=== PATIENT | male | born 1950 | race Caucasian/White ===

== ENCOUNTER 2024-04-01 15:24 | Observation (INO) ==
--- NOTE | 2024-04-01 16:03 | XRay Report ---
SINGLE VIEW CHEST CLINICAL HISTORY: Strokelike symptoms. FINDINGS: A PA chest radiograph is compared to study dated 04/03/2019 and correlated with chest CT karishma ed 07/23/2016. The patient is status post midline sternotomy. The cardiomediastinal silhouette is top normal for projection noting atherosclerotic calcification of the thoracic aorta. The lungs and pleu ral spaces are clear. No pneumothorax is seen. The skeletal structures are osteopenic. The bony thora x is grossly intact. IMPRESSION: No active disease in the chest. ACT 112: Negative or not required by law. Electronically signed by: Pavel Youngblood M.D. 04/01/2024 4:02 PM
--- NOTE | 2024-04-01 16:06 | Emergency Department Note ---
Impression & Plan Right sided weakness, Stroke-like symptoms, LEONARDO (acute kidney injury), Stenosis of right vertebral artery, Syncope and collapse ED Provider Note HISTORY OF PRESENT ILLNESS: Patient is a 73-year-old male presenting with right-sided weakness and bilateral upper extremity numbness. Patient reports that he initially started having numbness and tingling in his left arm starting 4 weeks ago. States that it progressed up his arm and is now the entirety of his left arm. He states he is now also having weakness and numbness and tingling in his right upper extremity. Reports that he is unable to lift his right upper extremity without assisting it with the left upper extremity. He has also progressed to having weakness in the right lower leg, and has ambulatory dysfunction and often will be dragging his right foot behind him. He is on Plavix and 162 mg of aspirin daily. He has a previous history of open heart surgery with a triple bypass. He also reportedly has been having recurrent episodes in which he passes out. Denies any chest pain or shortness of breath prior to the passing out. Reports he gets lightheaded and dizzy and then falls to the ground. He is concerned he might of had a stroke. His last known well was over 4 weeks ago. He states that his doctor thought it might be PMR, but his testing came back negative so his doctor started him on a steroid. He has been on steroid for the last 10 days, without any improvement in his symptoms. He was at the chiropractor today and given his symptoms, the chiropractor sent him here. Patient denies ever having his neck cracked by a chiropractor. Denies any chest pain or shortness of breath. Denies any back pain or abdominal pain. ROS: as above PHYSICAL EXAM: Constitutional: Patient appears in no acute distress. HENT: Head: Normocephalic and atraumatic. Eyes: EOMI, PERRL Mouth/Throat: Mucous membranes moist. Neck: Trachea midline. Neck supple. Cardiovascular: RRR, No murmurs, rubs or gallops. Intact distal pulses. Pulmonary/Chest: No respiratory distress. Breath sounds clear and equal bilaterally. No wheezes or rales. Abdominal: Abdomen soft, no tenderness, rebound or guarding. Musculoskeletal: No edema, tenderness or deformity noted. Skin: Warm and dry. No rash, erythema, pallor or cyanosis Psychiatric: Appropriate mood and affect for situation. Neurological: Alert and keenly responsive. Facies symmetric. Able to raise eyebrows, close eyes, smile, puff mouth, stick out tongue, move tongue left and right and raise palate symmetrically. Able to shrug shoulders. PERRLA. SILT to forehead below eye and at jawline. Can hear soft noise bilaterally. Patient is unable to perform [id number] with the right upper extremity. He is unable to lift his right arm up to touch his nose. Strength 4/5 in right upper extremity and right lower extremity. Right upper extremity with some notable drift. MDM: - Vitals signs stable. - History obtained via patient. History as above. - Chronic conditions affecting care: hypothyroidism; HLD; CAD (s/p CABG) - Differential diagnoses include, but are not limited to: CVA; intracranial hemorrhage; vertebral dissection; ACS; dysrhythmia - Order placed for continuous cardiac monitoring. At this time, monitor showed rate of 76 bpm with normal sinus rhythm, per my interpretation. - External medical records reviewed. Outside family practice note dated 04/03/2019 was reviewed. Patient followed in their clinic for an acute evaluation for fever and left shoulder pain. Patient had a documented last thoracic echocardiogram on 10/24/2018 which showed an EF of 55 to 59%. - EKG interpreted by myself showed normal sinus rhythm. Rate 70 bpm. QT 380. No acute ischemic changes. - Laboratory workup interpreted by myself showed leukocytosis (WBC 11.07); normal PT/INR; normal electrolytes; LEONARDO (Cr 1.45); normal troponin; normal lactate - CXR negative for pneumonia, per my interpretation - CT head wo contrast negative for acute pathology - CTA head/neck showed high-grade stenosis of the right vertebral and posterior cerebral arteries secondary to atherosclerosis. - Discussed results with the patient. Though he has no obvious stroke on his CT imaging, significant concern for stroke and recommended admission for further stroke workup including an MRI. He is already on aspirin and Plavix. He is agreeable to admission. - Patient given 1L NS in setting of LEONARDO and contrast dye load for his CT imaging. - Discussion was had with clinical case manager about patient's case and need for admission - Hospitalist, Dr. Holguin, consulted for admission - [facility] ASSESSMENT AND PLAN: Diagnosis: Right-sided weakness; strokelike symptoms; LEONARDO; stenosis of right vertebral artery; syncope and collapse Plan: admit Past Med/Surg History Problem List Syncope and collapse (Acute) Stenosis of right vertebral artery (Acute) LEONARDO (acute kidney injury) (Acute) Stroke-like symptoms (Acute) Right sided weakness (Acute) Unstable angina (03/05/14) Coronary artery disease (Chronic) Dyslipidemia (Chronic) Sleep apnea (Chronic) Hypothyroidism (Chronic) Status post coronary artery stent placement (Chronic) Status post appendectomy (Chronic) Status post tonsillectomy (Chronic) Status post rotator cuff repair (Chronic) Social History Smoking Status: Never smoker Feels Safe at Home: Yes Allergies Allergies Allergy/AdvReac Type Severity Reaction Status Date / Time Sulfa (Sulfonamide Allergy Unknown Blisters Verified 04/01/24 18:50 Antibiotics) atenolol AdvReac Unknown BRADYCARDIA Verified 04/01/24 18:50 ,DIZZINESS metoprolol AdvReac Unknown BRADYCARDIA Verified 04/01/24 18:50 ,DIZZINESS Home Meds Home Medications Medication Instructions Recorded Confirmed acetaminophen 500 mg tablet 500 mg PO DIRECTED PRN Pain 04/03/19 04/01/24 aspirin 81 mg chewable tablet 162 mg PO QAM 04/03/19 04/01/24 atorvastatin 40 mg tablet 40 mg PO HS 04/03/19 04/01/24 carvedilol 6.25 mg tablet 6.25 mg PO BID 04/03/19 04/01/24 levothyroxine 100 mcg tablet 100 mcg PO QAM 04/03/19 04/01/24 nitroglycerin 0.4 mg sublingual 0.4 mg sublingual DIRECTED PRN 04/03/19 04/01/24 tablet Chest Pain hydrochlorothiazide 25 mg tablet 25 mg PO QAM 04/01/24 04/01/24 losartan 100 mg tablet 100 mg PO QAM 04/01/24 04/01/24 Results & Data (ED) Vital Signs Vital Signs - 24 hr 04/01/24 15:26 04/01/24 16:21 04/01/24 17:06 Temperature 36.1 C L Temperature Source Temporal Artery Scan Pulse Rate 88 76 Pulse Rate [Apical] 71 Respiratory Rate 16 15 Respiratory Effort / Characteristics Non-Labored Spontaneous Respiratory Depth Normal Blood Pressure 140/93 Blood Pressure [Left Arm] 135/86 Blood Pressure Mean 108 Blood Pressure Mean [Left Arm] 102 Pulse Oximetry 100 98 Oxygen Delivery Method Room Air Room Air Sepsis Recent Fever Within 48 Hours No Sepsis New/Unexplained Change in Mental Status N/A Sepsis Action Taken by Nursing No Action Required 04/01/24 19:00 Temperature Temperature Source Pulse Rate Pulse Rate [Apical] 76 Respiratory Rate 18 Respiratory Effort / Characteristics Respiratory Depth Blood Pressure Blood Pressure [Left Arm] 166/91 H Blood Pressure Mean Blood Pressure Mean [Left Arm] 116 Pulse Oximetry 99 Oxygen Delivery Method Room Air Sepsis Recent Fever Within 48 Hours Sepsis New/Unexplained Change in Mental Status Sepsis Action Taken by Nursing Laboratory Data 04/01/24 16:25 04/01/24 16:25 Lab Results 04/01/24 04/01/24 Range/Units 16:20 16:25 WBC 11.07 H (4.8-10.8) K/ul RBC 4.67 L (4.70-6.10) M/uL Hgb 14.2 (14.0-18.0) g/dl Hct 42.5 (42.0-52.0) % MCV 91.0 (80.0-100.0) fL MCH 30.4 (25.0-34.0) pg MCHC 33.4 (32.0-36.0) g/dL RDW Std Deviation 45.3 (36.4-46.3) fL RDW Coeff of Jelly 13.5 (11.5-14.5) % Plt Count 212 (130-400) K/uL MPV 11.2 (9.4-12.4) fL PT 10.3 (9.0-12.0) Seconds INR 0.9 (0.9-1.1) APTT 28 (21-31) Seconds PTT Ratio 1.0 Sodium 136 (136-145) mmol/L Potassium 4.3 (3.5-5.1) mmol/L Chloride 103 (98-107) mmol/L Carbon Dioxide 27 (21-32) mmol/L Anion Gap 6 (3-11) BUN 25 H (6-23) mg/dl Creatinine 1.45 H (0.6-1.4) mg/dl Est Cr Clr Drug Dosing 47.3 ml/min Est GFR ( Amer) 55.8 ml/min Est GFR (Non-Af Amer) 48.1 ml/min BUN/Creatinine Ratio 17.2 (10-20) Glucose 97 (70-99(Fasting)) mg/dl Lactate 1.8 (0.4-2.0) mmol/L Calcium 9.6 (8.6-10.3) mg/dl Magnesium 1.9 (1.7-2.4) mg/dl Total Bilirubin 0.8 (0.2-1.0) mg/dl AST 15 (13-39) U/L ALT 16 (7-52) U/L Alkaline Phosphatase 63 (34-104) U/L Troponin I High Sens 3.9 (0-20) pg/ml Total Protein 7.3 (6.0-8.3) gm/dl Albumin 4.3 (3.4-5.0) gm/dl Globulin 3.0 (2.5-4.0) gm/dl Albumin/Globulin Ratio 1.4 (0.9-2) Administered Medications Discontinued Medications Sodium Chloride (Nss) 1,000 mls @ 999 mls/hr IV .Q1H1M ONE Stop: 04/01/24 18:01 Last Infusion: 04/01/24 18:12 Dose: Infused Documented By: Admin: 04/01/24 17:07 Dose: 999 mls/hr Documented By: YRN Ioversol (Optiray 320 125ml) 117 ml IV ONCE ONE Stop: 04/01/24 17:44 Last Admin: 04/01/24 17:43 Dose: 117 ml Documented By: JACINTA Imaging Data Radiologist's Impression: Chest X-Ray 04/01/24 15:29 SINGLE VIEW CHEST CLINICAL HISTORY: Strokelike symptoms. FINDINGS: A PA chest radiograph is compared to study dated 04/03/2019 and correlated with chest CT dated 07/23/2016. The patient is status post midline sternotomy. The cardiomediastinal silhouette is top normal for projection noting atherosclerotic calcification of the thoracic aorta. The lungs and pleural spaces are clear. No pneumothorax is seen. The skeletal structures are osteopenic. The bony thorax is grossly intact. IMPRESSION: No active disease in the chest. ACT 112: Negative or not required by law. Electronically signed by: Pavel Youngblood M.D. 04/01/2024 4:[address] 04/01/24 15:32 CT angio head w con, CT angio neck with con, CT head/brain wo con CLINICAL HISTORY: 73 years-old Male with arm numbness; neck pain s/p chiropractor apt. Acute stroke like symptoms COMPARISON STUDY: None TECHNIQUE: Unenhanced axial CT scan of the brain is performed. Subsequently, following the IV administration of 117 cc of Optiray, CT angiogram of the head and neck was performed from the aortic arch to the skull apex. Images are reviewed in the axial, sagittal, and coronal planes. 3-D MIPS images are created and assessed. IV contrast was administered without complication. All measurements were obtained according to NASCET criteria. A dose lowering technique was utilized adhering to the principles of ALARA. CT DOSE: 1243.82 mGy.cm FINDINGS: CT BRAIN: There is no acute intracranial hemorrhage, midline shift, hydrocephalus, intracranial mass, territorial ischemia or abnormal extra-axial collections. No abnormal intra-axial or extra-axial enhancement. Involutional changes with chronic microvascular ischemic disease. Mildly motion degraded exam. Mastoid air cells and middle ear cavities are clear. No calvarial fracture. Paranasal sinuses are clear. CT ANGIOGRAM OF THE HEAD AND NECK: Median sternotomy wires. Three-vessel morphology thoracic aortic arch. There is patency of the innominate and imaged subclavian arteries. The common carotid arteries are widely patent. There is moderate atherosclerotic plaque of the carotid bulbs without high-grade stenosis. The bilateral anterior and middle cerebral arteries are also patent. There is a mild multifocal middle cerebral arterial stenosis. Dominant left vertebral artery. High-grade stenosis at the origin of the right vertebral artery secondary to calcified plaque. Additional high-grade stenosis in the V4 segment right vertebral artery image 319. Patent basilar and left posterior cerebral artery. High-grade stenosis of the right P1 segment, image 115 series 5. No aneurysm, dissection or proximal branch occlusion identified. Lung apices are clear without pneumothorax. Unremarkable thyroid and soft tissues. Indeterminate posterior right cervical chain lymph node measures 8 mm on image 243 series 6. Degenerative changes of the cervical spine. IMPRESSION: 1. No acute intracranial abnormality. 2. High-grade stenoses of the right vertebral and posterior cerebral arteries secondary to atherosclerosis. 3. Moderate atherosclerosis of the carotid bulbs without high-grade stenosis. 4. No aneurysm, dissection or arterial occlusion identified. ACT 112: Negative or not required by law. The above report was generated using voice recognition software. It may contain grammatical, syntax or spelling errors. Electronically signed by: Daniel Castro M.D. 04/01/2024 6:16 PM Head CTA 04/01/24 15:32 CT angio head w con, CT angio neck with con, CT head/brain wo con CLINICAL HISTORY: 73 years-old Male with arm numbness; neck pain s/p chiropractor apt. Acute stroke like symptoms COMPARISON STUDY: None TECHNIQUE: Unenhanced axial CT scan of the brain is performed. Subsequently, following the IV administration of 117 cc of Optiray, CT angiogram of the head and neck was performed from the aortic arch to the skull apex. Images are reviewed in the axial, sagittal, and coronal planes. 3-D MIPS images are created and assessed. IV contrast was administered without complication. All measurements were obtained according to NASCET criteria. A dose lowering technique was utilized adhering to the principles of ALARA. CT DOSE: 1243.82 mGy.cm FINDINGS: CT BRAIN: There is no acute intracranial hemorrhage, midline shift, hydrocephalus, intracranial mass, territorial ischemia or abnormal extra-axial collections. No abnormal intra-axial or extra-axial enhancement. Involutional changes with chronic microvascular ischemic disease. Mildly motion degraded exam. Mastoid air cells and middle ear cavities are clear. No calvarial fracture. Paranasal sinuses are clear. CT ANGIOGRAM OF THE HEAD AND NECK: Median sternotomy wires. Three-vessel morphology thoracic aortic arch. There is patency of the innominate and imaged subclavian arteries. The common carotid arteries are widely patent. There is moderate atherosclerotic plaque of the carotid bulbs without high-grade stenosis. The bilateral anterior and middle cerebral arteries are also patent. There is a mild multifocal middle cerebral arterial stenosis. Dominant left vertebral artery. High-grade stenosis at the origin of the right vertebral artery secondary to calcified plaque. Additional high-grade stenosis in the V4 segment right vertebral artery image 319. Patent basilar and left posterior cerebral artery. High-grade stenosis of the right P1 segment, image 115 series 5. No aneurysm, dissection or proximal branch occlusion identified. Lung apices are clear without pneumothorax. Unremarkable thyroid and soft tissues. Indeterminate posterior right cervical chain lymph node measures 8 mm on image 243 series 6. Degenerative changes of the cervical spine. IMPRESSION: 1. No acute intracranial abnormality. 2. High-grade stenoses of the right vertebral and posterior cerebral arteries secondary to atherosclerosis. 3. Moderate atherosclerosis of the carotid bulbs without high-grade stenosis. 4. No aneurysm, dissection or arterial occlusion identified. ACT 112: Negative or not required by law. The above report was generated using voice recognition software. It may contain grammatical, syntax or spelling errors. Electronically signed by: Daniel Castro M.D. 04/01/2024 6:16 PM Neck CTA 04/01/24 15:32 CT angio head w con, CT angio neck with con, CT head/brain wo con CLINICAL HISTORY: 73 years-old Male with arm numbness; neck pain s/p chiropractor apt. Acute stroke like symptoms COMPARISON STUDY: None TECHNIQUE: Unenhanced axial CT scan of the brain is performed. Subsequently, following the IV administration of 117 cc of Optiray, CT angiogram of the head and neck was performed from the aortic arch to the skull apex. Images are reviewed in the axial, sagittal, and coronal planes. 3-D MIPS images are created and assessed. IV contrast was administered without complication. All measurements were obtained according to NASCET criteria. A dose lowering technique was utilized adhering to the principles of ALARA. CT DOSE: 1243.82 mGy.cm FINDINGS: CT BRAIN: There is no acute intracranial hemorrhage, midline shift, hydrocephalus, intracranial mass, territorial ischemia or abnormal extra-axial collections. No abnormal intra-axial or extra-axial enhancement. Involutional changes with chronic microvascular ischemic disease. Mildly motion degraded exam. Mastoid air cells and middle ear cavities are clear. No calvarial fracture. Paranasal sinuses are clear. CT ANGIOGRAM OF THE HEAD AND NECK: Median sternotomy wires. Three-vessel morphology thoracic aortic arch. There is patency of the innominate and imaged subclavian arteries. The common carotid arteries are widely patent. There is moderate atherosclerotic plaque of the carotid bulbs without high-grade stenosis. The bilateral anterior and middle cerebral arteries are also patent. There is a mild multifocal middle cerebral arterial stenosis. Dominant left vertebral artery. High-grade stenosis at the origin of the right vertebral artery secondary to calcified plaque. Additional high-grade stenosis in the V4 segment right vertebral artery image 319. Patent basilar and left posterior cerebral artery. High-grade stenosis of the right P1 segment, image 115 series 5. No aneurysm, dissection or proximal branch occlusion identified. Lung apices are clear without pneumothorax. Unremarkable thyroid and soft tissues. Indeterminate posterior right cervical chain lymph node measures 8 mm on image 243 series 6. Degenerative changes of the cervical spine. IMPRESSION: 1. No acute intracranial abnormality. 2. High-grade stenoses of the right vertebral and posterior cerebral arteries secondary to atherosclerosis. 3. Moderate atherosclerosis of the carotid bulbs without high-grade stenosis. 4. No aneurysm, dissection or arterial occlusion identified. ACT 112: Negative or not required by law. The above report was generated using voice recognition software. It may contain grammatical, syntax or spelling errors. Electronically signed by: Daniel Castro M.D. 04/01/2024 6:16 PM Discharge Plan Visit Data Chief Complaint: Referred by Doctor Stated Complaint: ARM NUMBNESS, NECK PAIN ED Provider: Brigette Constantino Discharge Problem: Right sided weakness, Stroke-like symptoms, LEONARDO (acute kidney injury), Stenosis of right vertebral artery, Syncope and collapse Forms Stand Alone Forms: My [facility] [employer] Prescriptions Prescriptions: No Action atorvastatin 40 mg tablet 40 mg PO HS carvedilol 6.25 mg tablet 6.25 mg PO BID levothyroxine 100 mcg tablet 100 mcg PO QAM Rx Instructions: TAKE THIS MEDICATION AT LEAST 30 MINUTES BEFORE BREAKFAST OR ANY OTHER MEDICATION aspirin 81 mg tablet,chewable 162 mg PO QAM nitroglycerin 0.4 mg Tablet, Sublingual 0.4 mg sublingual DIRECTED PRN (Reason: Chest Pain) Rx Instructions: PLACE ONE TABLET UNDER THE TONGUE EVERY 5 MINUTES FOR UP TO 3 DOSES OVER 15 MINUTES IF NEEDED FOR CHEST PAIN acetaminophen 500 mg Tablet 500 mg PO DIRECTED PRN (Reason: Pain) Rx Instructions: TAKE PER PACKAGE DIRECTIONS hydrochlorothiazide 25 mg tablet 25 mg PO QAM losartan 100 mg tablet 100 mg PO QAM Referrals Referrals: Ritesh Iniguez MD [Primary Care Provider] -
[2024-04-01 16:57] LABS: Albumin Globulin Ratio 1.4 (0.9-2); Albumin Level 4.3 gm/dl (3.4-5.0); BUN Creatinine Ratio 17.2 (10-20); Bilirubin,Total 0.8 mg/dl (0.2-1.0); Calcium 9.6 mg/dl (8.6-10.3); Creatinine Clr Calc Pharmacy 47.3 ml/min; Est GFR (African American) 55.8 ml/min; Est GFR (Non-African American) 48.1 ml/min; Magnesium 1.9 mg/dl (1.7-2.4); Potassium 4.3 mmol/L (3.5-5.1); Total Protein 7.3 gm/dl (6.0-8.3)
[2024-04-01 16:58] LABS: Hematocrit (blood only) 42.5 % (42.0-52.0); Hemoglobin 14.2 g/dl (14.0-18.0); Mean Corpuscular Hemoglobin 30.4 pg (25.0-34.0); Mean Corpuscular Hgb Conc 33.4 g/dL (32.0-36.0); Mean Platelet Volume 11.2 fL (9.4-12.4); Platelet Count 212 K/uL (130-400); RDW Coefficient of Variation 13.5 % (11.5-14.5); RDW Standard Deviation 45.3 fL (36.4-46.3); Red Blood Count 4.67 M/uL (4.70-6.10); White Blood Count 11.07 K/ul (4.8-10.8)
[2024-04-01 17:03] LABS: Troponin I High Sensitivity 3.9 pg/ml (0-20)
[2024-04-01 17:05] LABS: INR 0.9 (0.9-1.1); Partial Thromboplastin Time 28 Seconds (21-31); Prothrombin Time 10.3 Seconds (9.0-12.0)
[2024-04-01] MEDS: SODIUM CHLORIDE 0.9% 1,000 ML IV ONE ×2 (17:07→21:54)
[2024-04-01] MEDS: OPTIRAY 320 125ml IV ONE (17:43)
--- NOTE | 2024-04-01 18:19 | CT Scan Report ---
CT angio head w con, CT angio neck with con, CT head/brain wo con CLINICAL HISTORY: 73 years-old Male with arm numbness; neck pain s/p chiropractor apt. Acute strok e like symptoms COMPARISON STUDY: None TECHNIQUE: Unenhanced axial CT scan of the brain is performed. Subsequently, following the IV adminis tration of 117 cc of Optiray, CT angiogram of the head and neck was performed from the aortic arch to the skull apex. Images are reviewed in the axial, sagittal, and coronal planes. 3-D MIPS images are created and assessed. IV contrast was administered without complication. All measurements were obtain ed according to NASCET criteria. A dose lowering technique was utilized adhering to the principles of ALARA. CT DOSE: 1243.82 mGy.cm FINDINGS: CT BRAIN: There is no acute intracranial hemorrhage, midline shift, hydrocephalus, intracranial mass, territori al ischemia or abnormal extra-axial collections. No abnormal intra-axial or extra-axial enhancement. Involutional changes with chronic microvascular ischemic disease. Mildly motion degraded exam. Masto id air cells and middle ear cavities are clear. No calvarial fracture. Paranasal sinuses are clear. CT ANGIOGRAM OF THE HEAD AND NECK: Median sternotomy wires. Three-vessel morphology thoracic aortic arch. There is patency of the innomi brisa and imaged subclavian arteries. The common carotid arteries are widely patent. There is moderate atherosclerotic plaque of the carotid bulbs without high-grade stenosis. The bilateral anterior and middle cerebral arteries are also patent. There is a mild multifocal middle cerebral arterial stenosi s. Dominant left vertebral artery. High-grade stenosis at the origin of the right vertebral artery se condary to calcified plaque. Additional high-grade stenosis in the V4 segment right vertebral artery image 319. Patent basilar and left posterior cerebral artery. High-grade stenosis of the right P1 seg ment, image 115 series 5. No aneurysm, dissection or proximal branch occlusion identified. Lung apices are clear without pneumothorax. Unremarkable thyroid and soft tissues. Indeterminate post erior right cervical chain lymph node measures 8 mm on image 243 series 6. Degenerative changes of th e cervical spine. IMPRESSION: 1. No acute intracranial abnormality. 2. High-grade stenoses of the right vertebral and posterior cerebral arteries secondary to atheroscle rosis. 3. Moderate atherosclerosis of the carotid bulbs without high-grade stenosis. 4. No aneurysm, dissection or arterial occlusion identified. ACT 112: Negative or not required by law. The above report was generated using voice recognition software. It may contain grammatical, syntax o r spelling errors. Electronically signed by: Daniel Castro M.D. 04/01/2024 6:16 PM
--- NOTE | 2024-04-01 18:35 | Electrocardiogram Report ---
Test Reason : Blood Pressure : / mmHG Vent. Rate : 070 BPM Atrial Rate : 070 BPM P-R Int : 158 ms QRS Dur : 082 ms QT Int : 380 ms P-R-T Axes : 020 027 095 degrees QTc Int : 410 ms Normal sinus rhythm When compared with ECG of 03-APR-2019 15:30, Premature atrial complexes are no longer Present Confirmed by Krishna Romero ([id number]) on 04/01/2024 6:35:37 PM Referred By: REFERRED SELF Confirmed By:Villa Romero
[2024-04-01] MEDS: MAGNESIUM SULFATE / D5W 1 GM/100 ML BAG IV ONE (20:05)
--- NOTE | 2024-04-01 21:42 | History & Physical Report ---
Date of Service April 01, 2024 Assessment & Plan (1) Right sided weakness: Plan: Rule out CVA Rule out myelopathy given neck and low back pain complaints. CAD status post CABG PVD on imaging valvular heart disease (mild MR/TR) hypertension, slightly elevated hyperlipidemia, on statin Rx EULALIA on CPAP hypothyroidism, euthyroid as of recent outpatient TSH OBS Medical telemetry Neurochecks until CVA ruled out Aspirin for secondary stroke prevention Permissive hypertension until definitively stroke ruled out MRI brain MRI cervical spine and lumbar spine DVT prophylaxis. SCDs Re: Possible spinal pathology which may require intervention Full code Patient daughter requesting updates providers. Ms. Adina Rhodes, contact #[phone]. Text document was generated using Dada voice recognition software. It may contain grammatical or spelling errors. Kindly contact undersigned for clarification of any documentation item in question. History of Present Illness Chief Complaint: Worsening right arm weakness Primary Care Provider: Ritesh Iniguez MD History obtained from patient, family, and records. Medical history significant for CAD status post CABG, valvular heart disease (mild MR/TR), hypertension, hyperlipidemia, EULALIA on CPAP, GERD, hypothyroidism. Last confinement 2015 for unstable angina. 1 month history of bilateral upper extremity weakness, left later followed by the right with numbness of the hands. Associated neck pain and fatigue symptoms. No recollection of trauma. Patient seen at PCP's office. Steroid course prescribed for possible PMR. ESR within normal limits. No improvement in symptoms. Patient noted worsening right upper extremity weakness later followed by back pain with right leg weakness. No incontinence symptoms. No fever, no chills. Patient seen at chiropractor's office few days ago. Low back maneuver done which improved back pain. Persistent arm weakness and numbness symptoms. Patient directed to ER by family for further evaluation. Medical History as above Surgical History : CABG, knee surgery, appendectomy, tonsillectomy/adenectomy, shoulder surgery Family History : DM, heart disease, stroke Personal/Social history : Non-smoker, no EtOH intake, retired [employer] employee Allergies Allergy/AdvReac Type Severity Reaction Status Date / Time Sulfa (Sulfonamide Allergy Unknown Blisters Verified 04/01/24 18:50 Antibiotics) atenolol AdvReac Unknown BRADYCARDIA Verified 04/01/24 18:50 ,DIZZINESS metoprolol AdvReac Unknown BRADYCARDIA Verified 04/01/24 18:50 ,DIZZINESS Home Medications Medication Instructions Recorded Confirmed Type acetaminophen 500 mg tablet 500 mg PO DIRECTED PRN Pain 04/03/19 04/01/24 History aspirin 81 mg chewable tablet 162 mg PO QAM 04/03/19 04/01/24 History atorvastatin 40 mg tablet 40 mg PO HS 04/03/19 04/01/24 History carvedilol 6.25 mg tablet 6.25 mg PO BID 04/03/19 04/01/24 History levothyroxine 100 mcg tablet 100 mcg PO QAM 04/03/19 04/01/24 History nitroglycerin 0.4 mg sublingual 0.4 mg sublingual DIRECTED PRN 04/03/19 04/01/24 History tablet Chest Pain hydrochlorothiazide 25 mg tablet 25 mg PO QAM 04/01/24 04/01/24 History losartan 100 mg tablet 100 mg PO QAM 04/01/24 04/01/24 History Past Med/Surg History Problem List Syncope and collapse (Acute) Stenosis of right vertebral artery (Acute) LEONARDO (acute kidney injury) (Acute) Stroke-like symptoms (Acute) Right sided weakness (Acute) Unstable angina (03/05/14) Coronary artery disease (Chronic) Dyslipidemia (Chronic) Sleep apnea (Chronic) Hypothyroidism (Chronic) Status post coronary artery stent placement (Chronic) Status post appendectomy (Chronic) Status post tonsillectomy (Chronic) Status post rotator cuff repair (Chronic) Social History Smoking Status: Never smoker Hx Alcohol Use: No Hx Substance Use: No Preferred Language: Mongolian Communication Ability: Effective Collision Center Manager Required: No Beliefs That Will Affect Care: None Current Living Situation: Spouse Other Information That Helps Us Care for You: No Feels Safe at Home: Yes Safety Concerns: Feels Safe At This Time Assistive Devices: Glasses Review of Systems Review of Systems: As per HPI, all other systems reviewed and negative Physical Exam Physical Exam: GENERAL: Slightly uncomfortable, pleasant, no respiratory distress SKIN: Normal color, warm HEENT: Alopecia, pink palpebral conjunctivae, no ptosis, dry buccal mucosa NECK : Supple, right cervical tenderness CHEST : CTA, no tenderness HEART : RRR, no obvious murmurs ABDOMEN: Some distention, nontender EXTREMITIES : No LE swelling/tenderness, no other conspicuous deformities noted NEUROLOGIC : Coherent, no facial asymmetry, MMTS BUE/BLE 3/5, gait and stance not assessed Results & Data Results & Data Vital Signs (Past 12 Hours) Vital Signs Temp Pulse Pulse Resp BP BP Pulse Ox 04/01/24 21:00 80 19 142/81 H 95 04/01/24 20:42 85 04/01/24 19:00 76 18 166/91 H 99 04/01/24 17:06 71 15 135/86 98 04/01/24 16:21 76 04/01/24 15:26 36.1 C L 88 16 140/93 100 O2 Del Method 04/01/24 21:00 Room Air 04/01/24 20:42 04/01/24 19:00 Room Air 04/01/24 17:06 Room Air 04/01/24 16:21 04/01/24 15:26 Room Air Laboratory Results Laboratory Results WBC 11.07 K/ul (4.8-10.8) H 04/01/24 16:25 RBC 4.67 M/uL (4.70-6.10) L 04/01/24 16:25 Hgb 14.2 g/dl (14.0-18.0) 04/01/24 16:25 Hct 42.5 % (42.0-52.0) 04/01/24 16: MCV 91.0 fL (80.0-100.0) 04/01/24 16:25 MCH 30.4 pg (25.0-34.0) 04/01/24 16: MCHC 33.4 g/dL (32.0-36.0) 04/01/24 16:25 RDW Std Deviation 45.3 fL (36.4-46.3) 04/01/24 16: RDW Coeff of Jelly 13.5 % (11.5-14.5) 04/01/24 16:25 Plt Count 212 K/uL (130-400) 04/01/24 16:25 MPV 11.2 fL (9.4-12.4) 04/01/24 16:25 PT 10.3 Seconds (9.0-12.0) 04/01/24 16:25 INR 0.9 (0.9-1.1) 04/01/24 16:25 APTT 28 Seconds (21-31) 04/01/24 16:25 PTT Ratio 1.0 04/01/24 16:25 Sodium 136 mmol/L (136-145) 04/01/24 16:25 Potassium 4.3 mmol/L (3.5-5.1) 04/01/24 16:25 Chloride 103 mmol/L (98-107) 04/01/24 16:25 Carbon Dioxide 27 mmol/L (21-32) 04/01/24 16:25 Anion Gap 6 (3-11) 04/01/24 16:25 BUN 25 mg/dl (6-23) H 04/01/24 16:25 Creatinine 1.45 mg/dl (0.6-1.4) H 04/01/24 16:25 Est Cr Clr Drug Dosing 47.3 ml/min 04/01/24 16:25 Est GFR ( Amer) 55.8 ml/min 04/01/24 16:25 Est GFR (Non-Af Amer) 48.1 ml/min 04/01/24 16:25 BUN/Creatinine Ratio 17.2 (10-20) 04/01/24 16:25 Glucose 97 mg/dl (70-99(Fasting)) 04/01/24 16:25 Lactate 1.8 mmol/L (0.4-2.0) 04/01/24 16:20 Calcium 9.6 mg/dl (8.6-10.3) 04/01/24 16:25 Magnesium 1.9 mg/dl (1.7-2.4) 04/01/24 16:25 Total Bilirubin 0.8 mg/dl (0.2-1.0) 04/01/24 16:25 AST 15 U/L (13-39) 04/01/24 16:25 ALT 16 U/L (7-52) 04/01/24 16:25 Alkaline Phosphatase 63 U/L (34-104) 04/01/24 16:25 Troponin I High Sens 3.9 pg/ml (0-20) 04/01/24 16:25 Total Protein 7.3 gm/dl (6.0-8.3) 04/01/24 16:25 Albumin 4.3 gm/dl (3.4-5.0) 04/01/24 16:25 Globulin 3.0 gm/dl (2.5-4.0) 04/01/24 16:25 Albumin/Globulin Ratio 1.4 (0.9-2) 04/01/24 16:25 Impressions Chest X-Ray 04/01/24 15:29 SINGLE VIEW CHEST CLINICAL HISTORY: Strokelike symptoms. FINDINGS: A PA chest radiograph is compared to study dated 04/03/2019 and correlated with chest CT dated 07/23/2016. The patient is status post midline sternotomy. The cardiomediastinal silhouette is top normal for projection noting atherosclerotic calcification of the thoracic aorta. The lungs and pleural spaces are clear. No pneumothorax is seen. The skeletal structures are osteope ellyn. The bony thorax is grossly intact. IMPRESSION: No active disease in the chest. ACT 112: Negative or not required by law. Electronically signed by: Pavel Youngblood M.D. 04/01/2024 4:[address] 04/01/24 15:32 CT angio head w con, CT angio neck with con, CT head/brain wo con CLINICAL HISTORY: 73 years-old Male with arm numbness; neck pain s/p chiro practor apt. Acute stroke like symptoms COMPARISON STUDY: None TECHNIQUE: Unenhanced axial CT scan of the brain is performed. Subsequently, following the IV administration of 117 cc of Optiray, CT angiogram of the head and neck was performed from the aortic arch to the skull apex. Images are reviewed in the axial, sagittal, and coronal planes. 3-D MIPS images are created and assessed. IV contrast was administered without complication. All measurements were obtained according to NASCET criteria. A dose lowering technique was utilized adhering to the principles of ALARA. CT DOSE: 1243.82 mGy.cm FINDINGS: CT BRAIN: There is no acute intracranial hemorrhage, midline shift, hydrocephalus, intracranial mass, territorial ischemia or abnormal extra-axial collections. No abnormal intra-axial or extra-axial enhancement. Involutional changes with chronic microvascular ischemic disease. Mildly motion degraded exam. Mastoid air cells and middle ear cavities are clear. No calvarial fracture. Paranasal sinuses are clear. CT ANGIOGRAM OF THE HEAD AND NECK: Median sternotomy wires. Three-vessel morphology thoracic aortic arch. There is patency of the innominate and imaged subclavian arteries. The common carotid arteries are widely patent. There is moderate atherosclerotic plaque of the carotid bulbs without high-grade stenosis. The bilateral anterior and middle cerebral arteries are also patent. There is a mild multifocal middle cerebral arterial stenosis. Dominant left vertebral artery. High-grade stenosis at the origin of the right vertebral artery secondary to calcified plaque. Additional high-grade stenosis in the V4 segment right vertebral artery image 319. Patent basilar and left posterior cerebral artery. High-grade stenosis of the right P1 segment, image 115 series 5. No aneurysm, dissection or proximal branch occlusion identified. Lung apices are clear without pneumothorax. Unremarkable thyroid and soft tissues. Indeterminate posterior right cervical chain lymph node measures 8 mm on image 243 series 6. Degenerative changes of the cervical spine. IMPRESSION: 1. No acute intracranial abnormality. 2. High-grade stenoses of the right vertebral and posterior cerebral arteries secondary to atherosclerosis. 3. Moderate atherosclerosis of the carotid bulbs without high-grade stenosis. 4. No aneurysm, dissection or arterial occlusion identified. ACT 112: Negative or not required by law. The above report was generated using voice recognition software. It may contain grammatical, syntax or spelling errors. Electronically signed by: Daniel Castro M.D. 04/01/2024 6:16 PM Head CTA 04/01/24 15:32 CT angio head w con, CT angio neck with con, CT head/brain wo con CLINICAL HISTORY: 73 years-old Male with arm numbness; neck pain s/p chiropractor apt. Acute stroke like symptoms COMPARISON STUDY: None TECHNIQUE: Unenhanced axial CT scan of the brain is performed. Subsequently, following the IV administration of 117 cc of Optiray, CT angiogram of the head and neck was performed from the aortic arch to the skull apex. Images are reviewed in the axial, sagittal, and coronal planes. 3-D MIPS images are created and assessed. IV contrast was administered without complication. All measurements were obtained according to NASCET criteria. A dose lowering technique was utilized adhering to the principles of ALARA. CT DOSE: 1243.82 mGy.cm FINDINGS: CT BRAIN: There is no acute intracranial hemorrhage, midline shift, hydrocephalus, intracranial mass, territorial ischemia or abnormal extra-axial collections. No abnormal intra-axial or extra-axial enhancement. Involutional changes with chronic microvascular ischemic disease. Mildly motion degraded exam. Mastoid air cells and middle ear cavities are clear. No calvarial fracture. Paranasal sinuses are clear. CT ANGIOGRAM OF THE HEAD AND NECK: Median sternotomy wires. Three-vessel morphology thoracic aortic arch. There is patency of the innominate and imaged subclavian arteries. The common carotid arteries are widely patent. There is moderate atherosclerotic plaque of the carotid bulbs without high-grade stenosis. The bilateral anterior and middle cerebral arteries are also patent. There is a mild multifocal middle cerebral arterial stenosis. Dominant left vertebral artery. High-grade stenosis at the origin of the right vertebral artery secondary to calcified plaque. Additional high-grade stenosis in the V4 segment right vertebral artery image 319. Patent basilar and left posterior cerebral artery. High-grade stenosis of the right P1 segment, image 115 series 5. No aneurysm, dissection or proximal branch occlusion identified. Lung apices are clear without pneumothorax. Unremarkable thyroid and soft tissue s. Indeterminate posterior right cervical chain lymph node measures 8 mm on image 243 series 6. Degenerative changes of the cervical spine. IMPRESSION: 1. No acute intracranial abnormality. 2. High-grade stenoses of the right vertebral and posterior cerebral arteries secondary to atherosclerosis. 3. Moderate atherosclerosis of the carotid bulbs without high-grade stenosis. 4. No aneurysm, dissection or arterial occlusion identified. ACT 112: Negative or not required by law. The above report was generated using voice recognition software. It may contain grammatical, syntax or spelling errors. Electronically signed by: Daniel Castro M.D. 04/01/2024 6:16 PM Neck CTA 04/01/24 15:32 CT angio head w con, CT angio neck with con, CT head/brain wo con CLINICAL HISTORY: 73 years-old Male with arm numbness; neck pain s/p chiropractor apt. Acute stroke like symptoms COMPARISON STUDY: None TECHNIQUE: Unenhanced axial CT scan of the brain is performed. Subsequently, following the IV administration of 117 cc of Optiray, CT angiogram of the head and neck was performed from the aortic arch to the skull apex. Images are reviewed in the axial, sagittal, and coronal planes. 3-D MIPS images are created and assessed. IV contrast was administered without complication. All measurements were obtained according to NASCET criteria. A dose lowering technique was utilized adhering to the principles of ALARA. CT DOSE: 1243.82 mGy.cm FINDINGS: CT BRAIN: There is no acute intracranial hemorrhage, midline shift, hydrocephalus, intracranial mass, territorial ischemia or abnormal extra-axial collections. No abnormal intra-axial or extra-axial enhancement. Involutional changes with chronic microvascular ischemic disease. Mildly motion degraded exam. Mastoid air cells and middle ear cavities are clear. No calvarial fracture. Paranasal sinuses are clear. CT ANGIOGRAM OF THE HEAD AND NECK: Median sternotomy wires. Three-vessel morphology thoracic aortic arch. There is patency of the innominate and imaged subclavian arteries. The common carotid arteries are widely patent. There is moderate atherosclerotic plaque of the carotid bulbs without high-grade stenosis. The bilateral anterior and middle cerebral arteries are also patent. There is a mild multifocal middle cerebral arterial stenosis. Dominant left vertebral artery. High-grade stenosis at the origin of the right vertebral artery secondary to calcified plaque. Additional high-grade stenosis in the V4 segment right vertebral artery image 319. Patent basilar and left posterior cerebral artery. High-grade stenosis of the right P1 segment, image 115 series 5. No aneurysm, dissection or proximal branch occlusion identified. Lung apices are clear without pneumothorax. Unremarkable thyroid and soft tissues. Indeterminate posterior right cervical chain lymph node measures 8 mm on image 243 series 6. Degenerative changes of the cervical spine. IMPRESSION: 1. No acute intracranial abnormality. 2. High-grade stenoses of the right vertebral and posterior cerebral arteries secondary to atherosclerosis. 3. Moderate atherosclerosis of the carotid bulbs without high-grade stenosis. 4. No aneurysm, dissection or arterial occlusion identified. ACT 112: Negative or not required by law. The above report was generated using voice recognition software. It may contain grammatical, syntax or spelling errors. Electronically signed by: Daniel Castro M.D. 04/01/2024 6:16 PM Diagnostic Findings EKG as per my interpretation : Rate 70, NSR, normal axis, septal infarct, T wave abnormalities septal leads
[2024-04-01] MEDS ORDERED: HYDROmorphone INJ 0.5 MG/0.5 ML SYR IV PRN (21:43)
[2024-04-01] MEDS ORDERED: PROMETHAZINE HCL 6.25 MG in SODIUM CHLORIDE 0.9% 50 ML IV PRN (21:43)
[2024-04-01] MEDS ORDERED: ACETAMINOPHEN 325 MG TAB PO PRN (21:43)
[2024-04-01] MEDS ORDERED: PHARMACIST DISCHARGE MED REC CONSULT PRN (21:43)
[2024-04-01] MEDS ORDERED: oxyCODONE HCL IR 5 MG TAB (IMMEDIATE RELEASE) PO PRN (21:43)
[2024-04-02] MEDS ORDERED: ATORVASTATIN 40 MG TAB PO SCH ×2 (00:45→21:00)
--- NOTE | 2024-04-02 01:47 | Magnetic Resonance Report ---
Exam(s): MRI HEAD Without Contrast EXAM: MR Head Without Intravenous Contrast CLINICAL HISTORY: Reason for exam: R weakness. TECHNIQUE: Magnetic resonance images of the head/brain without intravenous contrast in multiple planes. COMPARISON: Comparison made to prior head CT from April 01, 2024. FINDINGS: Brain: Mild nonspecific white matter changes. The flow voids at the base of the brain are intact. No mass. No hemorrhage. No acute infarct. Ventricles: Unremarkable. No ventriculomegaly. Bones/joints: Unremarkable. No acute fracture. Sinuses: Chronic ethmoid sinusitis. No acute sinusitis. Mastoid air cells: Unremarkable as visualized. No mastoid effusion. Orbits: Unremarkable as visualized. IMPRESSION: No evidence of acute intracranial pathology. Electronically signed by: Kelsea Portillo MD 04/02/24 01:47 AM
--- NOTE | 2024-04-02 02:05 | Magnetic Resonance Report ---
Exam(s): MRI C SPINE EXAM: MR Cervical Spine Without Intravenous Contrast CLINICAL HISTORY: Reason for exam: pain. TECHNIQUE: Magnetic resonance images of the cervical spine without intravenous contrast in multiple planes. COMPARISON: Comparison made to prior CT angiogram of the neck from April 01, 2024. FINDINGS: Vertebrae: There are 7 cervical type vertebral bodies with a modular screw to the right and normal cervical lordosis. There is normal vertebral body height and alignment. The bone marrow signal is heterogeneous with reactive endplate changes. No acute fracture. Congenitally narrow spinal canal. Spinal cord: There is flattening the ventral cord at C3-4, C4-5 and C6- 7 with increased cord signal at C3-4 and C4-5 concerning for cord edema. The craniocervical junction is normal without evidence of Chiari malformation. Soft tissues: The cervical flow voids are intact. DISCS/SPINAL CANAL/NEURAL FORAMINA: C2-C3: The intervertebral disc is normal. There is mild right facet arthropathy with mild synovitis. The left facet joint is ankylosed. C3-C4: Moderate disc degeneration with annular disc bulge and superimposed central disc extrusion measuring 14.2 mm (CC) by 2.5 mm (AP) impinging the cord with cord edema and causing a critical spinal canal stenosis with AP diameter measuring 4.7 mm. There is moderate right and mild left facet joint arthropathy with advanced right and moderate left synovitis with bone marrow edema and inflammation of the surrounding soft tissues. C4-C5: Moderate disc degeneration with annular disc bulge flattening the ventral cord with subtle increased cord signal concern for cord edema and causing a critical spinal canal stenosis with AP diameter measuring 6. 3 mm. There is moderate facet joint arthropathy with mild synovitis. C5-C6: There is mild disc degeneration with annular disc bulge flattening the ventral thecal sac. There is mild to moderate facet arthropathy with mild synovitis. C6-C7: Moderate disc degeneration with annular disc bulge flattening the ventral cord without evidence for abnormal cord signal and causing a severe spinal canal stenosis with AP diameter measuring 7 mm. There is mild facet arthropathy with mild synovitis. C7-T1: The intervertebral disc is normal. There is mild facet arthropathy with mild synovitis. IMPRESSION: 1. Moderate disc degeneration at C3-4, C4-5 and C6-7 with mild disc degeneration at C5-6 with annular disc bulging or disc extrusion flattening of the ventral thecal sac and flattening the ventral cord at C3-4 and C4-5 with increased cord signal concern for cord edema. Recommend neurosurgical consult for decompression. 2. There is a critical spinal canal stenosis at C3-4 and C4-5 with a severe stenosis at C6-7. 3. There is mild to moderate facet arthropathy with mild to advanced synovitis, most significant at the C3-4 facet joints. 4. No evidence of fracture, infection, or tumor. Electronically signed by: Kelsea Portillo MD 04/02/24 02:05 AM
--- NOTE | 2024-04-02 02:33 | Magnetic Resonance Report ---
Exam(s): MRI L SPINE Without Contrast EXAM: MR Lumbar Spine Without Intravenous Contrast CLINICAL HISTORY: Reason for exam: pain. TECHNIQUE: Magnetic resonance images of the lumbar spine without intravenous contrast in multiple planes. COMPARISON: No relevant prior studies available. FINDINGS: Vertebrae: There are 5 lumbar vertebral bodies with a mild generalized curve to the left and normal lumbar lordosis. There is no vertebral body alignment. The bone marrow signal is heterogeneous with areas of focal fat or venous malformations. Congenitally narrow spinal canal. Mild to moderate bilateral sacroiliac joint arthropathy. No acute fracture. Moderate bilateral sacral electron arthropathy. Spinal cord: The conus is normal size, shape and signal characteristics, terminating at L1-L2. Soft tissues: Moderate atrophy of the ileus psoas, paraspinous intraspinous musculature. The aorta and IVC flow voids are intact. The visualized kidneys are unremarkable. Distended urinary bladder. DISCS/SPINAL CANAL/NEURAL FORAMINA: L1-L2: The intervertebral disc is normal. There is minimal to mild facet arthropathy with mild synovitis. L2-L3: There is mild disc degeneration with annular disc bulge causing mild subarticular recess stenosis with superimposed congenital short pedicles causing mild spinal canal stenosis with thecal sac area measuring 0.90 cm. There is mild facet arthropathy with mild cellulitis. L3-L4: Moderate disc degeneration with annular disc bulge causing a severe subarticular recess stenosis with impingement of the transiting L4 nerve roots with superimposed congenitally short pedicles causing a severe spinal canal stenosis with thecal sac area measuring 0.40 cm. There is disc and osteophyte extend to the neural foramina causing mild bilateral stenosis without evidence of neural impingement. There is mild facet arthropathy of mild synovitis. L4-L5: Moderate disc degeneration with annular disc bulge causing a mild subarticular recess stenosis, with superimposed congenitally short pedicles causing a severe spinal canal stenosis with thecal sac area measuring 0.40 cm. There is disc and osteophyte extend to the neural foramina causing mild bilateral stenosis without evidence of neural impingement. There is mild facet arthropathy with mild synovitis. L5-S1: Moderate disc degeneration with annular disc bulge causing a mild right subarticular recess stenosis with disc and osteophyte extend to the neural foramina causing mild right and moderately severe left stenosis with impingement of the left L5 nerve root ganglion. There is mild facet arthropathy with mild synovitis. IMPRESSION: 1. Moderate disc degeneration at L3-4, L4-5 and L5-S1 with mild disc degeneration at L2-3 with annular disc bulging causing a mild subarticular recess stenosis and a severe subarticular recess stenosis at L3-4 with impingement of the transiting L4 nerve roots. 2. There is a severe spinal canal stenosis L3-4 and L4-5 with a mild spinal canal stenosis at L2-3 with a congenitally narrow spinal canal. 3. There is mild bilateral L3-4, mild bilateral L4-5 and mild right and moderate to severe left L5-S1 neuroforaminal stenosis with impingement of the left L5 nerve root ganglion. 4. There is minimal to mild facet arthropathy with mild synovitis. 5. Moderate bilateral sacroiliac joint arthropathy. 6. No evidence of fracture, infection, tumor or arachnoiditis. Electronically signed by: Kelsea Portillo MD 04/02/24 02:32 AM
--- NOTE | 2024-04-02 05:20 | Communication Note ---
Date of Service: April 02, 2024 Made aware of MRI results Brain MRI: No evidence of acute intracranial pathology. Cervical MRI: . Moderate disc degeneration at C3-4, C4-5 and C6-7 with mild disc degeneration at C5-6 with annular disc bulging or disc extrusion flattening of the ventral thecal sac and flattening the ventral cord at C3-4 and C4-5 with increased cord signal concern for cord edema. Recommend neurosurgical consult for decompression. 2. There is a critical spinal canal stenosis at C3-4 and C4-5 with a severe stenosis at C6-7. 3. There is mild to moderate facet arthropathy with mild to advanced synovitis, most significant at the C3-4 facet joints. 4. No evidence of fracture, infection, or tumor. Lumbar spine MRI: 1. Moderate disc degeneration at L3-4, L4-5 and L5-S1 with mild disc degeneration at L2-3 with annular disc bulging causing a mild subarticular recess stenosis and a severe subarticular recess stenosis at L3-4 with impingement of the transiting L4 nerve roots. 2. There is a severe spinal canal stenosis L3-4 and L4-5 with a mild spinal canal stenosis at L2-3 with a congenitally narrow spinal canal. 3. There is mild bilateral L3-4, mild bilateral L4-5 and mild right and moderate to severe left L5-S1 neuroforaminal stenosis with impingement of the left L5 nerve root ganglion. 4. There is minimal to mild facet arthropathy with mild synovitis. 5. Moderate bilateral sacroiliac joint arthropathy. 6. No evidence of fracture, infection, tumor or arachnoiditis. AP Cervical myelopathy Orthopedic spine consult N.p.o. for now Hold home aspirin until patient seen by Spine surgery. [place] [facility] [place] family request. No orthopedic spine coverage at [facility] today. Case discussed with Dr. Rubio of Neurosurgery. Specialist okay with transfer and admission under hospitalist service (Dr. Caballero).
[2024-04-02] MEDS: LEVOTHYROXINE SODIUM 100 MCG TABLET PO SCH (05:55)
--- NOTE | 2024-04-02 06:36 | Discharge Summary ---
Date of Service April 02, 2024 Admission HPI Per Admitting Provider History obtained from patient, family, and records. Medical history significant for CAD status post CABG, valvular heart disease (mild MR/TR), hypertension, hyperlipidemia, EULALIA on CPAP, GERD, hypothyroidism. Last confinement 2015 for unstable angina. 1 month history of bilateral upper extremity weakness, left later followed by the right with numbness of the hands. Associated neck pain and fatigue symptoms. No recollection of trauma. Patient seen at PCP's office. Steroid course prescribed for possible PMR. ESR within normal limits. No improvement in symptoms. Patient noted worsening right upper extremity weakness later followed by back pain with right leg weakness. No incontinence symptoms. No fever, no chills. Patient seen at chiropractor's office few days ago. Low back maneuver done which improved back pain. Persistent arm weakness and numbness symptoms. Patient directed to ER by family for further evaluation. Medical History as above Surgical History : CABG, knee surgery, appendectomy, tonsillectomy/adenectomy, shoulder surgery Family History : DM, heart disease, stroke Personal/Social history : Non-smoker, no EtOH intake, retired [employer] employee Discharge Data Consultations 04/01/24 19:14 ED Decision to Admit Stat 04/02/24 05:30 Burn CD for patient Stat Hospital Course (1) Right sided weakness: Rule out CVA Rule out myelopathy given neck and low back pain complaints. CAD status post CABG PVD on imaging valvular heart disease (mild MR/TR) hypertension, slightly elevated hyperlipidemia, on statin Rx EULALIA on CPAP hypothyroidism, euthyroid as of recent outpatient TSH OBS Medical telemetry Neurochecks until CVA ruled out Aspirin for secondary stroke prevention Permissive hypertension until definitively stroke ruled out MRI brain MRI cervical spine and lumbar spine DVT prophylaxis. SCDs Re: Possible spinal pathology which may require intervention Full code Patient daughter requesting updates providers. Ms. Adina Rhodes, contact #[phone]. (Preceding documentation as per admitting provider.) 04/02, 5AM Made aware of MRI results Brain MRI: No evidence of acute intracranial pathology. Cervical MRI: . Moderate disc degeneration at C3-4, C4-5 and C6-7 with mild disc degeneration at C5-6 with annular disc bulging or disc extrusion flattening of the ventral thecal sac and flattening the ventral cord at C3-4 and C4-5 with increased cord signal concern for cord edema. Recommend neurosurgical consult for decompression. 2. There is a critical spinal canal stenosis at C3-4 and C4-5 with a severe stenosis at C6-7. 3. There is mild to moderate facet arthropathy with mild to advanced synovitis, most significant at the C3-4 facet joints. 4. No evidence of fracture, infection, or tumor. Lumbar spine MRI: 1. Moderate disc degeneration at L3-4, L4-5 and L5-S1 with mild disc degeneration at L2-3 with annular disc bulging causing a mild subarticular recess stenosis and a severe subarticular recess stenosis at L3-4 with impingement of the transiting L4 nerve roots. 2. There is a severe spinal canal stenosis L3-4 and L4-5 with a mild spinal canal stenosis at L2-3 with a congenitally narrow spinal canal. 3. There is mild bilateral L3-4, mild bilateral L4-5 and mild right and moderate to severe left L5-S1 neuroforaminal stenosis with impingement of the left L5 nerve root ganglion. 4. There is minimal to mild facet arthropathy with mild synovitis. 5. Moderate bilateral sacroiliac joint arthropathy. 6. No evidence of fracture, infection, tumor or arachnoiditis. AP Cervical myelopathy Orthopedic spine consult N.p.o. for now Hold home aspirin until patient seen by Spine surgery. No Orthopedics Spine coverage at [facility] today. [place] [facility] [place] family [place]. Case discussed with Dr. Rubio of Neurosurgery. Specialist okay with transfer and admission under hospitalist service (Dr. Caballero). Total time to prepare this discharge summary was less than 10 minutes. Text document was generated using [employer] voice recognition software. It may contain grammatical or spelling errors. Kindly contact undersigned for clarification of any documentation item in ques tion.
[2024-04-02 07:22] LABS: Basophils # (auto) 0.03 K/uL (0.00-0.20); Basophils % (auto) 0.3 %; Eosinophils # (auto) 0.12 K/uL (0.00-0.50); Eosinophils % (auto) 1.3 %; Hematocrit (blood only) 41.4 % (42.0-52.0); Immature Granulocytes # (auto) 0.05 K/uL (0.01-0.20); Immature Granulocytes % (auto) 0.6 %; Lymphocytes # (auto) 1.87 K/uL (1.20-3.40); Lymphocytes % (auto) 20.8 %; Mean Corpuscular Hemoglobin 30.7 pg (25.0-34.0); Mean Corpuscular Hgb Conc 33.8 g/dL (32.0-36.0); Mean Corpuscular Volume 90.8 fL (80.0-100.0); Monocytes # (auto) 0.91 K/uL (0.11-0.59); Monocytes % (auto) 10.1 %; Neutrophils # (auto) 5.99 K/uL (1.40-6.50); Neutrophils % (auto) 66.9 %; Platelet Count 184 K/uL (130-400); RDW Coefficient of Variation 13.3 % (11.5-14.5); RDW Standard Deviation 43.9 fL (36.4-46.3); Red Blood Count 4.56 M/uL (4.70-6.10); White Blood Count 8.97 K/ul (4.8-10.8)
[2024-04-02 07:44] LABS: BUN Creatinine Ratio 14.8 (10-20); Calcium 8.6 mg/dl (8.6-10.3); Creatinine Clr Calc Pharmacy 53.6 ml/min; Est GFR (African American) 64.8 ml/min; Est GFR (Non-African American) 55.9 ml/min; Potassium 4.2 mmol/L (3.5-5.1)
[2024-04-02 08:11] LABS: Estimated Average Glucose 117 mg/dl; Hemoglobin A1C 5.7 % (4.5-5.6)
[2024-04-02] MEDS ORDERED: ASPIRIN 81 MG CHEW PO SCH (09:00)
[2024-04-02] MEDS ORDERED: LOSARTAN POTASSIUM 50 MG TAB PO SCH (09:00)
[2024-04-02] MEDS ORDERED: carvediloL 6.25 MG TAB PO SCH (09:00)
--- OUTSIDE RECORDS SUMMARY | 2024-04-02 15:19 | External Medical Summary | Summary of Care ---
Author Name Unknown Organization [facility] Address [address] [place] [address] Phone [phone] Care Team Providers Care Financial Services Consultant Name Role Phone Angel Iniguez MD Primary Care Provider Reason for Referral * Precert (Within 10 days (routine)) - Pending Review Specialty Diagnoses / Procedures Referred By Contac t Referred To Contact Radiology Diagnoses Acute right flank pain Procedures CT ABD/PELVIS WO IV/ORAL CONTRAST Angel Iniguez MD [address] [place] [address] Referral ID Status Reason Start Date Expiration Date V isits Requested Visits Authorized [id number] Pending Review 03/19/2024 999 999 Reason for Visit * Reason Onset Date Comments Test Results 03/12/2024 Encounter Details Date Type Department Care Team (Late st Contact Info) Description 03/12/2024 Telephone [facility] [address] [place] [address] Angel Iniguez MD [address] [place] [address] Test Results Allergies Active Allergy Reactions Criticality Noted Date Comments Atenolol Hypotension 05/13/2009 As with Metoprolol. See above. Lisinopril Cough 04/07/2010 Metoprolol Succinate Hypotension 05/13/2009 Experience an episode of hypotension in past. Is tolerating low dose now. Will keep warning, however will also continue therapy. Sulfa Antibiotics 05/07/2000 blisters Rofecoxib High 08/04/2018 MADE PATIENT MEAN documented as of this encounter (statuses as of 04/01/2024) Medications Medication Sig Dispensed Refills Start Date End Date Status NITROSTAT 0.4 MG SL SUBLIndications:ASCV D (arteriosclerotic cardiovascular disease),Stable angina (HCC) PLACE 1 TABLET UNDER TONGUE IF NEEDED FOR CHEST PAIN. MAY REPEAT 3 TIMES. IF PAIN CONTINUES CALL 911 25 Tab 1 10/28/2014 Active aspirin 81 MG chewable tablet Take 2 Tabs by mouth daily. 60 Tab 3 12/30/2018 Active sildenafil (REVATIO) 20 MG TabletIndications:Er ectile dysfunction, unspecified erectile dysfunction type One tablet by mouth 30 minutes prior to intercourse 10 Tab 3 03/25/2019 Active Diclofenac Sodium (VOLTAREN) 1 % gel Place 4 g topically on the skin 4 times a day. Apply to affected area 1 g 3 03/31/2020 Active Sildenafil Citrate 100 MG Oral TabletIndications:Ot her male erectile dysfunction Take 1 Tab by mouth daily as needed for Erectile Dysfunction. 10 Tab 5 11/23/2020 Active Losartan Potassium 100 MG Oral Tablet (Cozaar)Indications: Hypertensive kidney disease with stage 2 chronic kidney disease Take 1 Tablet by mouth in the morning. 90 Tablet 3 08/23/2023 Active Atorvastatin Calcium 40 MG Oral Tablet (Lipitor)Indications :ASCVD (arteriosclerotic cardiovascular disease),Dyslipidemi a, goal LDL below 70 TAKE 1 TABLET BY MOUTH EVERYDAY AT BEDTIME 90 Tablet 3 11/19/2023 Active hydroCHLOROthiazide 25 MG Oral Tablet (Hydrodiuril)Indicat ions:HTN, goal below 150/90 TAKE 1 TABLET BY MOUTH EVERY DAY IN THE MORNING 90 Tablet 1 12/16/2023 Active Carvedilol 6.25 MG Oral Tablet (Coreg)Indications:S table angina (HCC),HTN, goal below 150/90 TAKE 1 TABLET BY MOUTH TWICE A DAY 180 Tablet 3 12/19/2023 Active Levothyroxine Sodium 100 MCG Oral Tablet (Levoxyl)Indications :Hypothyroidism, unspecified type TAKE 1 TABLET BY MOUTH IN THE MORNING AT LEAST 30 MIN PRIOR TO BREALFAST OR OTHER MEDS 90 Tablet 02/09/2024 Active predniSONE 10 MG Oral Tablet (Deltasone)Indicatio ns:Arthralgia, unspecified joint Take 5 tabs for 2 days, 4 tabs for 2 days, 3 tabs for 2 days, 2 tabs for 2 days 1 tab for 2 days 30 Tablet 03/18/2024 Active documented as of this encounter (statuses as of 04/01/2024) Active Problems Problem Noted Date Diagnosed Date Chronic kidney disease, stage 3a 11/05/2022 Overview: Per CKD protocol Atherosclerosis of [place] co ronary artery of [place] heart with stable angina pectoris 10/12/2022 Coronary artery disease invo lving [place] coronary artery of [place] heart without angina pectoris 11/06/2019 Gastroesophageal reflux disease without esophagi tis 11/06/2019 [place] (myocardial infarction) 11/06/2019 Primary osteoarthritis of both knees 03/25/2019 Hx of CABG 09/05/2018 Postoperative anemia due to acute blood loss Hypothyroidism 08/01/2016 HTN, goal below 150/90 12/09/2014 Patellofemoral pain syndrome 11/20/2012 Erectile dysfunction 05/13/2012 ASCVD (arteriosclerotic cardiovascular disease) 02/12/2012 Beta-conner intolerance 01/14/2012 DRAKE inhibitor intolerance 04/07/2010 HTN, goal below 140/90 05/13/2009 Dyslipidemia, goal LDL below 70 EULALIA (obstructive sleep apnea) documented as of this encounter (statuses as of 04/01/2024) Resolved Problems Problem Noted Date Diagnosed Date Resolved Date Hypertensive kidney disease with stage 2 chronic kidney disease 11/28/2021 10/12/2022 Tick bite of abdomen 08/01/2017 018 Obesity, Class I, BMI 30.0-3 4.9 (see actual BMI) 01/29/2017 08/01/2017 Overview: bmi= 31.46 01/29/17 Dyspepsia 01/29/2017 08/01/2017 Thoracic back pain 08/01/2016 05/09/201 7 Incidental pulmonary nodule, > 3mm and < 8mm 6 02/03/2018 Obesity, Class I, BMI 30.0-3 4.9 (see actual BMI) 01/03/2016 01/29/2017 Overview: bmi= 32.44 01/03/16 Routine medical exam 01/03/2016 016 Kidney disease, chronic, sta ge III (GFR 30-59 ml/min) 12/06/2014 01/13/2016 Overview: Per CKD protocol #1 Obesity, Class I, BMI 30.0-3 4.9 (see actual BMI) 10/28/2014 01/29/2017 Overview: bmi= 32.60 10/28/14 Mild sleep apnea 05/25/2014 08/01/2016 Overview: 04/22/14 PSG -- RDI 14.9 (many centrals) [facility] Sleep disturbance 03/29/2014 01/03/2016 Obesity, Class I, BMI 30.0-3 4.9 (see actual BMI) 03/02/2014 01/29/2017 Overview: BMI= 31.64 03/02/14 Chest pain 03/02/2014 01/03/2016 Hyperkalemia 10/29/2013 03/16/2014 Overweight (BMI 25.0-29.9) 07/13/2013 0 01/29/2017 Overview: bmi= 29.29 07/13/13 Acute URI 07/13/2013 10/28/2014 Backache 07/13/2013 01/03/2016 Abnormal EKG 11/24/2012 01/03/2016 Right knee pain 11/20/2012 01/03/2016 Special screening for malign ant neoplasm of prostate 11/20/2012 01/03/2016 Obesity, Class I, BMI 30.0-3 4.9 (see actual BMI) 08/12/2012 01/29/2017 Overview: bmi= 31.23 08/12/12 Screen for colon cancer 08/12/2012 02/0 01/2015 Encounter for examination fo r normal comparison and control in clinical research program 06/17/2012 07/10/2012 Overview: Diagnosis changed due to Research Module. Go to Snapshot for study details. Hypothyroidism 02/16/2012 08/01/2016 Hypothyroidism 02/16/2012 02/16/2012 Erectile dysfunction 02/12/2012 017 Screening for colon cancer 02/12/2012 0 01/03/2016 Obesity, BMI 31.39 08/14/11 08/14/2011 01/29/2017 VERDICT Clinical Trial [id number] 1 09/30/2013 Overview: Renamed per the Centers for Medicare and Medicaid billing requirements to include Clinical Trial.gov number. VERDICT Clinical Trial [id number] 1 09/01/2014 Overview: Renamed per the Centers for Medicare and Medicaid billing requirements to include Clinical Trial.gov number. Stable angina 08/02/2011 09/29/2018 OBESITY, BMI= 31.05 01/23/11 01/23/2011 0 01/29/2017 Heartburn 01/23/2011 01/03/2016 OBESITY, BMI= 31.38 04/25/10 04/25/2010 0 01/29/2017 Screening for prostate cancer 04/25/2010 01/03/2016 Subjective tinnitus 04/25/2010 10/28/19 15 OBESITY, BMI 30-34 (SEE ACTUAL BMI) 12/15/2009 04/25/2010 Overview: Per Obesity Taxonomy CORON ATHEROSCL [place]CH CORON VESSEL 11/01/2009 04/25/2010 Migraine 11/01/2009 10/28/2014 Overweight (BMI 25.0-29.9) 08/15/2009 0 12/15/2009 Overview: Per Obesity Taxonomy Angina pectoris 07/01/2009 04/25/2010 Need for pneumococcal vaccination 07/01/2009 10/28/2014 Need for diphtheria-tetanus- pertussis (Tdap) vaccine 07/01/2009 10/28/2014 EXAMINATION OF PARTICIPANT I N CLINICAL TRIAL-Genomics 06/24/2009 01/06/2010 Overview: Renamed Per Clinical Trials Billing Project. Study Titile: Genomic Markers for Patients with Cardiovascular Disease Project #[id number] PI: Asia Hebert MD Please call [phone] with study related questions Unstable angina 06/24/2009 08/02/2011 Dyslipidemia, goal to be determined 06/24/2009 08/17/2009 Overview: Per Lipid Taxonomy HTN, goal to be determined 06/24/2009 1 09/28/2008 Overview: Per HTN Taxonomy GENOMICS CARDIO RESEARCH OTHER*[id number] 06/24/2009 10/30/2016 Overview: Renamed Per Clinical Trials Billing Project. Study Titile: Genomic Markers for Patients with Cardiovascular Disease Project #[id number] PI: Asia Hebert MD Please call [phone] with study related questions Screening for prostate cancer 01/24/2009 02/03/2009 Overview: Resolved per Screening Diagnosis Protocol #6 Elevated blood pressure, situational 01/24/2009 05/13/2009 Routine medical exam 01/24/2009 015 CHR ISCHEMIC HRT DIS NOS 11/07/2005 PURE HYPERCHOLESTEROLEM 05/07/200210/25 ASCVD (arteriosclerotic card iovascular disease) 02/12/2012 HTN, goal below 130/80 03/16 Cardiac disease 10/28/2014 HTN, goal below 140/80 12/09 documented as of this encounter (statuses as of 04/01/2024) Immunizations Name Administration Dates Next Due COVID-19 mRNA, LNP-s, No Pre serve, 2-Dose Series (Pfizer) 11/30/2020,11/09/2020 PPD 05/13/2000 Pneumococcal Conjugate Vacc, 13 Valent (Prevnar) 08/01/2017 Pneumococcal Polysaccharide PPV23 (Pneumovax) 08/10/2019,07/01/2009,02/24/2009(Defer red: Patient Refused - ins does not cover) Seasonal Influenza, PF, 6 M & above, IM , (FluLaval or Fluzone) 05/26/2020,06/19/2019,06/23/2018,06/19 Seasonal Influenza, Quadriva lent Hd (Fluzone Hd) 07/09/2023,07/23/2022,06/24/2021 Seasonal Influenza, Split, I IV3, With Preserve, Inj 07/23/2016,06/13/2015,05/28/2014,07/24,06/23/2012,07/03/2011,06/25/2009 TDAP (age 10 and older)(Boostrix) 11/06/2019 TDAP, Age 7 and older, IM (Adacel) 07/01,02/24/2009(Deferred: Patient Refused - states was given about 6 yrs ago by [employer], get date) documented as of this encounter Social History Tobacco Use Types Packs/Day Years Used Date Smoking Tobacco: Never Passive Smoke Exposure: Past Smokeless Tobacco: Former Chew Quit: 2012 Comments:chewed in past Alcohol Use Standard Drinks/Week Comments No 0 (1 standard drink = 0.6 oz pur e alcohol) none PHQ-2 Answer Date Recorded PHQ Adult Total Score 0 04/12/2023 Hunger Vital Sign Answer Date Recorded Within the past 12 months, y ou worried that your food would run out before you got the money to buy more. Never true 04/12/20 23 Within the past 12 months, t he food you bought just didn't last and you didn't have money to get more. Never true 04/12/2023 Sex and Gender Information Value Date Recorded Sex Assigned at Male 02/06/2019 1:18 PM EDT Gender Identity Male 02/06/2019 1:18 PM EDT Sexual Orientation Straight 02/06/2019 1: 18 PM EDT Job Start Date Occupation Industry Not on file Not on file Not on file documented as of this encounter Functional Status Functional Status Response Date of Assess ment Are you deaf or do you have serious difficulty h earing? No 08/19/2018 Are you blind or do you have serious difficulty seeing, even when wearing glasses? No 08/19/2018 Do you have serious difficul ty walking or climbing stairs? (5 years old or older) No 08/19/2018 Do you have difficulty dress ing or bathing? (5 years old or older) No 08/19/2018 Because of a physical, menta l, or emotional condition, do you have difficulty doing errands alone such as visiting a doctor s office or shopping? (15 years old or older) No 08/19/20 18 Cognitive Status Response Date of Assessm ent Because of a physical, menta l, or emotional condition, do you have serious difficulty concentrating, remembering, or making decisions? (5 years old or older) No 08/19/2018 documented as of this encounter Miscellaneous Notes * Telephone Encounter - Asuncion Mills LPN - 04/01/2024 8:26 AM EDT Pt has appt on 04/14 - okay to wait til then for recheck? * Telephone Encounter - Angel Iniguez MD - 03/31/2024 6:35 PM EDT Notify: The CT scan of abd/ pelvis was unremarkable. I suggest he be scheduled in office again to review as at this point I do not know what is underlying etiology * Telephone Encounter - aMrcelina Causey CPhT - 03/31/2024 1:46 PM EDT Patient calling to let provider know he finished the prednisone course and it did not help patient did also have CT scan completed please advise Thank you, Marcelina Causey Director Packaging II [facility] ([facility]) (formerly Telepharmacy) 03/31/2024 1:46 PM * Telephone Encounter - Leslie Torres OSA - 03/19/2024 11:37 AM EDT Done. 03/19/2024 * Telephone Encounter - Chelo Wang LPN - 03/19/2024 11:26 AM EDT Called and spoke with patient and he is aware of information from Dr. Iniguez. Please assist in scheduling CT scan! * Addendum Note - Angel Iniguez MD - 03/18/2024 7:58 PM EDTAddended by: ANGEL INIGUEZ on: 03/18/2024 07:58 PM Modules accepted: Orders * Telephone Encounter - Angel Iniguez MD - 03/18/2024 7:53 PM EDT Notify Pt: I would recommend a short course of prednisone. 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 Also get Ct scan * Telephone Encounter - Torie Jordan LPN - 03/18/2024 10:26 AM EDT Contacted the patient, he is agreeable to have a CT done. He is still having the numbness in his arms and shoulders and would like to have a steroid if you think that would benefit him. Pharmacy is selected if you do send in a steroid. * Telephone Encounter - nAgel Iniguez MD - 03/17/2024 5:39 PM EDT Letter written. Just sent today reviewing labs which were all normal. If he is still having right side flank pain, we should get CT scan. If feeling some better, I would wait. * Telephone Encounter - Jennifer Glynn LPN - 03/17/2024 4:35 PM EDT Pt is calling to check on the status of previous message. Please advise. * Telephone Encounter - Nevaeh Li LPN - 03/16/2024 1:49 PM EDT Patient is aware and verbalizes understanding. Patient stated that the symptoms have no become any better, he stated that PCP said that he could start a steroid but PCP wanted to wait until the lab results are back. Please advise if a medication can be given for the symptoms; fatigue, achiness in shoulders, numbness in hands, flank pain. Please advise Pharmacy selected. * Telephone Encounter - Asuncion Mills LPN - 03/13/2024 3:07 PM EDT Left message for pt to call back. * Telephone Encounter - Zeina Castanon OSA - 03/13/2024 3:01 PM EDT Reason for patient's call: Test Results Please call Pt at [phone] * Telephone Encounter - Krissy [facility] LPN - 03/13/2024 7:58 AM EDT Tried to call pt. Couldn't leave a message due to the pt's answering machine was full. Will try again later * Telephone Encounter - Angel Iniguez MD - 03/13/2024 7:38 AM EDT Notify Pt: the sed rate was normal at 10. This rules out polymyalgia rheumatica. All other labs look OK. Kidney function is slightly decreased but similar to prior readings. Most likely he has had some non specific viral infection and now suffering with generalized achiness as a consequence. The only thing that will help is time. * Telephone Encounter - Alma Gibbons [facility] - 03/12/2024 4:06 PM EDT Pt calling in to discuss lab results of ESR and Lyme. Per 03/10/24 OV: Two week history of overwhelming fatigue and achiness and significant right flank pain. Exact etiology is unclear. Consider PMR. Check sed rate as well as Lyme test and CBC and thyroid test. Unlikelyto be related to thyroid disease as he had normal thyroid study done just a couple months ago. If sed rate is elevated, would initiate prednisone 20 mg a day. Consider then having him see Rheumatology. If sed rate is normal and right flank pain persists, consider getting CT scan of abdomen/pelvis. Wanted to have me "remind" doc to go over labs and address them. Let them know I would pass this on. I did let the patient know plan that since labs were normal a CT of the abdomen/pelvis would be the next step per PCP's note. Forwarding to PCP for review. Thank you, Alma Gibbons PharmD Clinical Pharmacist [facility] ([facility]) 03/12/24 4:12 PM [phone] * Telephone Encounter - Verna Lawson PHARM Tech - 03/12/2024 3:59 PM EDT Pt calling for lab results. Transferred to [facility] [place]. Thank you, Verna Lawson, Console Attendant [facility] ([facility]) 03/12/2024,4:01 PM documented in this encounter Plan of Treatment Upcoming Encounters Date Type Department Care Team (Late st Contact Info) Description 04/14/2024 8:20 AM EDT Office Visit [facility] [address] [place] [place] [address] Angel Iniguez MD [address] [facility] [place] [id number] Scheduled Procedures Name Priority Associated Diagnoses Date/Ti me COLONOSCOPY FLEXIBLE PROXIMAL DIAGNOSTIC Recall History of colon polyps Health Maintenance Due Date Last Done Comments Cologuard 1997 Fecal Occult Blood Test 1997 Sigmoidoscopy 1997 Zoster Vaccines (1 of 2) 2002 COVID-19 Vaccine ( season) 2023 11/30/2020, 11/09/2020 Depression Screening 04/12/2024 04/12/2023, 02/03/2018, 01/29/2017, Additional history exists Influenza Vaccine (FLU shot) (#1) 2024 07/09/2023, 07/23/2022, 06/24/2021, Additional history exists GFR 09/09/2024 03/10/2024, /0 04/2024, 01/10/2023, Additional history exists Albumin/Creatinine Ratio 12/29/2024 04 024, 05/23/2022, 10/13/2021, Additional history exists CKD PHOS USE SMARTSET 21209 12/29/2024 04/0 04/2024, 01/10/2023, 01/05/2016 CKD HGB USE SMARTSET 31581 03/10/202503/10, 03/10/2024, 12/30/2023, Additional history exists TSH 03/10/2025 03/10/2024, 04/0 04/2024, 01/10/2023, Additional history exists Colonoscopy 05/30/2025 05/30/2022, 090 03/2022, 02/10/2018, Additional history exists Colorectal Cancer Screening 05/30/2025 DTaP,Tdap,and Td Vaccines (3 - Td or Tdap) 11/06/2029 11/06/2019, 07/01/2009 Pneumococcal Vaccine: 65+ Years Completed 08/10/2019, 08/01/2017, 07/01/2009 HPV (Gardasil) Vaccine Aged Out No lo nger eligible based on patient's age to complete this topic Hepatitis B Vaccine Aged Out No longe r eligible based on patient's age to complete this topic MENINGOCOCCAL (MENACTRA/MENVEO) Aged Out No longer eligible based on patient's age to complete this topic documented as of this encounter Medical Devices Implanted Type Area Laborer Beam House Device Identifier Shelf Expiration Date Model / Serial / Lot Suture Steel 6 B&S19 [id number] - [id number] Implanted:Qty: 4 on 08/19/2018 by rBenna Perez MD at [place] [facility] [place]/A: Sternum JNJ : [employer] 04/22/2023 [id number] / / [id number] Clip Occl Atri Flex V 45mm - [id number] - [id number] Implanted:Qty: 1 on 08/19/2018 by Brenna Perez MD at [place] [facility] [place] ATRICURE 03/23/2021 [id number] / [id number] / Duraclip 16mm Xlg Repostn - [id number] Implanted:Qty: 1 on 05/30/2022 by Juventino Degroot DO at [facility]COPY [facility] [employer] 11/08/2023 [id number] / / documented as of this encounter Results * CT ABD/PELVIS WO IV/ORAL CONTRAST (03/27/2024 9:51 AM EDT) Anatomical Region Laterality Modality Body, Abdomen, Pelvis Computed T omography 03/27/2024 9:39 AM EDT Impressions 03/30/2024 12:47 PM EDT IMPRESSION: 1. No urinary tract calculus or acute obstructive uropathy identified. 2. Moderate amount of retained stool. 3. Diverticulosis without secondary evidence of acute diverticulitis. 4. Nonvisualization of the appendix, if present but no pericecal fluid or inflammatory changes are noted. 5. Prostate enlargement. 6. Left renal low densities consistent with cysts suggested 01/04/2023. 7. Coronary atherosclerosis. COMMENTS: 1. Please note that lack of IV contrast limits both the sensitivity, and the specificity, of the examination, particularly as regards focal lesions in the solid organs. 2. Consistent with the [employer]'s Incidental Findings Committee white paper (J Am Sweta Radiol 2018): Any incidental renal lesion less than 1 cm or classified as too small to characterize, or any incidental cystic renal lesion characterized as simple-appearing, is likely benign. No follow-up imaging is recommended for these lesions per consensus recommendations based on imaging criteria. THIS DOCUMENT HAS BEEN ELECTRONICALLY SIGNED BY PETRONA METZGER MD Narrative 03/30/2024 12:47 PM EDT PROCEDURE INFORMATION: Exam: CT Abdomen And Pelvis Without Contrast Exam date and time: 03/27/2024 9:39 AM Age: 73 years old Clinical indication: Unspecified abdominal pain; Additional info: Right flank pain TECHNIQUE: Imaging protocol: Computed tomography of the abdomen and pelvis without contrast. Radiation optimization: All CT scans at this facility use at least one of these dose optimization techniques: automated exposure control; mA and/or kV adjustment per patient size (includes targeted exams where dose is matched to clinical indication); or iterative reconstruction. COMPARISON: MRI KIDNEY W WO CONTRAST 01/04/2023 11:08 AM FINDINGS: Lungs: Lungs:?Imaged portions of the lung bases demonstrate minimal scarring and/or atelectasis. Coronary arteries: Coronary artery atherosclerosis. Liver: Unremarkable. Gallbladder and biliary ducts: Gallbladder is unremarkable. No extrahepatic biliary ductal dilatation for age. Pancreas: Unremarkable. Spleen: Findings consistent with stable accessory splenule. Adrenal glands: Not enlarged. Kidneys and ureters: Small low densities are present in the mid and upper pole of the left kidney, not fully characterize but statistically most likely small cysts. There is no hydronephrosis. No calculus identified within the kidneys or ureters. Stomach and bowel: Moderate amount of retained stool noted within the right and transverse colon. Diverticulosis is present without secondary evidence of acute diverticulitis. Appendix: The appendix is not definitely identified, but there are no pericecal inflammatory changes identified to specifically suggest acute appendicitis.. Intraperitoneal space: No significant volume of free fluid identified. Vasculature: Atherosclerosis present major vasculature without abdominal aortic aneurysm. Lymph nodes: No adenopathy noted. Urinary bladder: Urinary bladder is unremarkable as visualized. Reproductive: The prostate is moderately enlarged. Bones/joints: Skeletal windows demonstrate age consistent degenerative changes. Small sclerotic foci in both hips consistent with small bone islands. Soft tissues: No acute subcutaneous abnormality identified. Procedure Note Melchor III, Petrona Padgett MD - 03/30/2024 PROCEDURE INFORMATION: Exam: CT Abdomen And Pelvis Without Contrast Exam date and time: 03/27/2024 9:39 AM Age: 73 years old Clinical indication: Unspecified abdominal pain; Additional info: Rightflank pain TECHNIQUE: Imaging protocol: Computed tomography of the abdomen and pelvis without contrast. Radiation optimization: All CT scans at this facility use at least one ofthese dose optimization techniques: automated exposure control; mA and/or kV adjustment per patient size (includes targeted exams where dose is matchedto clinical indication); or iterative reconstruction. COMPARISON: MRI KIDNEY W WO CONTRAST 01/04/2023 11:08 AM FINDINGS: Lungs: Lungs:?Imaged portions of the lung bases demonstrate minimalscarring and/or atelectasis. Coronary arteries: Coronary artery atherosclerosis. Liver: Unremarkable. Gallbladder and biliary ducts: Gallbladder is unremarkable. Noextrahepatic biliary ductal dilatation for age. Pancreas: Unremarkable. Spleen: Findings consistent with stable accessory splenule. Adrenal glands: Not enlarged. Kidneys and ureters: Small low densities are present in the mid and upperpole of the left kidney, not fully characterize but statistically most likelysmall cysts. There is no hydronephrosis. No calculus identified within thekidneys or ureters. Stomach and bowel: Moderate amount of retained stool noted within theright and transverse colon. Diverticulosis is present without secondary evidence ofacute diverticulitis. Appendix: The appendix is not definitely identified, but there are nopericecal inflammatory changes identified to specifically suggest acuteappendicitis.. Intraperitoneal space: No significant volume of free fluid identified. Vasculature: Atherosclerosis present major vasculature without abdominalaortic aneurysm. Lymph nodes: No adenopathy noted. Urinary bladder: Urinary bladder is unremarkable as visualized. Reproductive: The prostate is moderately enlarged. Bones/joints: Skeletal windows demonstrate age consistent degenerativechanges. Small sclerotic foci in both hips consistent with small bone islands. Soft tissues: No acute subcutaneous abnormality identified. IMPRESSION IMPRESSION: 1. No urinary tract calculus or acute obstructive uropathy identified. 2. Moderate amount of retained stool. 3. Diverticulosis without secondary evidence of acute diverticulitis. 4. Nonvisualization of the appendix, if present but no pericecal fluidor inflammatory changes are noted. 5. Prostate enlargement. 6. Left renal low densities consistent with cysts suggested 01/04/2023. 7. Coronary atherosclerosis. COMMENTS: 1. Please note that lack of IV contrast limits both the sensitivity, andthe specificity, of the examination, particularly as regards focal lesions inthe solid organs. 2. Consistent with the [employer]'s IncidentalFindings Committee white paper (J Am Sweta Radiol 2018): Any incidental renal lesionless than 1 cm or classified as too small to characterize, or any incidentalcystic renal lesion characterized as simple-appearing, is likely benign. Nofollow-up imaging is recommended for these lesions per consensus recommendationsbased on imaging criteria. THIS DOCUMENT HAS BEEN ELECTRONICALLY SIGNED BY PETRONA METZGER MD Angel Iniguez MD RAD CT documented in this encounter Visit Diagnoses Diagnosis Arthralgia, unspecified joint- Primary Acute right flank pain Abdominal pain, unspecified site Acute right flank pain Abdominal pain, unspecified site documented in this encounter Advance Directives * Full Code (Latest Code Status on File) Date Activated Date Inactivated Comments 11/30/2019 10:59 AM 11/30/2019 4:31 PM This order re flects the patients wishes and were consensually agreed upon. * Full Code Date Activated Date Inactivated Comments 08/20/2018 11:49 PM 08/23/2018 5:39 PM This order reflects the patients wishes and were consensually agreed upon. * Full Code Date Activated Date Inactivated Comments 03/07/2014 2:57 PM 03/08/2014 7:06 PM This order r eflects the patients wishes and were consensually agreed upon. Question Answer Comments Discussion of Advance Directives occurred with: Patient Does the patient have a Living Will? No Does the patient have Health Care Power of Attor haven? No * No Code Date Activated Date Inactivated Comments 08/09/2011 2:32 PM 08/09/2011 8:07 PM This order reflects the patients wishes and were consensually agreed upon. Question Answer Comments Discussion of Advance Directives occurred with: Not Discussed Does the patient have a Living Will? No Does the patient have Health Care Power of Attor haven? No * Full Code Date Activated Date Inactivated Comments 06/24/2009 2:52 PM 06/25/2009 9:02 PM This order r eflects the patients wishes and were consensually agreed upon. Question Answer Comments Discussion of Advance Directives occurred with: Patient/Family Does the patient have a Living Will? No Does the patient have Health Care Power of Attor haven? No Care Teams Financial Services Consultant Relationship Specialty Start Date End Date Angel Iniguez MD [address] [address] PCP - General Family Medicine 03/27/18 documented as of this encounter
--- OUTSIDE RECORDS SUMMARY | 2024-04-02 15:19 | External Medical Summary | Summary of Care ---
Author Name Unknown Organization [facility] Address [address] [place] [address] Phone [phone] Care Team Providers Care Box Lining Machine Feeder Name Role Phone Angel Iniguez MD Primary Care Provider [phone] Reason for Referral * Precert (Within 10 days (routine)) - Pending Review Specialty Diagnoses / Procedures Referred By Contac t Referred To Contact Radiology Diagnoses Acute right flank pain Procedures CT ABD/PELVIS WO IV/ORAL CONTRAST Angel Iniguez MD [address] [place] [address] Referral ID Status Reason Start Date Expiration Date V isits Requested Visits Authorized [id number] Pending Review 03/19/2024 999 999 Reason for Visit * Reason Onset Date Comments Test Results 03/12/2024 Encounter Details Date Type Department Care Team (Late st Contact Info) Description 03/12/2024 Telephone [facility] [address] [place] [address] Angel Iniguez MD [address] [place] [address] Test Results Allergies Active Allergy [...] as of this encounter (statuses as of 03/31/2024) Medications Medication Sig Dispensed Refills Start Date [...] as of this encounter (statuses as of 03/31/2024) Active Problems Problem Noted Date Diagnosed Date Chronic kidney disease, stage 3a 11/05/2022 Overview: Per CKD protocol 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 VERDICT Clinical Trial [id number] 1 09/01/2014 Overview: Renamed per the Centers [...] 04/25/2010 Overview: Per Obesity Taxonomy CORON ATHEROSCL [place] CORON VESSEL 11/01/2009 04/25/2010 Migraine 11/01/2009 10/28/2014 Overweight (BMI 25.0-29.9) 08/15/2009 0 12/15/2009 Overview: Per Obesity Taxonomy Angina pectoris 07/01/2009 04/25/2010 Need for pneumococcal vaccination 07/01/2009 10/28/2014 Need for diphtheria-tetanus- pertussis (Tdap) vaccine 07/01/2009 10/28/2014 EXAMINATION OF PARTICIPANT I N CLINICAL TRIAL-Genomics 06/24/2009 01/06/2010 Overview: Renamed Per Clinical Trials Billing Project. Study Titile: Genomic Markers for Patients with Cardiovascular Disease Project #[id number] PI: Asia Hebert MD Please call [phone] with study related questions Unstable angina 06/24/2009 08/02/2011 Dyslipidemia, goal to be determined 06/24/2009 08/17/2009 Overview: Per Lipid Taxonomy HTN, goal to be determined 06/24/2009 1 09/28/2008 Overview: Per HTN Taxonomy GENOMICS CARDIO RESEARCH OTHER*[id number] 06/24/2009 10/30/2016 Overview: Renamed Per Clinical Trials Billing Project. Study Titile: Genomic Markers for Patients with Cardiovascular Disease Project #[id number] PI: Asia Hebert MD Please call [phone] with study related questions Screening for prostate [...] as of this encounter (statuses as of 03/31/2024) Immunizations Name Administration Dates Next Due COVID-19 [...] was given about 6 yrs ago by [employer], get date) documented as of this encounter [...] encounter Miscellaneous Notes * Telephone Encounter - Angel Iniguez MD - 03/31/2024 6:35 PM EDT Notify: The CT scan of abd/ pelvis was unremarkable. I suggest he be scheduled in office again to review as at this point I do not know what is underlying etiology * Telephone Encounter - Marcelina Causey CPhT - 03/31/2024 1:46 PM EDT Patient calling to let provider know he finished the prednisone course and it did not help patient did also have CT scan completed please advise Thank you, Marcelina Causey Cut Out Worker II [facility] ([facility]) (formerly [...] polymyalgia rheumatica and thus no need for long-term steroid. Also get Ct scan * Telephone [...] in a steroid. * Telephone Encounter - Angel Iniguez MD - 03/17/2024 5:39 PM EDT [...] call: Test Results Please call Pt at [phone] * Telephone Encounter - Krissy Monroe LPN [...] Clinical Pharmacy Services ([facility]) 03/12/24 4:12 PM [phone] * Telephone Encounter - Verna Lawson PHARM Tech - 03/12/2024 3:59 PM EDT Pt calling for lab results. Transferred to [facility]. Thank you, Verna Lawson Contact Lens Lathe Operator [facility] ([facility]) 03/12/2024,4:01 PM documented in this encounter Plan of Treatment Upcoming Encounters Date Type Department Care Team (Late st Contact Info) Description 04/14/2024 8:20 AM EDT Office Visit [facility] [address] [facility] [place] [address] Angel Iniguez MD [address] [place] [address] Scheduled Procedures Name Priority Associated Diagnoses Date/Ti me COLONOSCOPY FLEXIBLE PROXIMAL DIAGNOSTIC Recall History of colon polyps Health Maintenance Due Date Last Done Comments Cologuard 1997 Fecal Occult Blood Test 1997 Sigmoidoscopy 1997 Zoster Vaccines (1 of 2) 2002 COVID-19 Vaccine (3 season) 2023 11/30/2020, 11/09/2020 Depression Screening 04/12/2024 04/12/2023, 02/03/2018, 01/29/2017, Additional history exists Influenza Vaccine (FLU shot) (#1) 2024 07/09/2023, 07/23/2022, 06/24/2021, Additional history exists GFR 09/09/2024 03/10/2024, 040 04/2024, 01/10/2023, Additional history exists Albumin/Creatinine Ratio 12/29/2024 024, 05/23/2022, 10/13/2021, Additional history exists CKD PHOS USE SMARTSET 52069 12/29/2024 040 04/2024, 01/10/2023, 01/05/2016 CKD HGB USE SMARTSET 04426 03/10/202503/10, 03/10/2024, 12/30/2023, Additional history exists TSH [...] this encounter Medical Devices Implanted Type Area Ophthalmologist Retina Specialist Device Identifier Shelf Expiration Date Model / Serial / Lot Suture Steel 6 B&S19 M654g - [id number] Implanted:Qty: 4 on 08/19/2018 by Brenna Perez MD at OR [facility] [place] N/A: Sternum JNJ : [employer] 04/22/2023 M654G / / M654 Clip Occl Atri Flex V 45mm - [id number] - [id number] Implanted:Qty: 1 on 08/19/2018 by Brenna Perez MD at OR [facility] [place] ATRICURE 03/23/2021 [id number] / [id number] / Duraclip 16mm Xlg Repostn - [id number] Implanted:Qty: 1 on 05/30/2022 by Juventino Degroot DO at ENDOSCOPY [facility] [employer] 11/08/2023 [id number] / / documented as of this encounter [...] the solid organs. 2. Consistent with the [place] [employer]'s Incidental Findings Committee white [...] inthe solid organs. 2. Consistent with the [place]'s IncidentalFindings Committee white paper [...] Power of Attor haven? No Care Teams Box Lining Machine Feeder Relationship Specialty Start Date End Date Angel Iniguez MD [address] [place] [address] PCP - General Family Medicine 03/27/18 documented as of this encounter
--- OUTSIDE RECORDS SUMMARY | 2024-04-02 15:19 | External Medical Summary | Summary of Care ---
Author Name Unknown Organization [facility] Address [address] [place] [address] Phone [phone] Care Team Providers Care Freight Broker Name Role Phone Angel Iniguez MD Primary Care Provider [phone] Reason for Referral * Precert (Within 10 days (routine)) - Pending Review Specialty Diagnoses / Procedures Referred By Contac t Referred To Contact Radiology Diagnoses Acute right flank pain Procedures CT ABD/PELVIS WO IV/ORAL CONTRAST Angel Iniguez MD [address] [place] [address] Referral ID Status Reason Start Date Expiration Date V isits Requested Visits Authorized [id number] Pending Review 03/19/2024 999 999 Reason for Visit * Reason Onset Date Comments Test Results 03/12/2024 Encounter Details Date Type Department Care Team (Late st Contact Info) Description 03/12/2024 Telephone [facility] [address] [place] [address] Angel Iniguez MD [address] [place] [address] Test Results Allergies Active Allergy [...] 11/05/2022 Overview: Per CKD protocol Atherosclerosis of [place] co ronary artery of [place] heart with stable angina pectoris 10/12/2022 Coronary artery disease invo lving [place] coronary artery of [place] heart without angina pectoris 11/06/2019 Gastroesophageal reflux disease without esophagi tis 11/06/2019 Old [place] (myocardial infarction) 11/06/2019 Primary osteoarthritis of both [...] 31.39 08/14/11 08/14/2011 01/29/2017 VERDICT Clinical Trial [id number] 1 09/30/2013 Overview: Renamed per the Centers for Medicare and Medicaid billing requirements to include Clinical Trial.gov number. VERDICT Clinical Trial [id number] 1 09/01/2014 Overview: Renamed per the Centers [...] 04/25/2010 Overview: Per Obesity Taxonomy CORON ATHEROSCL [place] CORON VESSEL 11/01/2009 04/25/2010 Migraine 11/01/2009 10/28/2014 Overweight (BMI 25.0-29.9) 08/15/2009 0 12/15/2009 Overview: Per Obesity Taxonomy Angina pectoris 07/01/2009 04/25/2010 Need for pneumococcal vaccination 07/01/2009 10/28/2014 Need for diphtheria-tetanus- pertussis (Tdap) vaccine 07/01/2009 10/28/2014 EXAMINATION OF PARTICIPANT I N CLINICAL TRIAL-Genomics 06/24/2009 01/06/2010 Overview: Renamed Per Clinical Trials Billing Project. Study Titile: Genomic Markers for Patients with Cardiovascular Disease Project #[id number] PI: Asia Hebert MD Please call [phone] with study related questions Unstable angina 06/24/2009 08/02/2011 Dyslipidemia, goal to be determined 06/24/2009 08/17/2009 Overview: Per Lipid Taxonomy HTN, goal to be determined 06/24/2009 1 09/28/2008 Overview: Per HTN Taxonomy GENOMICS CARDIO RESEARCH OTHER*[id number] 06/24/2009 10/30/2016 Overview: Renamed Per Clinical Trials Billing Project. Study Titile: Genomic Markers for Patients with Cardiovascular Disease Project #[id number] PI: Asia Hebert MD Please call [phone] with study related questions Screening for prostate [...] was given about 6 yrs ago by [employer], get date) documented as of this encounter [...] encounter Miscellaneous Notes * Telephone Encounter - Marcelina Causey CPhT - 03/31/2024 1:46 PM EDT Patient calling to let provider know he finished the prednisone course and it did not help patient did also have CT scan completed please advise Thank you, Marcelina Causey Orthopedics Nurse II [facility] ([facility]) (formerly [...] polymyalgia rheumatica and thus no need for senior care steroid. Also get Ct scan * Telephone [...] call: Test Results Please call Pt at [phone] * Telephone Encounter - Krissy Monroe LPN [...] time. * Telephone Encounter - [place] - 03/12/2024 4:06 PM EDT Pt [...] Clinical Pharmacy Services ([facility]) 03/12/24 4:12 PM [phone] * Telephone Encounter - Verna Lawson PHARM Tech - 03/12/2024 3:59 PM EDT Pt calling for lab results. Transferred to [facility]. Thank you, Verna Lawson, Smoke Inspector [facility] ([facility]) 03/12/2024,4:01 PM documented in this encounter Plan of Treatment Upcoming Encounters Date Type Department Care Team (Late st Contact Info) Description 04/14/2024 8:20 AM EDT Office Visit [facility] [address] [place] [address] Angel Iniguez MD [address], [place] [id number] Scheduled Procedures Name Priority Associated Diagnoses Date/Ti me COLONOSCOPY FLEXIBLE PROXIMAL DIAGNOSTIC Recall History of colon polyps Health Maintenance Due Date Last Done Comments Cologuard 1997 Fecal Occult Blood Test 1997 Sigmoidoscopy 1997 Zoster Vaccines (1 of 2) 2002 COVID-19 Vaccine (3 - 2023-24 season) 2023 11/30/2020, 11/09/2020 Depression Screening 04/12/2024 04/12/2023, 02/03/2018, 01/29/2017, Additional history exists Influenza Vaccine (FLU shot) (#1) 2024 07/09/2023, 07/23/2022, 06/24/2021, Additional history exists GFR 09/09/2024 03/10/2024, 04/0 04/2024, 01/10/2023, Additional history exists Albumin/Creatinine Ratio 12/29/2024 024, 05/23/2022, 10/13/2021, Additional history exists CKD PHOS USE SMARTSET 90698 12/29/2024 04/0 04/2024, 01/10/2023, 01/05/2016 CKD HGB USE SMARTSET 07902 03/10/202503/10, 03/10/2024, 12/30/2023, Additional history exists TSH 03/10/2025 03/10/2024, 04/0 04/2024, 01/10/2023, Additional history exists Colonoscopy 05/30/2025 05/30/2022, 09/0 03/2022, 02/10/2018, Additional history exists Colorectal Cancer [...] this encounter Medical Devices Implanted Type Area Podiatry Assistant Device Identifier Shelf Expiration Date Model / Serial / Lot Suture Steel 6 B&S19 M654g - [id number] Implanted:Qty: 4 on 08/19/2018 by Brenna Perez MD at OR [facility] [place] N/A: Sternum TRACY : [employer] 04/22/2023 M654G / / M654 Clip Occl Atri Flex V 45mm - [id number] - [id number] Implanted:Qty: 1 on 08/19/2018 by Brenna Perez MD at OR [facility] [place] ATRICURE 03/23/2021 [id number] / [id number] / Duraclip 16mm Xlg Repostn - [id number] Implanted:Qty: 1 on 05/30/2022 by Juventino Degroot DO at ENDOSCOPY [facility] [employer] 11/08/2023 [id number] / / documented as of this encounter [...] the solid organs. 2. Consistent with the [place] [employer]'s Incidental Findings Committee white [...] No acute subcutaneous abnormality identified. Procedure Note Bone III, Petrona Padgett MD - 03/30/2024 PROCEDURE [...] inthe solid organs. 2. Consistent with the [place] [employer]'s IncidentalFindings Committee white paper [...] Power of Attor haven? No Care Teams Freight Broker Relationship Specialty Start Date End Date Angel Iniguez MD [address] [place] [facility] [place] [address] PCP - General Family Medicine 03/27/18 documented as of this encounter
--- OUTSIDE RECORDS SUMMARY | 2024-04-02 15:20 | External Medical Summary | Summary of Care ---
Author Name Unknown Organization [facility] Address [address] [place] [address] Phone [phone] Care Team Providers Care Solids Control Technician Name Role Phone Angel Iniguez MD Primary Care Provider Reason for Referral * Precert (Within 10 days (routine)) - Pending Review Specialty Diagnoses / Procedures Referred By Contac t Referred To Contact Radiology Diagnoses Acute right flank pain Procedures CT ABD/PELVIS WO IV/ORAL CONTRAST Angel Iniguez MD [address] [place] [address] Referral ID Status Reason Start Date Expiration Date V isits Requested Visits Authorized [id number] Pending Review 03/19/2024 999 999 Reason for Visit * Reason Onset Date Comments Test Results 03/12/2024 Encounter Details Date Type Department Care Team (Late st Contact Info) Description 03/12/2024 Telephone [facility] [address] [place] [address] Angel Iniguez MD [address] [place] [address] Test Results Allergies Active Allergy [...] as of this encounter (statuses as of 03/19/2024) Medications Medication Sig Dispensed Refills Start Date [...] as of this encounter (statuses as of 03/19/2024) Active Problems Problem Noted Date Diagnosed Date Chronic kidney disease, stage 3a 11/05/2022 Overview: Per CKD protocol Atherosclerosis of [place] co ronary artery of [place] heart with stable angina pectoris 10/12/2022 Coronary artery disease invo lving [place] coronary artery of [place] heart without angina pectoris 11/06/2019 Gastroesophageal reflux disease without esophagi tis 11/06/2019 Old [place] (myocardial infarction) 11/06/2019 Primary osteoarthritis of both [...] as of this encounter (statuses as of 03/19/2024) Resolved Problems Problem Noted Date Diagnosed Date [...] 31.39 08/14/11 08/14/2011 01/29/2017 VERDICT Clinical Trial [id number] 1 09/30/2013 Overview: Renamed per the Centers for Medicare and Medicaid billing requirements to include Clinical Trial.gov number. VERDICT Clinical Trial [id number] 1 09/01/2014 Overview: Renamed per the Centers [...] 04/25/2010 Overview: Per Obesity Taxonomy CORON ATHEROSCL [place] CORON VESSEL 11/01/2009 04/25/2010 Migraine 11/01/2009 10/28/2014 Overweight (BMI 25.0-29.9) 08/15/2009 0 12/15/2009 Overview: Per Obesity Taxonomy Angina pectoris 07/01/2009 04/25/2010 Need for pneumococcal vaccination 07/01/2009 10/28/2014 Need for diphtheria-tetanus- pertussis (Tdap) vaccine 07/01/2009 10/28/2014 EXAMINATION OF PARTICIPANT I N CLINICAL TRIAL-Genomics 06/24/2009 01/06/2010 Overview: Renamed Per Clinical Trials Billing Project. Study Titile: Genomic Markers for Patients with Cardiovascular Disease Project #[id number] PI: Asia Hebert MD Please call [phone] with study related questions Unstable angina 06/24/2009 08/02/2011 Dyslipidemia, goal to be determined 06/24/2009 08/17/2009 Overview: Per Lipid Taxonomy HTN, goal to be determined 06/24/2009 1 09/28/2008 Overview: Per HTN Taxonomy GENOMICS CARDIO RESEARCH OTHER*[id number] 06/24/2009 10/30/2016 Overview: Renamed Per Clinical Trials Billing Project. 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 Also get Ct scan * Telephone [...] call: Test Results Please call Pt at [phone] * Telephone Encounter - Krissy Monroe LPN [...] time. * Telephone Encounter - Alma Gibbons RPh - 03/12/2024 4:06 PM EDT Pt calling [...] to PCP for review. Thank you, Alma Gibbons, PharmD Clinical Pharmacist [facility] ([facility]) 03/12/24 4:12 PM [phone] * Telephone Encounter - Verna Lawson PHARM Tech - 03/12/2024 3:59 PM EDT Pt calling for lab results. Transferred to [facility]. Thank you, Verna Lawson, Router Tender [facility] ([facility]) 03/12/2024,4:01 PM documented in this encounter Plan of Treatment Upcoming Encounters Date Type Department Care Team (Late st Contact Info) Description 04/14/2024 8:20 AM EDT Office Visit [facility] [address] [place] [address] Angel Iniguez MD [address] [place] [address] Scheduled Orders Name Type Priority Associated Diagnoses Orde r Schedule CT ABD/PELVIS WO IV/ORAL CONTRAST Medical Imaging Routine Acute right flank pain Expected: 03/19/2024, Expires: 05/18/2024 Scheduled Procedures Name Priority Associated Diagnoses Date/Ti me COLONOSCOPY FLEXIBLE PROXIMAL DIAGNOSTIC Recall History of colon polyps Health Maintenance Due Date Last Done Comments Cologuard 1997 Fecal Occult Blood Test 1997 Sigmoidoscopy 1997 Zoster Vaccines (1 of 2) 2002 COVID-19 Vaccine ( season) 2023 11/30/2020, 11/09/2020 Depression Screening 04/12/2024 04/12/2023, 02/03/2018, 01/29/2017, Additional history exists GFR 09/09/2024 03/10/2024, 04/0 04/2024, 01/10/2023, Additional history exists Albumin/Creatinine Ratio 12/29/2024 04082 024, 05/23/2022, 10/13/2021, Additional history exists CKD PHOS USE SMARTSET 14491 12/29/2024 04/0 04/2024, 01/10/2023, 01/05/2016 CKD HGB USE SMARTSET 73956 03/10/202503/10, 03/10/2024, 12/30/2023, Additional history exists TSH 03/10/2025 03/10/2024, 04/2024, 01/10/2023, Additional history exists Colonoscopy 05/30/2025 05/30/2022, 03/2022, 02/10/2018, Additional history exists Colorectal Cancer Screening 05/30/2025 DTaP,Tdap,and Td Vaccines (3 - Td or Tdap) 11/06/2029 11/06/2019, 07/01/2009 Pneumococcal Vaccine: 65+ Years Completed 08/10/2019, 08/01/2017, 07/01/2009 Influenza Vaccine (FLU shot) Completed , 07/23/2022, 06/24/2021, Additional history exists GARDASIL-HPV IMMUNIZATION SERIES Aged Out No longer eligible based on patient's age to complete this topic Hepatitis B Aged Out No longer eligi ble based on patient's age to complete this topic MENINGOCOCCAL (MENACTRA/MENVEO) Aged Out No longer eligible based on patient's age to complete this topic documented as of this encounter Medical Devices Implanted Type Area Fire Prevention Inspector Device Identifier Shelf Expiration Date Model / Serial / Lot Suture Steel 6 B&S19 M654g - [id number] Implanted:Qty: 4 on 08/19/2018 by Brenna Perez [place] [facility] [place] Sternum JNJ : [employer] 04/22/2023 M654G / / [id number] Clip Occl Atri Flex V 45mm - [id number] - [id number] Implanted:Qty: 1 on 08/19/2018 by Brenna Perez MD [place] [facility] [place]TRICURE 03/23/2021 [id number] / [id number] / Duraclip 16mm Xlg Repostn - [id number] Implanted:Qty: 1 on 05/30/2022 by Juventino Degroot DO at ENDOSCOPY [facility] [employer] 11/08/2023 [id number] / / documented as of this encounter Visit Diagnoses Diagnosis Arthralgia, unspecified [...] Power of Attor haven? No Care Teams Solids Control Technician Relationship Specialty Start Date End Date Angel Iniguez MD [address] [place] [address] PCP - General Family Medicine 03/27/18 documented as of this encounter
--- OUTSIDE RECORDS SUMMARY | 2024-04-02 15:20 | External Medical Summary | Summary of Care ---
Author Name Unknown Organization [facility] Address [address] [place] [address] Phone [phone] Care Team Providers Care Director Security Risk Management Name Role Phone Angel Iniguez MD Primary Care Provider Reason for Referral * Precert (Within 10 days (routine)) - Pending Review Specialty Diagnoses / Procedures Referred By Contac t Referred To Contact Radiology Diagnoses Acute right flank pain Procedures CT ABD/PELVIS WO IV/ORAL CONTRAST Angel Iniguez MD [address] [place] [address] Referral ID Status Reason Start Date Expiration Date V isits Requested Visits Authorized [id number] Pending Review 03/19/2024 999 999 Reason for Visit * Reason Onset Date Comments Test Results 03/12/2024 Encounter Details Date Type Department Care Team (Late st Contact Info) Description 03/12/2024 Telephone [facility] [address] [place] [address] Angel Iniguez MD [address] [place] [address] Test Results Allergies Active Allergy [...] 11/05/2022 Overview: Per CKD protocol Atherosclerosis of [place] co ronary artery of [place] heart with stable angina pectoris 10/12/2022 Coronary artery disease invo lving [place] coronary artery of [place] heart without angina pectoris 11/06/2019 Gastroesophageal reflux [...] 31.39 08/14/11 08/14/2011 01/29/2017 VERDICT Clinical Trial [id number] 1 09/30/2013 Overview: Renamed per the Centers for Medicare and Medicaid billing requirements to include Clinical Trial.gov number. VERDICT Clinical Trial [id number] 1 09/01/2014 Overview: Renamed per the Centers [...] 04/25/2010 Overview: Per Obesity Taxonomy CORON ATHEROSCL [place] CORON VESSEL 11/01/2009 04/25/2010 Migraine 11/01/2009 10/28/2014 Overweight (BMI 25.0-29.9) 08/15/2009 0 12/15/2009 Overview: Per Obesity Taxonomy Angina pectoris 07/01/2009 04/25/2010 Need for pneumococcal vaccination 07/01/2009 10/28/2014 Need for diphtheria-tetanus- pertussis (Tdap) vaccine 07/01/2009 10/28/2014 EXAMINATION OF PARTICIPANT I N CLINICAL TRIAL-Genomics 06/24/2009 01/06/2010 Overview: Renamed Per Clinical Trials Billing Project. Study Titile: Genomic Markers for Patients with Cardiovascular Disease Project #[id number] PI: Asia Hebert MD Please call [phone] with study related questions Unstable angina 06/24/2009 08/02/2011 Dyslipidemia, goal to be determined 06/24/2009 08/17/2009 Overview: Per Lipid Taxonomy HTN, goal to be determined 06/24/2009 1 09/28/2008 Overview: Per HTN Taxonomy GENOMICS CARDIO RESEARCH OTHER*[id number] 06/24/2009 10/30/2016 Overview: Renamed Per Clinical Trials Billing Project. Study Titile: Genomic Markers for Patients with Cardiovascular Disease Project #[id number] PI: Asia Hebert MD Please call [phone] with study related questions Screening for prostate [...] was given about 6 yrs ago by [employer], get date) documented as of this encounter [...] encounter Miscellaneous Notes * Telephone Encounter - Leslie Torres OSA [...] polymyalgia rheumatica and thus no need for director of accounts payable steroid. Also get Ct scan * Telephone [...] call: Test Results Please call Pt at [phone] * Telephone Encounter - Krissy Monroe LPN [...] time. * Telephone Encounter - Alma Gibbons [facility] - 03/12/2024 4:06 PM EDT Pt calling [...] PCP for review. Thank you, Alma Gibbons, [place] Clinical Pharmacist [facility] ([facility]) 03/12/24 4:12 PM [phone] * Telephone Encounter - Verna Lawson PHARM Tech - 03/12/2024 3:59 PM EDT Pt calling for lab results. Transferred to [facility] [place]. Thank you, Verna Lawson, It Security Consultant [facility] ([facility]) 03/12/2024,4:01 PM documented in this encounter Plan of Treatment Upcoming Encounters Date Type Department Care Team (Late st Contact Info) Description 03/27/2024 9:45 AM EDT Imaging Radiology [address] [place] [address] 04/14/2024 8:20 AM EDT Office Visit [facility] [address] [place] [phone] Angel Iniguez MD [address] [place] [address] Scheduled Orders Name Type Priority Associated Diagnoses [...] 01/29/2017, Additional history exists GFR 09/09/2024 03/10/2024, 040 04/2024, 01/10/2023, Additional history exists Albumin/Creatinine Ratio 12/29/2024 024, 05/23/2022, 10/13/2021, Additional history exists CKD PHOS USE SMARTSET 17365 12/29/2024 04/0 04/2024, 01/10/2023, 01/05/2016 CKD HGB USE SMARTSET 09583 03/10/202503/10, 03/10/2024, 12/30/2023, Additional history exists TSH 03/10/2025 03/10/2024, 0 04/2024, 01/10/2023, Additional history exists Colonoscopy 05/30/2025 [...] this encounter Medical Devices Implanted Type Area Fitter And Turner Device Identifier Shelf Expiration Date Model / Serial / Lot Suture Steel 6 B&S19 M654g - [id number] Implanted:Qty: 4 on 08/19/2018 by Brenna Perez MD [place] [facility] [place] Sternum JNJ : [employer] 04/22/2023 M654G / / M654 Clip Occl Atri Flex V 45mm - [id number] - [id number] Implanted:Qty: 1 on 08/19/2018 by Brenna Perez MD at [place] [facility]TRICURE 03/23/2021 [id number] / [id number] / Duraclip 16mm Xlg Repostn - [id number] Implanted:Qty: 1 on 05/30/2022 by Juventino Degroot DO at ENDOSCOPY [facility] [employer] 11/08/2023 [id number] / / documented as of this encounter [...] Power of Attor haven? No Care Teams Director Security Risk Management Relationship Specialty Start Date End Date Angel Iniguez MD [address] [place] [address] PCP - General Family Medicine 03/27/18 documented as of this encounter
--- OUTSIDE RECORDS SUMMARY | 2024-04-02 15:20 | External Medical Summary | Summary of Care ---
Author Name Unknown Organization [facility] Address [address] [place] [address] Phone [phone] Care Team Providers Care Application Packager Name Role Phone Angel Iniguez MD Primary Care Provider Reason for Referral * Precert (Within 10 days (routine)) - Pending Review Specialty Diagnoses / Procedures Referred By Contac t Referred To Contact Radiology Diagnoses Acute right flank pain Procedures CT ABD/PELVIS WO IV/ORAL CONTRAST Angel Iniguez MD [address] [place] [address] Referral ID Status Reason Start Date Expiration Date V isits Requested Visits Authorized [id number] Pending Review 03/19/2024 999 999 Reason for Visit * Reason Onset Date Comments Test Results 03/12/2024 Encounter Details Date Type Department Care Team (Late st Contact Info) Description 03/12/2024 Telephone [facility] [address] [place] [address] Angel Iniguez MD [address] [place] [address] Test Results Allergies Active Allergy [...] as of this encounter (statuses as of 03/18/2024) Medications Medication Sig Dispensed Refills Start Date [...] as of this encounter (statuses as of 03/18/2024) Active Problems Problem Noted Date Diagnosed Date Chronic kidney disease, stage 3a 11/05/2022 Overview: Per CKD protocol Atherosclerosis of [place] co ronary artery of [place] heart with stable angina pectoris 10/12/2022 Coronary artery disease invo lving [place] coronary artery of [place] heart without angina pectoris 11/06/2019 Gastroesophageal reflux disease without esophagi tis 11/06/2019 Old [place] (myocardial infarction) 11/06/2019 Primary osteoarthritis of both [...] as of this encounter (statuses as of 03/18/2024) Resolved Problems Problem Noted Date Diagnosed Date [...] 31.39 08/14/11 08/14/2011 01/29/2017 VERDICT Clinical Trial [id number] 09/30/2013 Overview: Renamed per the Centers for Medicare and Medicaid billing requirements to include Clinical Trial.gov number. VERDICT Clinical Trial [id number] 1 09/01/2014 Overview: Renamed per the Centers [...] 04/25/2010 Overview: Per Obesity Taxonomy CORON ATHEROSCL [place] CORON VESSEL 11/01/2009 04/25/2010 Migraine 11/01/2009 10/28/2014 Overweight (BMI 25.0-29.9) 08/15/2009 0 12/15/2009 Overview: Per Obesity Taxonomy Angina pectoris 07/01/2009 04/25/2010 Need for pneumococcal vaccination 07/01/2009 10/28/2014 Need for diphtheria-tetanus- pertussis (Tdap) vaccine 07/01/2009 10/28/2014 EXAMINATION OF PARTICIPANT I N CLINICAL TRIAL-Genomics 06/24/2009 01/06/2010 Overview: Renamed Per Clinical Trials Billing Project. Study Titile: Genomic Markers for Patients with Cardiovascular Disease Project #[id number] PI: Asia Hebert MD Please call [phone] with study related questions Unstable angina 06/24/2009 08/02/2011 Dyslipidemia, goal to be determined 06/24/2009 08/17/2009 Overview: Per Lipid Taxonomy HTN, goal to be determined 06/24/2009 1 09/28/2008 Overview: Per HTN Taxonomy GENOMICS CARDIO RESEARCH OTHER*[id number] 06/24/2009 10/30/2016 Overview: Renamed Per Clinical Trials Billing Project. Study Titile: Genomic Markers for Patients with Cardiovascular Disease Project #[id number] PI: Asia Hebert MD Please call [phone] with study related questions Screening for prostate [...] as of this encounter (statuses as of 03/18/2024) Immunizations Name Administration Dates Next Due COVID-19 [...] was given about 6 yrs ago by [employer], get date) documented as of this encounter [...] as of this encounter Miscellaneous Notes * Addendum Note - Angel Iniguez MD - 03/18/2024 7:58 PM EDTAddended by: ANGEL INIGUEZ on: 03/18/2024 07:58 PM Modules accepted: Orders * Telephone Encounter - Angel Iniguez MD - 03/18/2024 7:53 PM EDT Notify Pt: I would recommend a short course of prednisone. 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 Also get Ct scan * [...] call: Test Results Please call Pt at [phone] * Telephone Encounter - Krissy Monroe LPN [...] time. * Telephone Encounter - Alma Gibbons [facility] - 03/12/2024 4:06 PM EDT Pt calling [...] Clinical Pharmacy Services ([facility]) 03/12/24 4:12 PM [phone] * Telephone Encounter - Verna Lawson PHARM Tech - 03/12/2024 3:59 PM EDT Pt calling for lab results. Transferred to [facility] [place]. Thank you, Verna Lawson, Ferry Terminal Supervisor [facility]ized [facility] ([facility]) 03/12/2024,4:01 PM documented in this encounter Plan of Treatment Upcoming Encounters Date Type Department Care Team (Late st Contact Info) Description 04/14/2024 8:20 AM EDT Office Visit [facility] [address] [place] [facility] [place] [phone] Angel Iniguez MD [address] [place] [address] Scheduled Orders Name Type Priority [...] 04/2024, 01/10/2023, Additional history exists Albumin/Creatinine Ratio 12/29/20242 024, 05/23/2022, 10/13/2021, Additional history exists CKD PHOS USE SMARTSET 62247 12/29/2024 04/0 04/2024, 01/10/2023, 01/05/2016 CKD HGB USE SMARTSET 96330 03/10/202503/10, 03/10/2024, 12/30/2023, Additional history exists TSH [...] this encounter Medical Devices Implanted Type Area Car Dropper Device Identifier Shelf Expiration Date Model / Serial / Lot Suture Steel 6 B&S19 M654g - [id number] Implanted:Qty: 4 on 08/19/2018 by Brenna Perez MD at [place] [facility] [place] N/A: Sternum [employer]NJ : [employer] 04/22/2023 M654G / / M654 Clip Occl Atri Flex V 45mm - [id number] - [id number] Implanted:Qty: 1 on 08/19/2018 by Brenna Perez MD at [facility] ATRICURE 03/23/2021 [id number] / [id number] / Duraclip 16mm Xlg Repostn - [id number] Implanted:Qty: 1 on 05/30/2022 by Juventino Degroot DO at ENDOSCOPY [facility] [employer] 11/08/2023 [id number] / / documented as of this encounter [...] Power of Attor haven? No Care Teams Application Packager Relationship Specialty Start Date End Date Angel Iniguez MD [address] [place] [address] PCP - General Family Medicine 03/27/18 documented as of this encounter
--- OUTSIDE RECORDS SUMMARY | 2024-04-02 15:20 | External Medical Summary | Summary of Care ---
Author Name Unknown Organization [facility] Address [address] [facility] [address] Phone [phone] Care Team Providers Care Back End Engineer Name Role Phone Ritesh Iniguez MD Primary Care Provider Reason for Visit * Reason Onset Date Comments Test Results 03/12/2024 Encounter Details Date Type Department Care Team (Late st Contact Info) Description 03/12/2024 Telephone [facility] [address] [place] [address] Ritesh Iniguez MD [address] [place] [address] Test Results Allergies Active Allergy [...] OR OTHER MEDS 90 Tablet 02/09/2024 Active documented as of this encounter (statuses as of 03/18/2024) Active Problems Problem Noted Date Diagnosed Date Chronic kidney disease, stage 3a 11/05/2022 Overview: Per CKD protocol Atherosclerosis of [place] co ronary artery of [place] heart with stable angina pectoris 10/12/2022 Coronary artery disease invo lving [place] coronary artery of [place] heart without angina pectoris 11/06/2019 Gastroesophageal reflux [...] Dyspepsia 01/29/2017 08/01/2017 Thoracic back pain 08/01/2016 7 Incidental pulmonary nodule, > 3mm and [...] bmi= 31.23 08/12/12 Screen for colon cancer 08/12/201201/2015 Encounter for examination fo r normal comparison and control in clinical research program 06/17/2012 07/10/2012 Overview: Diagnosis changed due to Research Module. Go to Snapshot for study details. Hypothyroidism 02/16/2012 08/01/2016 Hypothyroidism 02/16/2012 02/16/2012 Erectile dysfunction 02/12/2012 017 Screening for colon cancer 02/12/2012 0 01/03/2016 Obesity, BMI 31.39 08/14/11 08/14/2011 01/29/2017 VERDICT Clinical Trial [id number] 1 09/30/2013 Overview: Renamed per the Centers for Medicare and Medicaid billing requirements to include Clinical Trial.gov number. VERDICT Clinical Trial [id number] 1 09/01/2014 Overview: Renamed per the Centers [...] 04/25/2010 Overview: Per Obesity Taxonomy CORON ATHEROSCL [place] CORON VESSEL 11/01/2009 04/25/2010 Migraine 11/01/2009 10/28/2014 Overweight (BMI 25.0-29.9) 08/15/2009 0 12/15/2009 Overview: Per Obesity Taxonomy Angina pectoris 07/01/2009 04/25/2010 Need for pneumococcal vaccination 07/01/2009 10/28/2014 Need for diphtheria-tetanus- pertussis (Tdap) vaccine 07/01/2009 10/28/2014 EXAMINATION OF PARTICIPANT I N CLINICAL TRIAL-Genomics 06/24/2009 01/06/2010 Overview: Renamed Per Clinical Trials Billing Project. Study Titile: Genomic Markers for Patients with Cardiovascular Disease Project #[id number] PI: Asia Hebert MD Please call [phone] with study related questions Unstable angina 06/24/2009 08/02/2011 Dyslipidemia, goal to be determined 06/24/2009 08/17/2009 Overview: Per Lipid Taxonomy HTN, goal to be determined 06/24/2009 1 09/28/2008 Overview: Per HTN Taxonomy GENOMICS CARDIO RESEARCH OTHER*[id number] 06/24/2009 10/30/2016 Overview: Renamed Per Clinical Trials Billing Project. Study Titile: Genomic Markers for Patients with Cardiovascular Disease Project #[id number] PI: Asia Hebert MD Please call [phone] with study related questions Screening for prostate [...] was given about 6 yrs ago by [employer], get date) documented as of this encounter [...] encounter Miscellaneous Notes * Telephone Encounter - Torie Jordan LPN - 03/18/2024 10:26 AM EDT Contacted the patient, he is agreeable to have a CT done. He is still having the numbness in his arms and shoulders and would like to have a steroid if you think that would benefit him. Pharmacy is selected if you do send in a steroid. * Telephone Encounter - Ritesh Iniguez MD - 03/17/2024 5:39 PM EDT [...] call: Test Results Please call Pt at [phone] * Telephone Encounter - Krissy Monroe LPN - 03/13/2024 7:58 AM EDT Tried to call pt. Couldn't leave a message due to the pt's answering machine was full. Will try again later * Telephone Encounter - Ritesh Iniguez MD - 03/13/2024 7:38 AM EDT [...] * Telephone Encounter - [place] Gibbons [facility] - 03/12/2024 4:06 PM EDT Pt [...] Clinical Pharmacy Services ([facility]) 03/12/24 4:12 PM [phone] * Telephone Encounter - Verna Lawson PHARM Tech - 03/12/2024 3:59 PM EDT Pt calling for lab results. Transferred to [facility] [place]. Thank you, Verna Lawson, Training Consultant Centralized Clinical Pharmacy Services ([facility]) 03/12/2024,4:01 PM documented in this encounter Plan of Treatment Upcoming Encounters Date Type Department Care Team (Late st Contact Info) Description 04/14/2024 8:20 AM EDT Office Visit [facility] [address] [place] [address] Ritesh Iniguez MD [address] [place] [address] Scheduled Procedures Name Priority Associated Diagnoses Date/Ti [...] Additional history exists CKD PHOS USE SMARTSET 66506 12/29/2024 04/0 04/2024, 01/10/2023, 01/05/2016 CKD HGB USE SMARTSET 28169 03/10/202503/10, 03/10/2024, 12/30/2023, Additional history exists TSH [...] this encounter Medical Devices Implanted Type Area Gold Letterer Device Identifier Shelf Expiration Date Model / Serial / Lot Suture Steel 6 B&S19 M654g - [id number] Implanted:Qty: 4 on 08/19/2018 by Brenna Perez MD at OR [facility] [place] N/A: Sternum JNJ : [employer] 04/22/2023 M654G / / [id number] Clip Occl Atri Flex V 45mm - [id number] - [id number] Implanted:Qty: 1 on 08/19/2018 by Brenna Perez MD at OR [facility] [place] ATRICURE 03/23/2021 [id number] / [id number] / Duraclip 16mm Xlg Repostn - [id number] Implanted:Qty: 1 on 05/30/2022 by Juventino Degroot DO at [facility] [employer] 11/08/2023 [id number] / / documented as of this encounter Advance Directives * Full Code [...] Power of Attor haven? No Care Teams Back End Engineer Relationship Specialty Start Date End Date Ritesh Iniguez MD [address] [place] [address] PCP - General Family Medicine 03/27/18 documented as of this encounter
--- OUTSIDE RECORDS SUMMARY | 2024-04-02 15:20 | External Medical Summary | Summary of Care ---
Author Name Unknown Organization [facility] Address [address] [place] [address] Phone [phone] Care Team Providers Care Baggagemaster Name Role Phone Angel Iniguez MD Primary Care Provider Reason for Referral * Precert (Within 10 days (routine)) - Pending Review Specialty Diagnoses / Procedures Referred By Contac t Referred To Contact Radiology Diagnoses Acute right flank pain Procedures CT ABD/PELVIS WO IV/ORAL CONTRAST Angel Iniguez MD [address] [place] [address] Referral ID Status Reason Start Date Expiration Date V isits Requested Visits Authorized [id number] Pending Review 03/19/2024 999 999 Reason for Visit * Reason Onset Date Comments Test Results 03/12/2024 Encounter Details Date Type Department Care Team (Late st Contact Info) Description 03/12/2024 Telephone [facility] [address] [place] [address] Angel Iniguez MD [address] [place] [address] Test Results Allergies Active Allergy [...] 11/05/2022 Overview: Per CKD protocol Atherosclerosis 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 VERDICT Clinical Trial [id number] 1 09/01/2014 Overview: Renamed per the Centers [...] 04/25/2010 Overview: Per Obesity Taxonomy CORON ATHEROSCL [place] CORON VESSEL 11/01/2009 04/25/2010 Migraine 11/01/2009 10/28/2014 Overweight (BMI 25.0-29.9) 08/15/2009 0 12/15/2009 Overview: Per Obesity Taxonomy Angina pectoris 07/01/2009 04/25/2010 Need for pneumococcal vaccination 07/01/2009 10/28/2014 Need for diphtheria-tetanus- pertussis (Tdap) vaccine 07/01/2009 10/28/2014 EXAMINATION OF PARTICIPANT I N CLINICAL TRIAL-Genomics 06/24/2009 01/06/2010 Overview: Renamed Per Clinical Trials Billing Project. Study Titile: Genomic Markers for Patients with Cardiovascular Disease Project #[id number] PI: Asia Hebert MD Please call [phone] with study related questions Unstable angina 06/24/2009 08/02/2011 Dyslipidemia, goal to be determined 06/24/2009 08/17/2009 Overview: Per Lipid Taxonomy HTN, goal to be determined 06/24/2009 1 09/28/2008 Overview: Per HTN Taxonomy GENOMICS CARDIO RESEARCH OTHER*[id number] 06/24/2009 10/30/2016 Overview: Renamed Per Clinical Trials Billing Project. Study Titile: Genomic Markers for Patients with Cardiovascular Disease Project #[id number] PI: Asia Hebert MD Please call [phone] with study related questions Screening for prostate [...] was given about 6 yrs ago by [employer], get date) documented as of this encounter [...] completed please advise Thank you, Marcelina Causey Piston Maker II Centralized Clinical Pharmacy Services ([facility]) (formerly [...] polymyalgia rheumatica and thus no need for fpc steroid. Also get Ct scan * Telephone [...] call: Test Results Please call Pt at [phone] * Telephone Encounter - Krissy Monroe LPN [...] Clinical Pharmacy Services ([facility]) 03/12/24 4:12 PM [phone] * Telephone Encounter - Verna Lawson PHARM Tech - 03/12/2024 3:59 PM EDT Pt calling for lab results. Transferred to [facility] [place]. Thank you, Verna Lawson, Cardio Tech Centralized Clinical Pharmacy Services ([facility]) 03/12/2024,4:01 PM documented in this encounter Plan of Treatment Upcoming Encounters Date Type Department Care Team (Late st Contact Info) Description 04/14/2024 8:20 AM EDT Office Visit [facility] [address] [place] [address] Angel Iniguez MD [address], [place] [id number] Scheduled Procedures Name Priority Associated Diagnoses Date/Ti [...] Additional history exists CKD PHOS USE SMARTSET 71640 12/29/2024 04/0 04/2024, 01/10/2023, 01/05/2016 CKD HGB USE SMARTSET 38169 03/10/202503/10, 03/10/2024, 12/30/2023, Additional history exists TSH [...] this encounter Medical Devices Implanted Type Area Dolly Driver Device Identifier Shelf Expiration Date Model / Serial / Lot Suture Steel 6 B&S19 M654g - [id number] Implanted:Qty: 4 on 08/19/2018 by Brenna Perez MD at OR [facility] [place] N/A: Sternum TRACY : [employer] 04/22/2023 M654G / / M654 Clip Occl Atri Flex V 45mm - [id number] - [id number] Implanted:Qty: 1 on 08/19/2018 by Brenna Perez MD at OR [facility] [place] ATRICURE 03/23/2021 [id number] / [id number] / Duraclip 16mm Xlg Repostn - [id number] Implanted:Qty: 1 on 05/30/2022 by Juventino Degroot DO at END[facility]COPY [facility] [employer] 11/08/2023 [id number] / / documented as of this encounter [...] the solid organs. 2. Consistent with the [place] [employer]'s Incidental Findings Committee white [...] inthe solid organs. 2. Consistent with the [place] [employer]'s IncidentalFindings Committee white paper [...] Power of Attor haven? No Care Teams Baggagemaster Relationship Specialty Start Date End Date Angel Iniguez MD [address] [facility] [place] [address] PCP - General Family Medicine 03/27/18 documented as of this encounter
--- OUTSIDE RECORDS SUMMARY | 2024-04-02 15:20 | External Medical Summary | Summary of Care ---
Author Name Unknown Organization [facility] Address [address] [facility] [address] Phone [phone] Care Team Providers Care Rn Radiology Name Role Phone Ritesh Inigeuz MD Primary Care Provider [phone] Reason for Visit * Reason Onset Date Comments Test Results 03/12/2024 Encounter Details Date Type Department Care Team (Late st Contact Info) Description 03/12/2024 Telephone [facility] [address] [place] [address] Ritesh Iniguez MD [address] [place] [address] Test Results Allergies Active Allergy [...] as of this encounter (statuses as of 03/17/2024) Medications Medication Sig Dispensed Refills Start Date [...] as of this encounter (statuses as of 03/17/2024) Active Problems Problem Noted Date Diagnosed Date Chronic kidney disease, stage 3a 11/05/2022 Overview: Per CKD protocol Atherosclerosis of [place] co ronary artery of [place] heart with stable angina pectoris 10/12/2022 Coronary artery disease invo lving [place] coronary artery of [place] heart without angina pectoris 11/06/2019 Gastroesophageal reflux disease without esophagi tis 11/06/2019 Old [place] (myocardial infarction) 11/06/2019 Primary osteoarthritis of both [...] as of this encounter (statuses as of 03/17/2024) Resolved Problems Problem Noted Date Diagnosed Date [...] 31.39 08/14/11 08/14/2011 01/29/2017 VERDICT Clinical Trial [id number] 09/30/2013 Overview: Renamed per the Centers for Medicare and Medicaid billing requirements to include Clinical Trial.gov number. VERDICT Clinical Trial [id number] 1 09/01/2014 Overview: Renamed per the Centers [...] 04/25/2010 Overview: Per Obesity Taxonomy CORON ATHEROSCL [place] CORON VESSEL 11/01/2009 04/25/2010 Migraine 11/01/2009 10/28/2014 Overweight (BMI 25.0-29.9) 08/15/2009 0 12/15/2009 Overview: Per Obesity Taxonomy Angina pectoris 07/01/2009 04/25/2010 Need for pneumococcal vaccination 07/01/2009 10/28/2014 Need for diphtheria-tetanus- pertussis (Tdap) vaccine 07/01/2009 10/28/2014 EXAMINATION OF PARTICIPANT I N CLINICAL TRIAL-Genomics 06/24/2009 01/06/2010 Overview: Renamed Per Clinical Trials Billing Project. Study Titile: Genomic Markers for Patients with Cardiovascular Disease Project #[id number] PI: Asia Hebert MD Please call [phone] with study related questions Unstable angina 06/24/2009 08/02/2011 Dyslipidemia, goal to be determined 06/24/2009 08/17/2009 Overview: Per Lipid Taxonomy HTN, goal to be determined 06/24/2009 1 09/28/2008 Overview: Per HTN Taxonomy GENOMICS CARDIO RESEARCH OTHER*[id number] 06/24/2009 10/30/2016 Overview: Renamed Per Clinical Trials Billing Project. Study Titile: Genomic Markers for Patients with Cardiovascular Disease Project #[id number] PI: Asia Hebert MD Please call [phone] with study related questions Screening for prostate [...] as of this encounter (statuses as of 03/17/2024) Immunizations Name Administration Dates Next Due COVID-19 [...] was given about 6 yrs ago by [employer], get date) documented as of this encounter [...] encounter Miscellaneous Notes * Telephone Encounter - Ritesh Iniguez MD [...] call: Test Results Please call Pt at [phone] * Telephone Encounter - Krissy Monroe LPN [...] time. * Telephone Encounter - [place] Gibbons [facility] - 03/12/2024 4:06 PM EDT Pt calling [...] Clinical Pharmacy Services ([facility]) 03/12/24 4:12 PM [phone] * Telephone Encounter - Verna Lawson PHARM Tech - 03/12/2024 3:59 PM EDT Pt calling for lab results. Transferred to [facility] [place]. Thank you, Verna Lawson, Development Technologist Centralized Clinical Pharmacy Services ([facility]) 03/12/2024,4:01 PM documented in this encounter Plan of Treatment Upcoming Encounters Date Type Department Care Team (Late st Contact Info) Description 04/14/2024 8:20 AM EDT Office Visit [facility] [address] [place] [facility] [place] [address] Ritehs Iniguez MD [address] [place] [address] Scheduled Procedures Name Priority Associated Diagnoses Date/Ti me COLONOSCOPY FLEXIBLE PROXIMAL DIAGNOSTIC Recall History of colon polyps Health Maintenance Due Date Last Done Comments Cologuard 1997 Fecal Occult Blood Test 1997 Sigmoidoscopy 1997 Zoster Vaccines (1 of 2) 2002 COVID-19 Vaccine ( season) 2023 11/30/2020, 11/09/2020 Depression Screening 04/12/2024 04/12/2023, 02/03/2018, 01/29/2017, Additional history exists GFR 09/09/2024 03/10/2024, 0 04/2024, 01/10/2023, Additional history exists Albumin/Creatinine Ratio 12/29/2024 042 024, 05/23/2022, 10/13/2021, Additional history exists CKD PHOS USE SMARTSET 58536 12/29/2024/0 04/2024, 01/10/2023, 01/05/2016 CKD HGB USE SMARTSET 70322 03/10/202503/10, 03/10/2024, 12/30/2023, Additional history exists TSH 03/10/2025 03/10/2024, 0 04/2024, 01/10/2023, Additional history exists Colonoscopy 05/30/2025 05/30/2022, 0 03/2022, 02/10/2018, Additional history exists Colorectal Cancer [...] this encounter Medical Devices Implanted Type Area Zigzag Appliquer Device Identifier Shelf Expiration Date Model / Serial / Lot Suture Steel 6 B&S19 M654g - [id number] Implanted:Qty: 4 on 08/19/2018 by Brenna Perez [place] [facility] [place] Sternum JNJ : [employer] 04/22/2023 M654G / / M654 Clip Occl Atri Flex V 45mm - [id number] - [id number] Implanted:Qty: 1 on 08/19/2018 by Brenna Perez MD [place] [facility] [place] ATRICURE 03/23/2021 [id number] / [id number] / Duraclip 16mm Xlg Repostn - [id number] Implanted:Qty: 1 on 05/30/2022 by Juventino Degroot DO at [facility] [employer] 11/08/2023 [id number] / / documented as of this encounter [...] Power of Attor haven? No Care Teams Rn Radiology Relationship Specialty Start Date End Date Ritesh Iniguez MD [address] [place] [address] PCP - General Family Medicine 03/27/18 documented as of this encounter
--- OUTSIDE RECORDS SUMMARY | 2024-04-02 15:21 | External Medical Summary | Summary of Care ---
Author Name Unknown Organization [facility] Address [address] [facility] [address] Phone [phone] Care Team Providers Care Operation Research Analyst Name Role Phone Ritesh Iniguez MD Primary Care Provider [phone] Reason for Visit * Reason Onset Date Comments Test Results 03/12/2024 Encounter Details Date Type Department Care Team (Late st Contact Info) Description 03/12/2024 Telephone [facility] [address] [place] [address] Ritesh Iniguez MD [address] [place] [address] Test Results Allergies Active Allergy [...] as of this encounter (statuses as of 03/12/2024) Medications Medication Sig Dispensed Refills Start Date [...] as of this encounter (statuses as of 03/12/2024) Active Problems Problem Noted Date Diagnosed Date Chronic kidney disease, stage 3a 11/05/2022 Overview: Per CKD protocol Atherosclerosis of [place] co ronary artery of [place] heart with stable angina pectoris 10/12/2022 Coronary artery disease invo lving [place] coronary artery of [place] heart without angina pectoris 11/06/2019 Gastroesophageal reflux disease without esophagi tis 11/06/2019 Old [place] (myocardial infarction) 11/06/2019 Primary osteoarthritis of both [...] as of this encounter (statuses as of 03/12/2024) Resolved Problems Problem Noted Date Diagnosed Date [...] 31.39 08/14/11 08/14/2011 01/29/2017 VERDICT Clinical Trial [id number] 09/30/2013 Overview: Renamed per the Centers for Medicare and Medicaid billing requirements to include Clinical Trial.gov number. VERDICT Clinical Trial [id number] 1 09/01/2014 Overview: Renamed per the Centers [...] 04/25/2010 Overview: Per Obesity Taxonomy CORON ATHEROSCL [place] CORON VESSEL 11/01/2009 04/25/2010 Migraine 11/01/2009 10/28/2014 Overweight (BMI 25.0-29.9) 08/15/2009 0 12/15/2009 Overview: Per Obesity Taxonomy Angina pectoris 07/01/2009 04/25/2010 Need for pneumococcal vaccination 07/01/2009 10/28/2014 Need for diphtheria-tetanus- pertussis (Tdap) vaccine 07/01/2009 10/28/2014 EXAMINATION OF PARTICIPANT I N CLINICAL TRIAL-Genomics 06/24/2009 01/06/2010 Overview: Renamed Per Clinical Trials Billing Project. Study Titile: Genomic Markers for Patients with Cardiovascular Disease Project #[id number] PI: Asia Hebert MD Please call [phone] with study related questions Unstable angina 06/24/2009 08/02/2011 Dyslipidemia, goal to be determined 06/24/2009 08/17/2009 Overview: Per Lipid Taxonomy HTN, goal to be determined 06/24/2009 1 09/28/2008 Overview: Per HTN Taxonomy GENOMICS CARDIO RESEARCH OTHER*[id number] 06/24/2009 10/30/2016 Overview: Renamed Per Clinical Trials Billing Project. Study Titile: Genomic Markers for Patients with Cardiovascular Disease Project #[id number] PI: Asia Hebert MD Please call [phone] with study related questions Screening for prostate [...] as of this encounter (statuses as of 03/12/2024) Immunizations Name Administration Dates Next Due COVID-19 [...] was given about 6 yrs ago by [email or web address], get date) documented as of this encounter [...] encounter Miscellaneous Notes * Telephone Encounter - [place] Gibbons, [facility] - 03/12/2024 4:06 PM EDT [...] Clinical Pharmacy Services ([facility]) 03/12/24 4:12 PM [phone] * Telephone Encounter - Verna Lawson PHARM Tech - 03/12/2024 3:59 PM EDT Pt calling for lab results. Transferred to [facility] [place]. Thank you, Verna Lawson, Public Health Microbiologist Centralized Clinical Pharmacy Services ([facility]) 03/12/2024,4:01 PM documented in this encounter Plan of Treatment Upcoming Encounters Date Type Department Care Team (Late st Contact Info) Description 04/14/2024 8:20 AM EDT Office Visit [facility] [address] [place] [address] Ritesh Iniguez MD [address] [place] [address] Scheduled Procedures Name Priority Associated Diagnoses Date/Ti me COLONOSCOPY FLEXIBLE PROXIMAL DIAGNOSTIC Recall History of colon polyps Health Maintenance Due Date Last Done Comments Cologuard 1997 Fecal Occult Blood Test 1997 Sigmoidoscopy 1997 Zoster Vaccines (1 of 2) 2002 COVID-19 Vaccine (3 - 24 season) 2023 11/30/2020, 11/09/2020 Depression Screening 04/12/2024 04/12/2023, 02/03/2018, 01/29/2017, Additional history exists GFR 09/09/2024 03/10/2024, 04/0 04/2024, 01/10/2023, Additional history exists Albumin/Creatinine Ratio 12/29/2024 024, 05/23/2022, 10/13/2021, Additional history exists CKD PHOS USE SMARTSET 45443 12/29/2024 040 04/2024, 01/10/2023, 01/05/2016 CKD HGB USE SMARTSET 58203 03/10/202503/10, 03/10/2024, 12/30/2023, Additional history exists TSH [...] this encounter Medical Devices Implanted Type Area Roller Hand Device Identifier Shelf Expiration Date Model / Serial / Lot Suture Steel 6 B&S19 M654g - [id number] Implanted:Qty: 4 on 08/19/2018 by Brenna Perez MD at OR [facility] [place] N/A: Sternum TRACY : [employer] 04/22/2023 M654G / / [id number] Clip Occl Atri Flex V 45mm - [id number] - [id number] Implanted:Qty: 1 on 08/19/2018 by Brenna Perez MD at OR [facility] [place] [employer]TR[employer] 03/23/2021 ACHV45 / [id number] / Duraclip 16mm Xlg Repostn - [id number] Implanted:Qty: 1 on 05/30/2022 by Juventino Degroot DO at [facility] [employer] 11/08/2023 [id number] / / documented as of this encounter [...] Power of Attor haven? No Care Teams Operation Research Analyst Relationship Specialty Start Date End Date Ritesh Iniguez MD [address] [place] [address] PCP - General Family Medicine 03/27/18 documented as of this encounter
--- OUTSIDE RECORDS SUMMARY | 2024-04-02 15:21 | External Medical Summary | Summary of Care ---
Author Name Unknown Organization [facility] Address [address] [facility] [address] Phone [phone] Care Team Providers Care Riveter Helper Name Role Phone Ritesh Iniguez MD Primary Care Provider [phone] Reason for Visit * Reason Onset Date Comments Test Results 03/12/2024 Encounter Details Date Type Department Care Team (Late st Contact Info) Description 03/12/2024 Telephone [facility] [address] [place] [address] Ritesh Iniguez MD [address] [place] [address] Test Results Allergies Active Allergy [...] as of this encounter (statuses as of 03/13/2024) Medications Medication Sig Dispensed Refills Start Date [...] as of this encounter (statuses as of 03/13/2024) Active Problems Problem Noted Date Diagnosed Date Chronic kidney disease, stage 3a 11/05/2022 Overview: Per CKD protocol Atherosclerosis of [place] co ronary artery of [place] heart with stable angina pectoris 10/12/2022 Coronary artery disease invo lving [place] coronary artery of [place] heart without angina pectoris 11/06/2019 Gastroesophageal reflux disease without esophagi tis 11/06/2019 Old [place] (myocardial infarction) 11/06/2019 Primary osteoarthritis of both [...] as of this encounter (statuses as of 03/13/2024) Resolved Problems Problem Noted Date Diagnosed Date [...] 31.39 08/14/11 08/14/2011 01/29/2017 VERDICT Clinical Trial [id number] 1 09/30/2013 Overview: Renamed per the Centers for Medicare and Medicaid billing requirements to include Clinical Trial.gov number. VERDICT Clinical Trial [id number] 1 09/01/2014 Overview: Renamed per the Centers [...] 04/25/2010 Overview: Per Obesity Taxonomy CORON ATHEROSCL [place] CORON VESSEL 11/01/2009 04/25/2010 Migraine 11/01/2009 10/28/2014 Overweight (BMI 25.0-29.9) 08/15/2009 0 12/15/2009 Overview: Per Obesity Taxonomy Angina pectoris 07/01/2009 04/25/2010 Need for pneumococcal vaccination 07/01/2009 10/28/2014 Need for diphtheria-tetanus- pertussis (Tdap) vaccine 07/01/2009 10/28/2014 EXAMINATION OF PARTICIPANT I N CLINICAL TRIAL-Genomics 06/24/2009 01/06/2010 Overview: Renamed Per Clinical Trials Billing Project. Study Titile: Genomic Markers for Patients with Cardiovascular Disease Project #[id number] PI: Asia Hebert MD Please call [phone] with study related questions Unstable angina 06/24/2009 08/02/2011 Dyslipidemia, goal to be determined 06/24/2009 08/17/2009 Overview: Per Lipid Taxonomy HTN, goal to be determined 06/24/2009 1 09/28/2008 Overview: Per HTN Taxonomy GENOMICS CARDIO RESEARCH OTHER*[id number] 06/24/2009 10/30/2016 Overview: Renamed Per Clinical Trials Billing Project. Study Titile: Genomic Markers for Patients with Cardiovascular Disease Project #[id number] PI: Asia Hebert MD Please call [phone] with study related questions Screening for prostate [...] as of this encounter (statuses as of 03/13/2024) Immunizations Name Administration Dates Next Due COVID-19 [...] was given about 6 yrs ago by [employer] get date) documented as of this encounter [...] encounter Miscellaneous Notes * Telephone Encounter - Krissy Monroe LPN [...] * Telephone Encounter - [place] Gibbons [facility] - 03/12/2024 4:06 PM EDT Pt calling [...] Clinical Pharmacy Services ([facility]) 03/12/24 4:12 PM [phone] * Telephone Encounter - Verna Lawson PHARM Tech - 03/12/2024 3:59 PM EDT Pt calling for lab results. Transferred to [facility] [place]. Thank you, Verna Lawson, [employer] [facility] ([facility]) 03/12/2024,4:01 PM documented in this encounter Plan of Treatment Upcoming Encounters Date Type Department Care Team (Late st Contact Info) Description 04/14/2024 8:20 AM EDT Office Visit [facility] [address] [place] [address] Ritesh Iniguez MD [address] [place] [address] Scheduled Procedures Name Priority Associated [...] 01/10/2023, Additional history exists Albumin/Creatinine Ratio 12/29/2024 04/ 024, 05/23/2022, 10/13/2021, Additional history exists CKD PHOS USE SMARTSET 39355 12/29/2024 04/0 04/2024, 01/10/2023, 01/05/2016 CKD HGB USE SMARTSET 49103 03/10/202503/10, 03/10/2024, 12/30/2023, Additional history exists TSH [...] this encounter Medical Devices Implanted Type Area Yard Worker Device Identifier Shelf Expiration Date Model / Serial / Lot Suture Steel 6 B&S19 M654g - [id number] Implanted:Qty: 4 on 08/19/2018 by Brenna Perez MD at [place] [facility] [place]A: Sternum JNJ : [employer] 04/22/2023 M654G / / M654 Clip Occl Atri Flex V 45mm - [id number] - [id number] Implanted:Qty: 1 on 08/19/2018 by Brenna Perez MD [place] [facility] [place] [employer]URE 03/23/2021 [id number] / [id number] / Duraclip 16mm Xlg Repostn - [id number] Implanted:Qty: 1 on 05/30/2022 by Juventino Degroot DO at [facility] [employer] SYLVIE 11/08/2023 [id number] / / documented as of this encounter [...] Power of Attor haven? No Care Teams Riveter Helper Relationship Specialty Start Date End Date Ritesh Iniguez MD [address] [place] [address] PCP - General Family Medicine 03/27/18 documented as of this encounter
--- OUTSIDE RECORDS SUMMARY | 2024-04-02 15:21 | External Medical Summary | Summary of Care ---
Author Name Unknown Organization [facility] Address [address] [facility] [address] Phone [phone] Care Team Providers Care Contact Officer Name Role Phone Ritesh Iniguez MD Primary Care Provider Reason for Visit * Reason Onset Date Comments Test Results 03/12/2024 Encounter Details Date Type Department Care Team (Late st Contact Info) Description 03/12/2024 Telephone [facility] [address] [place] [address] Ritesh Iniguez MD [address] [place] [address] Test Results Allergies Active Allergy [...] 11/05/2022 Overview: Per CKD protocol Atherosclerosis of [place] co ronary artery of [place] heart with stable angina pectoris 10/12/2022 Coronary artery disease invo lving [place] coronary artery of [place] heart without angina pectoris 11/06/2019 Gastroesophageal reflux disease without esophagi tis 11/06/2019 Old [place] (myocardial infarction) 11/06/2019 Primary osteoarthritis of both [...] 31.39 08/14/11 08/14/2011 01/29/2017 VERDICT Clinical Trial [id number] 1 09/30/2013 Overview: Renamed per the Centers for Medicare and Medicaid billing requirements to include Clinical Trial.gov number. VERDICT Clinical Trial [id number] 1 09/01/2014 Overview: Renamed per the Centers [...] 04/25/2010 Overview: Per Obesity Taxonomy CORON ATHEROSCL [place] CORON VESSEL 11/01/2009 04/25/2010 Migraine 11/01/2009 10/28/2014 Overweight (BMI 25.0-29.9) 08/15/2009 0 12/15/2009 Overview: Per Obesity Taxonomy Angina pectoris 07/01/2009 04/25/2010 Need for pneumococcal vaccination 07/01/2009 10/28/2014 Need for diphtheria-tetanus- pertussis (Tdap) vaccine 07/01/2009 10/28/2014 EXAMINATION OF PARTICIPANT I N CLINICAL TRIAL-Genomics 06/24/2009 01/06/2010 Overview: Renamed Per Clinical Trials Billing Project. Study Titile: Genomic Markers for Patients with Cardiovascular Disease Project #[id number] PI: Asia Hebert MD Please call [phone] with study related questions Unstable angina 06/24/2009 08/02/2011 Dyslipidemia, goal to be determined 06/24/2009 08/17/2009 Overview: Per Lipid Taxonomy HTN, goal to be determined 06/24/2009 1 09/28/2008 Overview: Per HTN Taxonomy GENOMICS CARDIO RESEARCH OTHER*[id number] 06/24/2009 10/30/2016 Overview: Renamed Per Clinical Trials Billing Project. Study Titile: Genomic Markers for Patients with Cardiovascular Disease Project #[id number] PI: Asia Hebert MD Please call [phone] with study related questions Screening for prostate [...] was given about 6 yrs ago by [employer] Experience, get date) documented as of this encounter [...] encounter Miscellaneous Notes * Telephone Encounter - Jennifer Glynn LPN [...] call: Test Results Please call Pt at [phone] * Telephone Encounter - Krissy Monroe LPN [...] time. * Telephone Encounter - [place] Gibbons [facility] - 03/12/2024 4:06 PM EDT Pt [...] Clinical Pharmacy Services ([facility]) 03/12/24 4:12 PM [phone] * Telephone Encounter - Verna Lawson PHARM Tech - 03/12/2024 3:59 PM EDT Pt calling for lab results. Transferred to [facility] [place]. Thank you, Verna Lawson, [employer] Operator Centralized [facility] ([facility]) 03/12/2024,4:01 PM documented in this encounter Plan of Treatment Upcoming Encounters Date Type Department Care Team (Late st Contact Info) Description 04/14/2024 8:20 AM EDT Office Visit [facility] [address] [place] [place] [address] Ritesh Iniguez MD [address] [place] [address] Scheduled Procedures Name Priority Associated Diagnoses Date/Ti me COLONOSCOPY FLEXIBLE PROXIMAL DIAGNOSTIC Recall History of colon polyps Health Maintenance Due Date Last Done Comments Cologuard 1997 Fecal Occult Blood Test 1997 Sigmoidoscopy 1997 Zoster Vaccines (1 of 2) 2002 COVID-19 Vaccine (3 - season) 2023 11/30/2020, 11/09/2020 Depression Screening 04/12/2024 04/12/2023, 02/03/2018, 01/29/2017, Additional history exists GFR 09/09/2024 03/10/2024, /0 04/2024, 01/10/2023, Additional history exists Albumin/Creatinine Ratio 12/29/2024 024, 05/23/2022, 10/13/2021, Additional history exists CKD PHOS USE SMARTSET 01104 12/29/2024 04/0 04/2024, 01/10/2023, 01/05/2016 CKD HGB USE SMARTSET 83313 03/10/202503/10, 03/10/2024, 12/30/2023, Additional history exists TSH [...] this encounter Medical Devices Implanted Type Area Vamp Wetter Device Identifier Shelf Expiration Date Model / Serial / Lot Suture Steel 6 B&S19 M654g - [id number] Implanted:Qty: 4 on 08/19/2018 by Brenna Perez MD [place] [facility] [place]/A: Sternum JNJ : [employer] 04/22/2023 M654G / / [id number] Clip Occl Atri Flex V 45mm - [id number] - [id number] Implanted:Qty: 1 on 08/19/2018 by Brenna Perez MD [place] [facility] [place] [employer]TR[employer]URE 03/23/2021 [id number] / [id number] / Duraclip 16mm Xlg Repostn - [id number] Implanted:Qty: 1 on 05/30/2022 by Juventino Degroot DO at [facility] [employer] SYLVIE 11/08/2023 [id number] / / documented as of this encounter [...] Power of Attor haven? No Care Teams Contact Officer Relationship Specialty Start Date End Date Ritesh Iniguez MD [address] [place] [address] PCP - General Family Medicine 03/27/18 documented as of this encounter
--- OUTSIDE RECORDS SUMMARY | 2024-04-02 15:21 | External Medical Summary | Summary of Care ---
Author Name Unknown Organization [facility] Address [address] [facility] [place] [address] Phone [phone] Care Team Providers Care Balance Screwhead Polisher Name Role Phone Ritesh Iniguez MD Primary Care Provider [phone] Reason for Visit * Reason Comments Acute Pt here today due to having extreme fatigue Pt states he has numbness in arms/hands (all the time for a couple of weeks) and had in room dining server on right lower backPt states no chain pain, but has chest tightness all the time Encounter Details Date Type Department Care Team (Late st Contact Info) Description 03/10/2024 11:00 AM EDT Office Visit [facility] [address] [place] [address] Ritesh Iniguez MD [address] [place] [address] Stage 3 chronic kidney disease, unspecified whether stage 3a or 3b CKD (HCC)*; Lyme disease Allergies Active Allergy Reactions Criticality Noted Date Comments Atenolol Hypotension 05/13/2009 As with Metoprolol. See above. Lisinopril Cough 04/07/2010 Metoprolol Succinate Hypotension 05/13/2009 Experience an episode of hypotension in past. Is tolerating low dose now. Will keep warning, however will also continue therapy. Sulfa Antibiotics 05/07/2000 blisters Rofecoxib High 08/04/2018 MADE PATIENT MEAN documented as of this encounter (statuses as of 03/10/2024) Medications Medication Sig Dispensed Refills Start Date [...] as of this encounter (statuses as of 03/10/2024) Active Problems Problem Noted Date Diagnosed Date Chronic kidney disease, stage 3a 11/05/2022 Overview: Per CKD protocol Atherosclerosis of [place] indians[place] division co ronary artery of [place] indians[place] heart with stable angina pectoris 10/12/2022 Coronary artery disease invo lving [place] indians[place] coronary artery of [place] indians[place] heart without angina pectoris 11/06/2019 Gastroesophageal reflux [...] as of this encounter (statuses as of 03/10/2024) Resolved Problems Problem Noted Date Diagnosed Date [...] 31.39 08/14/11 08/14/2011 01/29/2017 VERDICT Clinical Trial [id number] 1 09/30/2013 Overview: Renamed per the [facility] for Medicare and Medicaid billing requirements to include Clinical Trial.gov number. VERDICT Clinical Trial [id number] 1 09/01/2014 Overview: Renamed per the [facility] for Medicare and Medicaid billing requirements to include Clinical Trial.gov number. Stable angina 08/02/2011 09/29/2018 OBESITY, BMI= 31.05 01/23/11 01/23/2011 0 01/29/2017 Heartburn 01/23/2011 01/03/2016 OBESITY, BMI= 31.38 04/25/10 04/25/2010 0 01/29/2017 Screening for prostate cancer 04/25/2010 01/03/2016 Subjective tinnitus 04/25/2010 10/28/19 15 OBESITY, BMI 30-34 (SEE ACTUAL BMI) 12/15/2009 04/25/2010 Overview: Per Obesity Taxonomy CORON ATHEROSCL [place] CORON VESSEL 11/01/2009 04/25/2010 Migraine 11/01/2009 10/28/2014 Overweight (BMI 25.0-29.9) 08/15/2009 0 12/15/2009 Overview: Per Obesity Taxonomy Angina pectoris 07/01/2009 04/25/2010 Need for pneumococcal vaccination 07/01/2009 10/28/2014 Need for diphtheria-tetanus- pertussis (Tdap) vaccine 07/01/2009 10/28/2014 EXAMINATION OF PARTICIPANT I N CLINICAL TRIAL-Genomics 06/24/2009 01/06/2010 Overview: Renamed Per Clinical Trials Billing Project. Study Titile: Genomic Markers for Patients with Cardiovascular Disease Project #[id number] PI: Asia Hebert MD Please call [phone] with study related questions Unstable angina 06/24/2009 08/02/2011 Dyslipidemia, goal to be determined 06/24/2009 08/17/2009 Overview: Per Lipid Taxonomy HTN, goal to be determined 06/24/2009 1 09/28/2008 Overview: Per HTN Taxonomy GENOMICS CARDIO RESEARCH OTHER*[id number] 06/24/2009 10/30/2016 Overview: Renamed Per Clinical Trials Billing Project. Study Titile: Genomic Markers for Patients with Cardiovascular Disease Project #[id number] PI: Asia Hebert MD Please call [phone] with study related questions Screening for prostate [...] as of this encounter (statuses as of 03/10/2024) Immunizations Name Administration Dates Next Due COVID-19 mRNA, LNP-s, No Pre serve, 2-Dose Series ([employer]) 11/30/2020,11/09/2020 Pneumococcal Conjugate Vacc, 13 Valent (Prevnar) 08/01/2017 [...] was given about 6 yrs ago by [email or web address], get date) documented as of this encounter Social History Tobacco Use Types Packs/Day Years Used Date Smoking Tobacco: Never Passive Smoke Exposure: Past Smokeless Tobacco: Former Chew Quit: 2012 Tobacco Cessation:Counseling Given: Not Answered Comments:chewed in past Alcohol Use Standard Drinks/Week [...] on file documented as of this encounter Last Filed Vital Signs Vital Sign Reading Time Taken Comments Blood Pressure 102/64 03/10/2024 11:00 AM EDT Pulse 79 03/10/2024 11:00 AM EDT Temperature 36.1 C (96.9 F) 03/10/2024 11:00 AM E DT Respiratory Rate 18 03/10/2024 11:00 AM EDT Oxygen Saturation 98% 03/10/2024 11:00 AM EDT Inhaled Oxygen Concentration - - Weight 81.9 kg (180 lb 9.6 oz) 03/10/2024 11:00 AM EDT Height - - Body Mass Index 30.05 05/15/2023 9:13 AM EDT documented in this encounter Functional Status Functional Status Response [...] No 08/19/2018 documented as of this encounter Progress Notes * Ritesh Iniguez MD - 03/10/2024 11:46 AM EDT Subjective: Yovany Bliss is a 73 year old male. Chief Complaint Patient presents with Acute Pt here today due to having extreme fatigue Pt states he has numbness in arms/hands (all the time for a couple of weeks) and had in room dining server on right lower back Pt states no chain pain, but has chest tightness all the time HPI: 73-year-old who has a known history of ischemic heart disease hypertension dyslipidemia and some diffuse osteoarthritis has not felt well in 2 weeks. As matter of fact really has felt miserable in that time span. He has overwhelming fatigue but without shortness of breath. He has not aware of fever. He has achiness in his shoulders and numbness in his hands. He has significant right flank discomfort. He does not have any radiation of pain down the right leg. He has noted no blood in the urine nor change in urinary habits. He has not had any rash. Of note is that he had an MRI of kidneys little over year ago because of findings of cyst. By an MRI imaging they appeared to be benign cyst.No tumor was noted in either kidney. 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) Erectile dysfunction Patellofemoral pain syndrome EULALIA (obstructive sleep apnea) HTN, goal below 150/90 Hypothyroidism Postoperative anemia due to acute blood loss Hx of CABG Primary osteoarthritis of both knees Coronary artery disease involving chick[place]om[place] indians[place]eastern division coronary artery of [place] indians[place]eastern division heart without angina pectoris Gastroesophageal reflux disease without esophagitis Old HI (myocardial infarction) Atherosclerosis of [place] indians[place] division coronary artery of [place]ians[place] heart with stable angina pectoris (HCC) Chronic kidney disease, stage 3a (HCC) Current Outpatient Medications Medication Sig Dispense Refill NITROSTAT 0.[address] 1 TABLET UNDER TONGUE IF NEEDED FOR CHEST PAIN. MAY REPEAT 3 TIMES. IF PAIN CONTINUES CALL [phone] Tab 1 aspirin 81 MG chewable tablet Take 2 Tabs by mouth daily. 60 Tab 3 Diclofenac Sodium (VOLTAREN) 1 % gel Place 4 g topically on the skin 4 times a day. Apply to affected area 1 g 3 Sildenafil Citrate 100 MG Oral Tablet Take 1 Tab by mouth daily as needed for Erectile Dysfunction.10 Tab 5 Losartan Potassium 100 MG Oral Tablet (Cozaar) Take 1 Tablet by mouth in the morning. 90 Tablet 3 Atorvastatin Calcium 40 MG Oral Tablet (Lipitor) TAKE 1 TABLET BY MOUTH EVERYDAY AT BEDTIME 90 Tablet 3 hydroCHLOROthiazide 25 MG Oral Tablet (Hydrodiuril) TAKE 1 TABLET BY MOUTH EVERY DAY IN THE [id number] Tablet 1 Carvedilol 6.25 MG Oral Tablet (Coreg) TAKE 1 TABLET BY MOUTH TWICE A DAY 180 Tablet 3 Levothyroxine Sodium 100 MCG Oral Tablet (Levoxyl) TAKE 1 TABLET BY MOUTH IN THE MORNING AT LEAST 30 MIN PRIOR TO BREALFAST OR OTHER MEDS 90 Tablet 0 sildenafil (REVATIO) 20 MG Tablet One tablet by mouth 30 minutes prior to intercourse 10 Tab 3 No current facility-administered medications for this visit. Review of patient's allergies indicates: Allergen Reactions Vioxx [Rofecoxib] MADE PATIENT MEAN Atenolol Hypotension As with Metoprolol. See above. Lisinopril Cough Metoprolol Succinate Hypotension Experience an episode of hypotension in past. Is tolerating low dose now. Will keep warning, however will also continue therapy. Sulfa Antibiotics blisters Objective: BP 102/64 | Pulse 79 | Temp 36.1 C (96.9 F) (Infrared ) | Resp 18 | Wt 81.9 kg (180 lb 9.6 oz) | SpO2 98% | BMI 30.05 kg/m | BSA 1.94 m Physical Exam: CONST: alert, pleasant, generally looks very uncomfortable. s HEAD: normocephalic, atraumatic NECK: supple, soft, no adenopathy EARS: canals normal, TMs normal NARES: clear Eyes - PERRLA, EOM'I OROPHARYNX: clear, no swelling or erythema, moist CV: regular rate and rhythm, no murmur CHEST: clear to auscultation bilaterally, no rales or wheezing ABD: soft, non tender, non distended, no masses or hepatosplenomegaly. He does not have any significant flank tenderness to palpation and no CVA tenderness. He does not have a right flank rash. EXT: no edema, no joint swelling or deformities, . NEURO: AAOx3, no gross focal deficits, cerebellar signs normal, affect appropriate MENTAL STATUS: no evidence of thought disorder, no delusional thought, no evidence of paranoia, thought is non-tangential. SKIN: no rash or significant lesions ASSESSMENT/PLAN: Two week history of overwhelming fatigue and [...] persists, consider getting CT scan of abdomen/pelvis. For now, I suggested he use Tylenol 500 mg, 2 tablets 3 times a day. Ritesh Iniguez MD documented in this encounter Nursing Notes * Krissy Monroe LPN - 03/10/2024 10:55 AM EDT Chief Complaint Patient presents with Acute Pt here today due to having extreme fatigue documented in this encounter Plan of Treatment Upcoming Encounters Date Type Department Care Team (Late st Contact Info) Description 04/14/2024 8:20 AM EDT Office Visit [facility] [address] [place] [address] Ritesh Iniguez MD [address], [place] [id number] Pending Results Name Type Priority Associated Diagnoses Date /Time LYME DISEASE ANTIBODY SCREEN WITH REFLEX TO CONFIRMATION Lab Routine Lyme disease 03/10/2024 1:53 PM EDT ERYTHROCYTE SEDIMENTATION RATE (ESR) Lab Routine Stage 3 chronic kidney disease, unspecified whether stage 3a or 3b CKD (HCC) 03/10/2024 1:53 PM EDT BASIC METABOLIC PANEL Lab Routine Stage 3 chronic kidney disease, unspecified whether stage 3a or 3b CKD (HCC) 03/10/2024 1:53 PM EDT TSH WITH FREE T4 IF INDICATED Lab Routine Stage 3 chronic kidney disease, unspecified whether stage 3a or 3b CKD (HCC) 03/10/2024 1:53 PM EDT CBC WITH WBC DIFFERENTIAL Lab Routine Stage 3 chronic kidney disease, unspecified whether stage 3a or 3b CKD (HCC) 03/10/2024 1:53 PM EDT Scheduled Orders Name Type Priority Associated Diagnoses Orde r Schedule LYME DISEASE ANTIBODY SCREEN WITH REFLEX TO CONFIRMATION Lab Routine Lyme disease Expected: 03/10/2024 (Approximate), Expires: 03/10/2025 ERYTHROCYTE SEDIMENTATION RATE (ESR) Lab Routine Stage 3 chronic kidney disease, unspecified whether stage 3a or 3b CKD (HCC) Expected: 03/10/2024 (Approximate), Expires: 03/10/2025 BASIC METABOLIC PANEL Lab Routine Stage 3 chronic kidney disease, unspecified whether stage 3a or 3b CKD (HCC) Expected: 03/10/2024 (Approximate), Expires: 03/10/2025 TSH WITH FREE T4 IF INDICATED Lab Routine Stage 3 chronic kidney disease, unspecified whether stage 3a or 3b CKD (HCC) Expected: 03/10/2024 (Approximate), Expires: 03/10/2025 CBC WITH WBC DIFFERENTIAL Lab Routine Stage 3 chronic kidney disease, unspecified whether stage 3a or 3b CKD (HCC) Expected: 03/10/2024 (Approximate), Expires: 03/10/2025 Scheduled Procedures Name Priority Associated Diagnoses Date/Ti me COLONOSCOPY FLEXIBLE PROXIMAL DIAGNOSTIC Recall History of colon polyps Health Maintenance Due Date Last Done Comments Cologuard 1997 Fecal Occult Blood Test 1997 Sigmoidoscopy 1997 Zoster Vaccines (1 of 2) 2002 COVID-19 Vaccine ( season) 2023 11/30/2020, 11/09/2020 Depression Screening 04/12/2024 04/12/2023, 02/03/2018, 01/29/2017, Additional history exists GFR 06/30/2024 12/30/2023, 2 , 10/08/2022, Additional history exists Albumin/Creatinine Ratio 12/29/2024 024, 05/23/2022, 10/13/2021, Additional history exists CKD HGB USE SMARTSET 24700 12/29/202412/29, 01/10/2023, 11/19/2019, Additional history exists CKD PHOS USE SMARTSET 20834 12/29/2024 04/0 04/2024, 01/10/2023, 01/05/2016 TSH 12/29/2024 12/30/2023, 12/23, 05/22/2022, Additional history exists Colonoscopy 05/30/2025 05/30/2022, 09/0 [...] this encounter Medical Devices Implanted Type Area Ship Unloader Device Identifier Shelf Expiration Date Model / Serial / Lot Suture Steel 6 B&S19 M654g - [id number] Implanted:Qty: 4 on 08/19/2018 by Brenna Perez MD at [place] [facility] [place] N/A: Sternum JNJ : [employer] 04/22/2023 M654G / / M654 Clip Occl Atri Flex V 45mm - [id number] - [id number] Implanted:Qty: 1 on 08/19/2018 by Brenna Perez MD at OR [facility] [place] [employer] 03/23/2021 [id number] / [id number] / Duraclip 16mm Xlg Repostn - [id number] Implanted:Qty: 1 on 05/30/2022 by Juventino Degroot DO at [facility] [employer] [place] 11/08/2023 [id number] / / documented as of this encounter Visit Diagnoses Diagnosis Stage 3 chronic kidney disease, unspecified whether stage 3a or 3b CKD (HCC)- Primary Lyme disease documented in this encounter Advance Directives * [...] Power of Attor haven? No Care Teams Balance Screwhead Polisher Relationship Specialty Start Date End Date Ritesh Iniguez MD [address] [place] [address] PCP - General Family Medicine 03/27/18 documented as of this encounter"
--- OUTSIDE RECORDS SUMMARY | 2024-04-02 15:21 | External Medical Summary | Summary of Care ---
Author Name Unknown Organization [facility] Address [address] [facility] [place] [address] Phone [phone] Care Team Providers Care Pharmacy District Manager Name Role Phone Ritesh Iniguez MD Primary Care Provider Reason for Visit * Reason Onset Date Comments Test Results 03/12/2024 Encounter Details Date Type Department Care Team (Late st Contact Info) Description 03/12/2024 Telephone [facility] [address] [place] [address] Ritesh Iniguez MD [address] [place] [address] Test Results Allergies Active Allergy [...] 11/05/2022 Overview: Per CKD protocol Atherosclerosis of [place] co ronary artery of [place] heart with stable angina pectoris 10/12/2022 Coronary artery disease invo lving [place] coronary artery of [place] heart without angina pectoris 11/06/2019 Gastroesophageal reflux [...] 31.39 08/14/11 08/14/2011 01/29/2017 VERDICT Clinical Trial [id number] 1 09/30/2013 Overview: Renamed per the Centers for Medicare and Medicaid billing requirements to include Clinical Trial.gov number. VERDICT Clinical Trial [id number] 1 09/01/2014 Overview: Renamed per the Centers [...] 04/25/2010 Overview: Per Obesity Taxonomy CORON ATHEROSCL [place] CORON VESSEL 11/01/2009 04/25/2010 Migraine 11/01/2009 10/28/2014 Overweight (BMI 25.0-29.9) 08/15/2009 0 12/15/2009 Overview: Per Obesity Taxonomy Angina pectoris 07/01/2009 04/25/2010 Need for pneumococcal vaccination 07/01/2009 10/28/2014 Need for diphtheria-tetanus- pertussis (Tdap) vaccine 07/01/2009 10/28/2014 EXAMINATION OF PARTICIPANT I N CLINICAL TRIAL-Genomics 06/24/2009 01/06/2010 Overview: Renamed Per Clinical Trials Billing Project. Study Titile: Genomic Markers for Patients with Cardiovascular Disease Project #[id number] PI: Asia Hebert MD Please call [phone] with study related questions Unstable angina 06/24/2009 08/02/2011 Dyslipidemia, goal to be determined 06/24/2009 08/17/2009 Overview: Per Lipid Taxonomy HTN, goal to be determined 06/24/2009 1 09/28/2008 Overview: Per HTN Taxonomy GENOMICS CARDIO RESEARCH OTHER*[id number] 06/24/2009 10/30/2016 Overview: Renamed Per Clinical Trials Billing Project. Study Titile: Genomic Markers for Patients with Cardiovascular Disease Project #[id number] PI: Asia Hebert MD Please call [phone] with study related questions Screening for prostate [...] was given about 6 yrs ago by [employer], get date) documented as of this encounter [...] time. * Telephone Encounter - Alma Gibbons Celeste, [facility] - 03/12/2024 4:06 PM EDT Pt calling [...] Clinical Pharmacy Services ([facility]) 03/12/24 4:12 PM [phone] * Telephone Encounter - Verna Lawson PHARM Tech - 03/12/2024 3:59 PM EDT Pt calling for lab results. Transferred to [facility] [place]. Thank you, Verna Lawson, Subscription Agent Centralized Clinical Pharmacy Services ([facility]) 03/12/2024,4:01 PM documented in this encounter Plan of Treatment Upcoming Encounters Date Type Department Care Team (Late st Contact Info) Description 04/14/2024 8:20 AM EDT Office Visit [place] [facility] [address] [place] [phone] Ritesh Iniguez MD [address], [place] [id number] Scheduled Procedures Name Priority Associated Diagnoses Date/Ti [...] Additional history exists CKD PHOS USE SMARTSET 23393 12/29/2024 04/0 04/2024, 01/10/2023, 01/05/2016 CKD HGB USE SMARTSET 44467 03/10/202503/10, 03/10/2024, 12/30/2023, Additional history exists TSH [...] this encounter Medical Devices Implanted Type Area Endoscopic Technician Device Identifier Shelf Expiration Date Model / Serial / Lot Suture Steel 6 B&S19 M654g - [id number] Implanted:Qty: 4 on 08/19/2018 by Brenna Perez MD at OR [facility] [place] N/A: Sternum JNJ : [employer] 04/22/2023 M654G / / M654 Clip Occl Atri Flex V 45mm - [id number] - [id number] Implanted:Qty: 1 on 08/19/2018 by Brenna Perez MD at OR [facility] [place] ATRICURE 03/23/2021 [id number] / [id number] / Duraclip 16mm Xlg Repostn - [id number] Implanted:Qty: 1 on 05/30/2022 by Juventino Degroot DO at [facility] 11/08/2023 [id number] / / documented as of this encounter [...] Power of Attor haven? No Care Teams Pharmacy District Manager Relationship Specialty Start Date End Date Ritesh Iniguez MD [address] [place] [address] PCP - General Family Medicine 03/27/18 documented as of this encounter
--- OUTSIDE RECORDS SUMMARY | 2024-04-02 15:21 | External Medical Summary | Summary of Care ---
Author Name Unknown Organization [facility] Address [address] [address] Phone [phone] Care Team Providers Care Automation And Controls Supervisor Name Role Phone Ritesh Iniguez MD Primary Care Provider Reason for Visit * Reason Onset Date Comments Test Results 03/12/2024 Encounter Details Date Type Department Care Team (Late st Contact Info) Description 03/12/2024 Telephone [facility] [address] [place] [address] Ritesh Iniguez MD [address] [place] [address] Test Results Allergies Active Allergy [...] as of this encounter (statuses as of 03/16/2024) Medications Medication Sig Dispensed Refills Start Date [...] as of this encounter (statuses as of 03/16/2024) Active Problems Problem Noted Date Diagnosed Date Chronic kidney disease, stage 3a 11/05/2022 Overview: Per CKD protocol Atherosclerosis of [place] co ronary artery of [place] heart with stable angina pectoris 10/12/2022 Coronary artery disease invo lving [place] coronary artery of [place] heart without angina pectoris 11/06/2019 Gastroesophageal reflux disease without esophagi tis 11/06/2019 Old CA (myocardial infarction) 11/06/2019 Primary osteoarthritis of both [...] as of this encounter (statuses as of 03/16/2024) Resolved Problems Problem Noted Date Diagnosed Date [...] 31.39 08/14/11 08/14/2011 01/29/2017 VERDICT Clinical Trial [id number] 1 09/30/2013 Overview: Renamed per the Centers for Medicare and Medicaid billing requirements to include Clinical Trial.gov number. VERDICT Clinical Trial [id number] 1 09/01/2014 Overview: Renamed per the Centers [...] 04/25/2010 Overview: Per Obesity Taxonomy CORON ATHEROSCL [place] CORON VESSEL 11/01/2009 04/25/2010 Migraine 11/01/2009 10/28/2014 Overweight (BMI 25.0-29.9) 08/15/2009 0 12/15/2009 Overview: Per Obesity Taxonomy Angina pectoris 07/01/2009 04/25/2010 Need for pneumococcal vaccination 07/01/2009 10/28/2014 Need for diphtheria-tetanus- pertussis (Tdap) vaccine 07/01/2009 10/28/2014 EXAMINATION OF PARTICIPANT I N CLINICAL TRIAL-Genomics 06/24/2009 01/06/2010 Overview: Renamed Per Clinical Trials Billing Project. Study Titile: Genomic Markers for Patients with Cardiovascular Disease Project #[id number] PI: Asia Hebert MD Please call [phone] with study related questions Unstable angina 06/24/2009 08/02/2011 Dyslipidemia, goal to be determined 06/24/2009 08/17/2009 Overview: Per Lipid Taxonomy HTN, goal to be determined 06/24/2009 1 09/28/2008 Overview: Per HTN Taxonomy GENOMICS CARDIO RESEARCH OTHER*[id number] 06/24/2009 10/30/2016 Overview: Renamed Per Clinical Trials Billing Project. Study Titile: Genomic Markers for Patients with Cardiovascular Disease Project #[id number] PI: Asia Hebert MD Please call [phone] with study related questions Screening for prostate [...] as of this encounter (statuses as of 03/16/2024) Immunizations Name Administration Dates Next Due COVID-19 [...] was given about 6 yrs ago by [email or web address], get date) documented as of this encounter [...] encounter Miscellaneous Notes * Telephone Encounter - Nevaeh Li LPN [...] call: Test Results Please call Pt at [phone] * Telephone Encounter - Krissy Monroe LPN [...] * Telephone Encounter - [facility] Gibbons [facility] - 03/12/2024 4:06 PM EDT [...] Clinical Pharmacy Services ([facility]) 03/12/24 4:12 PM [phone] * Telephone Encounter - Verna Lawson PHARM Tech - 03/12/2024 3:59 PM EDT Pt calling for lab results. Transferred to [facility] [place]. Thank you, Verna Lawson, Orchestra Director Centralized Clinical Pharmacy Services ([facility]) 03/12/2024,4:01 PM documented in this encounter Plan of Treatment Upcoming Encounters Date Type Department Care Team (Late st Contact Info) Description 04/14/2024 8:20 AM EDT Office Visit [facility] [address] [place] [address] Ritesh Iniguez MD [address] [place] [address] Scheduled Procedures Name Priority Associated [...] Additional history exists CKD PHOS USE SMARTSET 17302 12/29/2024 04/0 04/2024, 01/10/2023, 01/05/2016 CKD HGB USE SMARTSET 33147 03/10/202503/10, 03/10/2024, 12/30/2023, Additional history exists TSH [...] this encounter Medical Devices Implanted Type Area Certified Addiction Counselor Device Identifier Shelf Expiration Date Model / Serial / Lot Suture Steel 6 B&S19 M654g - [id number] Implanted:Qty: 4 on 08/19/2018 by Brenna Perez MD at OR [facility] [place] N/A: Sternum JNJ : [employer] 04/22/2023 M654G / / M654 Clip Occl Atri Flex V 45mm - [id number] - [id number] Implanted:Qty: 1 on 08/19/2018 by Brenna Perez MD at OR [facility] [place] ATRICURE 03/23/2021 [id number] / [id number] / Duraclip 16mm Xlg Repostn - [id number] Implanted:Qty: 1 on 05/30/2022 by Juventino Degroot DO at [facility] [employer] 11/08/2023 [id number] / / documented as of this encounter [...] Power of Attor haven? No Care Teams Automation And Controls Supervisor Relationship Specialty Start Date End Date Ritesh Iniguez MD [address] [place] [address] PCP - General Family Medicine 03/27/18 documented as of this encounter
--- OUTSIDE RECORDS SUMMARY | 2024-04-02 15:21 | External Medical Summary | Summary of Care ---
Author Name Unknown Organization [facility] Address [address] [facility] [facility] [address] Phone [phone] Care Team Providers Care Automotive Service Management Teacher Name Role Phone Ritesh Iniguez MD Primary Care Provider [phone] Reason for Visit * Reason Onset Date Comments Test Results 03/12/2024 Encounter Details Date Type Department Care Team (Late st Contact Info) Description 03/12/2024 Telephone [facility] [address] [place] [address] Ritesh Iniguez MD [address] [place] [address] Test Results Allergies Active Allergy [...] 11/05/2022 Overview: Per CKD protocol Atherosclerosis of [place] co ronary artery of [place] heart with stable angina pectoris 10/12/2022 Coronary artery disease invo lving [place] coronary artery of [place] heart without angina pectoris 11/06/2019 Gastroesophageal reflux disease without esophagi tis 11/06/2019 Old [place] (myocardial infarction) 11/06/2019 Primary osteoarthritis of both [...] 31.39 08/14/11 08/14/2011 01/29/2017 VERDICT Clinical Trial [id number] 1 09/30/2013 Overview: Renamed per the Centers for Medicare and Medicaid billing requirements to include Clinical Trial.gov number. VERDICT Clinical Trial [id number] 1 09/01/2014 Overview: Renamed per the Centers [...] 04/25/2010 Overview: Per Obesity Taxonomy CORON ATHEROSCL [place] CORON VESSEL 11/01/2009 04/25/2010 Migraine 11/01/2009 10/28/2014 Overweight (BMI 25.0-29.9) 08/15/2009 0 12/15/2009 Overview: Per Obesity Taxonomy Angina pectoris 07/01/2009 04/25/2010 Need for pneumococcal vaccination 07/01/2009 10/28/2014 Need for diphtheria-tetanus- pertussis (Tdap) vaccine 07/01/2009 10/28/2014 EXAMINATION OF PARTICIPANT I N CLINICAL TRIAL-Genomics 06/24/2009 01/06/2010 Overview: Renamed Per Clinical Trials Billing Project. Study Titile: Genomic Markers for Patients with Cardiovascular Disease Project #[id number] PI: Asia Hebert MD Please call [phone] with study related questions Unstable angina 06/24/2009 08/02/2011 Dyslipidemia, goal to be determined 06/24/2009 08/17/2009 Overview: Per Lipid Taxonomy HTN, goal to be determined 06/24/2009 1 09/28/2008 Overview: Per HTN Taxonomy GENOMICS CARDIO RESEARCH OTHER*[id number] 06/24/2009 10/30/2016 Overview: Renamed Per Clinical Trials Billing Project. Study Titile: Genomic Markers for Patients with Cardiovascular Disease Project #[id number] PI: Asia Hebert MD Please call [phone] with study related questions Screening for prostate [...] was given about 6 yrs ago by [employer], get date) documented as of this [...] encounter Miscellaneous Notes * Telephone Encounter - Zeina Castanon OSA - 03/13/2024 3:01 PM EDT Reason for patient's call: Test Results Please call Pt at [phone] * Telephone Encounter - Krissy Monroe LPN [...] Clinical Pharmacy Services ([facility]PS) 03/12/24 4:12 PM [phone] * Telephone Encounter - Verna Lawson PHARM Tech - 03/12/2024 3:59 PM EDT Pt calling for lab results. Transferred to [facility]. Thank you, Verna Lawson, Fish Warden Centralized Clinical Pharmacy Services ([facility]) 03/12/2024,4:01 PM documented in this encounter Plan of Treatment Upcoming Encounters Date Type Department Care Team (Late st Contact Info) Description 04/14/2024 8:20 AM EDT Office Visit [facility] [address] [place] [address] Ritesh Iniguez MD [address] [place] [address] Scheduled Procedures Name Priority Associated [...] Additional history exists CKD PHOS USE SMARTSET 08675 12/29/2024 04/0 04/2024, 01/10/2023, 01/05/2016 CKD HGB USE SMARTSET 25339 03/10/202503/10, 03/10/2024, 12/30/2023, Additional history exists TSH [...] this encounter Medical Devices Implanted Type Area Food Tray Assembler Device Identifier Shelf Expiration Date Model / Serial / Lot Suture Steel 6 B&S19 M654g - [id number] Implanted:Qty: 4 on 08/19/2018 by Brenna Perez MD at OR [facility] N/A: Sternum JNJ : [employer] 04/22/2023 M654G / / M654 Clip Occl Atri Flex V 45mm - [id number] - [id number] Implanted:Qty: 1 on 08/19/2018 by Brenna Perez MD at [facility] ATRICURE 03/23/2021 [id number] / [id number] / Duraclip 16mm Xlg Repostn - [id number] Implanted:Qty: 1 on 05/30/2022 by Juventino Degroot DO at ENDOSCOPY [facility] [employer] SYLVIE 11/08/2023 [id number] / / documented as of this encounter [...] Power of Attor haven? No Care Teams Automotive Service Management Teacher Relationship Specialty Start Date End Date Ritesh Iniguez MD [address] [facility] [place] [address] PCP - General Family Medicine 03/27/18 documented as of this encounter
--- OUTSIDE RECORDS SUMMARY | 2024-04-02 15:21 | External Medical Summary | Summary of Care ---
Author Name Unknown Organization [facility] Address [address] [facility] [facility] [address] Phone [phone] Care Team Providers Care Rotary Drier Operator Name Role Phone Ritesh Iniguez MD Primary Care Provider Reason for Visit * Reason Onset Date Comments Test Results 03/12/2024 Encounter Details Date Type Department Care Team (Late st Contact Info) Description 03/12/2024 Telephone [facility] [address] [place] [address] Ritesh Iniguez MD [address] [place] [address] Test Results Allergies Active Allergy [...] 11/05/2022 Overview: Per CKD protocol Atherosclerosis of [place] co ronary artery of [place] heart with stable angina pectoris 10/12/2022 Coronary artery disease invo lving [place] coronary artery of [place] heart without angina pectoris 11/06/2019 Gastroesophageal reflux [...] 31.39 08/14/11 08/14/2011 01/29/2017 VERDICT Clinical Trial [id number] 1 09/30/2013 Overview: Renamed per the Centers for Medicare and Medicaid billing requirements to include Clinical Trial.gov number. VERDICT Clinical Trial [id number] 1 09/01/2014 Overview: Renamed per the Centers [...] 04/25/2010 Overview: Per Obesity Taxonomy CORON ATHEROSCL [place] CORON VESSEL 11/01/2009 04/25/2010 Migraine 11/01/2009 10/28/2014 Overweight (BMI 25.0-29.9) 08/15/2009 0 12/15/2009 Overview: Per Obesity Taxonomy Angina pectoris 07/01/2009 04/25/2010 Need for pneumococcal vaccination 07/01/2009 10/28/2014 Need for diphtheria-tetanus- pertussis (Tdap) vaccine 07/01/2009 10/28/2014 EXAMINATION OF PARTICIPANT I N CLINICAL TRIAL-Genomics 06/24/2009 01/06/2010 Overview: Renamed Per Clinical Trials Billing Project. Study Titile: Genomic Markers for Patients with Cardiovascular Disease Project #[id number] PI: Asia Hebert MD Please call [phone] with study related questions Unstable angina 06/24/2009 08/02/2011 Dyslipidemia, goal to be determined 06/24/2009 08/17/2009 Overview: Per Lipid Taxonomy HTN, goal to be determined 06/24/2009 1 09/28/2008 Overview: Per HTN Taxonomy GENOMICS CARDIO RESEARCH OTHER*[id number] 06/24/2009 10/30/2016 Overview: Renamed Per Clinical Trials Billing Project. Study Titile: Genomic Markers for Patients with Cardiovascular Disease Project #[id number] PI: Asia Hebert MD Please call [phone] with study related questions Screening for prostate [...] was given about 6 yrs ago by [employer], get date) documented as of this encounter [...] call: Test Results Please call Pt at [phone] * Telephone Encounter - Krissy Monroe LPN [...] time. * Telephone Encounter - [place] [facility] - 03/12/2024 4:06 PM EDT [...] Clinical Pharmacy Services ([facility]PS) 03/12/24 4:12 PM [phone] * Telephone Encounter - Verna Lawson PHARM Tech - 03/12/2024 3:59 PM EDT Pt calling for lab results. Transferred to [facility]. Thank you, Verna Lawson, Supervisor [employer] Centralized Clinical Pharmacy Services ([facility]) 03/12/2024,4:01 PM documented in this encounter Plan of Treatment Upcoming Encounters Date Type Department Care Team (Late st Contact Info) Description 04/14/2024 8:20 AM EDT Office Visit [facility] [address] [place] [address] Ritesh Iniguez MD [address] [place] [address] Scheduled Procedures Name Priority Associated [...] Additional history exists CKD PHOS USE SMARTSET 60227 12/29/2024 04/0 04/2024, 01/10/2023, 01/05/2016 CKD HGB USE SMARTSET 98024 03/10/202503/10, 03/10/2024, 12/30/2023, Additional history exists TSH [...] this encounter Medical Devices Implanted Type Area Mobile Ui Developer Device Identifier Shelf Expiration Date Model / Serial / Lot Suture Steel 6 B&S19 M654g - [id number] Implanted:Qty: 4 on 08/19/2018 by Brenna Perez MD at OR [facility] N/A: Sternum JNJ : [employer] 04/22/2023 M654G / / M654 Clip Occl Atri Flex V 45mm - [id number] - [id number] Implanted:Qty: 1 on 08/19/2018 by Brenna Perez MD at [facility] ATR[facility] 03/23/2021 [id number] / [id number] / Duraclip 16mm Xlg Repostn - [id number] Implanted:Qty: 1 on 05/30/2022 by Juventino Degroot DO at ENDOSCOPY [facility] [employer] [facility] 11/08/2023 [id number] / / documented as of this encounter [...] Power of Attor haven? No Care Teams Rotary Drier Operator Relationship Specialty Start Date End Date Ritesh Iniguez MD [address] [place] [address] PCP - General Family Medicine 03/27/18 documented as of this encounter
--- OUTSIDE RECORDS SUMMARY | 2024-04-02 15:21 | External Medical Summary | Summary of Care ---
Author Name Unknown Organization [facility] Address [address] [facility] [address] Phone [phone] Care Team Providers Care Motorboat Mechanic Helper Name Role Phone Ritesh Iniguez MD Primary Care Provider Reason for Visit * Reason Onset Date Comments Test Results 03/12/2024 Encounter Details Date Type Department Care Team (Late st Contact Info) Description 03/12/2024 Telephone [facility] [address] [place] [address] Ritesh Iniguez MD [address] [place] [address] Test Results Allergies Active Allergy [...] 11/05/2022 Overview: Per CKD protocol Atherosclerosis of [place] co ronary artery of [place] heart with stable angina pectoris 10/12/2022 Coronary artery disease invo lving [place] coronary artery of [place] heart without angina pectoris 11/06/2019 Gastroesophageal reflux disease without esophagi tis 11/06/2019 Old [place] (myocardial infarction) 11/06/2019 Primary osteoarthritis of both [...] 31.39 08/14/11 08/14/2011 01/29/2017 VERDICT Clinical Trial [id number] 1 09/30/2013 Overview: Renamed per the Centers for Medicare and Medicaid billing requirements to include Clinical Trial.gov number. VERDICT Clinical Trial [id number] 1 09/01/2014 Overview: Renamed per the Centers [...] 04/25/2010 Overview: Per Obesity Taxonomy CORON ATHEROSCL [place] CORON VESSEL 11/01/2009 04/25/2010 Migraine 11/01/2009 10/28/2014 Overweight (BMI 25.0-29.9) 08/15/2009 0 12/15/2009 Overview: Per Obesity Taxonomy Angina pectoris 07/01/2009 04/25/2010 Need for pneumococcal vaccination 07/01/2009 10/28/2014 Need for diphtheria-tetanus- pertussis (Tdap) vaccine 07/01/2009 10/28/2014 EXAMINATION OF PARTICIPANT I N CLINICAL TRIAL-Genomics 06/24/2009 01/06/2010 Overview: Renamed Per Clinical Trials Billing Project. Study Titile: Genomic Markers for Patients with Cardiovascular Disease Project #[id number] PI: Asia Hebert MD Please call [phone] with study related questions Unstable angina 06/24/2009 08/02/2011 Dyslipidemia, goal to be determined 06/24/2009 08/17/2009 Overview: Per Lipid Taxonomy HTN, goal to be determined 06/24/2009 1 09/28/2008 Overview: Per HTN Taxonomy GENOMICS CARDIO RESEARCH OTHER*[id number] 06/24/2009 10/30/2016 Overview: Renamed Per Clinical Trials Billing Project. Study Titile: Genomic Markers for Patients with Cardiovascular Disease Project #[id number] PI: Asia Hebert MD Please call [phone] with study related questions Screening for prostate [...] was given about 6 yrs ago by [employer], get date) documented as of this encounter [...] Notes * Telephone Encounter - [place] Gibbons, [facility] - 03/12/2024 4:06 PM EDT [...] Clinical Pharmacy Services ([facility]PS) 03/12/24 4:12 PM [phone] * Telephone Encounter - Verna Lawson PHARM Tech - 03/12/2024 3:59 PM EDT Pt calling for lab results. Transferred to [facility]. Thank you, Verna Lawson, Lang Interpreter Centralized Clinical Pharmacy Services ([facility]) 03/12/2024,4:01 PM documented in this encounter Plan of Treatment Upcoming Encounters Date Type Department Care Team (Late st Contact Info) Description 04/14/2024 8:20 AM EDT Office Visit [facility] [address] [place] [address] Ritesh Iniguez MD [address] [place] [address] Scheduled Procedures Name Priority Associated [...] Additional history exists CKD PHOS USE SMARTSET 26767 12/29/2024 040 04/2024, 01/10/2023, 01/05/2016 CKD HGB USE SMARTSET 63741 03/10/202503/10, 03/10/2024, 12/30/2023, Additional history exists TSH [...] this encounter Medical Devices Implanted Type Area Strip Cleaner Device Identifier Shelf Expiration Date Model / Serial / Lot Suture Steel 6 B&S19 M654g - [id number] Implanted:Qty: 4 on 08/19/2018 by Brenna Perez MD at OR [facility] N/A: Sternum TRACY : [employer] 04/22/2023 M654G / / M654 Clip Occl Atri Flex V 45mm - [id number] - [id number] Implanted:Qty: 1 on 08/19/2018 by Brenna Perez MD at OR [facility] ATRICURE 03/23/2021 [id number] / [id number] / Duraclip 16mm Xlg Repostn - [id number] Implanted:Qty: 1 on 05/30/2022 by Juventino Degroot DO at [facility] [employer] SYLVIE 11/08/2023 [id number] / / documented as of this encounter [...] Power of Attor haven? No Care Teams Motorboat Mechanic Helper Relationship Specialty Start Date End Date Ritesh Iniguez MD [address] [place] [address] PCP - General Family Medicine 03/27/18 documented as of this encounter
--- OUTSIDE RECORDS SUMMARY | 2024-04-02 15:22 | External Medical Summary | Summary of Care ---
Author Name Unknown Organization [facility] Address [address] [facility] [place] [address] Phone [phone] Care Team Providers Care Shank Turner Name Role Phone Ritesh Iniguez MD Primary Care Provider Reason for Visit * Reason Comments Outpatient Testing Encounter Details Date Type Department Care Team (Late st Contact Info) Description 12/30/2023 10:30 AM EDT Laboratory Laboratory, [address] [address] St, Specimen Drop Off [address] [address] Arrived Allergies Active Allergy Reactions Criticality Noted Date Comments Atenolol Hypotension 05/13/2009 As with Metoprolol. See above. Lisinopril Cough 04/07/2010 Metoprolol Succinate Hypotension 05/13/2009 Experience an episode of hypotension in past. Is tolerating low dose now. Will keep warning, however will also continue therapy. Sulfa Antibiotics 05/07/2000 blisters Rofecoxib High 08/04/2018 MADE PATIENT MEAN documented as of this encounter (statuses as of 12/30/2023) Medications Medication Sig Dispensed Refills Start Date [...] Erectile Dysfunction. 10 Tab 5 11/23/2020 Active Levothyroxine Sodium 100 MCG Oral Tablet (Levoxyl)Indications :Hypothyroidism, unspecified type TAKE 1 TABLET BY MOUTH ONCE DAILY 30 MINUTES BEFORE BREAKFAST OR OTHER MEDICATIONS 90 Tablet 1 08/20/2023 Active Losartan Potassium 100 MG Oral Tablet [...] A DAY 180 Tablet 3 12/19/2023 Active documented as of this encounter (statuses as of 12/30/2023) Active Problems Problem Noted Date Diagnosed Date Chronic kidney disease, stage 3a 11/05/2022 Overview: Per CKD protocol Atherosclerosis of [place] co ronary artery of [place] heart with stable angina pectoris 10/12/2022 Coronary artery disease invo lving [place] coronary artery of [place] heart without angina pectoris 11/06/2019 Gastroesophageal reflux disease without esophagi tis 11/06/2019 Old [place] (myocardial infarction) 11/06/2019 Primary osteoarthritis of both [...] as of this encounter (statuses as of 12/30/2023) Resolved Problems Problem Noted Date Diagnosed Date [...] 31.39 08/14/11 08/14/2011 01/29/2017 VERDICT Clinical Trial [id number] 1 09/30/2013 Overview: Renamed per the Centers for Medicare and Medicaid billing requirements to include Clinical Trial.gov number. VERDICT Clinical Trial [id number] 1 09/01/2014 Overview: Renamed per the Centers [...] 04/25/2010 Overview: Per Obesity Taxonomy CORON ATHEROSCL [place] CORON VESSEL 11/01/2009 04/25/2010 Migraine 11/01/2009 10/28/2014 Overweight (BMI 25.0-29.9) 08/15/2009 0 12/15/2009 Overview: Per Obesity Taxonomy Angina pectoris 07/01/2009 04/25/2010 Need for pneumococcal vaccination 07/01/2009 10/28/2014 Need for diphtheria-tetanus- pertussis (Tdap) vaccine 07/01/2009 10/28/2014 EXAMINATION OF PARTICIPANT I N CLINICAL TRIAL-Genomics 06/24/2009 01/06/2010 Overview: Renamed Per Clinical Trials Billing Project. Study Titile: Genomic Markers for Patients with Cardiovascular Disease Project #[id number] PI: Asia Hebert MD Please call [phone] with study related questions Unstable angina 06/24/2009 08/02/2011 Dyslipidemia, goal to be determined 06/24/2009 08/17/2009 Overview: Per Lipid Taxonomy HTN, goal to be determined 06/24/2009 1 09/28/2008 Overview: Per HTN Taxonomy GENOMICS CARDIO RESEARCH OTHER*[id number] 06/24/2009 10/30/2016 Overview: Renamed Per Clinical Trials Billing Project. Study Titile: Genomic Markers for Patients with Cardiovascular Disease Project #[id number] PI: Asia Hebert MD Please call [phone] with study related questions Screening for prostate [...] as of this encounter (statuses as of 12/30/2023) Immunizations Name Administration Dates Next Due COVID-19 mRNA, LNP-s, No Pre serve, 2-Dose Series (Pfizer) 11/30/2020,11/09/2020 Pneumococcal Conjugate Vacc, 13 Valent (Prevnar) 08/01/2017 Pneumococcal Polysaccharide PPV23 (Pneumovax) 08/10/2019,07/01/2009,02/24/2009(Defer red: Patient Refused - ins does not cover) Seasonal Influenza, PF, 6 M & above, IM , (FluLaval or Fluzone) 05/26/2020,06/19/2019,06/23/2018,06/19 Seasonal Influenza, Quadriva lent Hd (Fluzone Hd) 07/09/2023,07/23/2022,06/24/2021 Seasonal Influenza, Split, I IV3, With Preserve, Inj 07/23/2016,06/13/2015,05/28/2014,07/24,06/23/2012,07/03/2011,06/25/2009 TDAP (age 10 and older)(Boostrix) 11/06/2019 TDAP (age 11 and older)(Adacel) 07/01/20 09,02/24/2009(Deferred: Patient Refused - states was given about 6 yrs ago by [employer], get date) documented as of this encounter Social History Tobacco Use Types Packs/Day Years Used Date Smoking Tobacco: Never Smokeless Tobacco: Former Chew Quit: 2012 Comments:chewed [...] No 08/19/2018 documented as of this encounter Plan of Treatment Upcoming Encounters Date Type Department Care Team (Late st Contact Info) Description 04/14/2024 8:20 AM EDT Office Visit [facility] [address] [place] [facility] [place] [address] Ritesh Iniguez MD [address] [place] [address] Scheduled Procedures Name Priority Associated Diagnoses Date/Ti me COLONOSCOPY FLEXIBLE PROXIMAL DIAGNOSTIC Recall History of colon polyps Health Maintenance Due Date Last Done Comments Zoster Vaccines (1 of 2) 2002 Albumin/Creatinine Ratio 05/23/2023 022, 10/13/2021, 01/30/2017, Additional history exists COVID-19 Vaccine (3 - season) 2023 11/30/2020, 11/09/2020 GFR 07/12/2023 01/10/2023, 09/23, 05/22/2022, Additional history exists CKD HGB USE SMARTSET 56392 01/11/202401/10, 11/19/2019, 08/10/2019, Additional history exists CKD PHOS USE SMARTSET 55389 01/11/2024 01/10/2023, 0 01/05/2016 TSH 01/11/2024 01/10/2023, 04/25, 10/13/2021, Additional history exists Depression Screening 04/12/2024 04/12/2023, 02/03/2018, 01/29/2017, Additional history exists COLONOSCOPY-EVERY 3 YRS AGES 18-100 05/30/2025 05/30/2022, 05/30/2022, 02/10/2018, Additional history exists DTaP,Tdap,and Td Vaccines (3 - Td or [...] this encounter Medical Devices Implanted Type Area Wildlife Conservationist Device Identifier Shelf Expiration Date Model / Serial / Lot Suture Steel 6 B&S19 M654g - [id number] Implanted:Qty: 4 on 08/19/2018 by Brenna Perez MD at OR [facility] N/A: Sternum JNJ : [employer] 04/22/2023 M654G / / M654 Clip Occl Atri Flex V 45mm - [id number] - [id number] Implanted:Qty: 1 on 08/19/2018 by Brenna Perez MD at OR [facility] ATRICURE 03/23/2021 [id number] / [id number] / Duraclip 16mm Xlg Repostn - [id number] Implanted:Qty: 1 on 05/30/2022 by Juventino Degroot DO at [facility] [employer] SYLVIE 11/08/2023 [id number] / / documented as of this encounter Advance Directives Latest Code Status on File Code Status Date Activated Date Inactivated Comments Full Code 11/30/2019 10:59 AM 11/30/2019 4:31 PM This o rder reflects the patients wishes and were consensually agreed upon. Code Status History Code Status Date Activated Date Inactivated Comments Full Code 08/20/2018 11:49 PM 08/23/2018 5:39 PM Thi s order reflects the patients wishes and were consensually agreed upon. Full Code 03/07/2014 2:57 PM 03/08/2014 7:06 PM This order reflects the patients wishes and were consensually agreed upon. Question Answer Comments Discussion of Advance Directives occurred with: Patient Does the patient have a Living Will? No Does the patient have Health Care Power of Wellness Coordinator? No No Code 08/09/2011 2:32 PM 08/09/2011 8:07 PM Thi s order reflects the patients wishes and were consensually agreed upon. Question Answer Comments Discussion of Advance Directives occurred with: Not Discussed Does the patient have a Living Will? No Does the patient have Health Care Power of Wellness Coordinator? No Full Code 06/24/2009 2:52 PM 06/25/2009 9:02 PM This order reflects the patients wishes and were consensually agreed upon. Question Answer Comments Discussion of Advance Directives occurred with: Patient/Family Does the patient have a Living Will? No Does the patient have Health Care Power of Wellness Coordinator? No Care Teams Shank Turner Relationship Specialty Start Date End Date Ritesh Iniguez MD [address] [place] [address] PCP - General Family Medicine 03/27/18 documented as of this encounter
--- OUTSIDE RECORDS SUMMARY | 2024-04-02 15:22 | External Medical Summary ---
Author Name Unknown Address Unknown Organization K01:[facility] [place] [facility] [address] [place] [address] Laboratory Report Ordering Provider Test Date Status MYRA ORTIZ 12/30/2023 08:55:35 Final Observation Date Value Abnormality Reference (Units ) Status WBC, Total 12/30/2023 08:55:35 8.91 4.00-10.80 (K/uL) Final RBC 12/30/2023 08:55:35 4.57 4.50-5.25 (M/uL) Final Hemoglobin 12/30/2023 08:55:35 14.4 14.0-16.8 (g/dL) Final HCT 12/30/2023 08:55:35 42.0 40.0-48.4 (%) Final MCV 12/30/2023 08:55:35 91.9 82.0-99.5 (fL) Final MCH 12/30/2023 08:55:35 31.5 27.0-34.0 (pg) Final MCHC 12/30/2023 08:55:35 34.3 32.0-36.0 (g/dL) Final RDW 12/30/2023 08:55:35 13.2 11.5-15.5 (%) Final Platelets 12/30/2023 08:55:35 231 140-400 (K/uL) Final MPV 12/30/2023 08:55:35 12.0 6.6-11.1 (fL) Final Nucleated erythrocytes/100 leukocytes [Ratio] in Blood by Automated count 12/30/2023 08:55:35 0 <=0 (/100 WBCs) Final Performing Location [facility] [place] [address] [place] [address]
--- OUTSIDE RECORDS SUMMARY | 2024-04-02 15:22 | External Medical Summary | Summary of Care ---
Author Name Unknown Organization [facility] Address [address] [place] [address] Phone [phone] Care Team Providers Care Carpenter Form Name Role Phone Ritesh Iniguez MD Primary Care Provider [phone] Encounter Details Date Type Department Care Team (Late st Contact Info) Description 02/12/2024 Orders Only Outcomes Research Department [address] [place] [address] Asia Gil [facility] Other*[id number] Allergies Active Allergy Reactions Criticality Noted Date Comments Atenolol Hypotension 05/13/2009 As with Metoprolol. See above. Lisinopril Cough 04/07/2010 Metoprolol Succinate Hypotension 05/13/2009 Experience an episode of hypotension in past. Is tolerating low dose now. Will keep warning, however will also continue therapy. Sulfa Antibiotics 05/07/2000 blisters Rofecoxib High 08/04/2018 MADE PATIENT MEAN documented as of this encounter (statuses as of 02/12/2024) Medications Medication Sig Dispensed Refills Start Date [...] as of this encounter (statuses as of 02/12/2024) Active Problems Problem Noted Date Diagnosed Date Chronic kidney disease, stage 3a 11/05/2022 Overview: Per CKD protocol Atherosclerosis of [place] co ronary artery of [place] heart with stable angina pectoris 10/12/2022 Coronary artery disease invo lving [place] coronary artery of [place] heart without angina pectoris 11/06/2019 Gastroesophageal reflux disease without esophagi tis 11/06/2019 Old [place] (myocardial infarction) 11/06/2019 Primary osteoarthritis of both [...] as of this encounter (statuses as of 02/12/2024) Resolved Problems Problem Noted Date Diagnosed Date [...] bmi= 31.23 08/12/12 Screen for colon cancer 08/12/2012/01/2015 Encounter for examination fo r normal comparison and control in clinical research program 06/17/2012 07/10/2012 Overview: Diagnosis changed due to Research Module. Go to Snapshot for study details. Hypothyroidism 02/16/2012 08/01/2016 Hypothyroidism 02/16/2012 02/16/2012 Erectile dysfunction 02/12/2012 017 Screening for colon cancer 02/12/2012 0 01/03/2016 Obesity, BMI 31.39 08/14/11 08/14/2011 01/29/2017 VERDICT Clinical Trial [id number] 1 09/30/2013 Overview: Renamed per the Centers for Medicare and Medicaid billing requirements to include Clinical Trial.gov number. VERDICT Clinical Trial [id number] 1 09/01/2014 Overview: Renamed per the Centers [...] 04/25/2010 Overview: Per Obesity Taxonomy CORON ATHEROSCL [place] CORON VESSEL 11/01/2009 04/25/2010 Migraine 11/01/2009 10/28/2014 Overweight (BMI 25.0-29.9) 08/15/2009 0 12/15/2009 Overview: Per Obesity Taxonomy Angina pectoris 07/01/2009 04/25/2010 Need for pneumococcal vaccination 07/01/2009 10/28/2014 Need for diphtheria-tetanus- pertussis (Tdap) vaccine 07/01/2009 10/28/2014 EXAMINATION OF PARTICIPANT I N CLINICAL TRIAL-Genomics 06/24/2009 01/06/2010 Overview: Renamed Per Clinical Trials Billing Project. Study Titile: Genomic Markers for Patients with Cardiovascular Disease Project #[id number] PI: Asia Hebert MD Please call [phone] with study related questions Unstable angina 06/24/2009 08/02/2011 Dyslipidemia, goal to be determined 06/24/2009 08/17/2009 Overview: Per Lipid Taxonomy HTN, goal to be determined 06/24/2009 1 09/28/2008 Overview: Per HTN Taxonomy GENOMICS CARDIO RESEARCH OTHER*[id number] 06/24/2009 10/30/2016 Overview: Renamed Per Clinical Trials Billing Project. Study Titile: Genomic Markers for Patients with Cardiovascular Disease Project #[id number] PI: Asia Hebert MD Please call [phone] with study related questions Screening for prostate [...] as of this encounter (statuses as of 02/12/2024) Immunizations Name Administration Dates Next Due COVID-19 [...] older)(Boostrix) 11/06/2019 TDAP (age 11 and older)(Adacel) 07/01/20,02/24/2009(Deferred: Patient Refused - states was given about 6 yrs ago by [employer], get date) documented as of this encounter [...] Description 04/14/2024 8:20 AM EDT Office Visit [facility] [address] [place] [facility] [place] [address] Ritesh Iniguez MD [address] [facility] [place] [address] Scheduled Orders Name Type Priority Associated Diagnoses Orde r Schedule MYCODE SUBSEQUENT ADULT Lab Routine MyCode Research Other*[id number] Every 6 Months for 2 Occurrences starting 02/12/2024 until 03/03/2025 Scheduled Procedures Name Priority Associated Diagnoses Date/Ti [...] Additional history exists CKD HGB USE SMARTSET 36068 12/29/202412/29, 01/10/2023, 11/19/2019, Additional history exists CKD PHOS USE SMARTSET 37204 12/29/2024 04/0 04/2024, 01/10/2023, 01/05/2016 TSH 12/29/2024 12/30/2023, 2 , 05/22/2022, Additional history exists Colonoscopy 05/30/2025 05/30/2022, [...] this encounter Medical Devices Implanted Type Area Manufacturing Team Member Device Identifier Shelf Expiration Date Model / Serial / Lot Suture Steel 6 B&S19 M654g - [id number] Implanted:Qty: 4 on 08/19/2018 by Brenna Perez MD at [facility] N/A: Sternum JNJ : [employer] 04/22/2023 [id number] / / [id number] Clip Occl Atri Flex V 45mm - [id number] - [id number] Implanted:Qty: 1 on 08/19/2018 by Brenna Perez MD at [facility] [employer] 03/23/2021 [id number] / [id number] / Duraclip 16mm Xlg Repostn - [id number] Implanted:Qty: 1 on 05/30/2022 by Juventino Degroot DO at [facility] [employer] 11/08/2023 [id number] / / documented as of this encounter Visit Diagnoses Diagnosis MyCode Research Other*[id number] documented in this encounter Advance Directives * [...] Power of Attor haven? No Care Teams Carpenter Form Relationship Specialty Start Date End Date Ritesh Iniguez MD [address] [place] [address] PCP - General Family Medicine 03/27/18 documented as of this encounter
--- OUTSIDE RECORDS SUMMARY | 2024-04-02 15:22 | External Medical Summary ---
Author Name Unknown Address Unknown Organization K01:[place]ATORY [facility] [place] [facility] [address] [place] [address] Laboratory Report Ordering Provider Test Date Status MYRA ORTIZ 03/10/2024 13:53:57 Final Observation Date Value Abnormality Reference (Units ) Status SYNC LEUKOCYTES IN BLOOD BY AUTOMATED COUNT 03/10/2024 13:53:57 8.72 4.00-10.80 (K/uL) Final Segs 03/10/2024 13:53:57 63.7 40.0-75.0 (%) Final Lymphs % 03/10/2024 13:53:57 25.9 18.0-42.0 (%) Final Monos 03/10/2024 13:53:57 7.9 1.0-11.0 (%) Final Eosinophils 03/10/2024 13:53:57 1.7 0.0-6.0 (%) Final Basos 03/10/2024 13:53:57 0.6 0.0-2.0 (%) Final Immature Granulocyte, Percent 03/10/2024 13:53:57 0.2 0.0-2.0 (%) Final Absolute Segs 03/10/2024 13:53:57 5.55 1.80-7.70 (K/uL) Final Lymphs, absolute 03/10/2024 13:53:57 2.26 1.00-4.80 (K/ul) Final Monos, Abs 03/10/2024 13:53:57 0.69 0.00-1.10 (K/uL) Final Eos, Abs 03/10/2024 13:53:57 0.15 0.00-0.70 (K/uL) Final Basos, Abs 03/10/2024 13:53:57 0.05 0.00-0.20 (K/uL) Final Immature Granulocytes, Number 03/10/2024 13:53:57 0.02 0.00-0.20 (K/uL) Final Performing Location LAB[facility]ATORY [facility] - [address] [facility] [address]
--- OUTSIDE RECORDS SUMMARY | 2024-04-02 15:22 | External Medical Summary ---
Author Name Unknown Address Unknown Organization K01:LABORATORY [facility] [place] - [address] [place] [address] [place] [address] Laboratory Report Ordering Provider Test Date Status MYRA ORTIZ 03/10/2024 13:53:57 Final Observation Date Value Abnormality Reference (Units ) Status Borrelia burgdorferi IgG and IgM [Interpretation] in Serum by Immunoassay 03/10/2024 13:53:57 Negative Negative Final Performing Location LABORATORY [facility] - [address] [place] [address]
--- OUTSIDE RECORDS SUMMARY | 2024-04-02 15:22 | External Medical Summary ---
Author Name Unknown Address Unknown Organization K01:[place] [facility] [place] [address] [place] [address] Laboratory Report Ordering Provider Test Date Status MYRA ORTIZ 12/30/2023 08:55:35 Final Observation Date Value Abnormality Reference (Units ) Status BUN 12/30/2023 08:55:35 23 Above high normal 6-20 (mg/dL) Final Creatinine 12/30/2023 08:55:35 1.4 Above high normal 0.6-1.2 (mg/dL) Final Glomerular filtration rate/1.73 sq M.predicted [Volume Rate/Area] in Serum, Plasma or Blood by Creatinine-based formula (CKD-EPI) 12/30/2023 08:55:35 53 Below low normal >=60 (mL/min) Final eGFR is calculated based on the CKD-EPI 2020 equation Sodium 12/30/2023 08:55:35 139 135-146 (m mol/L) Final Potassium 12/30/2023 08:55:35 4.2 3.5-5.1 (m mol/L) Final Cl 12/30/2023 08:55:35 102 98-107 (mm ol/L) Final CO2 12/30/2023 08:55:35 27 22-32 (mmo l/L) Final Anion gap 12/30/2023 08:55:35 10 7-15 (mmol /L) Final Glucose 12/30/2023 08:55:35 98 70-120 (mg /dL) Final Albumin 12/30/2023 08:55:35 4.5 3.8-5.0 (g /dL) Final AST (Aspartate aminotransferase) 12/30/2023 08:55:35 19 10-50 (U/L) Final Alk Phos 12/30/2023 08:55:35 82 35-130 (U/ L) Final Bilirubin, Total 12/30/2023 08:55:35 0.4 <=1 .2 (mg/dL) Final Calcium 12/30/2023 08:55:35 9.4 8.4-10.2 ( mg/dL) Final Protein 12/30/2023 08:55:35 7.1 6.0-8.3 (g /dL) Final ALT (Alanine aminotransferase) 12/30/2023 08:55:35 28 10-50 (U/L) Final Performing Location [place] [facility] [place] [address] [facility] [address]
--- OUTSIDE RECORDS SUMMARY | 2024-04-02 15:22 | External Medical Summary ---
Author Name Unknown Address Unknown Organization K01:LABORATORY [facility] - [address] [place] [address] Laboratory Report Ordering Provider Test Date Status GIDEON ORTIZQUYEN 12/30/2023 08:55:35 Final Observation Date Value Abnormality Reference (Units ) Status Phosphate 12/30/2023 08:55:35 3.8 2.5-4.8 (m g/dL) Final Performing Location LABORATORY [facility] - [address] [place] [address]
--- OUTSIDE RECORDS SUMMARY | 2024-04-02 15:22 | External Medical Summary ---
Author Name Unknown Address Unknown Organization K01:LABORATORY [facility] [place] - [address] [place] [address] Laboratory Report Ordering Provider Test Date Status MYRA ORTIZ 12/30/2023 10:26:47 Final Normal: <30 mg/g creatinine< br/>High: 30-300 mg/g creatinine
Very High: >300 mg/g creatinine
Nephrotic: >2200 mg/g creatinine Observation Date Value Abnormality Reference (Units ) Status Albumin, Urine 12/30/2023 10:26:47 <1.20 (mg/dL) Final Creatinine, Urine 12/30/2023 10:26:47 111 (mg/dL) Final Albumin/Creatinine [Mass Ratio] in Urine 12/30/2023 10:26:47 <11 <30 (mg/g Creat) Final Performing Location LABORATORY [facility] [place] - [facility] [address] [place] [address]
--- OUTSIDE RECORDS SUMMARY | 2024-04-02 15:22 | External Medical Summary | Summary of Care ---
Author Name Unknown Organization [facility] Address [address] [place] [facility] [place] [address] Phone [phone] Care Team Providers Care Test Center Administrator Name Role Phone Ritesh Iniguez MD Primary Care Provider Reason for Visit * Reason Comments Outpatient Testing Encounter Details Date Type Department Care Team (Late st Contact Info) Description 03/10/2024 12:20 PM EDT Laboratory Laboratory, [place] [address] [place] [address] [place], [facility] [address] [place] [address] ASCVD (arteriosclerotic cardiovascular disease); Dyslipidemia, goal LDL below 70; Hx of CABG Allergies Active Allergy Reactions Criticality Noted Date [...] 11/05/2022 Overview: Per CKD protocol Atherosclerosis of [place] co ronary artery of [place] heart with stable angina pectoris 10/12/2022 Coronary artery disease invo lving [place] coronary artery of [place] heart without angina pectoris 11/06/2019 Gastroesophageal reflux [...] actual BMI) 10/28/2014 01/29/2017 Overview: bmi= 32.60 2/5/15 Mild sleep apnea 05/25/2014 08/01/2016 Overview: 04/22/14 [...] 31.39 08/14/11 08/14/2011 01/29/2017 VERDICT Clinical Trial [id number] 1 09/30/2013 Overview: Renamed per the Centers for Medicare and Medicaid billing requirements to include Clinical Trial.gov number. VERDICT Clinical Trial [id number] 1 09/01/2014 Overview: Renamed per the Centers [...] 04/25/2010 Overview: Per Obesity Taxonomy CORON ATHEROSCL [place] CORON VESSEL 11/01/2009 04/25/2010 Migraine 11/01/2009 10/28/2014 Overweight (BMI 25.0-29.9) 08/15/2009 0 12/15/2009 Overview: Per Obesity Taxonomy Angina pectoris 07/01/2009 04/25/2010 Need for pneumococcal vaccination 07/01/2009 10/28/2014 Need for diphtheria-tetanus- pertussis (Tdap) vaccine 07/01/2009 10/28/2014 EXAMINATION OF PARTICIPANT I N CLINICAL TRIAL-Genomics 06/24/2009 01/06/2010 Overview: Renamed Per Clinical Trials Billing Project. Study Titile: Genomic Markers for Patients with Cardiovascular Disease Project #[id number] PI: Asia Hebert MD Please call [phone] with study related questions Unstable angina 06/24/2009 08/02/2011 Dyslipidemia, goal to be determined 06/24/2009 08/17/2009 Overview: Per Lipid Taxonomy HTN, goal to be determined 06/24/2009 1 09/28/2008 Overview: Per HTN Taxonomy GENOMICS CARDIO RESEARCH OTHER*[id number] 06/24/2009 10/30/2016 Overview: Renamed Per Clinical Trials Billing Project. Study Titile: Genomic Markers for Patients with Cardiovascular Disease Project #[id number] PI: Asia Hebert MD Please call [phone] with study related questions Screening for prostate [...] was given about 6 yrs ago by [employer], get date) documented as of this encounter [...] Description 04/14/2024 8:20 AM EDT Office Visit [address] [address] Ritesh Iniguez MD [address] [place] [address] Scheduled Procedures Name Priority Associated Diagnoses Date/Ti me COLONOSCOPY FLEXIBLE PROXIMAL DIAGNOSTIC Recall History of colon polyps Health Maintenance Due Date Last Done Comments Cologuard 1997 Fecal Occult Blood Test 1997 Sigmoidoscopy 1997 Zoster Vaccines (1 of 2) 2002 COVID-19 Vaccine (3 - season) 2023 11/30/2020, 11/09/2020 Depression Screening 04/12/2024 04/12/2023, 02/03/2018, 01/29/2017, Additional history exists GFR 06/30/2024 12/30/2023, 12/23, 10/08/2022, Additional history exists Albumin/Creatinine Ratio 12/29/2024 024, 05/23/2022, 10/13/2021, Additional history exists CKD HGB USE SMARTSET 11470 12/29/202412/29, 01/10/2023, 11/19/2019, Additional history exists CKD PHOS USE SMARTSET 26848 12/29/2024 04/0 04/2024, 01/10/2023, 01/05/2016 TSH 12/29/2024 12/30/2023, 12/23, 05/22/2022, Additional history exists Colonoscopy 05/30/2025 05/30/2022, 0903/2022, 02/10/2018, Additional history exists Colorectal Cancer Screening [...] this encounter Medical Devices Implanted Type Area Sample Preparation Supervisor Device Identifier Shelf Expiration Date Model / Serial / Lot Suture Steel 6 B&S19 M654g - [id number] Implanted:Qty: 4 on 08/19/2018 by Brenna Perez MD at [facility] N/A: Sternum JNJ : [employer] 04/22/2023 M654G / / M654 Clip Occl Atri Flex V 45mm - [id number] - [id number] Implanted:Qty: 1 on 08/19/2018 by Brenna Perez MD at [facility] [employer] 03/23/2021 [id number] / [id number] / Duraclip 16mm Xlg Repostn - [id number] Implanted:Qty: 1 on 05/30/2022 by Juventino Degroot DO at [facility] [employer] SYLVIE 11/08/2023 [id number] / / documented as of this encounter Visit Diagnoses Diagnosis ASCVD (arteriosclerotic cardiovascular disease) Unspecified cardiovascular disease Dyslipidemia, goal LDL below 70 Other and unspecified hyperlipidemia Hx of CABG Postsurgical aortocoronary bypass status documented in this encounter Advance Directives * [...] Power of Attor haven? No Care Teams Test Center Administrator Relationship Specialty Start Date End Date Ritesh Iniguez MD [address] [facility] [place] [address] PCP - General Family Medicine 03/27/18 documented as of this encounter
--- OUTSIDE RECORDS SUMMARY | 2024-04-02 15:22 | External Medical Summary ---
Author Name Unknown Address Unknown Organization K01:LABORATORY [facility] [place] - [address] [place] [address] Laboratory Report Ordering Provider Test Date Status ANGELGIDEONQUYEN 03/10/2024 13:53:57 Final Observation Date Value Abnormality Reference (Units ) Status Erythrocyte sedimentation rate by Photometric method 03/10/2024 13:53:57 10 <20 (mm/hour) Final Performing Location LABORATORY [facility] [place] - [address] [place] [address]
--- OUTSIDE RECORDS SUMMARY | 2024-04-02 15:22 | External Medical Summary | Summary of Care ---
Author Name Unknown Organization [facility] Address [address] [place] [place] [facility] [place] [address] Phone [phone] Care Team Providers Care Food And Beverage Attendant Name Role Phone Ritesh Iniguez MD Primary Care Provider [phone] Reason for Visit * Reason Comments Outpatient Testing Encounter Details Date Type Department Care Team (Late st Contact Info) Description 03/10/2024 12:20 PM EDT Laboratory Laboratory, [place] [address] [place] [address] [facility] [address] [place] [address] ASCVD (arteriosclerotic cardiovascular disease); Dyslipidemia, goal LDL below 70; Hx of CABG; Lyme disease; Stage 3 chronic kidney disease, unspecified whether stage 3a or 3b CKD (HCC) Allergies Active Allergy Reactions Criticality Noted Date [...] 11/05/2022 Overview: Per CKD protocol Atherosclerosis of [place] ronary artery of [place] heart with stable angina pectoris 10/12/2022 Coronary artery disease invo lving [place] coronary artery of [place] heart without angina pectoris 11/06/2019 Gastroesophageal reflux disease without esophagi tis 11/06/2019 Old [place] (myocardial infarction) 11/06/2019 Primary osteoarthritis of both [...] 31.39 08/14/11 08/14/2011 01/29/2017 VERDICT Clinical Trial [id number] 1 09/30/2013 Overview: Renamed per the [facility] for Medicare and Medicaid billing requirements to include Clinical Trial.gov number. VERDICT Clinical Trial [id number] 1 09/01/2014 Overview: Renamed per the [facility] for Medicare and Medicaid billing requirements to include Clinical Trial.gov number. Stable angina 08/02/2011 09/29/2018 OBESITY, BMI= 31.05 01/23/11 01/23/2011 0 01/29/2017 Heartburn 01/23/2011 01/03/2016 OBESITY, BMI= 31.38 04/25/10 04/25/2010 0 01/29/2017 Screening for prostate cancer 04/25/2010 01/03/2016 Subjective tinnitus 04/25/2010 10/28/19 15 OBESITY, BMI 30-34 (SEE ACTUAL BMI) 12/15/2009 04/25/2010 Overview: Per Obesity Taxonomy CORON ATHEROSCL [place] CORON VESSEL 11/01/2009 04/25/2010 Migraine 11/01/2009 10/28/2014 Overweight (BMI 25.0-29.9) 08/15/2009 0 12/15/2009 Overview: Per Obesity Taxonomy Angina pectoris 07/01/2009 04/25/2010 Need for pneumococcal vaccination 07/01/2009 10/28/2014 Need for diphtheria-tetanus- pertussis (Tdap) vaccine 07/01/2009 10/28/2014 EXAMINATION OF PARTICIPANT I N CLINICAL TRIAL-Genomics 06/24/2009 01/06/2010 Overview: Renamed Per Clinical Trials Billing Project. Study Titile: Genomic Markers for Patients with Cardiovascular Disease Project #[id number] PI: Asia Hebert MD Please call [phone] with study related questions Unstable angina 06/24/2009 08/02/2011 Dyslipidemia, goal to be determined 06/24/2009 08/17/2009 Overview: Per Lipid Taxonomy HTN, goal to be determined 06/24/2009 1 09/28/2008 Overview: Per HTN Taxonomy GENOMICS CARDIO RESEARCH OTHER*[id number] 06/24/2009 10/30/2016 Overview: Renamed Per Clinical Trials Billing Project. Study Titile: Genomic Markers for Patients with Cardiovascular Disease Project #[id number] PI: Asia Hebert MD Please call [phone] with study related questions Screening for prostate [...] was given about 6 yrs ago by [employer], get date) documented as of this encounter [...] Description 04/14/2024 8:20 AM EDT [facility] [address] [place] [phone] Ritesh Iniguez MD [address], [place] [id number] Pending Results Name Type Priority Associated Diagnoses Date /Time LIPID PANEL WITH DIRECT LDL IF TG IS HIGH Lab Routine ASCVD (arteriosclerotic cardiovascular disease) Dyslipidemia, goal LDL below 70 Hx of CABG 03/10/2024 1:53 PM EDT LYME DISEASE ANTIBODY SCREEN WITH REFLEX TO [...] 3b CKD (HCC) 03/10/2024 1:53 PM EDT LYME DISEASE ANTIBODY SCREEN Lab Routine Lyme disease 03/10/2024 1:53 PM EDT CBC Lab Routine Stage 3 chronic kidney disease, unspecified whether stage 3a or 3b CKD (HCC) 03/10/2024 1:53 PM EDT DIFFERENTIAL, AUTOMATED Lab Routine Stage 3 chronic kidney disease, unspecified whether stage 3a or 3b CKD (HCC) 03/10/2024 1:53 PM EDT Scheduled Procedures Name Priority Associated Diagnoses Date/Ti [...] Additional history exists CKD HGB USE SMARTSET 10005 12/29/202412/29, 01/10/2023, 11/19/2019, Additional history exists CKD PHOS USE SMARTSET 65993 12/29/2024 04/0 04/2024, 01/10/2023, 01/05/2016 TSH 12/29/2024 12/30/2023, 12/23, 05/22/2022, Additional history exists Colonoscopy 05/30/2025 05/30/2022, 03/2022, [...] this encounter Medical Devices Implanted Type Area Medical Billing Coordinator Device Identifier Shelf Expiration Date Model / Serial / Lot Suture Steel 6 B&S19 M654g - [id number] Implanted:Qty: 4 on 08/19/2018 by Brenna Perez MD at [place] [facility] [place] N/A: Sternum JNJ : [employer] 04/22/2023 M654G / / [id number] Clip Occl Atri Flex V 45mm - [id number] - [id number] Implanted:Qty: 1 on 08/19/2018 by Brenna Perez MD at OR [facility] [place] [employer] 03/23/2021 ACHV45 / [id number] / Duraclip 16mm Xlg Repostn - [id number] Implanted:Qty: 1 on 05/30/2022 by Juventino Degroot DO at [facility] [employer] SYLVIE 11/08/2023 [id number] / / documented as of this encounter Visit Diagnoses Diagnosis ASCVD (arteriosclerotic cardiovascular disease) Unspecified cardiovascular disease Dyslipidemia, goal LDL below 70 Other and unspecified hyperlipidemia Hx of CABG Postsurgical aortocoronary bypass status Lyme disease Stage 3 chronic kidney disease, unspecified whether stage 3a or 3b CKD (HCC) documented in this encounter Advance Directives * [...] Power of Attor haven? No Care Teams Food And Beverage Attendant Relationship Specialty Start Date End Date Ritesh Iniguez MD [address] [place] [address] PCP - General Family Medicine 03/27/18 documented as of this encounter
--- OUTSIDE RECORDS SUMMARY | 2024-04-02 15:22 | External Medical Summary | Summary of Care ---
Author Name Unknown Organization [facility] Address [address] [place] [address] Phone [phone] Care Team Providers Care Coastal And Estuary Specialist Name Role Phone Ritesh Iniguez MD Primary Care Provider Reason for Visit * Reason Comments Outpatient Testing Encounter Details Date Type Department Care Team (Late st Contact Info) Description 12/30/2023 8:30 AM EDT Laboratory Laboratory, [place] [address] [place] [address] [facility] [address], [place] [id number] Chronic kidney disease, unspecified CKD stage; Screening for thyroid disorder Allergies Active Allergy Reactions Criticality Noted Date [...] 11/05/2022 Overview: Per CKD protocol 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 VERDICT Clinical Trial [id number] 1 09/01/2014 Overview: Renamed per the Centers [...] 04/25/2010 Overview: Per Obesity Taxonomy CORON ATHEROSCL MARY'S IGLOO CORON VESSEL 11/01/2009 04/25/2010 Migraine 11/01/2009 10/28/2014 Overweight (BMI 25.0-29.9) 08/15/2009 0 12/15/2009 Overview: Per Obesity Taxonomy Angina pectoris 07/01/2009 04/25/2010 Need for pneumococcal vaccination 07/01/2009 10/28/2014 Need for diphtheria-tetanus- pertussis (Tdap) vaccine 07/01/2009 10/28/2014 EXAMINATION OF PARTICIPANT I N CLINICAL TRIAL-Genomics 06/24/2009 01/06/2010 Overview: Renamed Per Clinical Trials Billing Project. Study Titile: Genomic Markers for Patients with Cardiovascular Disease Project #[id number] PI: Asia Hebert MD Please call [phone] with study related questions Unstable angina 06/24/2009 08/02/2011 Dyslipidemia, goal to be determined 06/24/2009 08/17/2009 Overview: Per Lipid Taxonomy HTN, goal to be determined 06/24/2009 1 09/28/2008 Overview: Per HTN Taxonomy GENOMICS CARDIO RESEARCH OTHER*[id number] 06/24/2009 10/30/2016 Overview: Renamed Per Clinical Trials Billing Project. Study Titile: Genomic Markers for Patients with Cardiovascular Disease Project #[id number] PI: Asia Hebert MD Please call [phone] with study related questions Screening for prostate [...] mRNA, LNP-s, No Pre serve, 2-Dose Series ([employer] 11/30/2020,11/09/2020 Pneumococcal Conjugate Vacc, 13 Valent (Prevnar) [...] was given about 6 yrs ago by [employer], get date) documented as of this encounter [...] Visit [facility] [address] [place] [address] Ritesh Iniguez MD [address] [place] [address] Pending Results Name Type Priority Associated Diagnoses Date /Time COMPREHENSIVE METABOLIC PANEL Lab Routine Chronic kidney disease, unspecified CKD stage 12/30/2023 8:55 AM EDT CBC Lab Routine Chronic kidney disease, unspecified CKD stage 12/30/2023 8:55 AM EDT PHOSPHORUS Lab Routine Chronic kidney disease, unspecified CKD stage 12/30/2023 8:55 AM EDT TSH WITH FREE T4 IF INDICATED Lab Routine Screening for thyroid disorder 12/30/2023 8:55 AM EDT Scheduled Procedures Name Priority Associated Diagnoses Date/Ti me COLONOSCOPY FLEXIBLE PROXIMAL DIAGNOSTIC Recall History of colon polyps Health Maintenance Due Date Last Done Comments Zoster Vaccines (1 of 2) 2002 Albumin/Creatinine Ratio 05/23/2023 022, 10/13/2021, 01/30/2017, Additional history exists COVID-19 Vaccine ( season) 2023 11/30/2020, 11/09/2020 GFR 07/12/2023 01/10/2023, 09/23, 05/22/2022, Additional history exists CKD HGB USE SMARTSET 48026 01/11/202401/10, 11/19/2019, 08/10/2019, Additional history exists CKD PHOS USE SMARTSET 68388 01/11/2024 01/10/2023, 0 01/05/2016 TSH 01/11/2024 01/10/2023, [...] this encounter Medical Devices Implanted Type Area Value Analysis Coordinator Device Identifier Shelf Expiration Date Model / Serial / Lot Suture Steel 6 B&S19 M654g - [id number] Implanted:Qty: 4 on 08/19/2018 by Brenna Perez MD at [facility] N/A: Sternum JNJ : [employer] 04/22/2023 [id number] / / M654 Clip Occl Atri Flex V 45mm - [id number] - [id number] Implanted:Qty: 1 on 08/19/2018 by Brenna Perez MD at [facility] [employer] 03/23/2021 [id number] / [id number] / Duraclip 16mm Xlg Repostn - [id number] Implanted:Qty: 1 on 05/30/2022 by Juventino Degroot DO at [facility] [employer] SYLVIE 11/08/2023 [id number] / / documented as of this encounter Visit Diagnoses Diagnosis Chronic kidney disease, unspecified CKD stage Screening for thyroid disorder documented in this encounter Advance Directives Latest Code Status [...] the patient have Health Care Power of Heavy Repairer? No No Code 08/09/2011 2:32 PM 08/09/2011 8:07 PM Thi s order reflects the patients wishes and were consensually agreed upon. Question Answer Comments Discussion of Advance Directives occurred with: Not Discussed Does the patient have a Living Will? No Does the patient have Health Care Power of Heavy Repairer? No Full Code 06/24/2009 2:52 PM 06/25/2009 9:02 PM This order reflects the patients wishes and were consensually agreed upon. Question Answer Comments Discussion of Advance Directives occurred with: Patient/Family Does the patient have a Living Will? No Does the patient have Health Care Power of Heavy Repairer? No Care Teams Coastal And Estuary Specialist Relationship Specialty Start Date End Date Ritesh Iniguez MD [address] [place] [address] PCP - General Family Medicine 03/27/18 documented as of this encounter
--- OUTSIDE RECORDS SUMMARY | 2024-04-02 15:22 | External Medical Summary ---
Author Name Unknown Address Unknown Organization [id number]:[facility] - [address] [place] [address] Laboratory Report Ordering Provider Test Date Status KEVIN WYATT 03/10/2024 13:53:57 Final Observation Date Value Abnormality Reference (Units ) Status Triglyceride 03/10/2024 13:53:57 243 Above high normal <=174 (mg/dL) Final Triglyceride Reference Range s (mg/dL):
<150 Acceptable
150-174 Borderline high
175-499 High
>=500 Very high Cholesterol 03/10/2024 13:53:57 153 <200 (mg /dL) Final Total Cholesterol Reference Ranges (mg/dL):
<200 Desirable
200-239 Borderline high
>=240 High HDL 03/10/2024 13:53:57 33 Below low normal >39 (mg/dL) Final HDL Cholesterol Reference Ra nges (mg/dL):
>=60 High (Desirable)
<50 Low (Undesirable) For Females
<40 Low (Undesirable) For Males NON-HDL CHOLESTEROL 03/10/2024 13:53:57 120 <=159 (mg/dL) Final Non-HDL Cholesterol Referenc e Range (mg/dL):
<100 Target level for high risk ASCVD patient
<130 Optimal for general population
130-159 Near optimal for general population
160-189 Borderline High
190-219 High
>=220 Very High Performing Location LAB[facility]ATORY [facility] - [address] [place] [address]
--- OUTSIDE RECORDS SUMMARY | 2024-04-02 15:22 | External Medical Summary | Summary of Care ---
Author Name Unknown Organization [facility] Address [address] [facility] [place] [address] Phone [phone] Care Team Providers Care Resident Care Assistant Name Role Phone Ritesh Iniguez MD Primary Care Provider [phone] Reason for Visit * Reason Comments eRx-Medication Refill Encounter Details Date Type Department Care Team (Late st Contact Info) Description 12/19/2023 Refill Cardiology, [facility] [address] [place] [address] Rajani Washington CRNP [address] [place] [address] Stable angina; HTN, goal below 150/90 Allergies Active Allergy Reactions Criticality Noted Date Comments Atenolol Hypotension 05/13/2009 As with Metoprolol. See above. Lisinopril Cough 04/07/2010 Metoprolol Succinate Hypotension 05/13/2009 Experience an episode of hypotension in past. Is tolerating low dose now. Will keep warning, however will also continue therapy. Sulfa Antibiotics 05/07/2000 blisters Rofecoxib High 08/04/2018 MADE PATIENT MEAN documented as of this encounter (statuses as of 12/19/2023) Medications Medication Sig Dispensed Refills Start Date End Date Status NITROSTAT 0.4 MG SL SUBLIndications:ASC VD (arteriosclerotic cardiovascular disease),Stable angina (HCC) PLACE 1 TABLET UNDER TONGUE IF NEEDED FOR CHEST PAIN. MAY REPEAT 3 TIMES. IF PAIN CONTINUES CALL 911 25 Tab 1 5 Active aspirin 81 MG chewable tablet Take 2 Tabs by mouth daily. 60 Tab 3 9 Active sildenafil (REVATIO) 20 MG TabletIndications:E rectile dysfunction, unspecified erectile dysfunction type One tablet by mouth 30 minutes prior to intercourse 10 Tab 3 9 Active Diclofenac Sodium (VOLTAREN) 1 % gel Place 4 g topically on the skin 4 times a day. Apply to affected area 1 g 3 0 Active Sildenafil Citrate 100 MG Oral TabletIndications:O ther male erectile dysfunction Take 1 Tab by mouth daily as needed for Erectile Dysfunction. 10 Tab 5 1 Active Levothyroxine Sodium 100 MCG Oral Tablet (Levoxyl)Indication s:Hypothyroidism, unspecified type TAKE 1 TABLET BY MOUTH ONCE DAILY 30 MINUTES BEFORE BREAKFAST OR OTHER MEDICATIONS 90 Tablet 1 3 Active Losartan Potassium 100 MG Oral Tablet (Cozaar)Indications :Hypertensive kidney disease with stage 2 chronic kidney disease Take 1 Tablet by mouth in the morning. 90 Tablet 3 3 Active Atorvastatin Calcium 40 MG Oral Tablet (Lipitor)Indication s:ASCVD (arteriosclerotic cardiovascular disease),Dyslipidem ia, goal LDL below 70 TAKE 1 TABLET BY MOUTH EVERYDAY AT BEDTIME 90 Tablet 3 4 Active hydroCHLOROthiazide 25 MG Oral Tablet (Hydrodiuril)Indica tions:HTN, goal below 150/90 TAKE 1 TABLET BY MOUTH EVERY DAY IN THE MORNING 90 Tablet 1 4 Active Carvedilol 6.25 MG Oral Tablet (Coreg)Indications: Stable angina (HCC),HTN, goal below 150/90 TAKE 1 TABLET BY MOUTH TWICE A DAY 180 Tablet 3 4 Active Carvedilol 6.25 MG Oral Tablet (Coreg)Indications: Stable angina (HCC),HTN, goal below 150/90 TAKE 1 TABLET BY MOUTH TWICE A DAY 180 Tablet 3 3 12/19/19 24 Discontinued documented as of this encounter (statuses as of 12/19/2023) Active Problems Problem Noted Date Diagnosed Date Chronic kidney disease, stage 3a 11/05/2022 Overview: Per CKD protocol Atherosclerosis of minto co ronary artery of minto heart with stable angina pectoris 10/12/2022 Coronary artery disease invo lving minto coronary artery of minto heart without angina pectoris 11/06/2019 Gastroesophageal reflux disease without esophagi tis 11/06/2019 Old [place] (myocardial infarction) 11/06/2019 Primary osteoarthritis of both [...] as of this encounter (statuses as of 12/19/2023) Resolved Problems Problem Noted Date Diagnosed Date [...] 31.39 08/14/11 08/14/2011 01/29/2017 VERDICT Clinical Trial [id number] 1 09/30/2013 Overview: Renamed per the [facility] for Medicare and Medicaid billing requirements to include Clinical Trial.gov number. VERDICT Clinical Trial [id number] 1 09/01/2014 Overview: Renamed per the Centers [...] 04/25/2010 Overview: Per Obesity Taxonomy CORON ATHEROSCL [place] CORON VESSEL 11/01/2009 04/25/2010 Migraine 11/01/2009 10/28/2014 Overweight (BMI 25.0-29.9) 08/15/2009 0 12/15/2009 Overview: Per Obesity Taxonomy Angina pectoris 07/01/2009 04/25/2010 Need for pneumococcal vaccination 07/01/2009 10/28/2014 Need for diphtheria-tetanus- pertussis (Tdap) vaccine 07/01/2009 10/28/2014 EXAMINATION OF PARTICIPANT I N CLINICAL TRIAL-Genomics 06/24/2009 01/06/2010 Overview: Renamed Per Clinical Trials Billing Project. Study Titile: Genomic Markers for Patients with Cardiovascular Disease Project #[id number] PI: Asia Hebert MD Please call [phone] with study related questions Unstable angina 06/24/2009 08/02/2011 Dyslipidemia, goal to be determined 06/24/2009 08/17/2009 Overview: Per Lipid Taxonomy HTN, goal to be determined 06/24/2009 1 09/28/2008 Overview: Per HTN Taxonomy GENOMICS CARDIO RESEARCH OTHER*[id number] 06/24/2009 10/30/2016 Overview: Renamed Per Clinical Trials Billing Project. Study Titile: Genomic Markers for Patients with Cardiovascular Disease Project #[id number] PI: Asia Hebert MD Please call [phone] with study related questions Screening for prostate [...] as of this encounter (statuses as of 12/19/2023) Immunizations Name Administration Dates Next Due COVID-19 mRNA, LNP-s, No Pre serve, 2-Dose Series ([employer]) 11/30/2020,11/09/2020 Pneumococcal Conjugate Vacc, 13 Valent (Prevnar) [...] was given about 6 yrs ago by [employer], get date) documented as of this encounter [...] encounter Miscellaneous Notes * Telephone Encounter - Cristina Brown CRNP - 12/19/2023 3:50 PM EDT Signed Prescriptions: Disp Refills Carvedilol 6.25 MG Oral Tablet (Coreg) 180 Ta*3 Sig: TAKE 1 TABLET BY MOUTH TWICE A DAY Authorizing Provider: CRISTINA BROWN * Telephone Encounter - Leidy Rod CMA - 12/19/2023 3:33 PM EDTPending Prescriptions: Disp Refills Carvedilol 6.25 MG Oral Tablet [Pharmacy M*180 Ta*3 Sig: TAKE 1 TABLET BY MOUTH TWICE A DAY * Telephone Encounter - Leidy Rod [facility] - 12/19/2023 3:33 PM EDT Did you pend patient's preferred pharmacy and medication before forwarding?yes Pharmacy: [id number] [address] [place] [address] Pending Prescriptions: Disp Refills Carvedilol 6.25 MG Oral Tablet (Coreg) [P*180 Ta*3 Sig: TAKE 1 TABLET BY MOUTH TWICE A DAY Last Visit: 08/12/2023 (in office), Visit date not found (telemedicine) Next Visit: Visit date not found If no future appointments scheduled, and last appointment is greater than a year ago, please schedule patient for a follow-up appointment Last date the medication was ordered: 01-09-2023 Is this request for a controlled substance?No Urine Drug Screen:No results found for this or any previous visit. Patient Phone Numbers [employer] [phone] [place] [phone] Labs: Lab Results Component Value Date/Time CREAT 1.3 (H) 01/10/2023 09:09 AM CREAT 1.3 (H) 09/02/2020 09:23 AM POTASSIUM 4.7 01/10/2023 09:09 AM POTASSIUM 4.3 09/02/2020 09:23 AM TSH 0.42 01/10/2023 09:09 AM TSH 3.51 09/02/2020 09:23 AM LDLCALC UNINTERPRETABLE RESULT 03/19/2019 10:26 AM LDLDIRECT 74 04/16/2023 07:46 AM LDLDIRECT 68 09/02/2020 09:23 AM LDLDIRECT 91 06/23/2012 03:26 PM ALT 21 04/16/2023 07:46 AM ALT 29 09/02/2020 09:23 AM HGBA1C 5.3 08/06/2018 08:29 AM documented in this encounter Plan of Treatment Upcoming Encounters Date Type Department Care Team (Late st Contact Info) Description 12/30/2023 8:30 AM EDT Laboratory Laboratory, [place] [address] [place] [facility] [place] [id number] Nidhi Mcdonald [address] [place] [address] 04/14/2024 8:20 AM EDT Office Visit [facility], [place] [address] [place] [facility] [place] [phone] Ritesh Iniguez MD [address] [place] [address] Scheduled Procedures Name Priority Associated Diagnoses Date/Ti me COLONOSCOPY FLEXIBLE PROXIMAL DIAGNOSTIC Recall History of colon polyps Health Maintenance Due Date Last Done Comments Zoster Vaccines (1 of 2) 2002 Albumin/Creatinine Ratio 05/23/2023 022, 10/13/2021, 01/30/2017, Additional history exists COVID-19 Vaccine (3 - 2023-24 season) 2023 11/30/2020, 11/09/2020 GFR 07/12/2023 01/10/2023, 09/23, 05/22/2022, Additional history exists CKD HGB USE SMARTSET 00792 01/11/202401/10, 11/19/2019, 08/10/2019, Additional history exists CKD PHOS USE SMARTSET 51456 01/11/2024 01/10/2023, 0 01/05/2016 TSH 01/11/2024 01/10/2023, [...] this encounter Medical Devices Implanted Type Area Interior Painter Device Identifier Shelf Expiration Date Model / Serial / Lot Suture Steel 6 B&S19 M654g - [id number] Implanted:Qty: 4 on 08/19/2018 by Brenna Perez MD at OR [facility] N/A: Sternum JNJ : [employer] 04/22/2023 [id number] / / [id number] Clip Occl Atri Flex V 45mm - [id number] - [id number] Implanted:Qty: 1 on 08/19/2018 by Brenna Perez MD at OR [facility] [employer] 03/23/2021 [id number] / [id number] / Duraclip 16mm Xlg [facility] - [id number] Implanted:Qty: 1 on 05/30/2022 by Juventino Degroot DO at [facility] [employer] SYLVIE 11/08/2023 [id number] / / documented as of this encounter Visit Diagnoses Diagnosis Stable angina (HCC) Other and unspecified angina pectoris HTN, goal below 150/90 documented in this encounter Advance Directives Latest [...] the patient have Health Care Power of Signal Tester? No No Code 08/09/2011 2:32 PM 08/09/2011 8:07 PM Thi s order reflects the patients wishes and were consensually agreed upon. Question Answer Comments Discussion of Advance Directives occurred with: Not Discussed Does the patient have a Living Will? No Does the patient have Health Care Power of Signal Tester? No Full Code 06/24/2009 2:52 PM 06/25/2009 9:02 PM This order reflects the patients wishes and were consensually agreed upon. Question Answer Comments Discussion of Advance Directives occurred with: Patient/Family Does the patient have a Living Will? No Does the patient have Health Care Power of Signal Tester? No Care Teams Resident Care Assistant Relationship Specialty Start Date End Date Ritesh Iniguez MD [address] [facility] [place] [address] PCP - General Family Medicine 03/27/18 documented as of this encounter
--- OUTSIDE RECORDS SUMMARY | 2024-04-02 15:22 | External Medical Summary ---
Author Name Unknown Address Unknown Organization K01:[facility]ATORY [facility] [place] [address] [place] [address] Laboratory Report Ordering Provider Test Date Status BONNIE ORTIZNIALL 03/10/2024 13:53:57 Final Observation Date Value Abnormality Reference (Units ) Status TSH 03/10/2024 13:53:57 0.89 0.27-4.20 (uIU/mL) Final Performing Location LABORATORY [facility] - [address] [place] [address]
--- OUTSIDE RECORDS SUMMARY | 2024-04-02 15:22 | External Medical Summary ---
Author Name Unknown Address Unknown Organization K01:LABORATORY [facility] - [address] [place] [address] Laboratory Report Ordering Provider Test Date Status KEVIN WYATT 03/10/2024 13:53:57 Final Observation Date Value Abnormality Reference (Units ) Status LDL, (direct) 03/10/2024 13:53:57 86 <=129 (mg/dL) Final LDL Cholesterol Reference Ra nges (mg/dL):
<70 Target level for high risk ASCVD patient
<100 Optimal for general population
100-129 Near optimal for general population
130-159 Borderline high
160-189 High
>=190 Very high Performing Location LAB[facility]ATORY [facility] - [address] [place] [address]
--- OUTSIDE RECORDS SUMMARY | 2024-04-02 15:22 | External Medical Summary ---
Author Name Unknown Address Unknown Organization K01:[facility] [place] [facility] [address] [place] [address] Laboratory Report Ordering Provider Test Date Status MYRA ORTIZ 03/10/2024 13:53:57 Final Observation Date Value Abnormality Reference (Units ) Status WBC, Total 03/10/2024 13:53:57 8.72 4.00-10.80 (K/uL) Final RBC 03/10/2024 13:53:57 4.97 4.50-5.25 (M/uL) Final Hemoglobin 03/10/2024 13:53:57 15.3 14.0-16.8 (g/dL) Final HCT 03/10/2024 13:53:57 48.6 Above high normal 40.0-48.4 (%) Final MCV 03/10/2024 13:53:57 97.8 82.0-99.5 (fL) Final MCH 03/10/2024 13:53:57 30.8 27.0-34.0 (pg) Final MCHC 03/10/2024 13:53:57 31.5 32.0-36.0 (g/dL) Final RDW 03/10/2024 13:53:57 13.2 11.5-15.5 (%) Final Platelets 03/10/2024 13:53:57 252 140-400 (K/uL) Final MPV 03/10/2024 13:53:57 11.8 6.6-11.1 (fL) Final Nucleated erythrocytes/100 leukocytes [Ratio] in Blood by Automated count 03/10/2024 13:53:57 0 <=0 (/100 WBCs) Final Performing Location [facility] [place] [address] [place] [address]
--- OUTSIDE RECORDS SUMMARY | 2024-04-02 15:22 | External Medical Summary | Summary of Care ---
Author Name Unknown Organization [facility] Address [address] [place] [facility] [place] [address] Phone [phone] Care Team Providers Care Funeral Service Apprentice Name Role Phone Angel Iniguez MD Primary Care Provider Reason for Visit * Reason Comments eRx-Medication Refill Encounter Details Date Type Department Care Team (Late st Contact Info) Description 02/08/2024 Refill [facility] [address] [place] [address] Angel Iniguez MD [address] [place] [address] Hypothyroidism, unspecified type Allergies Active Allergy Reactions Criticality Noted Date Comments Atenolol Hypotension 05/13/2009 As with Metoprolol. See above. Lisinopril Cough 04/07/2010 Metoprolol Succinate Hypotension 05/13/2009 Experience an episode of hypotension in past. Is tolerating low dose now. Will keep warning, however will also continue therapy. Sulfa Antibiotics 05/07/2000 blisters Rofecoxib High 08/04/2018 MADE PATIENT MEAN documented as of this encounter (statuses as of 02/09/2024) Medications Medication Sig Dispensed Refills Start Date [...] Erectile Dysfunction. 10 Tab 5 1 Active Losartan Potassium 100 MG Oral Tablet [...] A DAY 180 Tablet 3 4 Active Levothyroxine Sodium 100 MCG Oral Tablet (Levoxyl)Indication s:Hypothyroidism, unspecified type TAKE 1 TABLET BY MOUTH IN THE MORNING AT LEAST 30 MIN PRIOR TO BREALFAST OR OTHER MEDS 90 Tablet 4 Active Levothyroxine Sodium 100 MCG Oral Tablet (Levoxyl)Indication s:Hypothyroidism, unspecified type TAKE 1 TABLET BY MOUTH ONCE DAILY 30 MINUTES BEFORE BREAKFAST OR OTHER MEDICATIONS 90 Tablet 1 3 02/09/20 24 Discontinued documented as of this encounter (statuses as of 02/09/2024) Active Problems Problem Noted Date Diagnosed Date Chronic kidney disease, stage 3a 11/05/2022 Overview: Per CKD protocol Atherosclerosis of [place] co ronary artery of [place] heart with stable angina pectoris 10/12/2022 Coronary artery disease invo lving [place] coronary artery of [place] heart without angina pectoris 11/06/2019 Gastroesophageal reflux disease without esophagi tis 11/06/2019 Old [place] (myocardial infarction) 11/06/2019 Primary osteoarthritis of both [...] as of this encounter (statuses as of 02/09/2024) Resolved Problems Problem Noted Date Diagnosed Date [...] 31.39 08/14/11 08/14/2011 01/29/2017 VERDICT Clinical Trial [id number] 1 09/30/2013 Overview: Renamed per the Centers for Medicare and Medicaid billing requirements to include Clinical Trial.gov number. VERDICT Clinical Trial [id number] 1 09/01/2014 Overview: Renamed per the Centers [...] 04/25/2010 Overview: Per Obesity Taxonomy CORON ATHEROSCL [place] CORON VESSEL 11/01/2009 04/25/2010 Migraine 11/01/2009 10/28/2014 Overweight (BMI 25.0-29.9) 08/15/2009 0 12/15/2009 Overview: Per Obesity Taxonomy Angina pectoris 07/01/2009 04/25/2010 Need for pneumococcal vaccination 07/01/2009 10/28/2014 Need for diphtheria-tetanus- pertussis (Tdap) vaccine 07/01/2009 10/28/2014 EXAMINATION OF PARTICIPANT I N CLINICAL TRIAL-Genomics 06/24/2009 01/06/2010 Overview: Renamed Per Clinical Trials Billing Project. Study Titile: Genomic Markers for Patients with Cardiovascular Disease Project #[id number] PI: Asia Hebert MD Please call [phone] with study related questions Unstable angina 06/24/2009 08/02/2011 Dyslipidemia, goal to be determined 06/24/2009 08/17/2009 Overview: Per Lipid Taxonomy HTN, goal to be determined 06/24/2009 1 09/28/2008 Overview: Per HTN Taxonomy GENOMICS CARDIO RESEARCH OTHER*[id number] 06/24/2009 10/30/2016 Overview: Renamed Per Clinical Trials Billing Project. Study Titile: Genomic Markers for Patients with Cardiovascular Disease Project #[id number] PI: Asia Hebert MD Please call [phone] with study related questions Screening for prostate [...] as of this encounter (statuses as of 02/09/2024) Immunizations Name Administration Dates Next Due COVID-19 mRNA, LNP-s, No Pre serve, 2-Dose Series ([place]) 11/30/2020,11/09/2020 Pneumococcal Conjugate Vacc, 13 Valent (Prevnar) [...] was given about 6 yrs ago by [employer], get date) documented as of this encounter [...] encounter Miscellaneous Notes * Telephone Encounter - Yulia Adrian RP - 02/09/2024 11:08 AM EDTSigned Prescriptions: Disp Refills Levothyroxine Sodium 100 MCG Oral Tablet (*90 Tab*0 Sig: TAKE 1 TABLET BY MOUTH IN THE MORNING AT LEAST 30 MIN PRIOR TO BREALFAST OR OTHER MEDSAuthorizing Provider:ANGEL INIGUEZ User: YULIA ADRIAN documented in this encounter Plan of Treatment Upcoming Encounters Date Type Department Care Team (Late st Contact Info) Description 04/14/2024 8:20 AM EDT Office Visit [facility] [address] [place] [address] Angel Iniguez MD [address] [place] [address] Scheduled Procedures Name Priority Associated [...] Additional history exists CKD HGB USE SMARTSET 82172 12/29/202412/29, 01/10/2023, 11/19/2019, Additional history exists CKD PHOS USE SMARTSET 19503 12/29/2024 04/0 04/2024, 01/10/2023, 01/05/2016 TSH 12/29/2024 [...] this encounter Medical Devices Implanted Type Area Outside Rigger Device Identifier Shelf Expiration Date Model / Serial / Lot Suture Steel 6 B&S19 M654g - [id number] Implanted:Qty: 4 on 08/19/2018 by Brenna Perez MD at OR [facility] N/A: Sternum JNJ : [employer] 04/22/2023 [id number] / / M654 Clip Occl Atri Flex V 45mm - [id number] - [id number] Implanted:Qty: 1 on 08/19/2018 by Brenna Perez MD at OR [facility] ATRICURE 03/23/2021 [id number] / [id number] / Duraclip 16mm Xlg Repostn - [id number] Implanted:Qty: 1 on 05/30/2022 by Juventino Degroot DO at [facility]OSCOPY [facility] [employer] 11/08/2023 [id number] / / documented as of this encounter Visit Diagnoses Diagnosis Hypothyroidism, unspecified type documented in this encounter Advance Directives * [...] Power of Attor haven? No Care Teams Funeral Service Apprentice Relationship Specialty Start Date End Date Angel Iniguez MD [address] [place] [address] PCP - General Family Medicine 03/27/18 documented as of this encounter
--- OUTSIDE RECORDS SUMMARY | 2024-04-02 15:23 | External Medical Summary | Summary of Care ---
Author Name Unknown Organization [facility] Address [address] [place] [address] Phone [phone] Care Team Providers Care Kiln Car Repairer Name Role Phone Ritesh Iniguez MD Primary Care Provider Reason for Visit * Reason Comments eRx-Medication Refill Encounter Details Date Type Department Care Team (Late st Contact Info) Description 11/16/2023 [facility] [address] [facility] [id number] Ritesh Iniguez MD [address], [place] [id number] ASCVD (arteriosclerotic cardiovascular disease); Dyslipidemia, goal LDL below 70 Allergies Active Allergy Reactions Criticality Noted Date Comments Atenolol Hypotension 05/13/2009 As with Metoprolol. See above. Lisinopril Cough 04/07/2010 Metoprolol Succinate Hypotension 05/13/2009 Experience an episode of hypotension in past. Is tolerating low dose now. Will keep warning, however will also continue therapy. Sulfa Antibiotics 05/07/2000 blisters Rofecoxib High 08/04/2018 MADE PATIENT MEAN documented as of this encounter (statuses as of 11/19/2023) Medications Medication Sig Dispensed Refills Start Date End Date Status NITROSTAT 0.4 MG SL SUBLIndications:ASC VD (arteriosclerotic cardiovascular disease),Stable angina PLACE 1 TABLET UNDER TONGUE IF NEEDED [...] Erectile Dysfunction. 10 Tab 5 1 Active hydroCHLOROthiazide 25 MG Oral Tablet (Hydrodiuril)Indica tions:HTN, goal below 150/90 TAKE BY MOUTH 1 TABLET IN THE MORNING. 90 Tablet 3 3 Active Carvedilol 6.25 MG Oral Tablet (Coreg)Indications: Stable angina,HTN, goal below 150/90 TAKE 1 TABLET BY MOUTH TWICE A DAY 180 Tablet 3 3 Active Levothyroxine Sodium 100 MCG Oral Tablet [...] AT BEDTIME 90 Tablet 3 4 Active Atorvastatin Calcium 40 MG Oral Tablet (Lipitor)Indication s:ASCVD (arteriosclerotic cardiovascular disease),Dyslipidem ia, goal LDL below 70 TAKE 1 TABLET BY MOUTH EVERYDAY AT BEDTIME 90 Tablet 3 3 11/19/19 24 Discontinued documented as of this encounter (statuses as of 11/19/2023) Active Problems Problem Noted Date Diagnosed Date Chronic kidney disease, stage 3a 11/05/2022 Overview: Per CKD protocol Atherosclerosis of [place] co ronary artery of [place] heart with stable angina pectoris 10/12/2022 Coronary artery disease invo lving [place] coronary artery of [place] heart without angina pectoris 11/06/2019 Gastroesophageal reflux disease without esophagi tis 11/06/2019 Old [place] (myocardial infarction) 11/06/2019 Primary osteoarthritis of both [...] as of this encounter (statuses as of 11/19/2023) Resolved Problems Problem Noted Date Diagnosed Date [...] 31.39 08/14/11 08/14/2011 01/29/2017 VERDICT Clinical Trial [id number] 1 09/30/2013 Overview: Renamed per the Centers for Medicare and Medicaid billing requirements to include Clinical Trial.gov number. VERDICT Clinical Trial [id number] 1 09/01/2014 Overview: Renamed per the Centers [...] 04/25/2010 Overview: Per Obesity Taxonomy CORON ATHEROSCL [place] CORON VESSEL 11/01/2009 04/25/2010 Migraine 11/01/2009 10/28/2014 Overweight (BMI 25.0-29.9) 08/15/2009 0 12/15/2009 Overview: Per Obesity Taxonomy Angina pectoris 07/01/2009 04/25/2010 Need for pneumococcal vaccination 07/01/2009 10/28/2014 Need for diphtheria-tetanus- pertussis (Tdap) vaccine 07/01/2009 10/28/2014 EXAMINATION OF PARTICIPANT I N CLINICAL TRIAL-Genomics 06/24/2009 01/06/2010 Overview: Renamed Per Clinical Trials Billing Project. Study Titile: Genomic Markers for Patients with Cardiovascular Disease Project #[id number] PI: Asia Hebert MD Please call [phone] with study related questions Unstable angina 06/24/2009 08/02/2011 Dyslipidemia, goal to be determined 06/24/2009 08/17/2009 Overview: Per Lipid Taxonomy HTN, goal to be determined 06/24/2009 1 09/28/2008 Overview: Per HTN Taxonomy GENOMICS CARDIO RESEARCH OTHER*[id number] 06/24/2009 10/30/2016 Overview: Renamed Per Clinical Trials Billing Project. Study Titile: Genomic Markers for Patients with Cardiovascular Disease Project #[id number] PI: Asia Hebert MD Please call [phone] with study related questions Screening for prostate [...] as of this encounter (statuses as of 11/19/2023) Immunizations Name Administration Dates Next Due COVID-19 mRNA, LNP-s, No Pre serve, 2-Dose Series ([place]) 11/30/2020,11/09/2020 Pneumococcal Conjugate Vacc, 13 Valent (Prevnar) [...] was given about 6 yrs ago by [employer], get date) documented as of this encounter [...] encounter Miscellaneous Notes * Telephone Encounter - Yoselin Brown CRNP - 11/19/2023 12:19 PM EST Signed Prescriptions: Disp Refills Atorvastatin Calcium 40 MG Oral Tablet (Li*90 Tab*3 Sig: TAKE 1 TABLET BY MOUTH EVERYDAY AT BEDTIME Authorizing Provider: YOSELIN BROWN * Telephone Encounter - Leidy Rod COT - 11/18/2023 9:33 AM ESTPending Prescriptions: Disp Refills Atorvastatin Calcium 40 MG Oral Tablet [Ph*90 Tab*3 Sig: TAKE 1 TABLET BY MOUTH EVERYDAY AT BEDTIME * Telephone Encounter - Leidy Rod COT - 11/18/2023 9:33 AM EST Did you pend patient's preferred pharmacy and medication before forwarding?yes Pharmacy: [id number] [address] [place] [address] Pending Prescriptions: Disp Refills Atorvastatin Calcium 40 MG Oral Tablet (L*90 Tab*3 Sig: TAKE 1 TABLET BY MOUTH EVERYDAY AT BEDTIME Last Visit: 08/12/2023 (in office), Visit date not found (telemedicine) Next Visit: Visit date not found If no future appointments scheduled, and last appointment is greater than a year ago, please schedule patient for a follow-up appointment Last date the medication was ordered: 11-19-2022 Is this request for a controlled substance?No Urine Drug Screen:No results found for this or any previous visit. Patient Phone Numbers [employer] [phone] [employer] [phone] Labs: Lab Results Component Value Date/Time CREAT [...] Description 12/30/2023 8:30 AM EDT Laboratory Laboratory, [place] [address] [place] [phone] [facility] [address] [place] [address] 04/14/2024 8:20 AM EDT Office Visit [facility] [address] [place] [phone] Ritesh Iniguez MD [address] [place] [address] Scheduled Procedures Name Priority Associated Diagnoses Date/Ti me COLONOSCOPY FLEXIBLE PROXIMAL DIAGNOSTIC Recall History of colon polyps Health Maintenance Due Date Last Done Comments Zoster Vaccines (1 of 2) 2002 Albumin/Creatinine Ratio 05/23/2023 022, 10/13/2021, 01/30/2017, Additional history exists COVID-19 Vaccine ( season) 2023 11/30/2020, 11/09/2020 GFR 07/12/2023 01/10/2023, 09/23, 05/22/2022, Additional history exists CKD HGB USE SMARTSET 23493 01/11/202401/10, 11/19/2019, 08/10/2019, Additional history exists CKD PHOS USE SMARTSET 78761 01/11/2024 01/10/2023, 0 01/05/2016 TSH 01/11/2024 01/10/2023, [...] this encounter Medical Devices Implanted Type Area Snow Removing Supervisor Device Identifier Shelf Expiration Date Model / Serial / Lot Suture Steel 6 B&S19 M654g - [id number] Implanted:Qty: 4 on 08/19/2018 by Brenna Perez MD [place] [facility]: Sternum JNJ : [employer] 04/22/2023 M654G / / M654 Clip Occl Atri Flex V 45mm - [id number] - [id number] Implanted:Qty: 1 on 08/19/2018 by Brenna Perez MD [place] [facility] ATRICURE 03/23/2021 [id number] / [id number] / Duraclip 16mm Xlg Repostn - [id number] Implanted:Qty: 1 on 05/30/2022 by Juventino Degroot DO at [facility]/08/2023 [id number] / / documented as of this encounter Visit Diagnoses Diagnosis ASCVD (arteriosclerotic cardiovascular disease) Unspecified cardiovascular disease Dyslipidemia, goal LDL below 70 Other and unspecified hyperlipidemia documented in this encounter Advance Directives Latest [...] the patient have Health Care Power of Fish Net Maker? No No Code 08/09/2011 2:32 PM 08/09/2011 8:07 PM Thi s order reflects the patients wishes and were consensually agreed upon. Question Answer Comments Discussion of Advance Directives occurred with: Not Discussed Does the patient have a Living Will? No Does the patient have Health Care Power of Fish Net Maker? No Full Code 06/24/2009 2:52 PM 06/25/2009 9:02 PM This order reflects the patients wishes and were consensually agreed upon. Question Answer Comments Discussion of Advance Directives occurred with: Patient/Family Does the patient have a Living Will? No Does the patient have Health Care Power of Fish Net Maker? No Care Teams Kiln Car Repairer Relationship Specialty Start Date End Date Ritesh Iniguez MD [address] [place] [address] PCP - General Family Medicine 03/27/18 documented as of this encounter
--- OUTSIDE RECORDS SUMMARY | 2024-04-02 15:23 | External Medical Summary | Summary of Care ---
Author Name Unknown Organization [facility] Address [address] [facility] [place] [address] Phone [phone] Care Team Providers Care Welder Fitter Gas Name Role Phone Angel Iniguez MD Primary Care Provider Reason for Visit * Reason Comments eRx-Medication Refill Encounter Details Date Type Department Care Team (Late st Contact Info) Description 12/15/2023 Refill [facility] [address] [place] [address] Angel Iniguez MD [address] [place] [address] HTN, goal below 150/90 Allergies Active Allergy [...] as of this encounter (statuses as of 12/16/2023) Medications Medication Sig Dispensed Refills Start Date [...] Erectile Dysfunction. 10 Tab 5 1 Active Carvedilol 6.25 MG Oral Tablet (Coreg)Indications: [...] THE MORNING 90 Tablet 1 4 Active hydroCHLOROthiazide 25 MG Oral Tablet (Hydrodiuril)Indica tions:HTN, goal below 150/90 TAKE BY MOUTH 1 TABLET IN THE MORNING. 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 10/12/2022 Coronary artery disease invo lving [place] coronary artery of [place] heart without angina pectoris 11/06/2019 Gastroesophageal reflux disease without esophagi tis 11/06/2019 Old [place] (myocardial infarction) 11/06/2019 Primary osteoarthritis of both [...] as of this encounter (statuses as of 12/16/2023) Resolved Problems Problem Noted Date Diagnosed Date [...] 31.39 08/14/11 08/14/2011 01/29/2017 VERDICT Clinical Trial [id number] 1 09/30/2013 Overview: Renamed per the [facility] for Medicare and Medicaid billing requirements to include Clinical Trial.gov number. VERDICT Clinical Trial [id number] 1 09/01/2014 Overview: Renamed per the [facility] for Medicare and Medicaid billing requirements to include Clinical Trial.gov number. Stable angina 08/02/2011 09/29/2018 OBESITY, BMI= 31.05 01/23/11 01/23/2011 0 01/29/2017 Heartburn 01/23/2011 01/03/2016 OBESITY, BMI= 31.38 04/25/10 04/25/2010 0 01/29/2017 Screening for prostate cancer 04/25/2010 01/03/2016 Subjective tinnitus 04/25/2010 10/28/19 15 OBESITY, BMI 30-34 (SEE ACTUAL BMI) 12/15/2009 04/25/2010 Overview: Per Obesity Taxonomy CORON ATHEROSCL [place] CORON VESSEL 11/01/2009 04/25/2010 Migraine 11/01/2009 10/28/2014 Overweight (BMI 25.0-29.9) 08/15/2009 0 12/15/2009 Overview: Per Obesity Taxonomy Angina pectoris 07/01/2009 04/25/2010 Need for pneumococcal vaccination 07/01/2009 10/28/2014 Need for diphtheria-tetanus- pertussis (Tdap) vaccine 07/01/2009 10/28/2014 EXAMINATION OF PARTICIPANT I N CLINICAL TRIAL-Genomics 06/24/2009 01/06/2010 Overview: Renamed Per Clinical Trials Billing Project. Study Titile: Genomic Markers for Patients with Cardiovascular Disease Project #[id number] PI: Asia Hebert MD Please call [phone] with study related questions Unstable angina 06/24/2009 08/02/2011 Dyslipidemia, goal to be determined 06/24/2009 08/17/2009 Overview: Per Lipid Taxonomy HTN, goal to be determined 06/24/2009 1 09/28/2008 Overview: Per HTN Taxonomy GENOMICS CARDIO RESEARCH OTHER*[id number] 06/24/2009 10/30/2016 Overview: Renamed Per Clinical Trials Billing Project. Study Titile: Genomic Markers for Patients with Cardiovascular Disease Project #[id number] PI: Asia Hebert MD Please call [phone] with study related questions Screening for prostate [...] as of this encounter (statuses as of 12/16/2023) Immunizations Name Administration Dates Next Due COVID-19 mRNA, LNP-s, No Pre serve, 2-Dose Series ([place]) 11/30/2020,11/09/2020 Pneumococcal Conjugate Vacc, 13 Valent (Prevnar) [...] was given about 6 yrs ago by [employer], get date) documented as of this encounter [...] encounter Miscellaneous Notes * Telephone Encounter - Esteban Holbrook [facility] - 12/16/2023 1:24 PM EDTSigned Prescriptions: Disp Refills hydroCHLOROthiazide 25 MG Oral Tablet (Hyd*90 Tab*1 Sig: TAKE 1 TABLET BY MOUTH EVERY DAY IN THE MORNINGAuthorizing Provider: ANGEL INIGUEZ User: SETEBAN HOLBROOK Electronically signed by Esteban Holbrook [facility] at 12/16/2023 1:24 PM EDT documented in this encounter Plan of Treatment Upcoming Encounters Date Type Department Care Team (Late st Contact Info) Description 12/30/2023 8:30 AM EDT Laboratory Laboratory, [place] [address] [place] [address] [facility] [address] [place] [address] 04/14/2024 8:20 AM EDT Office Visit [place] [address] [place] [address] Angel Iniguez MD [address] [place] [address] Scheduled Procedures Name Priority Associated Diagnoses Date/Ti me COLONOSCOPY FLEXIBLE PROXIMAL DIAGNOSTIC Recall History of colon polyps Health Maintenance Due Date Last Done Comments Zoster Vaccines (1 of 2) 2002 Albumin/Creatinine Ratio 05/23/20232 022, 10/13/2021, 01/30/2017, Additional history exists COVID-19 Vaccine ( season) 2023 11/30/2020, 11/09/2020 GFR 07/12/2023 01/10/2023, 09/23, 05/22/2022, Additional history exists CKD HGB USE SMARTSET 09363 01/11/202401/10, 11/19/2019, 08/10/2019, Additional history exists CKD PHOS USE SMARTSET 64096 01/11/2024 01/10/2023, 0 01/05/2016 TSH 01/11/2024 01/10/2023, 08/3 , 10/13/2021, Additional history exists Depression Screening 04/12/2024 [...] this encounter Medical Devices Implanted Type Area Floriculture Professor Device Identifier Shelf Expiration Date Model / Serial / Lot Suture Steel 6 B&S19 M654g - [id number] Implanted:Qty: 4 on 08/19/2018 by Brenna Perez MD at [place] [facility] [place] N/A: Sternum JNJ : [employer] 04/22/2023 M654G / / M654 Clip Occl Atri Flex V 45mm - [id number] - [id number] Implanted:Qty: 1 on 08/19/2018 by Brenna Perez MD at [place] [facility] [place] ATRICURE 03/23/2021 [id number] / [id number] / Duraclip 16mm Xlg Repostn - [id number] Implanted:Qty: 1 on 05/30/2022 by Juventino Degroot DO at [facility]COPY [facility] [employer] [place] 11/08/2023 [id number] / / documented as of this encounter Visit Diagnoses Diagnosis HTN, goal below 150/90 documented in this [...] the patient have Health Care Power of Executive Cyber Leader? No No Code 08/09/2011 2:32 PM 08/09/2011 8:07 PM Thi s order reflects the patients wishes and were consensually agreed upon. Question Answer Comments Discussion of Advance Directives occurred with: Not Discussed Does the patient have a Living Will? No Does the patient have Health Care Power of Executive Cyber Leader? No Full Code 06/24/2009 2:52 PM 06/25/2009 9:02 PM This order reflects the patients wishes and were consensually agreed upon. Question Answer Comments Discussion of Advance Directives occurred with: Patient/Family Does the patient have a Living Will? No Does the patient have Health Care Power of Executive Cyber Leader? No Care Teams Welder Fitter Gas Relationship Specialty Start Date End Date Angel Iniguez MD [address] [place] [address] PCP - General Family Medicine 03/27/18 documented as of this encounter
--- OUTSIDE RECORDS SUMMARY | 2024-04-02 15:23 | External Medical Summary | Summary of Care ---
Author Name Unknown Organization [facility] Address [address] [address] Phone [phone] Care Team Providers Care Power Marketer Name Role Phone Ritesh Iniguez MD Primary Care Provider [phone] Reason for Visit * Reason Onset Date Comments Health Maintenance 10/16/2023 Encounter Details Date Type Department Care Team (Late st Contact Info) Description 10/16/2023 Telephone [facility] [address] [place] [address] Ritesh Iniguez MD [address] [place] [address] Health Maintenance Allergies Active Allergy Reactions Criticality Noted Date Comments Atenolol Hypotension 05/13/2009 As with Metoprolol. See above. Lisinopril Cough 04/07/2010 Metoprolol Succinate Hypotension 05/13/2009 Experience an episode of hypotension in past. Is tolerating low dose now. Will keep warning, however will also continue therapy. Sulfa Antibiotics 05/07/2000 blisters Rofecoxib High 08/04/2018 MADE PATIENT MEAN documented as of this encounter (statuses as of 10/16/2023) Medications Medication Sig Dispensed Refills Start Date End Date Status NITROSTAT 0.4 MG SL SUBLIndications:ASCV D (arteriosclerotic cardiovascular disease),Stable angina PLACE 1 TABLET [...] Erectile Dysfunction. 10 Tab 5 11/23/2020 Active Atorvastatin Calcium 40 MG Oral Tablet (Lipitor)Indications :ASCVD (arteriosclerotic cardiovascular disease),Dyslipidemi a, goal LDL below 70 TAKE 1 TABLET BY MOUTH EVERYDAY AT BEDTIME 90 Tablet 3 11/19/2022 Active hydroCHLOROthiazide 25 MG Oral Tablet (Hydrodiuril)Indicat ions:HTN, goal below 150/90 TAKE BY MOUTH 1 TABLET IN THE MORNING. 90 Tablet 3 12/13/2022 Active Carvedilol 6.25 MG Oral Tablet (Coreg)Indications:S table angina,HTN, goal below 150/90 TAKE 1 TABLET BY MOUTH TWICE A DAY 180 Tablet 3 01/09/2023 Active Levothyroxine Sodium 100 MCG Oral Tablet (Levoxyl)Indications :Hypothyroidism, unspecified type TAKE 1 TABLET BY MOUTH ONCE DAILY 30 MINUTES BEFORE BREAKFAST OR OTHER MEDICATIONS 90 Tablet 1 08/20/2023 Active Losartan Potassium 100 MG Oral Tablet (Cozaar)Indications: Hypertensive kidney disease with stage 2 chronic kidney disease Take 1 Tablet by mouth in the morning. 90 Tablet 3 08/23/2023 Active documented as of this encounter (statuses as of 10/16/2023) Active Problems Problem Noted Date Diagnosed Date Chronic kidney disease, stage 3a 11/05/2022 Overview: Per CKD protocol Atherosclerosis of [place] co ronary artery of [place] heart with stable angina pectoris 10/12/2022 Coronary artery disease invo lving [place] coronary artery of [place] heart without angina pectoris 11/06/2019 Gastroesophageal reflux [...] as of this encounter (statuses as of 10/16/2023) Resolved Problems Problem Noted Date Diagnosed Date [...] 31.39 08/14/11 08/14/2011 01/29/2017 VERDICT Clinical Trial [id number] 1 09/30/2013 Overview: Renamed per the Centers for Medicare and Medicaid billing requirements to include Clinical Trial.gov number. VERDICT Clinical Trial [id number] 1 09/01/2014 Overview: Renamed per the Centers [...] Overview: Per Obesity Taxonomy CORON ATHEROSCL [place] CORON VESSEL 11/01/2009 04/25/2010 Migraine 11/01/2009 10/28/2014 Overweight (BMI 25.0-29.9) 08/15/2009 0 12/15/2009 Overview: Per Obesity Taxonomy Angina pectoris 07/01/2009 04/25/2010 Need for pneumococcal vaccination 07/01/2009 10/28/2014 Need for diphtheria-tetanus- pertussis (Tdap) vaccine 07/01/2009 10/28/2014 EXAMINATION OF PARTICIPANT I N CLINICAL TRIAL-Genomics 06/24/2009 01/06/2010 Overview: Renamed Per Clinical Trials Billing Project. Study Titile: Genomic Markers for Patients with Cardiovascular Disease Project #[id number] PI: Asia Hebert MD Please call [phone] with study related questions Unstable angina 06/24/2009 08/02/2011 Dyslipidemia, goal to be determined 06/24/2009 08/17/2009 Overview: Per Lipid Taxonomy HTN, goal to be determined 06/24/2009 1 09/28/2008 Overview: Per HTN Taxonomy GENOMICS CARDIO RESEARCH OTHER*[id number] 06/24/2009 10/30/2016 Overview: Renamed Per Clinical Trials Billing Project. Study Titile: Genomic Markers for Patients with Cardiovascular Disease Project #[id number] PI: Asia Hebert MD Please call [phone] with study related questions Screening for prostate [...] as of this encounter (statuses as of 10/16/2023) Immunizations Name Administration Dates Next Due COVID-19 [...] was given about 6 yrs ago by [employer], get date) documented as of this encounter [...] encounter Miscellaneous Notes * Telephone Encounter - Evelyne Townsend LPN - 10/16/2023 10:21 AM EST Care Gaps Comprehensive Care Outreach Last Office/Telemedicine Visit: 04/12/2023 (in office), Visit date not found (telemedicine) Next Office Visit: 04/14/2024 Hemoglobin AIC Results: Lab Results Component Value Date/Time HEMOGLOBIN A1C - [facility] 5.3 08/06/2018 08:29 AM HEMOGLOBIN A1C - [facility] 5.6 03/07/2014 03:50 PM HEMOGLOBIN A1C - [facility] 5.1 08/09/2011 10:28 AM Reviewed Health Maintenance below: Health Maintenance Topic Date Due Zoster Vaccines (1 of 2) Never done Albumin/Creatinine Ratio 05/23/2023 COVID-19 Vaccine ( season) 2023 GFR 07/12/2023 CKD HGB USE SMARTSET 79376 01/11/2024 CKD PHOS USE SMARTSET 86623 01/11/2024 TSH 01/11/2024 Labs ordered and scheduled Care Gap Outreach Action Taken: Spoke to patient documented in this encounter Plan of Treatment Upcoming Encounters Date Type Department Care Team (Late st Contact Info) Description 12/30/2023 8:30 AM EDT Laboratory Laboratory, [place] [address] [place] [id number] [facility] [address] [place] [address] 04/14/2024 8:20 AM EDT Office Visit [facility] [address] [place] [phone] Ritesh Iniguez MD [address], [place] [id number] Scheduled Orders Name Type Priority Associated Diagnoses Orde r Schedule ALBUMIN / CREATININE RATIO, URINE Lab Routine Chronic kidney disease, unspecified CKD stage Expected: 12/23/2023 (Approximate), Expires: 10/16/2024 COMPREHENSIVE METABOLIC PANEL Lab Routine Chronic kidney disease, unspecified CKD stage Expected: 12/23/2023, Expires: 10/16/2024 CBC Lab Routine Chronic kidney disease, unspecified CKD stage Expected: 12/23/2023, Expires: 10/16/2024 PHOSPHORUS Lab Routine Chronic kidney disease, unspecified CKD stage Expected: 12/23/2023, Expires: 10/16/2024 TSH WITH FREE T4 IF INDICATED Lab Routine Screening for thyroid disorder Expected: 12/23/2023, Expires: 10/16/2024 Scheduled Procedures Name Priority Associated Diagnoses Date/Ti me COLONOSCOPY FLEXIBLE PROXIMAL DIAGNOSTIC Recall History of colon polyps Health Maintenance Due Date Last Done Comments Zoster Vaccines (1 of 2) 2002 Albumin/Creatinine Ratio 05/23/2023 022, 10/13/2021, 01/30/2017, Additional history exists COVID-19 Vaccine ( season) 2023 11/30/2020, 11/09/2020 GFR 07/12/2023 01/10/2023, 09/23, 05/22/2022, Additional history exists CKD HGB USE SMARTSET 60592 01/11/202401/10, 11/19/2019, 08/10/2019, Additional history exists CKD PHOS USE SMARTSET 50030 01/11/2024 01/10/2023, 0 01/05/2016 TSH 01/11/2024 01/10/2023, [...] this encounter Medical Devices Implanted Type Area Senior Nuclear Medicine Technologist Device Identifier Shelf Expiration Date Model / Serial / Lot Clip Occl Atri Flex V 45mm - [id number] - [id number] Implanted:Qty: 1 on 08/19/2018 by Brenna Perez MD at [place] [facility] [facility] 03/23/2021 [id number] / [id number] / Duraclip 16mm Xlg Repostn - [id number] Implanted:Qty: 1 on 05/30/2022 by Juventino Degroot DO at [facility] [employer] [facility] 11/08/2023 [id number] / / documented as of this encounter Visit Diagnoses Diagnosis Screening for thyroid disorder- Primary Chronic kidney disease, unspecified CKD stage documented in this encounter Advance Directives Latest [...] the patient have Health Care Power of Wedding Planner? No No Code 08/09/2011 2:32 PM 08/09/2011 8:07 PM Thi s order reflects the patients wishes and were consensually agreed upon. Question Answer Comments Discussion of Advance Directives occurred with: Not Discussed Does the patient have a Living Will? No Does the patient have Health Care Power of Wedding Planner? No Full Code 06/24/2009 2:52 PM 06/25/2009 9:02 PM This order reflects the patients wishes and were consensually agreed upon. Question Answer Comments Discussion of Advance Directives occurred with: Patient/Family Does the patient have a Living Will? No Does the patient have Health Care Power of Wedding Planner? No Care Teams Power Marketer Relationship Specialty Start Date End Date Ritesh Iniguez MD [address] [place] [address] PCP - General Family Medicine 03/27/18 documented as of this encounter
--- OUTSIDE RECORDS SUMMARY | 2024-04-02 23:00 | External Medical Summary | Summary of Care ---
Author Name Unknown Organization [facility] Address [address] [place] [address] Phone [phone] Care Team Providers Care Faro Dealer Name Role Phone Angel Iniguez MD Primary Care Provider Reason for Referral * Precert (Within 10 days (routine)) - Pending Review Specialty Diagnoses / Procedures Referred By Contac t Referred To Contact Radiology Diagnoses Acute right flank pain Procedures CT ABD/PELVIS WO IV/ORAL CONTRAST Angel Iniguez MD [address] [place] [address] Referral ID Status Reason Start Date Expiration Date V isits Requested Visits Authorized [id number] Pending Review 03/19/2024 999 999 Reason for Visit * Reason Onset Date Comments Test Results 03/12/2024 Encounter Details Date Type Department Care Team (Late st Contact Info) Description 03/12/2024 Telephone [facility] [address] [place] [address] Angel Iniguez MD [address] [place] [address] Test Results Allergies Active Allergy [...] 11/05/2022 Overview: Per CKD protocol Atherosclerosis of [place] co ronary artery of [place] heart with stable angina pectoris 10/12/2022 Coronary artery disease invo lving [place] coronary artery of [place] heart without angina pectoris 11/06/2019 Gastroesophageal reflux [...] 31.39 08/14/11 08/14/2011 01/29/2017 VERDICT Clinical Trial [id number] 09/30/2013 Overview: Renamed per the Centers for Medicare and Medicaid billing requirements to include Clinical Trial.gov number. VERDICT Clinical Trial [id number] 1 09/01/2014 Overview: Renamed per the Centers [...] 04/25/2010 Overview: Per Obesity Taxonomy CORON ATHEROSCL [place] CORON VESSEL 11/01/2009 04/25/2010 Migraine 11/01/2009 10/28/2014 Overweight (BMI 25.0-29.9) 08/15/2009 0 12/15/2009 Overview: Per Obesity Taxonomy Angina pectoris 07/01/2009 04/25/2010 Need for pneumococcal vaccination 07/01/2009 10/28/2014 Need for diphtheria-tetanus- pertussis (Tdap) vaccine 07/01/2009 10/28/2014 EXAMINATION OF PARTICIPANT I N CLINICAL TRIAL-Genomics 06/24/2009 01/06/2010 Overview: Renamed Per Clinical Trials Billing Project. Study Titile: Genomic Markers for Patients with Cardiovascular Disease Project #[id number] PI: Asia Hebert MD Please call [phone] with study related questions Unstable angina 06/24/2009 08/02/2011 Dyslipidemia, goal to be determined 06/24/2009 08/17/2009 Overview: Per Lipid Taxonomy HTN, goal to be determined 06/24/2009 1 09/28/2008 Overview: Per HTN Taxonomy GENOMICS CARDIO RESEARCH OTHER*[id number] 06/24/2009 10/30/2016 Overview: Renamed Per Clinical Trials Billing Project. Study Titile: Genomic Markers for Patients with Cardiovascular Disease Project #[id number] PI: Asia Hebert MD Please call [phone] with study related questions Screening for prostate [...] was given about 6 yrs ago by [employer] [facility], get date) documented as of this encounter [...] Telephone Encounter - Angel Iniguez MD - 04/01/2024 7:58 PM EDT Yes. * Telephone Encounter - Asuncion Mills LPN [...] completed please advise Thank you, Marcelina Causey Civil Rights Investigator II [facility] (formerly [...] polymyalgia rheumatica and thus no need for predatory animal exterminator steroid. Also get Ct scan * Telephone [...] call: Test Results Please call Pt at [phone] * Telephone Encounter - Krissy Monroe LPN [...] time. * Telephone Encounter - Alma Gibbons [facility] - 03/12/2024 4:06 PM EDT [...] Clinical Pharmacy Services ([facility]) 03/12/24 4:12 PM [phone] * Telephone Encounter - Verna Lawson PHARM Tech - 03/12/2024 3:59 PM EDT Pt calling for lab results. Transferred to RPsilvia Marquez. Thank you, Verna Lawson, Health Plan Specialist [facility] 03/12/2024,4:01 PM documented in this encounter Plan of Treatment Upcoming Encounters Date Type Department Care Team (Late st Contact Info) Description 04/14/2024 8:20 AM EDT Office Visit [facility] [address] [place] [address] Angel Iniguez MD [address] [place] [address] Scheduled Procedures Name Priority Associated [...] Additional history exists CKD PHOS USE SMARTSET 88287 12/29/2024 04/0 04/2024, 01/10/2023, 01/05/2016 CKD HGB USE SMARTSET 80182 03/10/202503/10, 03/10/2024, 12/30/2023, Additional history exists TSH [...] this encounter Medical Devices Implanted Type Area Edi Analyst Device Identifier Shelf Expiration Date Model / Serial / Lot Suture Steel 6 B&S19 [id number] - [id number] Implanted:Qty: 4 on 08/19/2018 by Brenna Perez MD at [place] [facility] [place] N/A: Sternum JNJ : [employer] 04/22/2023 [id number] / / [id number] Clip Occl Atri Flex V 45mm - [id number] - [id number] Implanted:Qty: 1 on 08/19/2018 by Brenna Perez MD at OR [facility] [place] [facility] 03/23/2021 [id number] / [id number] / Duraclip 16mm Xlg Repostn - [id number] Implanted:Qty: 1 on 05/30/2022 by Juventino Degroot DO at [facility] 11/08/2023 [id number] / / documented as of this encounter [...] the solid organs. 2. Consistent with the [employer]'s Incidental Findings Committee white [...] inthe solid organs. 2. Consistent with the [employer]'s IncidentalFindings Committee white paper [...] Power of Attor haven? No Care Teams Faro Dealer Relationship Specialty Start Date End Date Angel Iniguez MD [address] [place] [address] PCP - General Family Medicine 03/27/18 documented as of this encounter
== END 2024-04-02 08:42 | disposition short-term general hospital (02) ==
LOC: 2N 15:24 → ED 15:24 → 2N 04-02 00:04

== ENCOUNTER 2024-04-07 14:22 | Inpatient (IN) ==
[2024-04-07] MEDS ORDERED: ONDANSETRON INJ 2 MG/ML 2 ML VIAL ONE (14:34)
--- NOTE | 2024-04-07 15:10 | XRay Report ---
SINGLE VIEW CHEST CLINICAL HISTORY: Generalized weakness. FINDINGS: 2 AP, portable, semierect chest radiographs are compared to study dated 04/01/2024 and corre lated with chest CT dated 07/23/2016. The patient is status post midline sternotomy. The cardiomedias tinal silhouette is unremarkable. The lungs and pleural spaces are clear. No pneumothorax is seen. Th e skeletal structures are osteopenic. The bony thorax is grossly intact. Arthritic change is seen in the shoulders. IMPRESSION: No active disease in the chest. ACT 112: Negative or not required by law. Electronically signed by: Pavel Youngblood M.D. 04/07/2024 3:09 PM
[2024-04-07 15:11] LABS: iSTAT Creatinine 1.6 mg/dl (0.6-1.3); iSTAT Hemoglobin 13.6 g/dl (14.0-18.0); iSTAT Ionized Calcium 1.08 mmol/l (1.12-1.32); iSTAT Potassium 4.5 mmol/L (3.3-5.0)
[2024-04-07 15:21] LABS: Basophils # (auto) 0.01 K/uL (0.00-0.20); Basophils % (auto) 0.1 %; Eosinophils # (auto) 0.07 K/uL (0.00-0.50); Eosinophils % (auto) 0.5 %; Hematocrit (blood only) 42.2 % (42.0-52.0); Hemoglobin 14.3 g/dl (14.0-18.0); Immature Granulocytes # (auto) 0.05 K/uL (0.01-0.20); Immature Granulocytes % (auto) 0.4 %; Lymphocytes % (auto) 17.5 %; Mean Corpuscular Hemoglobin 30.4 pg (25.0-34.0); Mean Corpuscular Hgb Conc 33.9 g/dL (32.0-36.0); Mean Corpuscular Volume 89.8 fL (80.0-100.0); Mean Platelet Volume 11.6 fL (9.4-12.4); Monocytes # (auto) 1.06 K/uL (0.11-0.59); Monocytes % (auto) 8.1 %; Neutrophils # (auto) 9.63 K/uL (1.40-6.50); Neutrophils % (auto) 73.4 %; Platelet Count 192 K/uL (130-400); RDW Standard Deviation 42.7 fL (36.4-46.3); White Blood Count 13.12 K/ul (4.8-10.8)
[2024-04-07] MEDS: SODIUM CHLORIDE 0.9% 500 ML IV SCH (15:33)
--- NOTE | 2024-04-07 15:33 | Emergency Department Note ---
Impression & Plan Syncope, Weakness, Incontinence, Leukocytosis ED Provider Note NAME: CHARIS ARGUELLO AGE: 73 SEX: M : 1950 ARRIVES VIA: Ambulance INFORMANT: [Patient] ED PROVIDER(S): [Pavel Bagley MD] CHIEF COMPLAINT: Syncope HISTORY OF PRESENT ILLNESS: The patient is a 73-year-old male who was in our hospital recently and diagnosed with cervical myelopathy. He was sent to [facility] in [place] where they placed him on steroids. He has surgery scheduled for 21 April, in about 2 weeks. His steroids have finished. The patient was feeling well today. He has had numbness in both hands and arms but this is from the cervical disease. He states that he was in good spirits today and went to the grocery store. On the way back, he began to feel dizzy and lightheaded and faint. He began to sweat. He was nauseated. Apparently, he did have a syncopal spell in the car and lost urinary continence. No one described any seizure activity. The patient received a liter of IV saline in route, he was given 4 mg Zofran IV, his nausea is controlled. The patient denies any chest pain or dyspnea. He cannot recall passing out before. He states that he is keeping up on his fluids, there has been no vomiting, no diarrhea, no fever. PMHx/PSHx/Social Hx: See Below PHYSICAL EXAM: GENERAL: Patient is in no acute distress. HEENT: No acute trauma, normocephalic atraumatic, mucous membranes moist, no nasal congestion. NECK: No stridor, no adenopathy, no meningismus, trachea is midline. LUNGS: Clear to auscultation bilaterally, no wheeze, no rhonchi, breath sounds equal. HEART: Without murmurs gallops or rubs, regular rate and rhythm. ABDOMEN: Soft, nontender, no peritonitis. EXTREMITIES: No cyanosis, full range of motion of all the joints without pain or difficulty. NEUROLOGIC: Oriented x 3, no acute motor or sensory deficits, no focal weakness. No speech slur. No extremity drift. SKIN: No jaundice, no diaphoresis. Somewhat pale. DIFFERENTIAL DIAGNOSIS: Dehydration, dysrhythmia, seizure, electrolyte imbalance, anemia, [place], UTI, among others. EMERGENCY DEPARTMENT PROCEDURES: MEDICAL DECISION MAKING: There is a mild leukocytosis, this could be consistent with infection, the stress of his situation or his recent steroid use. There was a normal hemoglobin and platelet count. There is no significant electrolyte abnormality. Creatinine was slightly high at 1.45, consistent with some dehydration. Lactic acid level was not elevated making sepsis less likely. Bilirubin was slightly high at 1.5, the remaining liver enzymes were unremarkable. Patient appears to be in euthyroid state. ECG showed a sinus bradycardia, no obvious ischemia. Cardiac enzyme testing x 2 is not consistent with acute cardiac injury. Urinalysis does not show infection. Chest x-ray does not show pneumonia or CHF. On exam, patient was resting, he complained of some weakness and fatigue. There was no chest pain. The patient received a liter of saline prior to arrival, an additional liter was given here IV. Patient does seem to be feeling improved, his color has improved. He seems much more comfortable compared to earlier. Patient did lose his urinary continence. The cause for the syncope currently is unclear. I am concerned about the possibility of dysrhythmia. I do think a hospital stay is warranted. Further cardiac workup is in order. I spoke with the patient and his family, I spoke with case management, the on-call hospitalist was consulted. Prior/Outside records/notes reviewed: Today's EMS notes describing his presentation and transport to this hospital. ECG per my interpretation: Indication was syncope. The ECG shows a sinus bradycardia with a rate of 57. 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 There is no acute ST elevation, no PVCs. The QTc is 420. Continuous Cardiac Monitoring per my interpretation: An order was placed for continuous cardiac monitoring. The monitor shows a rate of 71 with normal sinus rhythm. Imaging/x-ray results per my interpretation: Chest x-ray does not show mediastinal widening, pneumonia or pneumothorax. Chronic Medical/Social conditions affecting care: Advanced age. Care/Management discussed with: Case management, the on-call hospitalist. Level of care consideration(s): After review of the information above and other included data: --I believe the patient requires escalation of care to admission DISPOSITION: Admission Past Med/Surg History Problem List Arteriosclerotic cardiovascular disease (ASCVD) Cervical radiculopathy Syncope Syncope and collapse (Acute) Stenosis of right vertebral artery (Acute) LEONARDO (acute kidney injury) (Acute) Stroke-like symptoms (Acute) Right sided weakness (Acute) Unstable angina (03/05/14) Coronary artery disease (Chronic) Dyslipidemia (Chronic) Sleep apnea (Chronic) Hypothyroidism (Chronic) Status post coronary artery stent placement (Chronic) Status post appendectomy (Chronic) Status post tonsillectomy (Chronic) Status post rotator cuff repair (Chronic) Social History Smoking Status: Never smoker Hx Alcohol Use: No Hx Substance Use: No Preferred Language: Slovak Communication Ability: Effective 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 Beliefs That Will Affect Care: None Current Living Situation: Spouse Feels Safe at Home: Yes Assistive Devices: Glasses Allergies Allergies Allergy/AdvReac Type Severity Reaction Status Date / Time Sulfa (Sulfonamide Allergy Unknown Blisters Verified 04/07/24 17:16 Antibiotics) atenolol AdvReac Unknown BRADYCARDIA Verified 04/07/24 17:16 ,DIZZINESS metoprolol AdvReac Unknown BRADYCARDIA Verified 04/07/24 17:16 ,DIZZINESS Home Meds Home Medications Medication Instructions Recorded Confirmed acetaminophen 500 mg tablet 500 mg PO DIRECTED PRN Pain 04/03/19 04/07/24 aspirin 81 mg chewable tablet 162 mg PO QAM 04/03/19 04/07/24 atorvastatin 40 mg tablet 40 mg PO HS 04/03/19 04/07/24 carvedilol 6.25 mg tablet 6.25 mg PO BID 04/03/19 04/07/24 levothyroxine 100 mcg tablet 100 mcg PO QAM 04/03/19 04/07/24 nitroglycerin 0.4 mg sublingual 0.4 mg sublingual DIRECTED PRN 04/03/19 04/07/24 tablet Chest Pain hydrochlorothiazide 25 mg tablet 25 mg PO QAM 04/01/24 04/07/24 losartan 100 mg tablet 100 mg PO QAM 04/01/24 04/07/24 Results & Data (ED) Vital Signs Vital Signs - 24 hr 04/07/24 14:20 04/07/24 14:48 04/07/24 14:54 Temperature 36.5 C Temperature Source Oral Pulse Rate 59 L 60 Pulse Rate [Right Finger] Pulse Rhythm Pulse Rhythm [Right Finger] Pulse Strength [Right Finger] Respiratory Rate 18 Respiratory Effort / Characteristics Respiratory Depth Respiratory Pattern Blood Pressure 118/72 Blood Pressure [Right Arm] Blood Pressure Mean 87 Blood Pressure Mean [Right Arm] Blood Pressure Position Sitting Blood Pressure Position [Right Arm] Pulse Oximetry 100 Oxygen Delivery Method Room Air Room Air Sepsis Recent Fever Within 48 Hours No Sepsis New/Unexplained Change in Mental Status No Sepsis Action Taken by Nursing No Action Required 04/07/24 15:24 04/07/24 15:24 04/07/24 15:26 Temperature Temperature Source Pulse Rate 68 Pulse Rate [Right Finger] 66 71 Pulse Rhythm Pulse Rhythm [Right Finger] Regular Pulse Strength [Right Finger] Normal Respiratory Rate 16 16 15 Respiratory Effort / Characteristics Non-Labored Spontaneous Non-Labored Respiratory Depth Normal Normal Respiratory Pattern Regular Blood Pressure Blood Pressure [Right Arm] 129/75 129/75 Blood Pressure Mean Blood Pressure Mean [Right Arm] 93 93 Blood Pressure Position Blood Pressure Position [Right Arm] Lying Pulse Oximetry 100 100 100 Oxygen Delivery Method Room Air Room Air Room Air Sepsis Recent Fever Within 48 Hours Sepsis New/Unexplained Change in Mental Status Sepsis Action Taken by Nursing 04/07/24 15:26 04/07/24 16:35 04/07/24 17:47 Temperature Temperature Source Pulse Rate 71 Pulse Rate [Right Finger] 72 62 Pulse Rhythm Regular Pulse Rhythm [Right Finger] Pulse Strength [Right Finger] Respiratory Rate 15 12 10 L Respiratory Effort / Characteristics Non-Labored Spontaneous Non-Labored Spontaneous Respiratory Depth Normal Normal Respiratory Pattern Blood Pressure Blood Pressure [Right Arm] 110/75 129/75 Blood Pressure Mean Blood Pressure Mean [Right Arm] 86 93 Blood Pressure Position Blood Pressure Position [Right Arm] Pulse Oximetry 100 100 100 Oxygen Delivery Method Room Air Room Air Room Air Sepsis Recent Fever Within 48 Hours Sepsis New/Unexplained Change in Mental Status Sepsis Action Taken by Nursing 04/07/24 18:13 04/07/24 18:42 Temperature Temperature Source Pulse Rate 65 Pulse Rate [Right Finger] 66 Pulse Rhythm Pulse Rhythm [Right Finger] Regular Pulse Strength [Right Finger] Normal Respiratory Rate 10 L Respiratory Effort / Characteristics Non-Labored Respiratory Depth Normal Respiratory Pattern Regular Blood Pressure Blood Pressure [Right Arm] 131/74 Blood Pressure Mean Blood Pressure Mean [Right Arm] 93 Blood Pressure Position Blood Pressure Position [Right Arm] Lying Pulse Oximetry 96 Oxygen Delivery Method Room Air Sepsis Recent Fever Within 48 Hours Sepsis New/Unexplained Change in Mental Status Sepsis Action Taken by Residential Medications Current Medication List: was personally reviewed by co Laboratory Data Attestation: I reviewed the patient's lab results. 04/07/24 14:53 04/07/24 14:53 Lab Results 04/07/24 04/07/24 04/07/24 Range/Units 14:53 14:58 15:22 WBC 13.12 H (4.8-10.8) K/ul RBC 4.70 (4.70-6.10) M/uL Hgb 14.3 (14.0-18.0) g/dl POC Hgb 13.6 L (14.0-18.0) g/dl Hct 42.2 (42.0-52.0) % POC Hct 40 L (42-52) % MCV 89.8 (80.0-100.0) fL MCH 30.4 (25.0-34.0) pg MCHC 33.9 (32.0-36.0) g/dL RDW Std Deviation 42.7 (36.4-46.3) fL RDW Coeff of Jelly 13.0 (11.5-14.5) % Plt Count 192 (130-400) K/uL MPV 11.6 (9.4-12.4) fL Immature Gran % (Auto) 0.4 % Neut % (Auto) 73.4 % Lymph % (Auto) 17.5 % [place] % (Auto) 8.1 % Eos % (Auto) 0.5 % Baso % (Auto) 0.1 % Neut # (Auto) 9.63 H (1.40-6.50) K/uL Lymph # (Auto) 2.30 (1.20-3.40) K/uL [place] # (Auto) 1.06 H (0.11-0.59) K/uL Eos # (Auto) 0.07 (0.00-0.50) K/uL Baso # (Auto) 0.01 (0.00-0.20) K/uL Immature Gran # (Auto) 0.05 (0.01-0.20) K/uL POC Sodium 136 (135-144) mmol/L Sodium 135 L (136-145) mmol/L POC Potassium 4.5 (3.3-5.0) mmol/L Potassium 4.3 (3.5-5.1) mmol/L POC Chloride 103 (101-112) mmol/L Chloride 103 (98-107) mmol/L Carbon Dioxide 24 (21-32) mmol/L POC Total CO2 22 L (24-31) mmol/L Anion Gap 8 (3-11) POC Anion Gap 16.0 (16-25) mmol/L POC BUN 36 H (7-18) mg/dl BUN 37 H (6-23) mg/dl Creatinine 1.45 H (0.6-1.4) mg/dl POC Creatinine 1.6 H (0.6-1.3) mg/dl Est Cr Clr Drug Dosing 49.6 ml/min Est GFR ( Amer) 55.8 ml/min Est GFR (Non-Af Amer) 48.1 ml/min BUN/Creatinine Ratio 25.5 H (10-20) Glucose 122 H (70-99(Fasting)) mg/dl POC Glucose (other) 127 H (70-99) mg/dl Lactate (0.4-2.0) mmol/L Calcium 8.7 (8.6-10.3) mg/dl POC Ioniz Calcium Josiah 1.08 L (1.12-1.32) mmol/l Magnesium 1.7 (1.7-2.4) mg/dl Total Bilirubin 1.5 H (0.2-1.0) mg/dl AST 13 (13-39) U/L ALT 25 (7-52) U/L Alkaline Phosphatase 58 (34-104) U/L Troponin I High Sens 3.3 (0-20) pg/ml Total Protein 6.7 (6.0-8.3) gm/dl Albumin 3.8 (3.4-5.0) gm/dl Globulin 2.9 (2.5-4.0) gm/dl Albumin/Globulin Ratio 1.3 (0.9-2) TSH 3.226 (0.300-4.500) uIu/ml Random Cortisol 24.64 mcg/dl Urine Color Yellow Urine Appearance Clear (Clear) Urine pH 7.0 (4.5-7.5) Ur Specific [place] 1.013 (1.000-1.030) Urine Protein Negative (Negative) Urine Glucose (UA) Negative (Negative) Urine Ketones Negative (Negative) Urine Blood Negative (Negative) Urine Nitrite Negative (Negative) Urine Bilirubin Negative (Negative) Urine Urobilinogen Negative (Negative) Ur Leukocyte Esterase Negative (Negative) 04/07/24 Range/Units 17:37 WBC (4.8-10.8) K/ul RBC (4.70-6.10) M/uL Hgb (14.0-18.0) g/dl POC Hgb (14.0-18.0) g/dl Hct (42.0-52.0) % POC Hct (42-52) % MCV (80.0-100.0) fL MCH (25.0-34.0) pg MCHC (32.0-36.0) g/dL RDW Std Deviation (36.4-46.3) fL RDW Coeff of Jelly (11.5-14.5) % Plt Count (130-400) K/uL MPV (9.4-12.4) fL Immature Gran % (Auto) % Neut % (Auto) % Lymph % (Auto) % [place] % (Auto) % Eos % (Auto) % Baso % (Auto) % Neut # (Auto) (1.40-6.50) K/uL Lymph # (Auto) (1.20-3.40) K/uL [place] # (Auto) (0.11-0.59) K/uL Eos # (Auto) (0.00-0.50) K/uL Baso # (Auto) (0.00-0.20) K/uL Immature Gran # (Auto) (0.01-0.20) K/uL POC Sodium (135-144) mmol/L Sodium (136-145) mmol/L POC Potassium (3.3-5.0) mmol/L Potassium (3.5-5.1) mmol/L POC Chloride (101-112) mmol/L Chloride (98-107) mmol/L Carbon Dioxide (21-32) mmol/L POC Total CO2 (24-31) mmol/L Anion Gap (3-11) POC Anion Gap (16-25) mmol/L POC BUN (7-18) mg/dl BUN (6-23) mg/dl Creatinine (0.6-1.4) mg/dl POC Creatinine (0.6-1.3) mg/dl Est Cr Clr Drug Dosing ml/min Est GFR ( Amer) ml/min Est GFR (Non-Af Amer) ml/min BUN/Creatinine Ratio (10-20) Glucose (70-99(Fasting)) mg/dl POC Glucose (other) (70-99) mg/dl Lactate 1.3 (0.4-2.0) mmol/L Calcium (8.6-10.3) mg/dl POC Ioniz Calcium Josiah (1.12-1.32) mmol/l Magnesium (1.7-2.4) mg/dl Total Bilirubin (0.2-1.0) mg/dl AST (13-39) U/L ALT (7-52) U/L Alkaline Phosphatase (34-104) U/L Troponin I High Sens 4.3 (0-20) pg/ml Total Protein (6.0-8.3) gm/dl Albumin (3.4-5.0) gm/dl Globulin (2.5-4.0) gm/dl Albumin/Globulin Ratio (0.9-2) TSH (0.300-4.500) uIu/ml Random Cortisol mcg/dl Urine Color Urine Appearance (Clear) Urine pH (4.5-7.5) Ur Specific [place] (1.000-1.030) Urine Protein (Negative) Urine Glucose (UA) (Negative) Urine Ketones (Negative) Urine Blood (Negative) Urine Nitrite (Negative) Urine Bilirubin (Negative) Urine Urobilinogen (Negative) Ur Leukocyte Esterase (Negative) Administered Medications Discontinued Medications Sodium Chloride (Nss) 500 mls @ 999 mls/hr IV .Q31M YANG Stop: 04/07/24 15:15 Last Infusion: 04/07/24 16:41 Dose: Infused Documented By: Admin: 04/07/24 15:33 Dose: 999 mls/hr Documented By: TERESITA Sodium Chloride (Nss) 500 mls @ 999 mls/hr IV .Q31M ONE Stop: 04/07/24 17:42 Last Infusion: 04/07/24 18:19 Dose: Infused Documented By: Admin: 04/07/24 17:48 Dose: 999 mls/hr Documented By: CIELO Imaging Data Radiologist's Impression: Chest X-Ray 04/07/24 14:45 SINGLE VIEW CHEST CLINICAL HISTORY: Generalized weakness. FINDINGS: 2 AP, portable, semierect chest radiographs are compared to study dated 04/01/2024 and correlated with chest CT dated 07/23/2016. The patient is status post midline sternotomy. The cardiomediastinal silhouette is unremarkable. The lungs and pleural spaces are clear. No pneumothorax is seen. The skeletal structures are osteopenic. The bony thorax is grossly intact. Arthritic change is seen in the shoulders. IMPRESSION: No active disease in the chest. ACT 112: Negative or not required by law. Electronically signed by: Pavel Youngblood M.D. 04/07/2024 3:[address] 04/07/24 18:06 CT head/brain wo con CLINICAL HISTORY: Syncopal event Technique: Contiguous axial CT images of the head were acquired from the base of the skull to the vertex without intravenous contrast administration. Images were viewed in brain, subdural and bone windows. Automated dose lowering techniques and/or adjustment according to patient size were utilized for this exam. Comparison: Comparison is made to CT head 04/01/2024 Findings: The ventricles, basal cisterns, and cerebral sulci are normal. There is no acute intracranial hemorrhage or evidence of acute territorial infarction. Neither mass effect, shift of the midline structures, nor abnormal extra-axial fluid collections are shown. Imaged portions of the paranasal sinuses and mastoid air cells are clear. The orbits appear normal. There are no acute fractures of the calvaria or scalp swelling. Impression: No acute intracranial hemorrhage, no evidence of acute territorial infarction or other acute intracranial disease process. ACT 112: Negative or not required by law. Electronically signed by: Alfonzo Britt M.D. 04/07/2024 6:45 PM Discharge Plan Visit Data Chief Complaint: Lethargic Stated Complaint: LETHARGIC ED Provider: Pavel Bagley Discharge Problem: Syncope, Weakness, Incontinence, Leukocytosis Patient Disposition: Admitted As Inpatient Condition: Fair Forms Stand Alone Forms: My [facility], Important Visit Information Prescriptions Prescriptions: No Action atorvastatin 40 mg tablet 40 mg PO HS carvedilol 6.25 mg tablet 6.25 mg PO BID levothyroxine 100 mcg tablet 100 mcg PO QAM Rx Instructions: TAKE THIS MEDICATION AT LEAST 30 MINUTES BEFORE BREAKFAST OR ANY OTHER MEDICATION aspirin 81 mg tablet,chewable 162 mg PO QAM nitroglycerin 0.4 mg Tablet, Sublingual 0.4 mg sublingual DIRECTED PRN (Reason: Chest Pain) Rx Instructions: PLACE ONE TABLET UNDER THE TONGUE EVERY 5 MINUTES FOR UP TO 3 DOSES OVER 15 MINUTES IF NEEDED FOR CHEST PAIN acetaminophen 500 mg Tablet 500 mg PO DIRECTED PRN (Reason: Pain) Rx Instructions: TAKE PER PACKAGE DIRECTIONS hydrochlorothiazide 25 mg tablet 25 mg PO QAM losartan 100 mg tablet 100 mg PO QAM Referrals Referrals: Ritesh Iniguez MD [Primary Care Provider] - Discharge Problem: Syncope Qualifiers: Syncope type: unspecified Qualified Code(s): R55 - Syncope and collapse Incontinence Qualifiers: Incontinence type: urinary Urinary Incontinence type: unspecified incontinence Qualified Code(s): R32 - Unspecified urinary incontinence Leukocytosis Qualifiers: Leukocytosis type: unspecified Qualified Code(s): D72.829 - Elevated white blood cell count, unspecified
[2024-04-07 15:37] LABS: Albumin Globulin Ratio 1.3 (0.9-2); Albumin Level 3.8 gm/dl (3.4-5.0); BUN Creatinine Ratio 25.5 (10-20); Bilirubin,Total 1.5 mg/dl (0.2-1.0); Calcium 8.7 mg/dl (8.6-10.3); Creatinine Clr Calc Pharmacy 49.6 ml/min; Est GFR (African American) 55.8 ml/min; Est GFR (Non-African American) 48.1 ml/min; Globulin 2.9 gm/dl (2.5-4.0); Magnesium 1.7 mg/dl (1.7-2.4); Potassium 4.3 mmol/L (3.5-5.1); Total Protein 6.7 gm/dl (6.0-8.3)
[2024-04-07 15:40] LABS: Appearance Urine Clear (Clear); Bilirubin Urine Negative (Negative); Blood Urine Negative (Negative); Color Urine Yellow; Glucose Urine UA Negative (Negative); Ketones Urine Negative (Negative); Leukocyte Esterase Urine Negative (Negative); Nitrite Urine Negative (Negative); Protein Urine Negative (Negative); Specific Gravity Urine 1.013 (1.000-1.030); Urobilinogen Urine Negative (Negative)
[2024-04-07 15:43] LABS: Troponin I High Sensitivity 3.3 pg/ml (0-20)
[2024-04-07 15:53] LABS: Thyroid Stimulating Hormone 3.226 uIu/ml (0.300-4.500)
[2024-04-07] MEDS: SODIUM CHLORIDE 0.9% 500 ML IV ONE (17:48)
--- NOTE | 2024-04-07 18:27 | History & Physical Report ---
Date of Service April 07, 2024 Assessment & Plan (1) Syncope: (2) Cervical radiculopathy: (3) Arteriosclerotic cardiovascular disease (ASCVD): Plan Yovany Bliss is a 73y/o M with PMHx of dyslipidemia, hypothyroidism, EULALIA on BiPAP, ASCVD (arteriosclerotic cardiovascular disease), HTN, CAD s/p CABG [2018], history of coronary angiography with left heart cath stent x 1, GERD without esophagitis, CKD stage III, cervical DDD, cervical spine stenosis and other problems listed below who presented to the ED via ambulance for evaluation following a syncopal episode. Of note, patient was seen and evaluated in the ED on 04/01 for the following: one month history of bilateral upper extremity weakness with numbness of the hands, neck pain and fatigue. Patient previously saw his PCP and was given a course of steroid without improvement, therefore he was sent to the emergency department due to worsening symptoms. MRI in the ED revealed the following: moderate disc degeneration at C3-4, C4-5 and C6-7 with concern of cord edema and critical spinal canal stenosis at C3-4 and C4-5 with severe stenosis at C6-7. The patient was ultimately transferred to [facility] for evaluation and potential need for emergent surgical evaluation. Patient was ultimately admitted at [facility] and evaluated by the spine surgery team. He ultimately received IV Decadron with significant improvement of his weakness/tingling with mild residual tingling of hand/fingers - therefore he did not undergo emergent surgery. Now the patient is scheduled with Dr. Castaneda from the spine surgery team to undergo ACDF on 04/21. Patient was admitted from 04/02-04/05 at [facility]. Syncopal Episode Patient went to go turn his neck while driving and suddenly became unresponsive. Patient was supposedly passed out for approximately 10 minutes according to his granddaughter, who was present in the vehicle. Patient became very diaphoretic and was complaining of lightheadedness/dizziness before he passed out. However, patient reports that he does not remember passing out. Pt was hypotensive TRANSLATION DIRECTOR with SBP in the upper 90s according to his daughter. He received a total of 2L at time of admission - BP improved to 131/74 at time of sign-out. Admitting CXR and head CT both negative. EKG w/ no ischemic changes, trop negative. Leukocytosis noted w/ WBC 13K, lactate negative, UA negative. Pt did recently complete IV steroid therapy, could be contributing to elevation in WBC. Given recent steroid use, random cortisol ordered. Random cortisol WNL at 24.64; AM cortisol ordered - follow. Will start pt on empiric IV cefepime 2g Q8H, blood cultures pending - follow. Brain MRI ordered and pending - follow results. EEG ordered, pt tentatively placed on seizure precautions. Neurology consulted, appreciate their recommendations/input. CBC, BMP, mag and phos to be completed in AM. Cervical Radiculopathy Cervical spine MRI from 04/01 revealed the following: i. Moderate disc degeneration at C3-4, C4-5 and C6-7 with concern of cord edema and critical spinal canal stenosis at C3-4 and C4-5 with severe stenosis at C6- 7. Now the patient is scheduled with Dr. Castaneda from the spine surgery team at [facility] to undergo ACDF on 04/21. Arteriosclerotic Cardiovascular Disease (ASCVD) Pt had a neck CTA performed on 04/01 in ED that showed the following: i. High-grade stenoses of the R vertebral and posterior cerebral arteries 2/2 atherosclerosis. ii. Moderate atherosclerosis of the carotid bulbs w/o high-grade stenosis. Daughter mentioned the stenoses above during our conversation. ? Could this of attributed to his syncopal event ? Will proceed with b/l carotid doppler study - follow results. Consulted vascular surgery - appreciate their recommendations/input. HTN Pt taking carvedilol, losartan and hydrochlorothiazide TRANSLATION DIRECTOR. Given hypotension TRANSLATION DIRECTOR and softer BPs in ED, will hold these medications for now. Continuous cardiac monitoring in place, trend BP overnight. Reassess plan to restart these medications in AM given result of BP trend. CKD Stage III Cr 1.6 on admission (baseline Cr ~1.3-1.5 per chart review). BMP in AM, closely monitor renal function. Avoid nephrotoxic meds when able. Hyponatremia: Na 135 on admission, pt received 2L NSS in total. Repeat BMP in AM - monitor and replete PRN. Dyslipidemia, CAD s/p CABG: Will continue TRANSLATION DIRECTOR aspirin and atorvastatin. EULALIA on BiPAP: Order placed for BiPAP HS, can continue. Hypothyroidism: Can continue TRANSLATION DIRECTOR levothyroxine, TSH WNL at time of admission. DVT Prophylaxis: SCDs - For now; ? consider SQ heparin tomorrow. Code Status: FULL CODE PCP: Ritesh Iniguez MD Disposition: Admit to Med/Surg w/ Telemetry Patient seen in collaboration with Dr. Wan. Please see addendum. I spent a total of 75 minutes coordinating, documenting, and providing care for this patient excluding time spent in the performance of separately billed se rvices. This included personally reviewing all current laboratories and imaging studies, medical reconciliation, outpatient chart review and discussion with specialists. This chart was completed in part utilizing Speech Voice Recognition Software. Grammatical errors, random word insertions, pronoun errors, and incomplete sentences are an occasional consequence of this system due to software limit ations, ambient noise, and hardware issues. Any formal questions or concerns about the content, text, or information contained within the body of this dictation should be directly addressed to the provider for clarification. History of Present Illness Chief Complaint: Syncopal Event Primary Care Provider: Ritesh Iniguez MD Yovany Bliss is a 73y/o M with PMHx of dyslipidemia, hypothyroidism, EULALIA on BiPAP, ASCVD (arteriosclerotic cardiovascular disease), HTN, CAD s/p CABG [2018], history of coronary angiography with left heart cath stent x 1, GERD without esophagitis, CKD stage III, cervical DDD, cervical spine stenosis and other problems listed below who presented to the ED via ambulance for evaluation following a syncopal episode. History obtained from patient, daughter (Adina) at bedside and associated chart review. Of note, patient was seen and evaluated in the ED on 04/01 for the following: one month history of bilateral upper extremity weakness with numbness of the hands, neck pain and fatigue. Patient previously saw his PCP and was given a course of steroid without improvement, therefore he was sent to the emergency department due to worsening symptoms. MRI in the ED revealed the following: moderate disc degeneration at C3-4, C4-5 and C6-7 with concern of cord edema and critical spinal canal stenosis at C3-4 and C4-5 with severe stenosis at C6-7. The patient was ultimately transferred to [facility] for evaluation and potential need for emergent surgical evaluation. Patient was ultimately admitted at [facility] and evaluated by the spine surgery team. He ultimately received IV Decadron with significant improvement of his weakness/tingling with mild residual tingling of hand/fingers - therefore he did not undergo emergent surgery. Now the patient is scheduled with Dr. Castaneda from the spine surgery team to undergo ACDF on 04/21. Patient was admitted from 04/02-04/05 at [facility]. Today the patient was out grocery shopping with his granddaughter and went to go turn his neck while driving and he suddenly became unresponsive. Patient was supposedly passed out for approximately 10 minutes according to his granddaughter. Per his daughter, he became very diaphoretic and was complaining of lightheadedness/dizziness before he passed out. Patient reports that he does not remember passing out; however, he does remember feeling very nauseous prior to this episode. He denies any episodes of vomiting. Per ED provider, it seems that the patient may have lost bladder control during this episode and urinated himself. However, his daughter reports that he was so diaphoretic that it was more than likely his sweat that caused his minibus driver's seat to become wet. She reports the patient did not appear to urinate himself. His granddaughter denied witnessing any seizure activity during this episode of unresponsiveness. Patient denies any SOB or chest pain. He reports that he feels tired, but denies any nausea. He was hypotensive TRANSLATION DIRECTOR with SBP in the upper 90s according to his daughter, who was present when the ambulance got to him. Patient received 1L NSS en route and an additional 1L NSS in the ED; his BP improved to 131/74 at time of admission. Allergies Allergy/AdvReac Type Severity Reaction Status Date / Time Sulfa (Sulfonamide Allergy Unknown Blisters Verified 04/07/24 17:16 Antibiotics) atenolol AdvReac Unknown BRADYCARDIA Verified 04/07/24 17:16 ,DIZZINESS metoprolol AdvReac Unknown BRADYCARDIA Verified 04/07/24 17:16 ,DIZZINESS Home Medications Medication Instructions Recorded Confirmed Type acetaminophen 500 mg tablet 500 mg PO DIRECTED PRN Pain 04/03/19 04/07/24 History aspirin 81 mg chewable tablet 162 mg PO QAM 04/03/19 04/07/24 History atorvastatin 40 mg tablet 40 mg PO HS 04/03/19 04/07/24 History carvedilol 6.25 mg tablet 6.25 mg PO BID 04/03/19 04/07/24 History levothyroxine 100 mcg tablet 100 mcg PO QAM 04/03/19 04/07/24 History nitroglycerin 0.4 mg sublingual 0.4 mg sublingual DIRECTED PRN 04/03/19 04/07/24 History tablet Chest Pain hydrochlorothiazide 25 mg tablet 25 mg PO QAM 04/01/24 04/07/24 History losartan 100 mg tablet 100 mg PO QAM 04/01/24 04/07/24 History Past Med/Surg History Problem List Arteriosclerotic cardiovascular disease (ASCVD) Cervical radiculopathy Syncope Syncope and collapse (Acute) Stenosis of right vertebral artery (Acute) LEONARDO (acute kidney injury) (Acute) Stroke-like symptoms (Acute) Right sided weakness (Acute) Unstable angina (03/05/14) Coronary artery disease (Chronic) Dyslipidemia (Chronic) Sleep apnea (Chronic) Hypothyroidism (Chronic) Status post coronary artery stent placement (Chronic) Status post appendectomy (Chronic) Status post tonsillectomy (Chronic) Status post rotator cuff repair (Chronic) Social History Smoking Status: Never smoker Hx Alcohol Use: No Hx Substance Use: No Preferred Language: [place] Communication Ability: Effective Oceanography Teacher Required: No Beliefs That Will Affect Care: None Current Living Situation: Spouse Feels Safe at Home: Yes Assistive Devices: Glasses Review of Systems Review of Systems: At least ten systems reviewed and negative, except as noted in the HPI. Physical Exam Physical Exam: General: NAD, laying down in bed, pleasant but appears mildly uncomfortable, conversing appropriately, A+Ox3, euthymic affect. HEENT: Normocephalic, atraumatic. Conjunctivae normal, anicteric sclerae. External ear and nose normal, oropharynx normal. Neck: Normal visual inspection, trachea midline, no thyromegaly, limited movement of neck. Respiratory: Normal respiratory effort, lungs clear to auscultation, no wheeze, rales, rhonchi. No accessory muscle use. Cardiovascular: Regular rate, rhythm, no murmur, normal peripheral pulses, no BLE edema. Vessels: No JVD. Abdomen/GI: Normal bowel sounds, soft, nontender, no hepatosplenomegaly. Extremities/Musculoskeletal: No cyanosis or clubbing, limited movement of b/l UE, strength intact in b/l UE. Neurologic: PERRL, EOMI, accommodation nl, no face palsy, no dysarthria. Skin: No rashes, normal color, warm/dry. Results & Data Results & Data Vital Signs (Past 12 Hours) Vital Signs Temp Pulse Pulse Resp BP BP Pulse Ox 04/07/24 18:13 66 10 L 131/74 96 04/07/24 17:47 62 10 L 129/75 100 04/07/24 16:35 72 12 110/75 100 04/07/24 15:26 71 15 100 04/07/24 15:26 71 15 129/75 100 04/07/24 15:24 68 16 100 04/07/24 15:24 66 16 129/75 100 04/07/24 14:54 04/07/24 14:48 60 04/07/24 14:20 36.5 C 59 L 18 118/72 100 O2 Del Method 04/07/24 18:13 Room Air 04/07/24 17:47 Room Air 04/07/24 16:35 Room Air 04/07/24 15:26 Room Air 04/07/24 15:26 Room Air 04/07/24 15:24 Room Air 04/07/24 15:24 Room Air 04/07/24 14:54 Room Air 04/07/24 14:48 04/07/24 14:20 Room Air Laboratory Results Short CBC 04/07/24 Range/Units 14:53 WBC 13.12 H (4.8-10.8) K/ul Hgb 14.3 (14.0-18.0) g/dl Hct 42.2 (42.0-52.0) % Plt Count 192 (130-400) K/uL BMP 04/07/24 14:53 Sodium 135 L Potassium 4.3 Chloride 103 Carbon Dioxide 24 BUN 37 H Creatinine 1.45 H Glucose 122 H Calcium 8.7 Liver Function 04/07/24 Range/Units 14:53 Total Bilirubin 1.5 H (0.2-1.0) mg/dl AST 13 (13-39) U/L ALT 25 (7-52) U/L Alkaline Phosphatase 58 (34-104) U/L Albumin 3.8 (3.4-5.0) gm/dl Urine 04/07/24 Range/Units 15:22 Urine Color Yellow Urine Appearance Clear (Clear) Urine pH 7.0 (4.5-7.5) Ur Specific [place] 1.013 (1.000-1.030) Urine Protein Negative (Negative) Urine Glucose (UA) Negative (Negative) Diagnostic Findings Chest X-Ray 04/07/24 14:45 SINGLE VIEW CHEST CLINICAL HISTORY: Generalized weakness. FINDINGS: 2 AP, portable, semierect chest radiographs are compared to study dated 04/01/2024 and correlated with chest CT dated 07/23/2016. The patient is status post midline sternotomy. The cardiomediastinal silhouette is unremarkable. The lungs and pleural spaces are clear. No pneumothorax is seen. The skeletal structures are osteopenic. The bony thorax is grossly intact. Arthritic change is seen in the shoulders. IMPRESSION: No active disease in the chest. ACT 112: Negative or not required by law. Electronically signed by: Pavel Youngblood M.D. 04/07/2024 3:[address] 04/07/24 18:06 CT head/brain wo con CLINICAL HISTORY: Syncopal event Technique: Contiguous axial CT images of the head were acquired from the base of the skull to the vertex without intravenous contrast administration. Images were viewed in brain, subdural and bone windows. Automated dose lowering techniques and/or adjustment according to patient size were utilized for this exam. Comparison: Comparison is made to CT head 04/01/2024 Findings: The ventricles, basal cisterns, and cerebral sulci are normal. There is no acute intracranial hemorrhage or evidence of acute territorial infarction. Neither mass effect, shift of the midline structures, nor abnormal extra-axial fluid collections are shown. Imaged portions of the paranasal sinuses and mastoid air cells are clear. The orbits appear normal. There are no acute fractures of the calvaria or scalp swelling. Impression: No acute intracranial hemorrhage, no evidence of acute territorial infarction or other acute intracranial disease process. ACT 112: Negative or not required by law. Electronically signed by: Alfonzo Britt M.D. 04/07/2024 6:45 PM Medications Administered Discontinued Medications Sodium Chloride (Nss) 500 mls @ 999 mls/hr IV .Q31M YANG Stop: 04/07/24 15:15 Last Infusion: 04/07/24 16:41 Dose: Infused Documented By: Admin: 04/07/24 15:33 Dose: 999 mls/hr Documented By: TERESITA Sodium Chloride (Nss) 500 mls @ 999 mls/hr IV .Q31M ONE Stop: 04/07/24 17:42 Last Infusion: 04/07/24 18:19 Dose: Infused Documented By: Admin: 04/07/24 17:48 Dose: 999 mls/hr Documented By: CIELO Code Status & VTE Plan Code Status FULL CODE VTE Prophylaxis Plan VTE Prophylaxis will be ordered: Yes (1) Syncope Syncope type: unspecified Qualified Code(s): R55 - Syncope and collapse
--- NOTE | 2024-04-07 18:46 | CT Scan Report ---
CT head/brain wo con CLINICAL HISTORY: Syncopal event Technique: Contiguous axial CT images of the head were acquired from the base of the skull to the karlene marcio without intravenous contrast administration. Images were viewed in brain, subdural and bone [facility]. Automated dose lowering techniques and/or adjustment according to patient size were utilized for this exam. Comparison: Comparison is made to CT head 04/01/2024 Findings: The ventricles, basal cisterns, and cerebral sulci are normal. There is no acute intracranial hemorrh age or evidence of acute territorial infarction. Neither mass effect, shift of the midline structures , nor abnormal extra-axial fluid collections are shown. Imaged portions of the paranasal sinuses and mastoid air cells are clear. The orbits appear normal. There are no acute fractures of the calvaria or scalp swelling. Impression: No acute intracranial hemorrhage, no evidence of acute territorial infarction or other acute intracra nial disease process. ACT 112: Negative or not required by law. Electronically signed by: Alfonzo Britt M.D. 04/07/2024 6:45 PM
[2024-04-07] MEDS: LORazepam 0.5 MG TAB PO STA (21:20)
--- NOTE | 2024-04-07 21:47 | Ultrasound Report ---
ULTRASOUND OF THE CAROTID ARTERIES CLINICAL HISTORY: Syncope. COMPARISON STUDY: Carotid artery ultrasound dated 05/07/2009 TECHNIQUE: Real-time, grayscale, and color Doppler sonography of the carotid arteries is performed. I mages are reviewed in the transverse and longitudinal planes. FINDINGS: The carotid arteries are patent bilaterally and demonstrate antegrade flow. There is mild atheroscler otic plaque seen in the right carotid bulb. Normal doppler arterial waveforms are seen throughout. Ve locity measurements are listed below. Common carotid peak systolic velocity (cm/sec): RIGHT: 91 LEFT: 112 ICA proximal peak systolic velocity (cm/sec): RIGHT: 89 LEFT: 76 ICA mid peak systolic velocity (cm/sec): RIGHT: 69 LEFT: 64 ICA distal peak systolic velocity (cm/sec): RIGHT: 65 LEFT: GRABIEL ICA/CC peak systolic ratio: RIGHT: 1.0 LEFT: 0.8 Antegrade flow was shown in the vertebral arteries. The external carotid arteries are patent. IMPRESSION: 1. There is no sonographic evidence of hemodynamically significant stenosis in the right or left guidry tid arterial system. 2. Antegrade flow is shown in the vertebral arteries. ACT 112: Negative or not required by law. Electronically signed by: Pavel Youngblood M.D. 04/07/2024 9:45 PM
[2024-04-07] MEDS ORDERED: ONDANSETRON INJ 2 MG/ML 2 ML VIAL IV PRN (22:28)
[2024-04-07] MEDS: ACETAMINOPHEN 325 MG TAB PO PRN (23:10)
[2024-04-07] MEDS: SODIUM CHLORIDE 0.9% 1,000 ML IV SCH (23:10)
[2024-04-07] MEDS: CEFEPIME 2,000 MG in SYRINGE 0 ML IV SCH (23:10)
[2024-04-07] MEDS: ATORVASTATIN 40 MG TAB PO SCH (23:11)
--- NOTE | 2024-04-08 00:23 | Magnetic Resonance Report ---
Exam(s): MRI HEAD Without Contrast EXAM: MR Head Without Intravenous Contrast CLINICAL HISTORY: Reason for exam: Syncopal event. TECHNIQUE: Magnetic resonance images of the head/brain without intravenous contrast in multiple planes. COMPARISON: Comparison made to prior CT scan of the head from April 07, 2024. FINDINGS: Brain: Mild nonspecific white matter changes. The flow voids of the base of the brain are intact. No mass. No hemorrhage. No acute infarct. Ventricles: Unremarkable. No ventriculomegaly. Bones/joints: Unremarkable. No acute fracture. Sinuses: Chronic ethmoid sinusitis. No acute sinusitis. Mastoid air cells: Unremarkable as visualized. No mastoid effusion. Orbits: Unremarkable as visualized. IMPRESSION: No evidence of acute intracranial pathology. Mild nonspecific white matter changes. Electronically signed by: Kelsea Portillo MD 04/08/24 00:22 AM
--- OUTSIDE RECORDS SUMMARY | 2024-04-08 01:49 | External Medical Summary | Summary of Care ---
Author Name Unknown Organization [facility] Address [address] [facility] [place] [address] Phone [phone] Care Team Providers Care Script Supervisor Name Role Phone Ritesh Iniguez MD Primary Care Provider [phone] Encounter Details Date Type Department Care Team (Late st Contact Info) Description 04/07/2024 Orders Only PATIENT PORTAL DO NOT DELETE THIS DEPT USED BY [place] [id number] Allergies Active Allergy Reactions Criticality Noted Date Comments Atenolol Hypotension 05/13/2009 As with Metoprolol. See above. Lisinopril Cough 04/07/2010 Metoprolol Succinate Hypotension 05/13/2009 Experience an episode of hypotension in past. Is tolerating low dose now. Will keep warning, however will also continue therapy. Sulfa Antibiotics 05/07/2000 blisters Rofecoxib High 08/04/2018 MADE PATIENT MEAN documented as of this encounter (statuses as of 04/07/2024) Medications Medication Sig Dispensed Refills Start Date End Date Status NITROSTAT 0.4 MG SL SUBLIndications:ASCV D (arteriosclerotic cardiovascular disease),Stable angina (HCC) PLACE 1 TABLET UNDER TONGUE IF NEEDED FOR CHEST PAIN. MAY REPEAT 3 TIMES. IF PAIN CONTINUES CALL [phone] Tab 1 10/28/2014 Active aspirin 81 [...] OR OTHER MEDS 90 Tablet 02/09/2024 Active Polyethylene Glycol 3350 17 GM Oral Packet (Miralax) Take 1 Packet by mouth daily as needed for Constipation. 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 10/12/2022 Coronary artery disease invo lving [place] coronary artery of [place] heart without angina pectoris 11/06/2019 Gastroesophageal reflux disease without esophagi tis 11/06/2019 Old ME (myocardial infarction) 11/06/2019 Primary osteoarthritis of both [...] as of this encounter (statuses as of 04/07/2024) Resolved Problems Problem Noted Date Diagnosed Date [...] 31.23 08/12/12 Screen for colon cancer 08/12/2012 02/01/2015 Encounter for examination fo r normal comparison and control in clinical research program 06/17/2012 07/10/2012 Overview: Diagnosis changed due to Research Module. Go to Snapshot for study details. Hypothyroidism 02/16/2012 08/01/2016 Hypothyroidism 02/16/2012 02/16/2012 Erectile dysfunction 02/12/2012 017 Screening for colon cancer 02/12/2012 0 01/03/2016 Obesity, BMI 31.39 08/14/11 08/14/2011 01/29/2017 VERDICT Clinical Trial [id number] 1 09/30/2013 Overview: Renamed per the [facility] for Medicare and Medicaid billing requirements to include Clinical Trial.gov number. VERDICT Clinical Trial [id number] 1 09/01/2014 Overview: Renamed per the [facility] for Medicare and Medicaid billing requirements to include Clinical Trial.gov number. Stable angina 08/02/2011 09/29/2018 OBESITY, BMI= 31.05 01/23/11 01/23/2011 0 01/29/2017 Heartburn 01/23/2011 01/03/2016 OBESITY, BMI= 31.38 04/25/10 04/25/2010 0 01/29/2017 Screening for prostate cancer 04/25/2010 01/03/2016 Subjective tinnitus 04/25/2010 10/28/19 15 OBESITY, BMI 30-34 (SEE ACTUAL BMI) 12/15/2009 04/25/2010 Overview: Per Obesity Taxonomy CORON ATHEROSCL [place] CORON VESSEL 11/01/2009 04/25/2010 Migraine 11/01/2009 10/28/2014 Overweight (BMI 25.0-29.9) 08/15/2009 0 12/15/2009 Overview: Per Obesity Taxonomy Angina pectoris 07/01/2009 04/25/2010 Need for pneumococcal vaccination 07/01/2009 10/28/2014 Need for diphtheria-tetanus- pertussis (Tdap) vaccine 07/01/2009 10/28/2014 EXAMINATION OF PARTICIPANT I N CLINICAL TRIAL-Genomics 06/24/2009 01/06/2010 Overview: Renamed Per Clinical Trials Billing Project. Study Titile: Genomic Markers for Patients with Cardiovascular Disease Project #[id number] PI: Asia Hebert MD Please call [phone] with study related questions Unstable angina 06/24/2009 08/02/2011 Dyslipidemia, goal to be determined 06/24/2009 08/17/2009 Overview: Per Lipid Taxonomy HTN, goal to be determined 06/24/2009 1 09/28/2008 Overview: Per HTN Taxonomy GENOMICS CARDIO RESEARCH OTHER*[id number] 06/24/2009 10/30/2016 Overview: Renamed Per Clinical Trials Billing Project. Study Titile: Genomic Markers for Patients with Cardiovascular Disease Project #[id number] PI: Asia Hebert MD Please call [phone] with study related questions Screening for prostate [...] as of this encounter (statuses as of 04/07/2024) Immunizations Name Administration Dates Next Due COVID-19 mRNA, LNP-s, No Pre serve, 2-Dose Series ([employer]) 11/30/2020,11/09/2020 Pneumococcal Conjugate Vacc, 13 Valent (Prevnar) [...] was given about 6 yrs ago by [employer], get date) documented as of this encounter [...] money to get more. Never true 04/12/2023 Childcare Answer Date Recorded Do you feel overwhelmed with taking care of a child, family member or friend? No 04/12/2023 Does your family need help f inding childcare? (Household - for ages 0-17 years) Not on file 04/12/2023 Clothing Answer Date Recorded Have you been unable to get clothing when it was really needed? No 04/12/2023 Is your family able to get c lothes or diapers when needed? (Household - for ages 0-17 years) Not on file 04/12/2023 Personal Safety Answer Date Recorded Do you feel unsafe or have concerns for your saf ety? No 04/02/2024 Do you have concerns for you r family's safety? (Household - for ages 0-17 years) Not on file 04/02/2024 Utilities Answer Date Recorded Do you have trouble paying y our heating, water, or electric bill? No 04/02/2024 Is your family able to pay t he heat, water, or electric bill? (Household - for ages 0-17 years) Not on file 04/02/2024 Does your family have access to good internet? (Household - for ages 0-17 years) Not on file 04/02/2024 Employment Status Answer Date Recorded Are you unemployed or without regular income? No 04/12/2023 Does the household have a re gular source of income? (Household - for ages 0-17 years) Not on file 04/12/2023 Social Connections Answer Date Recorded How often do you feel lonely or isolated from th ose around you? Never 04/12/2023 Financial Resource Strain Answer Date R ecorded Do you have any trouble payi ng for your medications, or do you think you might in the future? No 04/12/2023 Does your family have troubl e paying for medicine? (Household - for ages 0-17 years) Not on file 04/12/2023 Transportation Needs Answer Date Record ed READ ONLY Do you have troubl e getting a ride to medical visits or work? Never True 04/02/2024 Does your family have a hard time getting a ride to doctors visits? (Household - for ages 0-17 years) Not on file 04/02/2024 Has lack of transportation k ept you from medical appointments, meetings, work, or from getting things needed for daily living? Check all that apply. No 04/02/2024 Do you (or your family) have trouble finding or paying for a ride (transportation)? (Household - for ages 0-17 years) Not on file 04/02/2024 Housing Stability Answer Date Recorded Do you currently live in a s helter or have no steady place to sleep at night? No 04/02/2024 READ ONLY Do you think you a re at risk of becoming homeless? No 04/02/2024 Does your family worry about paying for your home or becoming homeless? (Household - for ages 0-17 years) Not on file 0 04/02/2024 Are you homeless or worried that you might be in the future? No 04/02/2024 Are you (or your family) janice eless or worried that you might be in the future? (Household - for ages 0-17 years) Not on file Food Insecurity Answer Date Recorded Do you need food for this week? No 04/02/2024 Are you able to get enough f ood for your family? (Household - for ages 0-17 years) Not on file 04/02/2024 Does your family need food t his week? (Household - for ages 0-17 years) Not on file 04/02/2024 Do you always have enough fo od for your family? (Household - for ages 0-17 years) Not on file 04/02/2024 Sex and Gender Information Value Date Recorded [...] you have serious difficulty h earing? No 04/02/2024 Are you blind or do you have serious difficulty seeing, even when wearing glasses? No 04/02/2024 Do you have serious difficul ty walking or climbing stairs? (5 years old or older) No 04/02/2024 Do you have difficulty dress ing or bathing? (5 years old or older) No 04/02/2024 Because of a physical, menta l, or emotional condition, do you have difficulty doing errands alone such as visiting a doctor s office or shopping? (15 years old or older) No 04/02/20 Cognitive Status Response Date of Assessm ent Because of a physical, menta l, or emotional condition, do you have serious difficulty concentrating, remembering, or making decisions? (5 years old or older) No 04/02/2024 documented as of this encounter Plan of Treatment Upcoming Encounters Date Type Department Care Team (Latest Contact Info) Description 04/14/2024 8:20 AM EDT Office Visit [facility] [address] [place] [address] Ritesh Iniguez MD [address] [place] [address] 04/21/2024 11:54 AM EDT Hospital Encounter [facility] [address] [place] [phone] Braulio Castaneda MD [address] [place] [address] 04/21/2024 11:54 AM EDT - 04/21/2024 3:30 PM EDT Surgery [facility] [address] [place] [phone] Braulio Castaneda MD [address] [place] [address] ARTHRODESIS, ANT INTERBODY, BELOW C-2 Scheduled Procedures Name Priority Associated Diagnoses Date/Ti me ARTHRODESIS, ANT INTERBODY, BELOW C-2 Cervical spinal stenosis DDD (degenerative disc disease), cervical Displacement of cervical intervertebral disc without myelopathy 04/21/2024 11:54 AM EDT ARTHRODESIS,ANT INTERBODY,BELOW C-2,EA ADDL Cervical spinal stenosis DDD (degenerative disc disease), cervical Displacement of cervical intervertebral disc without myelopathy 04/21/2024 11:54 AM EDT ALLOGRAFT FOR SPINE SURGERY STRUCTURAL Cervical spinal stenosis DDD (degenerative disc disease), cervical Displacement of cervical intervertebral disc without myelopathy 04/21/2024 11:54 AM EDT INTRAOPERATIVE NEUROPHYSIOLOGY MONITORING, EA. 15 MINS Cervical spinal stenosis DDD (degenerative disc disease), cervical Displacement of cervical intervertebral disc without myelopathy 04/21/2024 11:54 AM EDT ANTERIOR INSTRUMENTATION 2 TO 3 VERTEBRAL SEGMENT Cervical spinal stenosis DDD (degenerative disc disease), cervical Displacement of cervical intervertebral disc without myelopathy 04/21/2024 11:54 AM EDT COLONOSCOPY FLEXIBLE PROXIMAL DIAGNOSTIC Recall History of colon polyps Health Maintenance Due Date Last Done Comments Cologuard 1997 Fecal Occult Blood Test 1997 Sigmoidoscopy 1997 Zoster Vaccines (1 of 2) 2002 COVID-19 Vaccine ( season) 2023 11/30/2020, 11/09/2020 Depression Screening 04/12/2024 04/12/2023, 02/03/2018, 01/29/2017, Additional history exists Influenza Vaccine (FLU shot) (#1) 2024 07/09/2023, 07/23/2022, 06/24/2021, Additional history exists GFR 10/05/2024 04/04/2024, 03/23, 03/10/2024, Additional history exists Albumin/Creatinine Ratio 12/29/2024 024, 05/23/2022, 10/13/2021, Additional history exists CKD PHOS USE SMARTSET 89165 12/29/2024 04/0 04/2024, 01/10/2023, 01/05/2016 TSH 03/10/2025 03/10/2024, 0 04/2024, 01/10/2023, Additional history exists CKD HGB USE SMARTSET 87917 04/04/202504/04, 04/02/2024, 04/02/2024, Additional history exists Colonoscopy 05/30/2025 05/30/2022, 03/2022, [...] this encounter Medical Devices Implanted Type Area Field Evidence Technician Device Identifier Shelf Expiration Date Model / Serial / Lot Suture Steel 6 B&S19 M654g - [id number] Implanted:Qty: 4 on 08/19/2018 by Brenna Perez MD at [place] [facility] N/A: Sternum JNJ : [employer] 04/22/2023 [id number] / / [id number] Clip Occl Atri Flex V 45mm - [id number] - [id number] Implanted:Qty: 1 on 08/19/2018 by Brenna Perez MD at [place] [facility] [employer] 03/23/2021 [id number] / [id number] / Duraclip 16mm Xlg Repostn - [id number] Implanted:Qty: 1 on 05/30/2022 by Juventino Degroot DO at [facility] [employer] SYLVIE 11/08/2023 [id number] / / documented as of this encounter Advance Directives * Full Code (Latest Code Status on File) Date Activated Date Inactivated Comments 04/02/2024 10:38 AM 04/05/2024 6:10 PM This order reflects the patients wishes and were consensually agreed upon. Question Answer Comments Discussion of Advance Directives occurred with: Patient * Full Code Date Activated Date Inactivated Comments 11/30/2019 10:59 [...] Power of Attor haven? No Care Teams Script Supervisor Relationship Specialty Start Date End Date Ritesh Iniguez MD [address] [place] [address] PCP - General Family Medicine 03/27/18 documented as of this encounter
--- OUTSIDE RECORDS SUMMARY | 2024-04-08 01:49 | External Medical Summary | Summary of Care ---
Author Name Unknown Organization [facility] Address [address] [facility] [place] [address] Phone [phone] Care Team Providers Care Duct Maker Name Role Phone Angel Iniguez MD Primary Care Provider [phone] Reason for Visit * Reason Onset Date Comments Hospital Follow-Up 04/05/2024 Encounter Details Date Type Department Care Team (Late st Contact Info) Description 04/05/2024 Telephone [facility] [address] [place] [address] Angel Iniguez MD [address] [place] [address] Hospital Follow-Up Allergies Active Allergy Reactions Criticality Noted Date Comments Atenolol Hypotension 05/13/2009 As with Metoprolol. See above. Lisinopril Cough 04/07/2010 Metoprolol Succinate Hypotension 05/13/2009 Experience an episode of hypotension in past. Is tolerating low dose now. Will keep warning, however will also continue therapy. Sulfa Antibiotics 05/07/2000 blisters Rofecoxib High 08/04/2018 MADE PATIENT MEAN documented as of this encounter (statuses as of 04/06/2024) Medications Medication Sig Dispensed Refills Start Date [...] as of this encounter (statuses as of 04/06/2024) Active Problems Problem Noted Date Diagnosed Date Displacement of cervical int ervertebral disc without myelopathy 04/03/2024 Cervical radiculopathy 04/02/2024 Cervical spondylosis 04/02/2024 Cervical spinal stenosis 04/02/2024 DDD (degenerative disc disease), cervical 2023 Chronic kidney disease, stage 3a 11/05/2022 Overview: Per CKD protocol Atherosclerosis of [place] co ronary artery of [place] heart with stable angina pectoris 10/12/2022 Coronary artery disease invo lving [place] coronary artery of [place] heart without angina pectoris 11/06/2019 Gastroesophageal reflux [...] as of this encounter (statuses as of 04/06/2024) Resolved Problems Problem Noted Date Diagnosed Date [...] 31.23 08/12/12 Screen for colon cancer 08/12/2012 0201/2015 Encounter for examination fo r normal comparison and control in clinical research program 06/17/2012 07/10/2012 Overview: Diagnosis changed due to Research Module. Go to Snapshot for study details. Hypothyroidism 02/16/2012 08/01/2016 Hypothyroidism 02/16/2012 02/16/2012 Erectile dysfunction 02/12/2012 017 Screening for colon cancer 02/12/2012 0 01/03/2016 Obesity, BMI 31.39 08/14/11 08/14/2011 01/29/2017 VERDICT Clinical Trial [id number] 1 09/30/2013 Overview: Renamed per the Centers for Medicare and Medicaid billing requirements to include Clinical Trial.gov number. VERDICT Clinical Trial [id number] 1 09/01/2014 Overview: Renamed per the Centers [...] 04/25/2010 Overview: Per Obesity Taxonomy CORON ATHEROSCL [place] CORON VESSEL 11/01/2009 04/25/2010 Migraine 11/01/2009 10/28/2014 Overweight (BMI 25.0-29.9) 08/15/2009 0 12/15/2009 Overview: Per Obesity Taxonomy Angina pectoris 07/01/2009 04/25/2010 Need for pneumococcal vaccination 07/01/2009 10/28/2014 Need for diphtheria-tetanus- pertussis (Tdap) vaccine 07/01/2009 10/28/2014 EXAMINATION OF PARTICIPANT I N CLINICAL TRIAL-Genomics 06/24/2009 01/06/2010 Overview: Renamed Per Clinical Trials Billing Project. Study Titile: Genomic Markers for Patients with Cardiovascular Disease Project #[id number] PI: Asia Hebert MD Please call [phone] with study related questions Unstable angina 06/24/2009 08/02/2011 Dyslipidemia, goal to be determined 06/24/2009 08/17/2009 Overview: Per Lipid Taxonomy HTN, goal to be determined 06/24/2009 1 09/28/2008 Overview: Per HTN Taxonomy GENOMICS CARDIO RESEARCH OTHER*[id number] 06/24/2009 10/30/2016 Overview: Renamed Per Clinical Trials Billing Project. Study Titile: Genomic Markers for Patients with Cardiovascular Disease Project #[id number] PI: Asia Hebert MD Please call [phone] with study related questions Screening for prostate [...] as of this encounter (statuses as of 04/06/2024) Immunizations Name Administration Dates Next Due COVID-19 mRNA, LNP-s, No Pre serve, 2-Dose Series ([employer]) 11/30/2020,11/09/2020 PPD 05/13/2000 Pneumococcal Conjugate Vacc, 13 [...] was given about 6 yrs ago by [facility], get date) documented as of this encounter [...] No 04/02/2024 documented as of this encounter Miscellaneous Notes * Telephone Encounter - Jana Roth OSA - 04/06/2024 9:52 AM EDT Patient returning call. Offered to schedule appointment and he said that he already has an appt scheduled to see Dr. Iniguez on 04/14 so he can just keep this appointment * Telephone Encounter - Leslie Torres OSA - 04/06/2024 9:45 AM EDT LMOM. 04/06/2024 * Telephone Encounter - Arely Flores OSA - 04/05/2024 6:51 PM EDT Patient Name: CHARIS ARGUELLO([id number]) Sex: Male : 1950 PCP: ANGEL INIGUEZ Center: [facility] Types of orders made on 04/05/2024: IP Discharge, IP Post Discharge , Medications Order Date:04/05/2024 Ordering User:CORRY AMEZCUA [[id number]] Attending Provider: Rich Caballero MD [[id number]] Authorizing Provider: Corry Amezcua MD [[id number]] Department:[address][[id number]] Order Specific Information Order: RETURN APPT [CUSTOM: [id number]] Order #: [id number]: [id number] Priority: Routine Class: Nursing Unit Department (Single Entry) -> [facility] Appt Needed Within: (Specify # of Days, Weeks, Months) -> 2 Wks Released on: 04/05/2024 7:52 AM Priority: Routine Class: Nursing Unit Department (Single Entry) -> Family Practice Appt Needed Within: (Specify # of Days, Weeks, Months) -> 2 Wks Released on: 04/05/2024 7:52 AM documented in this encounter Plan of Treatment Upcoming Encounters Date Type Department Care Team (Latest Contact Info) Description 04/14/2024 8:20 AM EDT Office Visit [facility] [address] [place] [address] Angel Iniguez MD [address] [place], [place] [id number] 04/21/2024 11:54 AM EDT Hospital Encounter [place] [facility] [place] [facility] [place] [place] [place] [address] [place] [address] Braulio Castaneda MD [address] [place] [address] 04/21/2024 11:54 AM EDT - 04/21/2024 3:30 PM EDT Surgery [place] [facility] [place] [facility] [place] [place] [address] [place] [address] Braulio Castaneda MD [address] [place] [address] ARTHRODESIS, ANT INTERBODY, BELOW C-2 Scheduled Procedures [...] 03/10/2024, Additional history exists Albumin/Creatinine Ratio 12/29/2024 04/ 024, 05/23/2022, 10/13/2021, Additional history exists CKD PHOS USE SMARTSET 83985 12/29/2024 04/0 04/2024, 01/10/2023, 01/05/2016 TSH 03/10/2025 03/10/2024, 04/0 04/2024, 01/10/2023, Additional history exists CKD HGB USE SMARTSET 45708 04/04/202504/04, 04/02/2024, 04/02/2024, Additional history exists Colonoscopy 05/30/2025 05/30/2022, 090 [...] this encounter Medical Devices Implanted Type Area Lacquer Spray Booth Operator Device Identifier Shelf Expiration Date Model / Serial / Lot Suture Steel 6 B&S19 M654g - [id number] Implanted:Qty: 4 on 08/19/2018 by Brenna Perez [place] [facility] [place]: Sternum JNJ : [employer] 04/22/2023 M654G / / [id number] Clip Occl Atri Flex V 45mm - [id number] - [id number] Implanted:Qty: 1 on 08/19/2018 by Brenna Perez MD [place] [facility] [place] [employer] 03/23/2021 [id number] / [id number] / Duraclip 16mm Xlg Repostn - [id number] Implanted:Qty: 1 on 05/30/2022 by Juventino Degroot DO at [facility] [employer] [facility] 11/08/2023 [id number] / / documented as of this encounter [...] Power of Attor haven? No Care Teams Duct Maker Relationship Specialty Start Date End Date Angel Iniguez MD [address] [place] [facility] [place] [address] PCP - General Family Medicine 03/27/18 documented as of this encounter
--- OUTSIDE RECORDS SUMMARY | 2024-04-08 01:49 | External Medical Summary | Summary of Care ---
Author Name Unknown Organization [facility] Address [address] [facility] [address] Phone [phone] Care Team Providers Care Electric Clock Mechanic Name Role Phone Angel Iniguez MD Primary Care Provider Reason for Visit * Reason Onset Date Comments Hospital Follow-Up 04/05/2024 Encounter Details Date Type Department Care Team (Late st Contact Info) Description 04/05/2024 Telephone [facility] [address] [place] [address] Angel Iniguez MD [address] [place] [address] Hospital Follow-Up Allergies Active Allergy [...] reflux disease without esophagi tis 11/06/2019 [place] (myocardial infarction) 11/06/2019 Primary osteoarthritis of both [...] 31.39 08/14/11 08/14/2011 01/29/2017 VERDICT Clinical Trial [id number] 1 09/30/2013 Overview: Renamed per the Centers for Medicare and Medicaid billing requirements to include Clinical Trial.gov number. VERDICT Clinical Trial [id number] 1 09/01/2014 Overview: Renamed per the Centers for Medicare and Medicaid billing requirements to include Clinical Trial.gov number. Stable angina 08/02/2011 09/29/2018 OBESITY, BMI= 31.05 01/23/11 01/23/2011 0 01/29/2017 Heartburn 01/23/2011 01/03/2016 OBESITY, BMI= 31.38 04/25/10 04/25/2010 01/29/2017 Screening for prostate cancer 04/25/2010 01/03/2016 [...] Markers for Patients with Cardiovascular Disease Project #[id number] PI: Asia Hebert MD Please call [phone] with study related questions Unstable angina 06/24/2009 08/02/2011 Dyslipidemia, goal to be determined 06/24/2009 08/17/2009 Overview: Per Lipid Taxonomy HTN, goal to be determined 06/24/2009 1 09/28/2008 Overview: Per HTN Taxonomy GENOMICS CARDIO RESEARCH OTHER*[id number] 06/24/2009 10/30/2016 Overview: Renamed Per Clinical Trials Billing Project. Study Titile: Genomic Markers for Patients with Cardiovascular Disease Project #[id number] PI: Asia Hebert MD Please call [phone] with study related questions Screening for prostate [...] mRNA, LNP-s, No Pre serve, 2-Dose Series ([employer]) 11/30/2020,11/09/2020 PPD 05/13/2000 Pneumococcal Conjugate Vacc, 13 [...] was given about 6 yrs ago by [employer], get date) documented as of this encounter [...] 04/05/2024 6:51 PM EDT Patient Name: CHARIS ARGUELLO([id number]) Sex: Male : 1950 PCP: ANGEL INIGUEZ Center: [facility] Types of orders made on 04/05/2024: IP Discharge, IP Post Discharge , Medications Order Date:04/05/2024 Ordering User:CORRY AMEZCUA [[id number]] Attending Provider: Rich Caballero MD [[id number]] Authorizing Provider: Corry Amezcua MD [[id number]] Department:[address][[id number]] Order Specific Information Order: RETURN APPT [CUSTOM: [id number]] Order #: [id number]: 1 Priority: Routine Class: Nursing Unit Department (Single Entry) -> [facility] Appt Needed Within: (Specify # of Days, [...] Description 04/14/2024 8:20 AM EDT Office Visit [facility] [address] [place] [phone] Angel Iniguez MD [address], [place] [id number] 04/21/2024 11:54 AM EDT Hospital Encounter OR [facility], OPERATING ROOM [facility], [facility] [address] [place] [address] Braluio Castaneda MD [address] [place] [address] 04/21/2024 11:54 AM EDT - 04/21/2024 3:30 PM EDT Surgery OR [facility], OPERATING ROOM [facility], [facility] [address] [place] [phone] Braulio Castaneda MD [address] [place] [address] ARTHRODESIS, ANT INTERBODY, BELOW C-2 Scheduled Procedures [...] 06/24/2021, Additional history exists GFR 10/05/2024 04/04/2024, 0709/2023, 03/10/2024, Additional history exists Albumin/Creatinine Ratio 12/29/2024 04 024, 05/23/2022, 10/13/2021, Additional history exists CKD PHOS USE SMARTSET 83420 12/29/2024 04/0 04/2024, 01/10/2023, 01/05/2016 TSH 03/10/2025 03/10/2024, 04/0 04/2024, 01/10/2023, Additional history exists CKD HGB USE SMARTSET 85360 04/04/202504/04, 04/02/2024, 04/02/2024, Additional history exists Colonoscopy [...] this encounter Medical Devices Implanted Type Area Accreditation Coordinator Device Identifier Shelf Expiration Date Model / Serial / Lot Suture Steel 6 B&S19 M654g - [id number] Implanted:Qty: 4 on 08/19/2018 by Brenna Perez MD at OR [facility] N/A: Sternum JNJ : [employer] 04/22/2023 M654G / / M654 Clip Occl Atri Flex V 45mm - [id number] - [id number] Implanted:Qty: 1 on 08/19/2018 by Brenna Perez MD at OR [facility] ATRICURE 03/23/2021 [id number] / [id number] / Duraclip 16mm Xlg Repostn - [id number] Implanted:Qty: 1 on 05/30/2022 by Juventino Degroot DO at ENDOSCOPY [facility] [employer] [facility] 11/08/2023 [id number] / / documented as of this encounter [...] Power of Attor haven? No Care Teams Electric Clock Mechanic Relationship Specialty Start Date End Date Angel Iniguez MD [address] [place] [facility] [place] [address] PCP - General Family Medicine 03/27/18 documented as of this encounter
--- OUTSIDE RECORDS SUMMARY | 2024-04-08 01:50 | External Medical Summary | Summary of Care ---
Author Name Unknown Organization [facility] Address [address] [place] [address] Phone [phone] Care Team Providers Care Executive Housekeeper Name Role Phone Ritesh Iniguez MD Primary Care Provider [phone] Encounter Details Date Type Department Care Team (Latest Contact Info) Description 04/01/2024 5:45 PM EDT - 04/01/2024 10:39 PM EDT Hospital Encounter Radiology Film File [address] [place] [address] Arrived Discharge Disposition: Home - Self Care Allergies Active Allergy Reactions Criticality Noted Date Comments Atenolol Hypotension 05/13/2009 As with Metoprolol. See above. Lisinopril Cough 04/07/2010 Metoprolol Succinate Hypotension 05/13/2009 Experience an episode of hypotension in past. Is tolerating low dose now. Will keep warning, however will also continue therapy. Sulfa Antibiotics 05/07/2000 blisters Rofecoxib High 08/04/2018 MADE PATIENT MEAN documented as of this encounter (statuses as of 04/03/2024) Medications Medication Sig Dispensed Refills Start Date End Date Status NITROSTAT 0.4 MG SL SUBLIndications:ASC VD (arteriosclerotic cardiovascular disease),Stable angina (HCC) PLACE 1 TABLET UNDER TONGUE IF NEEDED FOR CHEST PAIN. MAY REPEAT 3 TIMES. IF PAIN CONTINUES CALL [phone] Tab 1 10/28/2014 Suspended aspirin 81 MG chewable tablet Take 2 Tabs by mouth daily. 60 Tab 3 12/30/2018 Suspended Additional Information sildenafil (REVATIO) 20 MG TabletIndications:E rectile dysfunction, unspecified erectile dysfunction type One tablet by mouth 30 minutes prior to intercourse 10 Tab 3 03/25/2019 Suspended Additional Information Diclofenac Sodium (VOLTAREN) 1 % gel Place 4 g topically on the skin 4 times a day. Apply to affected area 1 g 3 03/31/2020 Suspended Additional Information Sildenafil Citrate 100 MG Oral TabletIndications:O ther male erectile dysfunction Take 1 Tab by mouth daily as needed for Erectile Dysfunction. 10 Tab 5 11/23/2020 Suspended Additional Information Losartan Potassium 100 MG Oral Tablet (Cozaar)Indications :Hypertensive kidney disease with stage 2 chronic kidney disease Take 1 Tablet by mouth in the morning. 90 Tablet 3 08/23/2023 Suspended Additional Information Atorvastatin Calcium 40 MG Oral Tablet (Lipitor)Indication s:ASCVD (arteriosclerotic cardiovascular disease),Dyslipidem ia, goal LDL below 70 TAKE 1 TABLET BY MOUTH EVERYDAY AT BEDTIME 90 Tablet 3 11/19/2023 Suspended Additional Information hydroCHLOROthiazide 25 MG Oral Tablet (Hydrodiuril)Indica tions:HTN, goal below 150/90 TAKE 1 TABLET BY MOUTH EVERY DAY IN THE MORNING 90 Tablet 1 12/16/2023 Suspended Additional Information Carvedilol 6.25 MG Oral Tablet (Coreg)Indications: Stable angina (HCC),HTN, goal below 150/90 TAKE 1 TABLET BY MOUTH TWICE A DAY 180 Tablet 3 12/19/2023 Suspended Additional Information Levothyroxine Sodium 100 MCG Oral Tablet (Levoxyl)Indication s:Hypothyroidism, unspecified type TAKE 1 TABLET BY MOUTH IN THE MORNING AT LEAST 30 MIN PRIOR TO BREALFAST OR OTHER MEDS 90 Tablet 02/09/2024 Suspended Additional Information predniSONE 10 MG Oral Tablet (Deltasone)Indicati ons:Arthralgia, unspecified joint Take 5 tabs for 2 days, 4 tabs for 2 days, 3 tabs for 2 days, 2 tabs for 2 days 1 tab for 2 days 30 Tablet 03/18/2024 Suspended Additional Information documented as of this encounter (statuses as of 04/03/2024) Active Problems Problem Noted Date Diagnosed Date Chronic kidney disease, stage 3a 11/05/2022 Overview: Per CKD protocol Atherosclerosis of [place] co ronary artery of [place] heart with stable angina pectoris 10/12/2022 Coronary artery disease invo lving [place] coronary artery of [place] heart without angina pectoris 11/06/2019 Gastroesophageal reflux [...] as of this encounter (statuses as of 04/03/2024) Resolved Problems Problem Noted Date Diagnosed Date [...] 31.39 08/14/11 08/14/2011 01/29/2017 VERDICT Clinical Trial [id number] 1 09/30/2013 Overview: Renamed per the [facility] for Medicare and Medicaid billing requirements to include Clinical Trial.gov number. VERDICT Clinical Trial [id number] 1 09/01/2014 Overview: Renamed per the [facility] for Medicare and Medicaid billing requirements to include Clinical Trial.gov number. Stable angina 08/02/2011 09/29/2018 OBESITY, BMI= 31.05 01/23/11 01/23/2011 0 01/29/2017 Heartburn 01/23/2011 01/03/2016 OBESITY, BMI= 31.38 04/25/10 04/25/2010 0 01/29/2017 Screening for prostate cancer 04/25/2010 01/03/2016 Subjective tinnitus 04/25/2010 10/28/19 15 OBESITY, BMI 30-34 (SEE ACTUAL BMI) 12/15/2009 04/25/2010 Overview: Per Obesity Taxonomy CORON ATHEROSCL [place] CORON VESSEL 11/01/2009 04/25/2010 Migraine 11/01/2009 10/28/2014 Overweight (BMI 25.0-29.9) 08/15/2009 0 12/15/2009 Overview: Per Obesity Taxonomy Angina pectoris 07/01/2009 04/25/2010 Need for pneumococcal vaccination 07/01/2009 10/28/2014 Need for diphtheria-tetanus- pertussis (Tdap) vaccine 07/01/2009 10/28/2014 EXAMINATION OF PARTICIPANT I N CLINICAL TRIAL-Genomics 06/24/2009 01/06/2010 Overview: Renamed Per Clinical Trials Billing Project. Study Titile: Genomic Markers for Patients with Cardiovascular Disease Project #[id number] PI: Asia Hebert MD Please call [phone] with study related questions Unstable angina 06/24/2009 08/02/2011 Dyslipidemia, goal to be determined 06/24/2009 08/17/2009 Overview: Per Lipid Taxonomy HTN, goal to be determined 06/24/2009 1 09/28/2008 Overview: Per HTN Taxonomy GENOMICS CARDIO RESEARCH OTHER*[id number] 06/24/2009 10/30/2016 Overview: Renamed Per Clinical Trials Billing Project. Study Titile: Genomic Markers for Patients with Cardiovascular Disease Project #[id number] PI: Asia Hebert MD Please call [phone] with study related questions Screening for prostate [...] as of this encounter (statuses as of 04/03/2024) Immunizations Name Administration Dates Next Due COVID-19 [...] was given about 6 yrs ago by [employer], get date) documented as of this encounter [...] Visit [facility] [address] [place] [phone] Ritesh Iniguez MD [address] [place] [address] Scheduled Procedures Name Priority Associated Diagnoses Date/Ti [...] 07/09/2023, 07/23/2022, 06/24/2021, Additional history exists GFR 10/03/2024 04/02/2024, 02/21, 12/30/2023, Additional history exists Albumin/Creatinine Ratio 12/29/2024 024, 05/23/2022, 10/13/2021, Additional history exists CKD PHOS USE SMARTSET 05546 12/29/2024 04/0 04/2024, 01/10/2023, 01/05/2016 TSH 03/10/2025 03/10/2024, 0 04/2024, 01/10/2023, Additional history exists CKD HGB USE SMARTSET 38244 04/02/202504/02, 04/02/2024, 03/10/2024, Additional history exists Colonoscopy 05/30/2025 05/30/2022, 090 [...] this encounter Medical Devices Implanted Type Area Seed Buyer Device Identifier Shelf Expiration Date Model / Serial / Lot Suture Steel 6 B&S19 M654g - [id number] Implanted:Qty: 4 on 08/19/2018 by Brenna Perez MD at OR [facility] N/A: Sternum JNJ : [employer] 04/22/2023 M654G / / M654 Clip Occl Atri Flex V 45mm - [id number] - [id number] Implanted:Qty: 1 on 08/19/2018 by Brenna Perez MD at OR [facility] [employer]TR[employer]URE 03/23/2021 [id number] / [id number] / Duraclip 16mm Xlg [facility] - [id number] Implanted:Qty: 1 on 05/30/2022 by Juventino Degroot DO at ENDOSCOPY [facility] [employer] SY[employer]IE 11/08/2023 [id number] / / documented as of this encounter Procedures Procedure Name Priority Date/Time Associated Diagnosis Comments RADIOLOGY EXAM - CT (IMAGES ONLY, NO REPORT) Routine 04/01/2024 5:45 PM EDT documented in this encounter Results * RADIOLOGY EXAM - CT (IMAGES ONLY, NO REPORT) (04/01/2024 5:45 PM EDT) 04/01/2024 5:35 PM EDT Narrative Scheduling, Silent - 04/02/2024 11:59 AM EDT This is an imaging study not interpreted or resulted by a [facility] or [facility] contracted radiologist. Corry Amezcua MD RAD CT documented in this encounter Advance Directives * Full Code (Latest Code Status on File) Date Activated Date Inactivated Comments 04/02/2024 10:38 AM This order re flects the patients wishes [...] Power of Attor haven? No Care Teams Executive Housekeeper Relationship Specialty Start Date End Date Ritesh Iniguez MD [address] [place] [address] PCP - General Family Medicine 03/27/18 documented as of this encounter
--- OUTSIDE RECORDS SUMMARY | 2024-04-08 01:50 | External Medical Summary ---
Author Name Unknown Address Unknown Organization K01:[facility] [address] [place] [address] Laboratory Report Ordering Provider Test Date Status BRIGITTE HERNANDEZ 04/04/2024 06:42:00 Final Observation Date Value Abnormality Reference (Units ) Status WBC, Total 04/04/2024 06:42:00 21.71 Above high normal 4.00-10.80 (K/uL) Final RBC 04/04/2024 06:42:00 4.40 4.50-5.25 (M/uL) Final Hemoglobin 04/04/2024 06:42:00 13.9 Below low normal 14.0-16.8 (g/dL) Final HCT 04/04/2024 06:42:00 40.8 40.0-48.4 (%) Final MCV 04/04/2024 06:42:00 92.7 82.0-99.5 (fL) Final MCH 04/04/2024 06:42:00 31.6 27.0-34.0 (pg) Final MCHC 04/04/2024 06:42:00 34.1 32.0-36.0 (g/dL) Final RDW 04/04/2024 06:42:00 13.2 11.5-15.5 (%) Final Platelets 04/04/2024 06:42:00 211 140-400 (K/uL) Final MPV 04/04/2024 06:42:00 11.3 6.6-11.1 (fL) Final Nucleated erythrocytes/100 leukocytes [Ratio] in Blood by Automated count 04/04/2024 06:42:00 0 <=0 (/100 WBCs) Final Performing Location [facility] - [address] [place] [address]
--- OUTSIDE RECORDS SUMMARY | 2024-04-08 01:50 | External Medical Summary | Summary of Care ---
Author Name Unknown Organization [facility] Address [address] [place] [address] Phone [phone] Care Team Providers Care Boiler Repairman Name Role Phone Ritesh Iniguez MD Primary Care Provider [phone] Reason for Visit * Reason Onset Date Comments Surgery 04/03/2024 Encounter Details Date Type Department Care Team (Late st Contact Info) Description 04/03/2024 Telephone Orthopaedics Spine [facility], [place] [address] [place] [address] Braulio Castaneda MD [address] [place] [address] Surgery Allergies Active Allergy Reactions Criticality Noted Date [...] 11/05/2022 Overview: Per CKD protocol Atherosclerosis of [place] co ronary artery of [place] heart with stable angina pectoris 10/12/2022 Coronary artery disease invo lving [place] coronary artery of [place] heart without angina pectoris 11/06/2019 Gastroesophageal reflux [...] 31.39 08/14/11 08/14/2011 01/29/2017 VERDICT Clinical Trial [id number] 1 09/30/2013 Overview: Renamed per the [facility] for Medicare and Medicaid billing requirements to include Clinical Trial.gov number. VERDICT Clinical Trial [id number] 1 09/01/2014 Overview: Renamed per the Centers [...] 04/25/2010 Overview: Per Obesity Taxonomy CORON ATHEROSCL [place] CORON VESSEL 11/01/2009 04/25/2010 Migraine 11/01/2009 10/28/2014 Overweight (BMI 25.0-29.9) 08/15/2009 0 12/15/2009 Overview: Per Obesity Taxonomy Angina pectoris 07/01/2009 04/25/2010 Need for pneumococcal vaccination 07/01/2009 10/28/2014 Need for diphtheria-tetanus- pertussis (Tdap) vaccine 07/01/2009 10/28/2014 EXAMINATION OF PARTICIPANT I N CLINICAL TRIAL-Genomics 06/24/2009 01/06/2010 Overview: Renamed Per Clinical Trials Billing Project. Study Titile: Genomic Markers for Patients with Cardiovascular Disease Project #[id number] PI: Asia Hebert MD Please call [phone] with study related questions Unstable angina 06/24/2009 08/02/2011 Dyslipidemia, goal to be determined 06/24/2009 08/17/2009 Overview: Per Lipid Taxonomy HTN, goal to be determined 06/24/2009 1 09/28/2008 Overview: Per HTN Taxonomy GENOMICS CARDIO RESEARCH OTHER*[id number] 06/24/2009 10/30/2016 Overview: Renamed Per Clinical Trials Billing Project. Study Titile: Genomic Markers for Patients with Cardiovascular Disease Project #[id number] PI: Asia Hebert MD Please call [phone] with study related questions Screening for prostate [...] mRNA, LNP-s, No Pre serve, 2-Dose Series ([employer]) 11/30/2020,11/09/2020 Pneumococcal Conjugate Vacc, 13 Valent (Prevnar) [...] was given about 6 yrs ago by [employer], get date) documented as of this encounter [...] (15 years old or older) No 04/02/20 24 Cognitive Status Response Date of Assessm ent Because of a physical, menta l, or emotional condition, do you have serious difficulty concentrating, remembering, or making decisions? (5 years old or older) No 04/02/2024 documented as of this encounter Miscellaneous Notes * Telephone Encounter - Melonie Ruff MED ASSIST - 04/03/2024 3:47 PM EDT Adina (patients daughter)calling to schedule surgery, patient was given date of April 21 pleaseadvise [phone] documented in this encounter Plan of Treatment Upcoming Encounters Date Type Department Care Team (Latest Contact Info) Description 04/14/2024 8:20 AM EDT Office Visit [facility] [address] [place] [address] Ritesh [facility]iguez [facility] [address] [facility] [address] 04/21/2024 11:54 AM EDT Hospital Encounter OR [facility], OPERATING ROOM [facility] [address] [place] [address] Braulio Castaneda MD [address] [place] [address] 04/21/2024 11:54 AM EDT - 04/21/2024 3:30 PM EDT Surgery OR [facility], OPERATING ROOM [facility] [address] [place] [address] Braulio Castaneda MD [address] [place] [address] ARTHRODESIS, ANT INTERBODY, BELOW C-2 [...] Additional history exists CKD PHOS USE SMARTSET 85780 12/29/2024 04/0 04/2024, 01/10/2023, 01/05/2016 TSH 03/10/2025 03/10/2024, 04/0 04/2024, 01/10/2023, Additional history exists CKD HGB USE SMARTSET 21573 04/04/202504/04, 04/02/2024, 04/02/2024, Additional history exists Colonoscopy 05/30/2025 05/30/2022, 09/0 [...] this encounter Medical Devices Implanted Type Area Motor Electrician Device Identifier Shelf Expiration Date Model / Serial / Lot Suture Steel 6 B&S19 M654g - [id number] Implanted:Qty: 4 on 08/19/2018 by Brenna Perez MD at OR [facility] N/A: Sternum JNJ : [employer] 04/22/2023 M654G / / M654 Clip Occl Atri Flex V 45mm - [id number] - [id number] Implanted:Qty: 1 on 08/19/2018 by Brenna Perez MD at OR [facility] [employer] 03/23/2021 [id number] / [id number] / Duraclip 16mm Xlg Repostn - [id number] Implanted:Qty: 1 on 05/30/2022 by Juventino Degroot DO at [facility] [employer] 11/08/2023 [id number] / / documented as of this encounter Visit Diagnoses Diagnosis Cervical spinal stenosis- Primary Spinal stenosis in cervical region DDD (degenerative disc disease), cervical Degeneration of cervical intervertebral disc Displacement of cervical intervertebral disc without myelopathy Displacement of cervical intervertebral disc without myelopathy- Primary Cervical spinal stenosis Spinal stenosis in cervical region DDD (degenerative disc disease), cervical Degeneration of cervical intervertebral disc Cervical spinal stenosis Spinal stenosis in cervical region DDD (degenerative disc disease), cervical Degeneration of cervical intervertebral disc Displacement of cervical intervertebral disc without myelopathy documented in this encounter Advance Directives * [...] Power of Attor haven? No Care Teams Boiler Repairman Relationship Specialty Start Date End Date Ritesh Iniguez MD [address] [facility] [place] [address] PCP - General Family Medicine 03/27/18 documented as of this encounter
--- OUTSIDE RECORDS SUMMARY | 2024-04-08 01:50 | External Medical Summary | Summary of Care ---
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 VERDICT Clinical Trial [id number] 1 09/01/2014 Overview: Renamed per the Centers [...] 04/25/2010 Overview: Per Obesity Taxonomy CORON ATHEROSCL [place] CORON VESSEL 11/01/2009 04/25/2010 Migraine 11/01/2009 10/28/2014 Overweight (BMI 25.0-29.9) 08/15/2009 0 12/15/2009 Overview: Per Obesity Taxonomy Angina pectoris 07/01/2009 04/25/2010 Need for pneumococcal vaccination 07/01/2009 10/28/2014 Need for diphtheria-tetanus- pertussis (Tdap) vaccine 07/01/2009 10/28/2014 EXAMINATION OF PARTICIPANT I N CLINICAL TRIAL-[employer] 06/24/2009 01/06/2010 Overview: Renamed Per Clinical Trials Billing Project. Study Titile: Genomic Markers for Patients with Cardiovascular Disease Project #[id number] PI: Asia Hebert MD Please call [phone] with study related questions Unstable angina 06/24/2009 08/02/2011 Dyslipidemia, goal to be determined 06/24/2009 08/17/2009 Overview: Per Lipid Taxonomy HTN, goal to be determined 06/24/2009 1 09/28/2008 Overview: Per HTN Taxonomy GENOMICS CARDIO RESEARCH OTHER*[id number] 06/24/2009 10/30/2016 Overview: Renamed Per Clinical Trials Billing Project. Study Titile: Genomic Markers for Patients with Cardiovascular Disease Project #[id number] PI: Asia Hebert MD Please call [phone] with study related questions Screening for prostate [...] mRNA, LNP-s, No Pre serve, 2-Dose Series (SpecifiedBy) 11/30/2020,11/09/2020 PPD 05/13/2000 Pneumococcal Conjugate Vacc, 13 [...] was given about 6 yrs ago by [employer], get date) documented as of this encounter [...] encounter Miscellaneous Notes * Telephone Encounter - Gabriella Stanley RN - 04/06/2024 8:27 AM EDT Spoke with Adina, pt's daughter. She is aware that surgery is April 21 and that someone will callhim the day before with arrival time. * Telephone Encounter - Melonie Ruff MED ASSIST - 04/03/2024 3:47 PM EDT Adina (patients daughter)calling to schedule surgery, patient was given date of April 21 pleaseadvise [phone] documented in this encounter Plan of Treatment Upcoming Encounters Date Type Department Care Team (Latest Contact Info) Description 04/14/2024 8:20 AM EDT Office Visit [facility] [address] [place] [id number] Ritesh Iniguez MD [address] [place] [address] 04/21/2024 11:54 AM EDT Hospital Encounter OR [facility], OPERATING ROOM [facility], [facility] [address] [place] [address] Braulio Castaneda MD [address] [place] [address] 04/21/2024 11:54 AM EDT - 04/21/2024 3:30 PM EDT Surgery OR [facility], OPERATING ROOM [facility], [facility] [address] [place] [address] Braulio Castandea MD [address], [place] [id number] ARTHRODESIS, ANT INTERBODY, BELOW C-2 Scheduled Procedures [...] Additional history exists CKD PHOS USE SMARTSET 09640 12/29/2024 04/0 04/2024, 01/10/2023, 01/05/2016 TSH 03/10/2025 03/10/2024, 04/0 04/2024, 01/10/2023, Additional history exists CKD HGB USE SMARTSET 92680 04/04/202504/04, 04/02/2024, 04/02/2024, Additional history exists Colonoscopy [...] this encounter Medical Devices Implanted Type Area Emergency Technician Device Identifier Shelf Expiration Date Model / Serial / Lot Suture Steel 6 B&S19 [id number] - [id number] Implanted:Qty: 4 on 08/19/2018 by Brenna Perez MD at OR [facility] N/A: Sternum JNJ : [employer] 04/22/2023 M654G / / [id number] Clip Occl Atri Flex V 45mm - [id number] - [id number] Implanted:Qty: 1 on 08/19/2018 by Brenna Perez MD at OR [facility] ATRICURE 03/23/2021 [id number] / [id number] / Duraclip 16mm Xlg Repostn - [id number] Implanted:Qty: 1 on 05/30/2022 by Juventino Degroot DO at [facility] [employer] SYLVIE 11/08/2023 [id number] / / documented as of this encounter [...] Power of Attor haven? No Care Teams Laborer Brush Clearing Relationship Specialty Start Date End Date Ritesh Iniguez MD [address] [place] [address] PCP - General Family Medicine 03/27/18 documented as of this encounter
--- OUTSIDE RECORDS SUMMARY | 2024-04-08 01:50 | External Medical Summary | Summary of Care ---
Author Name Unknown Organization [facility] Address [address] [place] [address] Phone [phone] Care Team Providers Care Grinder Lap Name Role Phone Ritesh Iniguez MD Primary Care Provider [phone] Reason for Visit * Auth/Cert Specialty Diagnoses / Procedures Referred By Justine t Referred To Contact Diagnoses neck pain Rich Caballero MD [address] [place] [address] [place] [facility] [place] [address] [place] [address] Referral ID Status Reason Start Date Expiration Date Visits Re quested Visits Authorized [id number] Encounter Details Date Type Department Care Team (Latest Contact Info) Description 04/02/2024 10:15 AM EDT - 04/05/2024 2:10 PM EDT Hospital Encounter [facility] 6th Floor [address], [place] [id number] Rich Caballero MD [address] [place] [address] Corry Amezcua MD [address] [place] [address] Discharge Disposition: Home - Self Care Allergies [...] OR OTHER MEDS 90 Tablet 4 Active Polyethylene Glycol 3350 17 GM Oral Packet (Miralax) Take 1 Packet by mouth daily as needed for Constipation. 14 Each 4 Active predniSONE 10 MG Oral Tablet (Deltasone)Indicati ons:Arthralgia, unspecified joint Take 5 tabs for 2 days, 4 tabs for 2 days, 3 tabs for 2 days, 2 tabs for 2 days 1 tab for 2 days 30 Tablet 4 04/05/20 24 Discontinued documented as of this encounter (statuses as of 04/06/2024) Active Problems Problem Noted Date Diagnosed Date Cervical radiculopathy 04/02/2024 Cervical spondylosis 04/02/2024 Cervical spinal stenosis 04/02/2024 DDD (degenerative disc disease), cervical 2023 Chronic kidney disease, stage 3a 11/05/2022 Overview: Per CKD protocol Atherosclerosis of [place] co ronary artery of [place] heart with stable angina pectoris 10/12/2022 Coronary artery disease invo lving [place] coronary artery of [place] heart without angina pectoris 11/06/2019 Gastroesophageal reflux disease without esophagi tis 11/06/2019 Old MS (myocardial infarction) 11/06/2019 Primary osteoarthritis of both [...] 31.39 08/14/11 08/14/2011 01/29/2017 VERDICT Clinical Trial [id number] 1 09/30/2013 Overview: Renamed per the Centers for Medicare and Medicaid billing requirements to include Clinical Trial.gov number. VERDICT Clinical Trial [id number] 1 09/01/2014 Overview: Renamed per the Centers [...] 04/25/2010 Overview: Per Obesity Taxonomy CORON ATHEROSCL WILTON CORON VESSEL 11/01/2009 04/25/2010 Migraine 11/01/2009 10/28/2014 Overweight (BMI 25.0-29.9) 08/15/2009 0 12/15/2009 Overview: Per Obesity Taxonomy Angina pectoris 07/01/2009 04/25/2010 Need for pneumococcal vaccination 07/01/2009 10/28/2014 Need for diphtheria-tetanus- pertussis (Tdap) vaccine 07/01/2009 10/28/2014 EXAMINATION OF PARTICIPANT I N CLINICAL TRIAL-Genomics 06/24/2009 01/06/2010 Overview: Renamed Per Clinical Trials Billing Project. Study Titile: Genomic Markers for Patients with Cardiovascular Disease Project #[id number] PI: Dennis Cunningham MD Please call [phone] with study related questions Unstable angina 06/24/2009 08/02/2011 Dyslipidemia, goal to be determined 06/24/2009 08/17/2009 Overview: Per Lipid Taxonomy HTN, goal to be determined 06/24/2009 1 09/28/2008 Overview: Per HTN Taxonomy GENOMICS CARDIO RESEARCH OTHER*[id number] 06/24/2009 10/30/2016 Overview: Renamed Per Clinical Trials Billing Project. Study Titile: Genomic Markers for Patients with Cardiovascular Disease Project #[id number] PI: Dennis Cunningham MD Please call [phone] with study related questions Screening for prostate [...] was given about 6 yrs ago by [employer], get date) documented as of this encounter [...] No 04/12/2023 Does the household have a [facility] source of income? (Household - for ages [...] Sign Reading Time Taken Comments Blood Pressure 133/69 04/05/2024 8:16 AM EDT Pulse 66 04/05/2024 8:16 AM EDT Temperature 36 C (96.8 F) 04/05/2024 6:00 AM EDT Respiratory Rate 16 04/05/2024 6:00 AM EDT Oxygen Saturation 98% 04/05/2024 6:00 AM EDT Inhaled Oxygen Concentration - - Weight 82.6 kg (182 lb) 04/02/2024 10:30 AM EDT Height 167.6 cm (5' 6") 04/02/2024 10:30 AM EDT Body Mass Index 29.38 04/02/2024 10:30 AM EDT documented in this encounter Functional [...] No 04/02/2024 documented as of this encounter Discharge Summaries * Corry Amezcua MD - 04/05/2024 8:09 AM EDT Images from the original note were not included. [address] [id number] Admission Date: 04/02/2024 Discharge Date: 04/05/2024 RECOMMENDED TO DO FOR NEXT PROVIDER(S): Follow up with PCP for post hospital follow up visit. Follow up cbc to monitor leukocytosis thoughtto be 2/2 steroid REASON(S) FOR MEDICATION CHANGE(S): No change DISPOSITION ON DISCHARGE: home Active Hospital Problems Diagnosis *Principal Diagnosis - Cervical radiculopathy Cervical spondylosis Cervical spinal stenosis DDD (degenerative disc disease), cervical EULALIA (obstructive sleep apnea) ASCVD (arteriosclerotic cardiovascular disease) Dyslipidemia, goal LDL below 70 HTN, goal below 140/90 Resolved Hospital Problems No resolved problems to display. ADMISSION HISTORY & PHYSICAL EXAM (focused): "73-year-old male with past medical history significant for CAD s/p CABG 2018, hypertension, dyslipidemia, CKD stage 3, diffuse osteoarthritis, EULALIA on CPAP, hypothyroidism who presented with bilateral upper extremities weakness and numbness progressively worsening for the past 2 weeks. He saw his PCP and was given a course of steroid without improvement therefore he was sent to the emergency department due to worsening symptoms and underwent imaging including MRI which showed moderate disc degeneration at C3-4, C4-5 and C6-7 with concern of cord edema and critical spinal canal stenosis at C3-4 and C4-5 with severe stenosis at C6-7 at [facility] and was discussed overnight with spine surgery team and transferred to [facility] for evaluation for surgical intervention. Physical Exam Most Recent Vital Signs: BP: 143 mmHg/82 mmHg (04/02/24 1030) Pulse: 87 (04/02/24 1030) Resp: 18 (04/02/24 1030) Temp: Temp Summary: No data recorded SpO2: 97 % (04/02/24 1030) O2 flow rate: Supplemental O2 Delivery: Room Air, None (04/02/241029) Physical Exam Vitals reviewed. HENT: Mouth/Throat: Mouth: Mucous membranes are moist. Pharynx: Oropharynx is clear. Cardiovascular: Rate and Rhythm: Normal rate. Pulmonary: Effort: Pulmonary effort is normal. Breath sounds: Normal breath sounds. Abdominal: General: Bowel sounds are normal. Palpations: Abdomen is soft. Neurological: Mental Status: He is alert and oriented to person, place, and time. Sensory: Sensory deficit present. Motor: Weakness present. Psychiatric: Mood and Affect: Mood normal. Behavior: Behavior normal. " HOSPITAL COURSE (focused): Patient was hospitalized for cervical myelopathy/radiculopathy symptoms, evaluated by spine surgeryteam received IV decadron with significant improvement of weakness/tingling with mild residual tingling of hand/fingers. Patient is scheduled with spine surgery Dr. Castaneda for ACDF on April 21. Patient cleared medically for discharge home today. Operations & Procedures: none Complications: none significant Significant Lab and Imaging Results: As mentioned above Results Pending at Discharge: Lab Results Pending at Discharge: None MEDICATION UPDATES AT DISCHARGE START taking these medications INSTRUCTIONS Polyethylene Glycol 3350 packet Commonly known as: Miralax Take 1 Packet by mouth daily as needed for Constipation. CONTINUE taking these medications INSTRUCTIONS aspirin 81 MG chewable tablet Take 2 Tabs by mouth daily. atorvaSTATin 40 MG Tablet Commonly known as: Lipitor TAKE 1 TABLET BY MOUTH EVERYDAY AT BEDTIME Carvedilol 6.25 MG Tablet Commonly known as: Coreg TAKE 1 TABLET BY MOUTH TWICE A DAY Diclofenac Sodium 1 % gel Commonly known as: Voltaren Place 4 g topically on the skin 4 times a day. Apply to affected area hydroCHLOROthiazide 25 MG Tablet Commonly known as: Hydrodiuril TAKE 1 TABLET BY MOUTH EVERY DAY IN THE MORNING levothyroxine 100 MCG Tablet Commonly known as: Levoxyl TAKE 1 TABLET BY MOUTH IN THE MORNING AT LEAST 30 MIN PRIOR TO BREALFAST OR OTHER MEDS losartan 100 MG Tablet Commonly known as: Cozaar Take 1 Tablet by mouth in the morning. Nitrostat 0.4 MG Subl Generic drug: Nitroglycerin PLACE 1 TABLET UNDER TONGUE IF NEEDED FOR CHEST PAIN. MAY REPEAT 3 TIMES. IF PAIN CONTINUES CALL 911 sildenafil 20 MG Tablet Commonly known as: Revatio One tablet by mouth 30 minutes prior to intercourse Sildenafil Citrate 100 MG Tablet Take 1 Tab by mouth daily as needed for Erectile Dysfunction. STOP taking these medications predniSONE 10 MG Tabs Tablet Commonly known as: Deltasone SCHEDULED FOLLOW-UP: Future Appointments Appt Date/Time Provider Department 04/14/2024 8:20 AM Ritesh Iniguez MD [facility] Outpatient Follow Up Basic Metabolic Panel CBC with WBC Differential Other Information Indwelling Devices: LINES ALL Duration Peripheral Line Right Antecubital 20 Gauge 3 days Vital Signs (last recorded): Most Recent Systolic BP: 130 mmHg (04/05/24 0600) Most Recent Diastolic BP: 74 mmHg (04/05/24 0600) Pulse: 69 (04/05/24 0600) Resp: 16 (04/05/24 0600) Most Recent Temperature: 36 C (04/05/24 06) Weight: 82.6 kg (182 lb) (04/02/24 1030) SpO2: 98 % (04/05/24 0600) Allergies: Vioxx [rofecoxib], Atenolol, Lisinopril, Metoprolol succinate, and Sulfa antibiotics Activity: as tolerated Diet: age appropriate diet Code Status: Full Code Condition on Discharge: stable Isolation status: None Cognition: normal HOSPITAL CONSULTS ORDERED: ORTHOPAEDICS CONSULT IP REFERRING PHYSICIAN: Ref: MARCELO BROWN[[id number]] [address] [place] [address] (office) None (fax) PRIMARY CARE PROVIDER: PCP: Ritesh Iniguez MD [address] [place] [address] / [facility] [address] (office) [phone] (fax) Note: To contact a physician responsible for this patients hospital care, please call [employer] [phone]. I spent a total of 34 minutes coordinating, documenting, and providing care for this patient excluding time spent in the performance of separately billed services. documented in this encounter Discharge Instructions * Discharge Instr - AVS* Corry Amezcua MD - 04/05/2024 7:54 AM EDT Discharge Date: 04/05/2024 The information below provides you with the instructions and the list of medications you need to betaking following discharge from the hospital. If you have any questions, please ask before leaving. If you have questions after leaving, you can reach us at the numbers below. YOUR HOSPITAL PROVIDERS: Discharging Provider: Corry Amezcua MD Provider Department: Hospital Medicine To reach this Provider Saturday through Saturday (8:00 AM to 4:30 PM) for any questions or test results: Call [phone] For after-hours concerns: Call [phone] and have your provider paged, or the provider television director for the Department of Hospital Medicine paged. Please note, the discharging provider will not be able to provide you with any medications refills.Please discuss these with your primary care provider. Worsening Symptoms: If you have new symptoms, or your symptoms get worse, please contact your Discharge Provider or Primary Care Provider (PCP). If these providers are not available, you can go to your local [facility] or Urgent Care Clinic during their business hours. In an EMERGENCY situation: Call [phone] or go to the nearest emergency room. A BRIEF SUMMARY OF YOUR HOSPITAL STAY: You came to the hospital with: complaint of arm weakness/numbness Your main diagnosis at discharge was: cervical stenosis/narrowing causing nerve compression Operations & Procedures performed: none Complications: none significant Inpatient test results that are pending at discharge: none Advance Directive Documented: Advance Directive Does the Patient have an Advance Directive? No YOUR FOLLOW UP APPOINTMENTS: Primary Care Provider Information: PCP: Ritesh Iniguez MD [facility] / [place] [address] (office) [phone] (fax) An appointment was requested with your PCP (Ritesh Iniguez MD) within 7 days. (Please take this form to this visit with your primary care physician.) You need the following studies in the future: CBC/BMP within 1 week INSTRUCTIONS: Diet: Previous diet Activity: As tolerated Additional Instructions: - Do not use alcohol products in anyway! documented in this encounter Progress Notes * Corry Amezcua MD - 04/04/2024 10:42 AM EDT Images from the original note were not included. [facility] H651/A INTERVAL HISTORY: Patient seen and examined today. No acute events, no new complaints. Reports hand tingling is improving. Objective Physical Exam Most Recent Vital Signs: BP: 118 mmHg/58 mmHg (04/04/24914) Pulse: 97 (04/04/24914) Resp: 16 (04/04/24599) Temp: 36.28 C (04/04/24599) Temp Summary: Temp Min: 36 C (96.8 F) Max: 36.3 C (97.3 F) SpO2: 95 % (04/04/24599) O2 flow rate: Supplemental O2 Delivery: Room Air, None (04/04/24599) Physical Exam Vitals reviewed. HENT: Mouth/Throat: Mouth: Mucous membranes are moist. Pharynx: Oropharynx is clear. Cardiovascular: Rate and Rhythm: Normal rate. Pulmonary: Effort: Pulmonary effort is normal. Breath sounds: Normal breath sounds. Abdominal: General: Bowel sounds are normal. Palpations: Abdomen is soft. Neurological: Mental Status: He is alert and oriented to person, place, and time. Sensory: Sensory deficit present. Motor: No weakness. Psychiatric: Mood and Affect: Mood normal. Behavior: Behavior normal. Peripheral Line Right Antecubital 20 Gauge (Active) Number of days: 2 STUDIES: Encounter Orders Labs and other studies reviewed with pertinent findings noted below: Assessment and Plan IMPRESSION : Principal Problem: Cervical radiculopathy Active Problems: HTN, goal below 140/90 Dyslipidemia, goal LDL below 70 ASCVD (arteriosclerotic cardiovascular disease) EUALLIA (obstructive sleep apnea) Cervical spondylosis Cervical spinal stenosis DDD (degenerative disc disease), cervical Resolved Problems: * No resolved hospital problems. * DIFFERENTIAL AND PLAN: 73-year-old male with past medical history significant for CAD s/p CABG 2018, hypertension, dyslipidemia, CKD stage 3, diffuse osteoarthritis, EULALIA on CPAP, hypothyroidism who was transferred from [facility] to [facility] for Neurosurgery/spine ortho evaluation of cervical myelopathy and concern for cord edema. Cervical radiculopathy/myelopathy moderate disc degeneration at C3-4, C4-5 and C6-7 with concern of cord edema Critical spinal canal stenosis at C3-4 and C4-5 with severe stenosis at C6-7 - Spine surgery following, appreciate recommendations. No urgent surgical intervention. Surgical decompression TBD - Completed IV decadron this morning. No further steroid at this time - Monitor neuro exam clinically CAD Hypertension Dyslipidemia - holding INSURANCE RATER aspirin. Will discuss with spine surgery team if aspirin needs to be kept held if surgery needed - continue INSURANCE RATER carvedilol, hydrochlorothiazide, losartan, atorvastatin Hypothyroidism - continue INSURANCE RATER levothyroxine CKD stage 3 - creatinine at baseline. Monitor renal function Discussed with spine surgery team, planning for OR on 04/21, no further steroid at this time and recommending monitoring today and re evaluate tomorrow for possible discharge. PHARMACOLOGIC VTE PROPHYLAXIS: This patient does not have an active medication from one of the medication groupers. CODE STATUS: Full Code EXPECTED DISCHARGE DATE: 04/05/2024 I spent a total of 52 minutes coordinating, documenting, and providing care for this patient excluding time spent in the performance of separately billed services. * Corry Amezcua MD - 04/03/2024 8:14 AM EDT Images from the original note were not included. [facility] H651/A INTERVAL HISTORY: Patient seen and examined. No acute events. Reports weakness and numbness of upper extremities are improving compared to yesterday. Objective Physical Exam Most Recent Vital Signs: BP: 131 mmHg/71 mmHg (04/03/24623) Pulse: 91 (04/03/24623) Resp: 18 (04/03/24623) Temp: 35.44 C (04/03/24623) Temp Summary: Temp Min: 35.4 C (95.8 F) Max: 36.8 C (98.3 F) SpO2: 96 % (04/03/24623) O2 flow rate: Supplemental O2 Delivery: Room Air, None (04/03/24623) Physical Exam Vitals reviewed. HENT: Mouth/Throat: Mouth: Mucous membranes are moist. Pharynx: Oropharynx is clear. Cardiovascular: Rate and Rhythm: Normal rate. Pulmonary: Effort: Pulmonary effort is normal. Breath sounds: Normal breath sounds. Abdominal: General: Bowel sounds are normal. Palpations: Abdomen is soft. Neurological: Mental Status: He is alert and oriented to person, place, and time. Sensory: Sensory deficit present. Motor: Weakness present. Psychiatric: Mood and Affect: Mood normal. Behavior: Behavior normal. Peripheral Line Right Antecubital 20 Gauge (Active) Number of days: 1 STUDIES: Encounter Orders Labs and other studies reviewed with pertinent findings noted below: Assessment and Plan IMPRESSION : Principal Problem: Cervical radiculopathy Active Problems: HTN, goal below 140/90 Dyslipidemia, goal LDL below 70 ASCVD (arteriosclerotic cardiovascular disease) EULALIA (obstructive sleep apnea) Cervical spondylosis Cervical spinal stenosis DDD (degenerative disc disease), cervical Resolved Problems: * No resolved hospital problems. * DIFFERENTIAL AND PLAN: 73-year-old male with past medical history significant for CAD s/p CABG 2018, hypertension, dyslipidemia, CKD stage 3, diffuse osteoarthritis, EULALIA on CPAP, hypothyroidism who was transferred from [facility] to [facility] for Neurosurgery/spine ortho evaluation of cervical myelopathy and concern for cord edema. Cervical radiculopathy/myelopathy moderate disc degeneration at C3-4, C4-5 and C6-7 with concern of cord edema Critical spinal canal stenosis at C3-4 and C4-5 with severe stenosis at C6-7 - Spine surgery following, appreciate recommendations. No urgent surgical intervention. Surgical decompression timing to be determined - Continue with IV Decadron taper - Monitor neuro exam clinically CAD Hypertension Dyslipidemia - holding INSURANCE RATER aspirin. Will discuss with spine surgery team if aspirin needs to be kept held if surgery needed - continue INSURANCE RATER carvedilol, hydrochlorothiazide, losartan, atorvastatin Hypothyroidism - continue INSURANCE RATER levothyroxine CKD stage 3 - creatinine at baseline. Monitor renal function PHARMACOLOGIC VTE PROPHYLAXIS: This patient does not have an active medication from one of the medication groupers. CODE STATUS: Full Code EXPECTED DISCHARGE DATE: 04/03/2024 I spent a total of 53 minutes coordinating, documenting, and providing care for this patient excluding time spent in the performance of separately billed services. documented in this encounter H&P Notes * Denise Lenz PA-C - 04/03/2024 10:26 AM EDT [facility] [place] - H&P Office Visit 04/03/2024 CC: bilateral upper extremity weakness HPI: Yovany Bliss 73 year old male presents for new patient evaluation with above stated CC. Patient reports having worsening bilateral upper extremity numbness and weakness and numbness for the past 2 weeks. States initial onset was probably about 1 month ago. Right UE is worse than the left. Hewas evaluated in the ED and was found to have significant stenosis at C34, C45. Reports some balance issues due to right LE weakness. States he also has a bad lower back. Denies bladder/bowel changes. Treatment options patient has tried include: prednisone, chiropractics without relief of his symptoms. His chiropractor actually instructed him to go to the hospital for further evaluation. ALLERGIES: Reviewed, per epic Review of patient's allergies indicates: Allergen Reactions Vioxx [Rofecoxib] MADE PATIENT MEAN Atenolol Hypotension As with Metoprolol. See above. Lisinopril Cough Metoprolol Succinate Hypotension Experience an episode of hypotension in past. Is tolerating low dose now. Will keep warning, however will also continue therapy. Sulfa Antibiotics blisters MEDICATIONS: Polyethylene Glycol 3350 (Miralax) oral powder 17 g senna-docusate (Senokot-S) 1 Tablet Acetaminophen (Tylenol) tab 650 mg atorvaSTATin (Lipitor) tab 40 mg Carvedilol (Coreg) tab 6.25 mg dexamethasone sodium phosphate 10 mg in NSS 50 mL ivpb hydroCHLOROthiazide (Hydrodiuril) tab 25 mg levothyroxine (Levoxyl) tab 100 mcg losartan (Cozaar) tab 100 mg Nitroglycerin (Nitrostat) sl tab 0.4 mg sodium chloride 0.9 % flush/inj 3 mL PMH: Past Medical History: Diagnosis Date Allergic rhinitis grass ASCVD (arteriosclerotic cardiovascular disease) Cardiac disease Dyslipidemia, goal LDL below 70 Dyslipidemia, goal LDL below 70 HTN, goal below 140/80 EULALIA on CPAP 2013 SURGICAL HISTORY: Past Surgical History: Procedure Laterality Date CABG, ARTERIAL, SINGLE N/A 08/19/2018 CORONARY ARTERY BYPASS GRAFT USING ARTERY 1 GRAFT performed by Brenna Perez MD at [place] [facility] CATHETERIZE LEFT HEART THRU SKIN Cardiac Catheterization, Left Heart COLONOSCOPY age [age] years COLONOSCOPY 12/2012 REPEAT IN 5 YEARS COLONOSCOPY, DIAGNOSTIC (RECTUM) 02/10/2018 TVA polyp, repeat 3 yrs/COLONOSCOPY FLEXIBLE PROXIMAL DIAGNOSTIC performed by Juventino Degroot DO at ENDOSCOPY [facility] COLONOSCOPY, DIAGNOSTIC (RECTUM) 05/30/2022 benign adenomatous polyps, repeat 3 yrs / COLONOSCOPY FLEXIBLE PROXIMAL DIAGNOSTIC performed by Juventino Degroot DO at ENDOSCOPY [facility] CORONARY ANGIOGRAPHY W/LEFT HEART CATH 08/09/2011 stent X 1 CORONARY ANGIOGRAPHY W/LEFT HEART CATH 03/08/2014 CORONARY ANGIOGRAPHY W/LEFT HEART CATH performed by Duran Portillo MD at [facility] CORONARY ANGIOGRAPHY W/LEFT HEART CATH Right 08/01/2018 CORONARY ANGIOGRAPHY W/LEFT HEART CATH performed by Balwinder Lopez DO at [facility] CORONARY ARTERY DILATION, BALLOON PTCA x "10 little ones" CORONARY ARTERY DILATION, BALLOON 02/2008 PTCA with stent x 1 CORONARY ARTERY DILATION, BALLOON 06/24/2009 PTCA, SINGLE VESSEL performed by DENNIS CUNNINGHAM at [facility] ENDO,VIDEO ASSIST HARVEST FLORESITA N/A 08/19/2018 ENDOSCOPY VIDEO ASSISTED HARVEST VEIN performed by Brenna Perez MD at [place] [facility] KNEE ARTHROSCOPY/MENISCECTOMY Left 11/30/2019 ARTHROSCOPY KNEE MEDIAL OR LATERAL MENISCECTOMY performed by Elmer Carroll DO at OR [facility] REMOVAL OF APPENDIX 1970s REMOVE TONSILS & ADENOIDS, AGE 12+ 1974 SHOULDER ARTHROSCOPY, DX 1992 right partial rotater cuff tear and torn biceps tendon Social hx: BP 131/71 | Pulse 91 | Temp 35.4 C (95.8 F) (Oral) | Resp 18 | Ht 1.676 m (5' 6") | Wt 82.6 kg(182 lb) | SpO2 96% | BMI 29.38 kg/m | BSA 1.96 m Body mass index is 29.38 kg/m. BMI less than 40? No (order Clinical Nutrition Consult if BMI between 40-45 or GI Nutrition Consultif BMI over 45) Patient denies tobacco use. Patient denies alcohol use. Other pertinent social history: None. FAMILY HISTORY: Reviewed, per [facility] REVIEW OF SYSTEMS: Neuro:negative Cardio: history of HTN and previous triple bypass "in ". No chest pain or palpitations recently. Resp: Positive for EULALIA. Denies SOB or pain with breathing Liver: negative Kidney: negative GI: negative Bleeding problems: negative Nicotine use: negative Physical exam: Constitutional: WNWD pt in NAD Cardiovascular: RRR Respiratory: CTA bilaterally. Neurologic: Hyperreflexic in bilateral upper and lower extremities. Negative thao's SILT in BUE and BLE. Motor Function: 4+/5 weakness with right production crew supervisor strength and hand intrinsics, wrist flexion and extension, biceps and triceps. 4/5 with right shoulder abduction. 5-/5 on th left. Extremities: Equal and symmetric ROM Posterior Spine Exam: Visual exam reveals no apparent deformties. no tenderness to palpation of the cervical spine at midline. Assesment: Cervical spondylosis Cervical stenosis Cervical radiculopathy Plan: Patient will be admitted on 04/21/2024 to undergo C34 C45 A[address] Castaneda. Other pre-op labs and testing will be completed prior to surgery. Consent was obtained. Patient was instructed to discontinue any NSAIDs 7 days prior to procedure. Denise Lenz PA-C 04/03/2024 10:27 AM * Corry Amezcua MD - 04/02/2024 11:42 AM EDT Images from the original note were not included. [facility] H651/A PRESENTING PROBLEM: bilateral upper extremities weakness HPI: 73-year-old male with past medical history significant for CAD s/p CABG 2018, hypertension, dyslipidemia, CKD stage 3, diffuse osteoarthritis, EULALIA on CPAP, hypothyroidism who presented with bilateralupper extremities weakness and numbness progressively worsening for the past 2 weeks. He saw his PCP and was given a course of steroid without improvement therefore he was sent to the emergency department due to worsening symptoms and underwent imaging including MRI which showed moderate disc degeneration at C3-4, C4-5 and C6-7 with concern of cord edema and critical spinal canal stenosis at C3-4and C4-5 with severe stenosis at C6-7 at [facility] and was discussed overnight with spine surgery team and transferred to [facility] for evaluation for surgical intervention. Subjective Patient's past history, medications, and allergies were reviewed. Objective Physical Exam Most Recent Vital Signs: BP: 143 mmHg/82 mmHg (04/02/241029) Pulse: 87 (04/02/241029) Resp: 18 (04/02/241029) Temp: Temp Summary: No data recorded SpO2: 97 % (04/02/241029) O2 flow rate: Supplemental O2 Delivery: Room Air, None (04/02/241029) Physical Exam Vitals reviewed. HENT: Mouth/Throat: Mouth: Mucous membranes are moist. Pharynx: Oropharynx is clear. Cardiovascular: Rate and Rhythm: Normal rate. Pulmonary: Effort: Pulmonary effort is normal. Breath sounds: Normal breath sounds. Abdominal: General: Bowel sounds are normal. Palpations: Abdomen is soft. Neurological: Mental Status: He is alert and oriented to person, place, and time. Sensory: Sensory deficit present. Motor: Weakness present. Psychiatric: Mood and Affect: Mood normal. Behavior: Behavior normal. STUDIES: Encounter Orders Labs and other studies reviewed with pertinent findings noted below: Assessment and Plan IMPRESSION: Principal Problem: Cervical myelopathy (HCC) Active Problems: HTN, goal below 140/90 Dyslipidemia, goal LDL below 70 ASCVD (arteriosclerotic cardiovascular disease) EULALIA (obstructive sleep apnea) Resolved Problems: * No resolved hospital problems. * DIFFERENTIAL AND PLAN: 73-year-old male with past medical history significant for CAD s/p CABG 2018, hypertension, dyslipidemia, CKD stage 3, diffuse osteoarthritis, EULALIA on CPAP, hypothyroidism who was transferred from [facility] to [facility] for Neurosurgery/spine ortho evaluation of cervical myelopathy and concern for cord edema. Cervical radiculopathy moderate disc degeneration at C3-4, C4-5 and C6-7 with concern of cord edema Critical spinal canal stenosis at C3-4 and C4-5 with severe stenosis at C6-7 - ortho spine following, appreciate recommendations - discussed with medical record, working on uploading images LUIS to be available for review by ortho spine team - start with IV Decadron - no plan for surgery today per ortho spine team CAD Hypertension Dyslipidemia - holding INSURANCE RATER aspirin - continue INSURANCE RATER carvedilol, hydrochlorothiazide, losartan, atorvastatin Hypothyroidism - continue INSURANCE RATER levothyroxine CKD stage 3 - creatinine at baseline. Monitor renal function PHARMACOLOGIC VTE PROPHYLAXIS:This patient does not have an active medication from one of the medication groupers. CODE STATUS: Full Code EXPECTED DISCHARGE DATE: No information available I spent a total of 82 minutes coordinating, documenting, and providing care for this patient excluding time spent in the performance of separately billed services. documented in this encounter Consult Notes * Braulio Castaneda MD - 04/02/2024 12:55 PM EDTAssociated Order(s): ORTHOPAEDICS CONSULT IP CONSULT - Ortho Spine [facility] [place] [address] Name: Yovany Bliss Location: [facility] H651/A Date: 04/02/2024 Time: 12:55 PM Patient seen and examined at 11:49 AM. REQUESTING SERVICE: Medicine K REASON FOR CONSULT: "cervical myelopathy, MRI with cervical stenosis and cord edema and was discussed with dr. Rubio" CHIEF COMPLAINT: arm weakness HPI: Patient is a 73-year-old male who was seen and examined in his hospital room with no one at bedside. He endorses approximately one month of symptoms ever since working on his tractor. He does not endorse any injury, but questions if he turned his neck the wrong way at that time. He went to seehis PCP about his symptoms who thought it was polymyalgia rheumatica for which the blood work was negative. He was placed on 10 days of steroids which provided no relief. He subsequently went to see a chiropractor whom he knows. That provider instructed him to go to the hospital for his neck which prompted the patient to go to [facility] yesterday. After obtaining images there, they transferred him here for additional evaluation. He endorses one month of sudden onset of bilateral upper extremity numbness and weakness. The numbness encompasses both arms and hands circumferentially. The weakness is worse in the right arm than the left arm. He denies pain. Of note he is right-handed. He also endorses low back pain and right leg weakness for which he sees the chiropractor previously mentioned. He states that his symptoms are some improved since that visit. He endorses problems with his handwriting and fine motor skills over the past month. His balance history over the past month is equivocal. He denies bowel and bladder dysfunction. He denies symptoms of saddle anesthesia. He denies previous spine surgery. ALLERGIES: Vioxx [rofecoxib], Atenolol, Lisinopril, Metoprolol succinate, and Sulfa antibiotics PAST MEDICAL HISTORY: Past Medical History: Diagnosis Date Allergic rhinitis grass ASCVD (arteriosclerotic cardiovascular disease) Cardiac disease Dyslipidemia, goal LDL below 70 Dyslipidemia, goal LDL below 70 HTN, goal below 140/80 EULALIA on CPAP 2013 PAST SURGICAL HISTORY: Past Surgical History: Procedure Laterality Date CABG, ARTERIAL, SINGLE N/A 08/19/2018 CORONARY ARTERY BYPASS GRAFT USING ARTERY 1 GRAFT performed by Brenna Perez MD at [place] [facility] [place] CATHETERIZE LEFT HEART THRU SKIN Cardiac Catheterization, Left Heart COLONOSCOPY age [age] years COLONOSCOPY 12/2012 REPEAT IN 5 YEARS COLONOSCOPY, DIAGNOSTIC (RECTUM) 02/10/2018 TVA polyp, repeat 3 yrs/COLONOSCOPY FLEXIBLE PROXIMAL DIAGNOSTIC performed by Juventino Degroot DO at ENDOSCOPY [facility] COLONOSCOPY, DIAGNOSTIC (RECTUM) 05/30/2022 benign adenomatous polyps, repeat 3 yrs / COLONOSCOPY FLEXIBLE PROXIMAL DIAGNOSTIC performed by Juventino Degroot DO at ENDOSCOPY [facility] CORONARY ANGIOGRAPHY W/LEFT HEART CATH 08/09/2011 stent X 1 CORONARY ANGIOGRAPHY W/LEFT HEART CATH 03/08/2014 CORONARY ANGIOGRAPHY W/LEFT HEART CATH performed by Duran Portillo MD at [facility] [place] CORONARY ANGIOGRAPHY W/LEFT HEART CATH Right 08/01/2018 CORONARY ANGIOGRAPHY W/LEFT HEART CATH performed by Balwinder Lopez DO at [facility] [place] CORONARY ARTERY DILATION, BALLOON PTCA x "10 little ones" CORONARY ARTERY DILATION, BALLOON 02/2008 PTCA with stent x 1 CORONARY ARTERY DILATION, BALLOON 06/24/2009 PTCA, SINGLE VESSEL performed by DENNIS CUNNINGHAM at [facility]AC [facility] [place] ENDO,VIDEO ASSIST HARVEST FLORESITA N/A 08/19/2018 ENDOSCOPY VIDEO ASSISTED HARVEST VEIN performed by Brenna Perez MD at [place] [facility] [place] KNEE ARTHROSCOPY/MENISCECTOMY Left 11/30/2019 ARTHROSCOPY KNEE MEDIAL OR LATERAL MENISCECTOMY performed by Elmer Carroll DO at OR [facility] REMOVAL OF APPENDIX 1970s REMOVE TONSILS & ADENOIDS, AGE 12+ 1974 SHOULDER ARTHROSCOPY, DX 1992 right partial rotater cuff tear and torn biceps tendon SOCIAL HISTORY: Social History Tobacco Use Smoking status: Never Passive exposure: Past Smokeless tobacco: Former Types: Chew Quit date: 2012 Tobacco comments: chewed in past Vaping Use Vaping status: Not on file Substance Use Topics Alcohol use: No Comment: none Drug use: No FAMILY HISTORY: Family History Problem Relation Name Age of Onset Heart Disorder Mother heart attack Diabetes Mother during Heart Disorder Father by pass surgery Diabetes Father Hypertension Father Heart Disorder Brother heart attack at 51 Cancer None Mental Disorder None Stroke None REVIEW OF SYSTEMS: Negative except as noted in the HPI. PHYSICAL EXAM: Most Recent Vital Signs: BP: 143 mmHg/82 mmHg (04/02/24 1030) Pulse: 87 (04/02/24 1030) Resp: 18 (04/02/24 1030) Temp: Temp Summary: No data recorded SpO2: 97 % (04/02/24 1030) O2 flow rate: Supplemental O2 Delivery: Room Air, None (04/02/24 1030) Constitution: Sitting up in his bed. No acute distress. Awake and alert. Pleasant. Neck: Positive tenderness noted to palpation at the right trapezius. Range of motion grossly intact. Extremities: Sensation grossly intact to light touch in bilateral upper extremities and bilateral lower extremities. Reflexes brisk at the right brachioradialis; the remainder of the bilateral upper and lower extremity reflexes are trace. Positive reverse radial sign bilaterally more in the right arm than the left arm. Positive Ben's more prominent in the right hand than the left hand. No clonus bilaterally. No obvious orthopaedic deformities noted on exam. Static motor strength: Motor Left Right Elbow Flexion 4+/5 4/5 Wrist Extension 4+/5 4+/5 Elbow Extension 4+/5 4+/5 Wrist Flexion 4+/5 4/5 Hand intrinsics 4/5 4/5 Arm abduction / deltoids 4+/5 3-4/5 Motor Left Right Hip Flexion 5/5 5/5 Knee Extension 5/5 5/5 Ankle Dorsiflexion 5/5 5/5 Extensor Hallucis Longus 5/5 5/5 Ankle Plantar Flexion 5/5 5/5 IMAGING: CT C spine (04/01/2024): I personally reviewed the sagittal and axial images which reveal multilevel spondylosis and disc degeneration MRI C spine (04/01/2024): I personally reviewed the T2 weighted sagittal and axial images which reveal C3-4 severe central stenosis; C4-5 moderate to severe central stenosis; C6-7 moderate central stenosis ASSESSMENT: Cervical spondylosis Cervical stenosis Cervical radiculopathy PLAN: Per Dr. Castaneda treatment plan at this time is : No urgent surgical intervention from a spine perspective Decadron X 48 hours (ordered), wll re-evaluate upon completion No bracing or spine precautions Recommendations discussed with primary service All other care per primary service I have discussed the patient history and physical exam with Grace Amaro PA-C on 04-02-2024. I have reviewed the radiographs. Sub axial cervical spinal stenosis with myelopathy features worse in the last month. Recommend IV decadron taper x 48 hours with reassessment clinically. Will likely need surgical decompression - just a question of when. NO precautions NO bracing NO plans for urgent surgical intervention. documented in this encounter Nursing Notes * Sophia Navarro RN - 04/04/2024 6:02 AM EDT Pt slept well and had no issues or complaints this shift. Still noted to have some numbness and tingling in BUE but states it is at baseline, and denies any pain or other issues at this time. * Ceci Sepulveda RN - 04/02/2024 12:09 PM EDT IN-HOUSE TRANSFER RECEIVING UNIT - NURSING [address] [address] Name: Yovany Bliss [place] [facility] H[facility] Date: 04/02/2024 Time: 12:09 PM Patient received to room [facility] at 1030 Vital Signs: BP: 143 mmHg/82 mmHg (04/02/24 1030) Pulse: 87 (04/02/24 1030) Resp: 18 (04/02/24 1030) Temp: Temp Summary: No data recorded SpO2: 97 % (04/02/24 1030) O2 flow rate: Supplemental O2 Delivery: Room Air, None (04/02/24 1030) Pertinent transfer information upon arrival Patient arrived to [facility] and able to answer all questions appropriately. Oriented to room, unit, plan of care, and safety precautions. Belongings received with patient: glasses, watch, clothing/shoes, and wallet/purse Verbal SBAR report received from: RN from [facility] * Ceci Sepulveda RN - 04/02/2024 12:08 PM EDT Dual Licensed Skin Assessment completed by BERNICE Ornelas and BERNICE Wilkinson. The patient is/has a N/A Skin Breakdown (includes non blanchable erythema): No documented in this encounter Miscellaneous Notes * Care Plan - Bina Rogers RN - 04/05/2024 10:08 AM EDT Clinical Goal(s): pt will remain free from falls this shift (04/05/24 07) Possible barriers to meeting goal(s)/advancing plan of care: weakness Stability of the patient: Moderately stable - low risk of patient condition declining or worsening Summary regarding today's goal(s): Met: remained free from falls Recommendations: continue fall precautions * Care Plan - Sonia Heard RN - 04/04/2024 6:42 PM EDT Clinical Goal(s): Patient will be free of falls this shift. (04/04/24 07) Possible barriers to meeting goal(s)/advancing plan of care: Weakness, IV steroids Stability of the patient: Moderately stable - low risk of patient condition declining or worsening Summary regarding today's goal(s): Met: No falls this shift Recommendations: Staff supervision with ambulation, keep pathway free of clutter * Progress Notes - Non-Billable - Braulio Castaneda MD - 04/04/2024 5:48 PM EDT Spoke with patient this AM UE strength improved - minor residual numbness and tingling. Currently scheduled for ACDF on April 21 - H& P documented and consent for completed. Stable fordischarge at this time per primary team. Patient has my card to call if questions. * Progress Notes - Post-Op Global - Jefferson Galvan MD - 04/04/2024 8:30 AM EDT Images from the original note were not included. PROGRESS NOTE - Orthopaedics [facility] [place] [address] Name: Yovany Bliss [place]: [facility] [place] H651/A Date: 04/04/2024 Time: 8:31 AM Name: Yovany Bliss Location: [facility] H651/A Date: 04/04/2024 Time: 8:30 AM 24 hour events/Subjective: NAEO: Patient is resting comfortably in bed and states that he feels much stronger today after receiving his last dose of Decadron. Still complains of occasional numbness in RUE. Objective: BP: 125 mmHg/70 mmHg (04/04/24599) Pulse: 92 (04/04/24599) Resp: 16 (04/04/24599) Temp: 36.28 C (04/04/24599) Temp Summary: Temp Min: 36 C (96.8 F) Max: 36.3 C (97.3 F) SpO2: 95 % (04/04/24599) O2 flow rate: Supplemental O2 Delivery: Room Air, None (04/04/24599) CONSTITUTIONAL State of health: well Level of consciousness: alert Distress: none MUSCULOSKELETAL Constitution: Sitting up in his bed. No acute distress. Awake and alert. Pleasant. Neck: Positive tenderness noted to palpation at the right trapezius. Range of motion grossly intact. Extremities: Sensation grossly intact to light touch in bilateral upper extremities and bilateral lower extremities. Reflexes brisk at the right brachioradialis; the remainder of the bilateral upper and lower extremity reflexes are trace. Positive reverse radial sign bilaterally more in the right arm than the left arm. Positive Ben's more prominent in the right hand than the left hand. No clonus bilaterally. No obvious orthopaedic deformities noted on exam. Static motor strength: Motor Left Right Elbow Flexion 4+/5 4+/5 Wrist Extension 4+/5 4+/5 Elbow Extension 4+/5 4+/5 Wrist Flexion 4+/5 4+/5 Hand intrinsics 4+/5 4+/5 Arm abduction / deltoids 4+/5 4+/5 Motor Left Right Hip Flexion 5/5 5/5 Knee Extension 5/5 5/5 Ankle Dorsiflexion 5/5 5/5 Extensor Hallucis Longus 5/5 5/5 Ankle Plantar Flexion 5/5 5/5 Imaging: No new imaging obtained Labs: Labs (3 Days) 04/04/2024 04/02/2024 6:42 AM 11:04 AM HGB 13.9 14.6 WBC 21.71 8.63 PLT 211 191 BUN 40 17 CREAT 1.5 1.3 Assessment/Plan: Mr. Bliss is a/an 73 year old male with cervical stenosis. Per Dr. Castaneda treatment plan at this time is : No urgent surgical intervention from a spine perspective Decadron last dose completed this AM No bracing or spine precautions Recommendations discussed with primary service All other care per primary service * Care Plan - Sophia Navarro RN - 04/04/2024 5:59 AM EDT Clinical Goal(s): safety will be maintained this shift (04/03/24 2300) Possible barriers to meeting goal(s)/advancing plan of care: numbness / tingling requiring assistance when OOB Stability of the patient: Moderately stable - low risk of patient condition declining or worsening Summary regarding today's goal(s): Met: no safety issues this shift Recommendations: continue to ring call mc[facility]osh for assistance when getting OOB * Care Plan - Salinas Wood RN - 04/03/2024 6:27 PM EDT Problem: Pain & Impaired Comfort Goal: Patient's pain & discomfort is manageable. Outcome: Progressing Problem: Safety & Risk for Injury Goal: Patient will remain free from injury. Outcome: Progressing Problem: Daily Care & Potential Self-Care Deficit Goal: Patient's daily care needs are met. Outcome: Progressing Problem: Risk for Impaired Physical Mobility Goal: Patient will maintain optimal mobility level. Outcome: Progressing Clinical Goal(s): Pt will be free from falls during this shift (04/03/24 0705) Possible barriers to meeting goal(s)/advancing plan of care: Hospitalizations, unsteady gait Stability of the patient: Moderately stable - low risk of patient condition declining or worsening Summary regarding today's goal(s): Met: No falls Recommendations: Continue current falls precautions. * Care Plan - Marta Glez RN - 04/03/2024 3:56 AM EDT Clinical Goal(s): Safety (04/03/24 0000) Possible barriers to meeting goal(s)/advancing plan of care: Dx Stability of the patient: Moderately stable - low risk of patient condition declining or worsening Summary regarding today's goal(s): Met: Safety maintained Recommendations: Continue monitoring * Care Plan - Ceci Sepulveda RN - 04/02/2024 4:11 PM EDT Clinical Goal(s): safety (04/02/24 1030) Possible barriers to meeting goal(s)/advancing plan of care: upper extremity weakness Stability of the patient: Moderately stable - low risk of patient condition declining or worsening Summary regarding today's goal(s): Met: Patient remained safe throughout the day Recommendations: continue to assist patient with ambulation documented in this encounter Plan of Treatment Upcoming Encounters Date Type Department Care Team (Late st Contact Info) Description 04/14/2024 8:20 AM EDT Office Visit [facility] [address] [place] [address] Ritesh Iniguez MD [address] [place] [address] Scheduled Orders Name Type Priority Associated Diagnoses Order Schedule GLUCOSE METER, POINT OF CARE (COMMUNICATION ORDER) Point of Care Testing Routine One Time for 1 Occurrences starting 04/03/2024 until 04/03/2024 CBC WITH WBC DIFFERENTIAL Lab Routine Chronic kidney disease, stage 3a (HCC) Expected: 04/12/2024, Expires: 04/05/2025 BASIC METABOLIC PANEL Lab Routine Chronic kidney disease, stage 3a (HCC) Expected: 04/12/2024, Expires: 04/05/2025 Scheduled Procedures Name Priority Associated Diagnoses Date/Ti [...] 03/10/2024, Additional history exists Albumin/Creatinine Ratio 12/29/2024 0408/2 024, 05/23/2022, 10/13/2021, Additional history exists CKD PHOS USE SMARTSET 03615 12/29/20240 04/2024, 01/10/2023, 01/05/2016 TSH 03/10/2025 03/10/2024, 0 04/2024, 01/10/2023, Additional history exists CKD HGB USE SMARTSET 33571 04/04/202504/04, 04/02/2024, 04/02/2024, Additional history exists Colonoscopy [...] this encounter Medical Devices Implanted Type Area Tearoom Host/Hostess Device Identifier Shelf Expiration Date Model / Serial / Lot Suture Steel 6 B&S19 M654g - [id number] Implanted:Qty: 4 on 08/19/2018 by Brenna Perez MD at [place] [facility] N/A: Sternum JNJ : [employer] 04/22/2023 [id number] / / [id number] Clip Occl Atri Flex V 45mm - [id number] - [id number] Implanted:Qty: 1 on 08/19/2018 by Brenna Perez MD at [place] [facility] ATRICURE 03/23/2021 [id number] / [id number] / Duraclip 16mm Xlg Repostn - [id number] Implanted:Qty: 1 on 05/30/2022 by Juventino Degroot DO at ENDOSCOPY [facility] [employer] SYLVIE 11/08/2023 [id number] / / documented as of this encounter Procedures Procedure Name Priority Date/Time Associated Diagnosis Comments BASIC METABOLIC PANEL Routine 04/04/2024 6:42 AM EDT CBC Routine 04/04/2024 6:42 AM EDT EXTRA URINE MARBLE TOP Routine 4:22 PM EDT EXTRA TUBES Routine 04/03/2024 4:22 PM EDT COTININE, URINE SCREEN Routine 4:22 PM EDT TOXICOLOGY, URINESCREEN W/ CONFIRMATION Routine 04/03/2024 4:22 PM EDT CULTURE, URINE, QUANTITATIVE Routine 04/03/2024 4:22 PM EDT MRSA SCREEN, PCR Routine 04/03/2024 2:38 PM EDT HEMOGLOBIN A1C Routine 04/03/2024 1:47 PM EDT TYPE AND SCREEN Routine 04/03/2024 1:47 PM EDT DIFFERENTIAL, AUTOMATED Routine 04/02/2024 11:04 AM EDT COMPREHENSIVE METABOLIC PANEL Routine 04/02/2024 11:04 AM EDT CBC Routine 04/02/2024 11:04 AM EDT PT INR Routine 04/02/2024 11:04 AM EDT CBC Routine 04/02/2024 11:04 AM EDT documented in this encounter Results * (ABNORMAL) CBC (04/04/2024 6:42 AM EDT) WBC 21.71(H) 4.00 - 10.80 K/uL 04/04/2024 7:11 AM EDT LABORATORY [facility] RBC 4.40 4.50 - 5.25 M/uL 04/04/2024 7:11 AM EDT LABORATORY [facility] HGB 13.9(L) 14.0 - 16.8 g/dL 04/04/2024 7:11 AM EDT LABORATORY [facility] HCT 40.8 40.0 - 48.4 % 04/04/2024 7:11 AM EDT LABORATORY [facility] MCV 92.7 82.0 - 99.5 fL 04/04/2024 7:11 AM EDT LABORATORY [facility] MCH 31.6 27.0 - 34.0 pg 04/04/2024 7:11 AM EDT LABORATORY [facility] MCHC 34.1 32.0 - 36.0 g/dL 04/04/2024 7:11 AM EDT LABORATORY [facility] RDW 13.2 11.5 - 15.5 % 04/04/2024 7:11 AM EDT LABORATORY [facility] PLT 211 140 - 400 K/uL 04/04/2024 7:11 AM EDT LABORATORY [facility] MPV 11.3 6.6 - 11.1 fL 04/04/2024 7:11 AM EDT LABORATORY [facility] nRBCs 0 <=0 /100 WBCs 04/04/2024 7:11 AM EDT LABORATORY [facility] Blood Venous blood specimen / Unknown Venipuncture / Unknown 04/04/2024 6:42 AM EDT 04/04/2024 6:56 AM EDT Corry Amezcua MD LAB BLOOD ORDERABLES LABORATORY [facility] [address] [place] [address] * (ABNORMAL) BASIC METABOLIC PANEL (04/04/2024 6:42 AM EDT) BUN 40(H) 6 - 20 mg/dL 04/04/2024 7:26 AM EDT LABORATORY [facility] Creatinine 1.5(H) 0.6 - 1.2 mg/dL 04/04/2024 7:26 AM EDT LABORATORY [facility] Estimated Glomerular Filtration Rate 50(L) >=60 mL/min 04/04/2024 7:26 AM EDT LABORATORY [facility] Comment:eGFR is calculated b ased on the CKD-EPI 2020 equation Sodium 136 135 - 146 mmol/L 04/04/2024 7:26 AM EDT LAB[facility]ATORY [facility] Potassium 4.6 3.5 - 5.1 mmol/L 04/04/2024 7:26 AM EDT LAB[facility]ATORY [facility] Chloride 102 98 - 107 mmol/L 04/04/2024 7:26 AM EDT LAB[facility]ATORY [facility] CO2 20(L) 22 - 32 mmol/L 04/04/2024 7:26 AM EDT LAB[facility]ATORY [facility] Anion Gap 14 7 - 15 mmol/L 04/04/2024 7:26 AM EDT LAB[facility]ATORY [facility] Glucose 145(H) 70 - 120 mg/dL 04/04/2024 7:26 AM EDT LAB[facility]ATORY [facility] Calcium 9.4 8.4 - 10.2 mg/dL 04/04/2024 7:26 AM EDT LAB[facility]ATORY [facility] Blood Venous blood specimen / Unknown Venipuncture / Unknown 04/04/2024 6:42 AM EDT 04/04/2024 6:56 AM EDT Corry Amezcua MD LAB BLOOD ORDERABLES Performing Organization Address [facility] Co de Phone Number LABORATORY [facility] [address] [place] [address] * EXTRA URINE MARBLE TOP (04/03/2024 4:22 PM EDT) Urine Urine specimen / Unknown 04/03/2024 4:22 PM EDT 04/03/2024 4:35 PM EDT Corry Amezcua MD LAB URINE ORDERABLES Performing Organization Address [facility]/ZIP Co de Phone Number LAB[facility]ATORY [facility] [address] [place] [address] * TOXICOLOGY, URINESCREEN W/ CONFIRMATION (04/03/2024 4:22 PM EDT) [facility] Amphetamines Screen, U Negative Negative 04/03/2024 4:51 PM EDT LABORATORY C Benzodiazepines Screen, U Negative Negative 04/03/2024 4:51 PM EDT LAB[facility]ATORY [facility] Cannabinoids Screen, U Negative Negative 04/03/2024 4:51 PM EDT LABORATORY [facility] Cocaine Metabolite Screen, U Negative Negative 04/03/2024 4:51 PM EDT LABORATORY C Fentanyl Screen, U Negative Negative 2023 4:51 PM EDT LABORATORY [facility] Hydrocodone Screen, U Negative Negative 04/03/2024 4:51 PM EDT LABORATORY [facility] Methadone Metabolite Screen, U Negative Negative 04/03/2024 4:51 PM EDT LABORATORY [facility] Morphine/Codeine Screen, U Negative Negative 04/03/2024 4:51 PM EDT LABORATORY [facility] Oxycodone Screen, U Negative Negative 04/03 4:51 PM EDT LABORATORY [facility] Urine Urine specimen obtained by clean catch procedure / Unknown Non-blood Collection / Unknown 04/03/2024 4:22 PM EDT 04/03/2024 4:34 PM EDT Narrative LABORATORY [facility] - 04/03/2024 4:51 PM EDT Cutoff Concentrations: Drug Level Amphetamines 500 ng/mL Benzodiazepines 100 ng/mL Cannabinoids 50 ng/mL Cocaine Metabolite 150 ng/mL Fentanyl 1 ng/mL Hydrocodone / Hydromorphone 300 ng/mL Methadone Metabolite 100 ng/mL Morphine / Codeine 300 ng/mL Oxycodone / Oxymorphone 100 ng/mL Screening results are presumptive and can only be used for medical purposes. Positive screening results are reflexed to confirmatory testing. Denise Lenz PA-C LAB URINE EVELYN DHILLON Performing Organization Address City/[facility]/ZIP Co de Phone Number LABORATORY [address] [address] * COTININE, URINE SCREEN (04/03/2024 4:22 PM EDT) [facility] Cotinine Screen, U Negative Negative 04/03/2024 4:51 PM EDT LABORATORY [facility] Urine Urine specimen obtained by clean catch procedure / Unknown Non-blood Collection / Unknown 04/03/2024 4:22 PM EDT 04/03/2024 4:34 PM EDT Narrative LABORATORY [facility] - 04/03/2024 4:51 PM EDT Cutoff Concentration: Drug Level Cotinine 500 ng/mL Screening results are presumptive and can only be used for medical purposes. Confirmatory testing is available upon request. Denise Lenz PA-C LAB URINE ORDE [facility] LABORATORY [address] [address] * CULTURE, URINE, QUANTITATIVE (04/03/2024 4:22 PM EDT) [facility] Culture Growth No significant growth 04/04/2024 11:37 AM EDT LABORATORY [facility] Urine Urine specimen obtained by clean catch procedure / Unknown Non-blood Collection / Unknown 04/03/2024 4:22 PM EDT 04/03/2024 4:34 PM EDT Denise Lenz PA-C LAB MICRO - GE NERAL ORDERABLES [facility] [address] [place] [address] * MRSA SCREEN, PCR (04/03/2024 2:38 PM EDT) [facility] MRSA PCR Result Negative Negative 5:03 PM EDT LABORATORY [facility] Comment:No Methicillin resis tant Staphylococcus aureus detected by PCR (amplified probe). Upper Respiratory Swab of internal nose / Unknown Non-blood Collection / Unknown 04/03/2024 2:38 PM EDT 04/03/2024 2:58 PM EDT Denise Lenz PA-C LAB MICRO - GE NERAL ORDERABLES LABORATORY [place] [address] [place] [address] * HEMOGLOBIN A1C (04/03/2024 1:47 PM EDT) [facility] Hemoglobin A1C 5.5 4.0 - 5.6 % 04/03/2024 2:09 PM EDT LABORATORY [facility] Comment:The use of HbA1c to monitor glycemic status is based on normal hemoglobin and HbA composition. This test should not be used in patients with abnormal hemoglobin that affects the half life of the red blood cell or the in vivo glycation rates. Estimated Average Glucose 111 <126 mg/dL 04/03/2024 2:09 PM EDT LABORATORY [facility] Blood Venous blood specimen / Unknown Venipuncture / Unknown 04/03/2024 1:47 PM EDT 04/03/2024 1:50 PM EDT Denise Lenz PA-C LAB BLOOD ORDE RABLES Performing Organization Address [facility] Co de Phone Number LABORATORY [facility] [address] [place] [address] * TYPE AND SCREEN (04/03/2024 1:47 PM EDT) ABO A 04/03/2024 2:41 PM EDT LABORATORY [facility] BLOOD BANK Rh Negative 04/03/2024 2:41 PM EDT LABORATORY [facility] BLOOD BANK Red Blood Cell Antibody Screen Negative 04/03/2024 2:41 PM EDT LABORATORY [facility] BLOOD BANK Specimen Expiration Date 04/06/2024 23:59 04/03/2024 2:41 PM EDT LABORATORY [facility] BLOOD BANK Blood Venous blood specimen / Unknown Venipuncture / Unknown 04/03/2024 1:47 PM EDT 04/03/2024 1:50 PM EDT Denise Lenz PA-C LAB BLOOD BANK TEST ORDERABLES Performing Organization Address [facility] Co de Phone Number LABORATORY [facility] BLOOD BANK [address] [place] [address] * DIFFERENTIAL, AUTOMATED (04/02/2024 11:04 AM EDT) WBC 8.63 4.00 - 10.80 K/uL 04/02/2024 11:26 AM EDT LABORATORY [facility] Neutrophils % 67.0 40.0 - 75.0 % 04/02/2024 11:26 AM EDT LABORATORY [facility] Lymphocytes % 21.7 18.0 - 42.0 % 04/02/2024 11:26 AM EDT LABORATORY [facility] Monocytes % 9.4 1.0 - 11.0 % 04/02/2024 11:26 AM EDT LABORATORY [facility] Eosinophils % 1.5 0.0 - 6.0 % 04/02/2024 11:26 AM EDT LAB[facility]ATORY [facility] Basophils % 0.2 0.0 - 2.0 % 04/02/2024 11:26 AM EDT LABORATORY [facility] Immature Granulocytes % 0.2 0.0 - 2.0 % 04/02/2024 11:26 AM EDT LABORATORY [facility] Absolute Neutrophils 5.78 1.80 - 7.70 K/uL 04/02/2024 11:26 AM EDT LABORATORY [facility] Absolute Lymphocytes 1.87 1.00 - 4.80 K/ul 04/02/2024 11:26 AM EDT LABORATORY [facility] Absolute Monocytes 0.81 0.00 - 1.10 K/uL 04/02/2024 11:26 AM EDT LAB[facility]ATORY [facility] Absolute Eosinophils 0.13 0.00 - 0.70 K/uL 04/02/2024 11:26 AM EDT LAB[facility]ATORY [facility] Absolute Basophils 0.02 0.00 - 0.20 K/uL 04/02/2024 11:26 AM EDT LABORATORY [facility] Absolute Immature Granulocytes 0.02 0.00 - 0.20 K/uL 04/02/2024 11:26 AM EDT LABORATORY [facility] Blood Venous blood specimen / Unknown Venipuncture / Unknown 04/02/2024 11:04 AM EDT 04/02/2024 11:15 AM EDT Corry Amezcua MD LAB BLOOD ORDERABLES LAB[facility]ORY [facility] [address] [place] [address] * CBC (04/02/2024 11:04 AM EDT) WBC 8.63 4.00 - 10.80 K/uL 04/02/2024 11:26 AM EDT LABORATORY [facility] RBC 4.64 4.50 - 5.25 M/uL 04/02/2024 11:26 AM EDT LABORATORY [facility] HGB 14.6 14.0 - 16.8 g/dL 04/02/2024 11:26 AM EDT LAB[facility]ATORY [facility] HCT 44.1 40.0 - 48.4 % 04/02/2024 11:26 AM EDT LABORATORY [facility] MCV 95.0 82.0 - 99.5 fL 04/02/2024 11:26 AM EDT LABORATORY [facility] MCH 31.5 27.0 - 34.0 pg 04/02/2024 11:26 AM EDT LABORATORY [facility] MCHC 33.1 32.0 - 36.0 g/dL 04/02/2024 11:26 AM EDT LABORATORY [facility] RDW 13.2 11.5 - 15.5 % 04/02/2024 11:26 AM EDT LABORATORY [facility] PLT 191 140 - 400 K/uL 04/02/2024 11:26 AM EDT LABORATORY [facility] MPV 11.3 6.6 - 11.1 fL 04/02/2024 11:26 AM EDT LABORATORY [facility] nRBCs 0 <=0 /100 WBCs 04/02/2024 11:26 AM EDT LABORATORY [facility] Blood Venous blood specimen / Unknown Venipuncture / Unknown 04/02/2024 11:04 AM EDT 04/02/2024 11:15 AM EDT Corry Amezcua MD LAB BLOOD ORDERABLES Performing Organization Address City/[facility] de Phone Number LABORATORY [facility] [address] [place] [address] * PT INR (04/02/2024 11:04 AM EDT) [facility] Prothrombin Time 12.7 11.6 - 15.2 seconds 04/02/2024 11:38 AM EDT LABORATORY [facility] INR 1.0 0.8 - 1.2 04/02/2024 11:38 AM EDT LABORATORY [facility] Blood Venous blood specimen / Unknown Venipuncture / Unknown 04/02/2024 11:04 AM EDT 04/02/2024 11:14 AM EDT Narrative LAB[facility]ATORY [facility] - 04/02/2024 11:38 AM EDT Warfarin Therapy INR: 2.0-3.0 conventional anticoagulation INR: 2.5-3.5 high intensity anticoagulation Corry Amezcua MD LAB BLOOD ORDERABLES Performing Organization Address [facility]/ZIP Co de Phone Number LABORATORY [facility] [address] [place] [address] * (ABNORMAL) COMPREHENSIVE METABOLIC PANEL (04/02/2024 11:04 AM EDT) BUN 17 6 - 20 mg/dL 04/02/2024 11:35 AM EDT LABORATORY [facility] Creatinine 1.3(H) 0.6 - 1.2 mg/dL 04/02/2024 11:35 AM EDT LABORATORY [facility] Estimated Glomerular Filtration Rate 59(L) >=60 mL/min 04/02/2024 11:35 AM EDT LABORATORY [facility] Comment:eGFR is calculated b ased on the CKD-EPI 2020 equation Sodium 139 135 - 146 mmol/L 04/02/2024 11:35 AM EDT LABORATORY [facility] Potassium 4.8 3.5 - 5.1 mmol/L 04/02/2024 11:35 AM EDT LABORATORY [facility] Chloride 104 98 - 107 mmol/L 04/02/2024 11:35 AM EDT LAB[facility]ATORY [facility] CO2 25 22 - 32 mmol/L 04/02/2024 11:35 AM EDT LAB[facility]ATORY [facility] Anion Gap 10 7 - 15 mmol/L 04/02/2024 11:35 AM EDT LAB[facility]ATORY [facility] Glucose 103 70 - 120 mg/dL 04/02/2024 11:35 AM EDT LABORATORY [facility] Albumin 4.1 3.8 - 5.0 g/dL 04/02/2024 11:35 AM EDT LAB[facility]ATORY [facility] AST 17 10 - 50 U/L 04/02/2024 11:35 AM EDT LABORATORY [facility] Alkaline Phosphatase 73 35 - 130 U/L 04/02/2024 11:35 AM EDT LABORATORY [facility] Bilirubin, Total 0.9 <=1.2 mg/dL 04/02/2024 11:35 AM EDT LABORATORY [facility] Calcium 9.5 8.4 - 10.2 mg/dL 04/02/2024 11:35 AM EDT LAB[facility]ATORY [facility] Protein 6.9 6.0 - 8.3 g/dL 04/02/2024 11:35 AM EDT LAB[facility]ATORY [facility] ALT 22 10 - 50 U/L 04/02/2024 11:35 AM EDT LABORATORY [facility] Blood Venous blood specimen / Unknown Venipuncture / Unknown 04/02/2024 11:04 AM EDT 04/02/2024 11:15 AM EDT Corry Amezcua MD LAB BLOOD ORDERABLES LABORATORY [facility] [address] [place] [address] documented in this encounter Visit Diagnoses Diagnosis Cervical radiculopathy- Primary Brachial neuritis or radiculitis nos Edema of spinal cord (HCC) Vascular myelopathies Chest pain Chest pain, unspecified Chronic kidney disease, stage 3a (HCC) HTN, goal below 140/90 Unspecified essential hypertension Dyslipidemia, goal LDL below 70 Other and unspecified hyperlipidemia ASCVD (arteriosclerotic cardiovascular disease) Unspecified cardiovascular disease EULALIA (obstructive sleep apnea) Obstructive sleep apnea (adult) (pediatric) Cervical spondylosis Cervical spondylosis without myelopathy Cervical spinal stenosis Spinal stenosis in cervical region DDD (degenerative disc disease), cervical Degeneration of cervical intervertebral disc documented in this encounter Administered Medications Inactive Administered Medications - up to 3 most recent administrations Medication Order MAR Action Action Date Dose Rate Site aspirin chew tab 81 mg 81 mg, Oral, Daily(AM), First dose on Sat04/04/24 at 1130, Until Discontinued Given 04/05/2024 8:16 AM EDT 81 mg Given 04/04/2024 11:37 AM EDT 81 mg atorvaSTATin (Lipitor) tab 40 mg 40 mg, Oral, Q1700, First dose on Sat04/02/24 at 1700, Until Discontinued Given 04/04/2024 6:17 PM EDT 40 mg Given 04/03/2024 6:17 PM EDT 40 mg Given 04/02/2024 6:16 PM EDT 40 mg Carvedilol (Coreg) tab 6.25 mg 6.25 mg, Oral, BID (.AM/PM), First dose on Sat04/02/24 at 2100, Until Discontinued, Hold for HR less than 60 or SBP below 100 and notify service if dose is held MUST BE GIVEN WITH MEAL Given 04/05/2024 8:16 AM EDT 6.25 mg Given 04/04/2024 8:42 PM EDT 6.25 mg Given 04/04/2024 9:15 AM EDT 6.25 mg dexamethasone sodium phosphate 10 mg in NSS 50 mL ivpb 10 mg, IV Piggyback, Q8H, First dose on Sat04/03/24 at 1400, Last dose on Sat04/04/24 at 0600, For 3 doses, PROTECT FROM LIGHT Infuse over 30 minutes! New Bag 04/04/2024 5:23 AM EDT 10 mg 106 mL/hr Restarted 04/03/2024 10:15 PM EDT 20 mg/hr 106 mL/hr Restarted 04/03/2024 10:08 PM EDT 20 mg/hr 106 mL/hr dexamethasone sodium phosphate 20 mg in NSS 50 mL ivpb 20 mg, IV Piggyback, Q8H, First dose on Sat04/02/24 at 1400, Last dose on Sat04/03/24 at 0600, For 3 doses, PROTECT FROM LIGHT Infuse over 30 minutes! New Bag 04/03/2024 6:57 AM EDT 20 mg 108 mL/hr New Bag 04/02/2024 9:48 PM EDT 20 mg 108 mL/hr New Bag 04/02/2024 2:16 PM EDT 20 mg 108 mL/hr hydroCHLOROthiazide (Hydrodiuril) tab 25 mg 25 mg, Oral, Daily(AM), First dose on Sat04/03/24 at 0900, Until Discontinued Given 04/05/2024 8:16 AM EDT 25 mg Given 04/04/2024 9:15 AM EDT 25 mg Given 04/03/2024 8:33 AM EDT 25 mg levothyroxine (Levoxyl) tab 100 mcg 100 mcg, Oral, [id number], First dose on Sat04/03/24 at 0630, Until Discontinued Given 04/05/2024 5:44 AM EDT 100 mcg Given 04/04/2024 5:19 AM EDT 100 mcg Given 04/03/2024 6:11 AM EDT 100 mcg losartan (Cozaar) tab 100 mg 100 mg, Oral, Daily(AM), First dose on Sat04/03/24 at 0900, Until Discontinued Given 04/05/2024 8:16 AM EDT 100 mg Given 04/04/2024 9:14 AM EDT 100 mg Given 04/03/2024 8:33 AM EDT 100 mg Polyethylene Glycol 3350 (Miralax) oral powder 17 g 17 g (1 Packet), Oral, Daily(AM), First dose on Sat04/03/24 at 1030, Until Discontinued, Mix in 8 oz of water, juice, soda, coffee, or tea. Given 04/04/2024 9:15 AM EDT 17 g Given 04/03/2024 11:43 AM EDT 17 g senna-docusate (Senokot-S) 1 Tablet 1 Tablet, Oral, BID (.AM/PM), First dose on Sat04/03/24 at 1030, Until Discontinued Given 04/04/2024 9:15 AM EDT 1 Ta blet Given 04/03/2024 9:19 PM EDT 1 Tablet Given 04/03/2024 11:43 AM EDT 1 Tablet sodium chloride 0.9 % flush/inj 3 mL 3 mL, IV Push, PRN Other, Line Patency, Starting on Stephany 04/02/24 at 1036, Until Sat04/05/24 at 1810, Do not flush if lock, PICC, or central line not in place, IV infusing or unable to flush Given 04/03/2024 8:33 AM EDT 3 mL documented in this encounter Active and Recently Administered Medications Times are shown in EDT. Scheduled Medication Order 04/03/2024 04/04/2024 04/05/2024 aspirin chew tab 81 mg 81 mg, Oral, Daily(AM), First dose on Sat04/04/24 at 1130, Until Discontinued 1137 (Given - Provider: Sonia Heard RN) 0816 (Given - Provider: Bina Rogers, BERNICE) atorvaSTATin (Lipitor) tab 40 mg 40 mg, Oral, Q1700, First dose on Sat04/02/24 at 1700, Until Discontinued 181 (Given - Provider: Salinas Wood RN) 1816 (Given - Provider: Sonia Heard RN) Carvedilol (Coreg) tab 6.25 mg 6.25 mg, Oral, BID (.AM/PM), First dose on Sat04/02/24 at 2100, Until Discontinued, Hold for HR less than 60 or SBP below 100 and notify service if dose is held MUST BE GIVEN WITH MEAL 08 (Given - Provider: Salinas Wood RN)2118 (Given - Provider: Sophia Navarro RN) 0915 (Given - Provider: Sonia Heard RN)2041 (Given - Provider: Sophia Navarro RN) 0816 (Given - Provider: Bina Rogers, RN) dexamethasone sodium phosphate 10 mg in NSS 50 mL ivpb (COMPLETED) 10 mg, IV Piggyback, Q8H, First dose on Sat04/03/24 at 1400, Last dose on Sat04/04/24 at 0600, For 3 doses, PROTECT FROM LIGHT Infuse over 30 minutes! 1436 (New Bag - Provider: Salinas Wood RN)1500 (Paused - Provider: Sophia Navarro RN)1516 (Restarted - Provider: Sophia Navarro RN)1523 (Stopped - Provider: Sophia Navarro RN)2127 (New Bag - Provider: Sophia Navarro RN)2140 (Paused - Provider: Sophia Navarro RN)215 (Restarted - Provider: Sophia Navarro RN)215 (Paused - Provider: Sophia Navarro RN)215 (Restarted - Provider: Sophia Navarro RN)2204 (Paused - Provider: Sophia Navarro RN)2208 (Restarted - Provider: Sophia Navarro RN)2211 (Paused - Provider: Sophia Navarro RN)2215 (Restarted - Provider: Sophia Navarro RN)2224 (Stopped - Provider: Sophia Navarro RN) 0523 (New Bag - Provider: Sophia Navarro RN)0600 (Finish Infusion - Provider: Krishna Castro RN) dexamethasone sodium phosphate 20 mg in NSS 50 mL ivpb (COMPLETED) 20 mg, IV Piggyback, Q8H, First dose on Sat04/02/24 at 1400, Last dose on Sat04/03/24 at 0600, For 3 doses, PROTECT FROM LIGHT Infuse over 30 minutes! 0657 (New Bag - Provider: Marta Glez RN) hydroCHLOROthiazide (Hydrodiuril) tab 25 mg 25 mg, Oral, Daily(AM), First dose on Sat04/03/24 at 0900, Until Discontinued 0833 (Given - Provider: Salinas Wood RN) 0915 (Given - Provider: Sonia Heard RN) 0816 (Given - Provider: Bina Rogers, BERNICE) levothyroxine (Levoxyl) tab 100 mcg 100 mcg, Oral, [id number], First dose on Sat04/03/24 at 0630, Until Discontinued 0611 (Given - Provider: Marta Glez RN) 0519 (Given - Provider: Sophia Navarro RN) 0544 (Given - Provider: Sophia Navarro RN) losartan (Cozaar) tab 100 mg 100 mg, Oral, Daily(AM), First dose on Sat04/03/24 at 0900, Until Discontinued 0833 (Given - Provider: Salinas Wood RN) 0914 (Given - Provider: Sonia Heard RN) 0816 (Given - Provider: Bina Rogers RN) Polyethylene Glycol 3350 (Miralax) oral powder 17 g (CANCELED) 17 g (1 Packet), Oral, Daily(AM), First dose on Sat04/03/24 at 1030, Until Discontinued, Mix in 8 oz of water, juice, soda, coffee, or tea. 1143 (Given - Provider: Salinas Wood RN) 0915 (Given - Provider: Sonia Heard RN) senna-docusate (Senokot-S) 1 Tablet (CANCELED) 1 Tablet, Oral, BID (.AM/PM), First dose on Sat04/03/24 at 1030, Until Discontinued 1143 (Given - Provider: Salinas Wood RN)211 (Given - Provider: Sophai Navarro RN) 0915 (Given - Provider: Sonia Heard RN)2100 (Not Given - Provider: Sophia Navarro RN - Reason: Parameter(s) Not Met - Comment: bm x 5 today, loose) PRN Medication Order 04/03/2024 04/04/2024 04/05/2024 Acetaminophen (Tylenol) tab 650 mg 650 mg, Oral, Q6H PRN Pain, Mild, Fever >38C(100.5F), Starting on Sat04/02/24 at 1037, Until 04/05/24 at 1810, Maximum of 4 grams (4000 mg) per day. Nitroglycerin (Nitrostat) sl tab 0.4 mg 0.4 mg, Sublingual, Q5 MIN PRN Pain, Chest, Starting on Stephany 04/02/24 at 1139, Until 04/05/24 at 1810, This med should NOT be Crushed or Chewed sodium chloride 0.9 % flush/inj 3 mL 3 mL, IV Push, PRN Other, Line Patency, Starting on Stephany 04/02/24 at 1036, Until 04/05/24 at 1810, Do not flush if lock, PICC, or central line not in place, IV infusing or unable to flush 0833 (Given - Provider: Salinas Wood RN) documented in this encounter Advance Directives * [...] Power of Attor haven? No Care Teams Grinder Lap Relationship Specialty Start Date End Date Ritesh Iniguez MD [address] [facility] [place] [address] PCP - General Family Medicine 03/27/18 documented as of this encounter
--- OUTSIDE RECORDS SUMMARY | 2024-04-08 01:50 | External Medical Summary ---
Author Name Unknown Address Unknown Organization K01:LABORATORY [facility] [address]Sameer [place] [address] Laboratory Report Ordering Provider Test Date Status JOHN HERNANDEZHILL 04/04/2024 06:42:00 Final Observation Date Value Abnormality Reference (Units ) Status BUN 04/04/2024 06:42:00 40 Above high normal 6-20 (mg/dL) Final Creatinine 04/04/2024 06:42:00 1.5 Above high normal 0.6-1.2 (mg/dL) Final Glomerular filtration rate/1.73 sq M.predicted [Volume Rate/Area] in Serum, Plasma or Blood by Creatinine-based formula (CKD-EPI) 04/04/2024 06:42:00 50 Below low normal >=60 (mL/min) Final eGFR is calculated based on the CKD-EPI 2020 equation Sodium 04/04/2024 06:42:00 136 135-146 (m mol/L) Final Potassium 04/04/2024 06:42:00 4.6 3.5-5.1 (m mol/L) Final Cl 04/04/2024 06:42:00 102 98-107 (mm ol/L) Final CO2 04/04/2024 06:42:00 20 Below low normal 22- 32 (mmol/L) Final Anion gap 04/04/2024 06:42:00 14 7-15 (mmol /L) Final Glucose 04/04/2024 06:42:00 145 Above high normal 70 -120 (mg/dL) Final Calcium 04/04/2024 06:42:00 9.4 8.4-10.2 ( mg/dL) Final Performing Location LAB[facility] [address] [place] [address]
--- OUTSIDE RECORDS SUMMARY | 2024-04-08 01:50 | External Medical Summary | Summary of Care ---
Author Name Unknown Organization [facility] Address [address] [place] [address] Phone [phone] Care Team Providers Care Painter Spring Name Role Phone Ritesh Iniguez MD Primary Care Provider [phone] Reason for Visit * Reason Onset Date Comments Surgery 04/06/2024 Encounter Details Date Type Department Care Team (Late st Contact Info) Description 04/06/2024 Telephone Orthopaedics Spine Surgery, [place] [address] [place] [address] Braulio Castaneda MD [address] [place] [address] Surgery Allergies Active Allergy Reactions [...] 11/05/2022 Overview: Per CKD protocol Atherosclerosis of [place] co ronary artery of [place] heart with stable angina pectoris 10/12/2022 Coronary artery disease invo lving new[place] coronary artery of [place] heart without angina pectoris 11/06/2019 Gastroesophageal reflux [...] 31.39 08/14/11 08/14/2011 01/29/2017 VERDICT Clinical Trial [id number] 1 09/30/2013 Overview: Renamed per the [facility] for Medicare and Medicaid billing requirements to include Clinical Trial.gov number. VERDICT Clinical Trial [id number] 1 09/01/2014 Overview: Renamed per the [facility] for Medicare and Medicaid billing [...] Markers for Patients with Cardiovascular Disease Project #[id number] PI: Asia Hebert MD Please call [phone] with study related questions Unstable angina 06/24/2009 08/02/2011 Dyslipidemia, goal to be determined 06/24/2009 08/17/2009 Overview: Per Lipid Taxonomy HTN, goal to be determined 06/24/2009 1 09/28/2008 Overview: Per HTN Taxonomy GENOMICS CARDIO RESEARCH OTHER*[id number] 06/24/2009 10/30/2016 Overview: Renamed Per Clinical Trials Billing Project. Study Titile: Genomic Markers for Patients with Cardiovascular Disease Project #[id number] PI: Asia Hebert MD Please call [phone] with study related questions Screening for prostate [...] was given about 6 yrs ago by Josey [employer], get date) documented as of this encounter [...] EDT Office Visit [facility] [address] [place] [phone] Ritesh Iniguez MD [address], [place] [id number] 04/21/2024 11:54 AM EDT Hospital Encounter OR [facility], OPERATING ROOM [facility], [facility] [address] [place] [phone] Braulio Castaneda MD [address] [place] [address] 04/21/2024 11:54 AM EDT - 04/21/2024 3:30 PM EDT Surgery OR [facility], OPERATING ROOM [facility], [facility] [address] [place] [phone] Braulio Castaneda MD [address] [place] [address] ARTHRODESIS, ANT INTERBODY, BELOW C-2 Scheduled Procedures [...] Additional history exists CKD PHOS USE SMARTSET 75249 12/29/2024 04/0 04/2024, 01/10/2023, 01/05/2016 TSH 03/10/2025 03/10/2024, 04/0 04/2024, 01/10/2023, Additional history exists CKD HGB USE SMARTSET 62759 04/04/202504/04, 04/02/2024, 04/02/2024, Additional history exists Colonoscopy [...] this encounter Medical Devices Implanted Type Area Munitions Handler Device Identifier Shelf Expiration Date Model / Serial / Lot Suture Steel 6 [id number] - [id number] Implanted:Qty: 4 on 08/19/2018 by Brenna Perez MD at OR [facility] N/A: Sternum JNJ : [employer] 04/22/2023 [id number] / / [id number] Clip Occl Atri Flex V 45mm - [id number] - [id number] Implanted:Qty: 1 on 08/19/2018 by Brenna Perez MD at OR [facility] ATRICURE 03/23/2021 [id number] / [id number] / Duraclip [facility] - [id number] Implanted:Qty: 1 on 05/30/2022 by Juventino Degroot DO at ENDOSCOPY [facility] [employer] [facility] 11/08/2023 [id number] / / documented as of this encounter [...] Power of Attor haven? No Care Teams Painter Spring Relationship Specialty Start Date End Date Ritesh Iniguez MD [address] [place] [address] PCP - General Family Medicine 03/27/18 documented as of this encounter
--- OUTSIDE RECORDS SUMMARY | 2024-04-08 01:51 | External Medical Summary ---
Author Name Unknown Address Unknown Organization K01:[place] [facility] [place] [address] [place] [address] Laboratory Report Ordering Provider Test Date Status STUART MERINO 04/03/2024 14:38:15 Final Observation Date Value Abnormality Reference (Units ) Status Methicillin resistant Staphylococcus aureus (MRSA) DNA [Presence] in Nose by ROB with probe detection 04/03/2024 14:38:15 Negative Negative Final No Methicillin resistant Sta phylococcus aureus detected by PCR (amplified probe). Performing Location [facility] [place] [address] [place] [address]
--- OUTSIDE RECORDS SUMMARY | 2024-04-08 01:51 | External Medical Summary | Summary of Care ---
Author Name Unknown Organization [facility] Address [address] [place] [address] Phone [phone] Care Team Providers Care Caltrans Equipment Operator Name Role Phone Ritesh Iniguez MD Primary Care Provider [phone] Encounter Details Date Type Department Care Team (Latest Contact Info) Description 04/01/2024 11:35 PM EDT - 04/01/2024 11:59 PM EDT Hospital Encounter Radiology Film File [address] [place] [address] Arrived Discharge Disposition: Home - [...] REPEAT 3 TIMES. IF PAIN CONTINUES CALL [phone] Tab 1 10/28/2014 Suspended aspirin 81 [...] 11/05/2022 Overview: Per CKD protocol Atherosclerosis of [place] co ronary artery of [place] heart with stable angina pectoris 10/12/2022 Coronary artery disease invo lving [place] coronary artery of [place] heart without angina pectoris 11/06/2019 Gastroesophageal reflux disease without esophagi tis 11/06/2019 Old [place] (myocardial infarction) 11/06/2019 Primary osteoarthritis of both [...] 31.39 08/14/11 08/14/2011 01/29/2017 VERDICT Clinical Trial [id number] 1 09/30/2013 Overview: Renamed per the [facility] for Medicare and Medicaid billing requirements to include Clinical Trial.gov number. VERDICT Clinical Trial [id number] 1 09/01/2014 Overview: Renamed per the [facility] for Medicare and Medicaid billing requirements to include Clinical Trial.gov number. Stable angina 08/02/2011 09/29/2018 OBESITY, BMI= 31.05 01/23/11 01/23/2011 0 01/29/2017 Heartburn 01/23/2011 01/03/2016 OBESITY, BMI= 31.38 04/25/10 04/25/2010 0 01/29/2017 Screening for prostate cancer 04/25/2010 01/03/2016 Subjective tinnitus 04/25/2010 10/28/19 15 OBESITY, BMI 30-34 (SEE ACTUAL BMI) 12/15/2009 04/25/2010 Overview: Per Obesity Taxonomy CORON ATHEROSCL [place] CORON VESSEL 11/01/2009 04/25/2010 Migraine 11/01/2009 10/28/2014 Overweight (BMI 25.0-29.9) 08/15/2009 0 12/15/2009 Overview: Per Obesity Taxonomy Angina pectoris 07/01/2009 04/25/2010 Need for pneumococcal vaccination 07/01/2009 10/28/2014 Need for diphtheria-tetanus- pertussis (Tdap) vaccine 07/01/2009 10/28/2014 EXAMINATION OF PARTICIPANT I N CLINICAL TRIAL-Genomics 06/24/2009 01/06/2010 Overview: Renamed Per Clinical Trials Billing Project. Study Titile: Genomic Markers for Patients with Cardiovascular Disease Project #[id number] PI: Asia Hebert MD Please call [phone] with study related questions Unstable angina 06/24/2009 08/02/2011 Dyslipidemia, goal to be determined 06/24/2009 08/17/2009 Overview: Per Lipid Taxonomy HTN, goal to be determined 06/24/2009 1 09/28/2008 Overview: Per HTN Taxonomy GENOMICS CARDIO RESEARCH OTHER*[id number] 06/24/2009 10/30/2016 Overview: Renamed Per Clinical Trials Billing Project. Study Titile: Genomic Markers for Patients with Cardiovascular Disease Project #[id number] PI: Asia Hebert MD Please call [phone] with study related questions Screening for prostate [...] was given about 6 yrs ago by [employer], get date) documented as of this encounter [...] EDT Office Visit [facility] [address] [place] [phone] Ritesh Iniguez MD [address] [place] [address] Scheduled Procedures Name Priority Associated Diagnoses Date/Ti [...] Additional history exists CKD PHOS USE SMARTSET 55124 12/29/2024 04/0 04/2024, 01/10/2023, 01/05/2016 TSH 03/10/2025 03/10/2024, 0 04/2024, 01/10/2023, Additional history exists CKD HGB USE SMARTSET 88661 04/02/202504/02, 04/02/2024, 03/10/2024, Additional history exists Colonoscopy [...] this encounter Medical Devices Implanted Type Area Superintendent [employer] Device Identifier Shelf Expiration Date Model / Serial / Lot Suture Steel 6 B&S19 M654g - [id number] Implanted:Qty: 4 on 08/19/2018 by Brenna Perez MD at OR [facility] [place] N/A: Sternum JNJ : [employer] 04/22/2023 M654G / / M654 Clip Occl Atri Flex V 45mm - [id number] - [id number] Implanted:Qty: 1 on 08/19/2018 by Brenna Perez MD at OR [facility] [place] ATRICURE 03/23/2021 [id number] / [id number] / Duraclip 16mm [facility]lg [facility] [id number] Implanted:Qty: 1 on 05/30/2022 by Juventino Degroot DO at ENDOSCOPY [facility] [employer] SYLVIE 11/08/2023 [id number] / / documented as of this encounter Procedures Procedure Name Priority Date/Time Associated Diagnosis Comments RADIOLOGY EXAM - MRI (IMAGES ONLY, NO REPORT) Routine 04/01/2024 11:35 PM EDT documented in this encounter Results * RADIOLOGY EXAM - MRI (IMAGES ONLY, NO REPORT) (04/01/2024 11:35 PM EDT) 04/01/2024 11:3 2 PM EDT Narrative Scheduling, Silent - 04/02/2024 11:55 AM EDT This is an imaging study not interpreted or resulted by a [facility] or [facility] contracted radiologist. Corry Amezcua MD RAD MRI-MRA documented in this encounter Advance Directives * [...] Power of Attor haven? No Care Teams Caltrans Equipment Operator Relationship Specialty Start Date End Date Ritesh Iniguez MD [address] [facility] [address] PCP - General Family Medicine 03/27/18 documented as of this encounter
--- OUTSIDE RECORDS SUMMARY | 2024-04-08 01:51 | External Medical Summary | Summary of Care ---
Author Name Unknown Organization [facility] Address [address] [place] [address] Phone [phone] Care Team Providers Care Evaporator Operator Molasses Name Role Phone Ritesh Iniguez MD Primary Care Provider [phone] Encounter Details Date Type Department Care Team (Latest Contact Info) Description 04/01/2024 5:40 PM EDT - 04/01/2024 5:44 PM EDT Hospital Encounter Radiology Film File [address] [place] [address] Arrived Discharge Disposition: Home - [...] REPEAT 3 TIMES. IF PAIN CONTINUES CALL [phone] Tab 1 10/28/2014 Suspended aspirin 81 [...] 11/05/2022 Overview: Per CKD protocol Atherosclerosis of [place] co ronary artery of [place] heart with stable angina pectoris 10/12/2022 Coronary artery disease invo lving [place] coronary artery of [place] heart without angina pectoris 11/06/2019 Gastroesophageal reflux [...] 31.39 08/14/11 08/14/2011 01/29/2017 VERDICT Clinical Trial [id number] 1 09/30/2013 Overview: Renamed per the [facility] for Medicare and Medicaid billing requirements to include Clinical Trial.gov number. VERDICT Clinical Trial [id number] 1 09/01/2014 Overview: Renamed per the [facility] for Medicare and Medicaid billing requirements to include Clinical Trial.gov number. Stable angina 08/02/2011 09/29/2018 OBESITY, BMI= 31.05 01/23/11 01/23/2011 0 01/29/2017 Heartburn 01/23/2011 01/03/2016 OBESITY, BMI= 31.38 04/25/10 04/25/2010 0 01/29/2017 Screening for prostate cancer 04/25/2010 01/03/2016 Subjective tinnitus 04/25/2010 10/28/19 15 OBESITY, BMI 30-34 (SEE ACTUAL BMI) 12/15/2009 04/25/2010 Overview: Per Obesity Taxonomy CORON ATHEROSCL [place] CORON VESSEL 11/01/2009 04/25/2010 Migraine 11/01/2009 10/28/2014 Overweight (BMI 25.0-29.9) 08/15/2009 0 12/15/2009 Overview: Per Obesity Taxonomy Angina pectoris 07/01/2009 04/25/2010 Need for pneumococcal vaccination 07/01/2009 10/28/2014 Need for diphtheria-tetanus- pertussis (Tdap) vaccine 07/01/2009 10/28/2014 EXAMINATION OF PARTICIPANT I N CLINICAL TRIAL-Genomics 06/24/2009 01/06/2010 Overview: Renamed Per Clinical Trials Billing Project. Study Titile: Genomic Markers for Patients with Cardiovascular Disease Project #[id number] PI: Asia Hebert MD Please call [phone] with study related questions Unstable angina 06/24/2009 08/02/2011 Dyslipidemia, goal to be determined 06/24/2009 08/17/2009 Overview: Per Lipid Taxonomy HTN, goal to be determined 06/24/2009 1 09/28/2008 Overview: Per HTN Taxonomy GENOMICS CARDIO RESEARCH OTHER*[id number] 06/24/2009 10/30/2016 Overview: Renamed Per Clinical Trials Billing Project. Study Titile: Genomic Markers for Patients with Cardiovascular Disease Project #[id number] PI: Asia Hebert MD Please call [phone] with study related questions Screening for prostate [...] was given about 6 yrs ago by [employer], get date) documented as of this encounter [...] Description 04/14/2024 8:20 AM EDT Office Visit Located Within [facility] [address] [place] [phone] Ritesh Iniguez MD [address] [place] [address] Scheduled Procedures Name Priority Associated Diagnoses Date/Ti [...] Additional history exists CKD PHOS USE SMARTSET 39268 12/29/2024 04/0 04/2024, 01/10/2023, 01/05/2016 TSH 03/10/2025 03/10/2024, 0 04/2024, 01/10/2023, Additional history exists CKD HGB USE SMARTSET 54916 04/02/202504/02, 04/02/2024, 03/10/2024, Additional history exists Colonoscopy [...] this encounter Medical Devices Implanted Type Area Meringuer Device Identifier Shelf Expiration Date Model / Serial / Lot Suture Steel 6 B&S19 M654g - [id number] Implanted:Qty: 4 on 08/19/2018 by Brenna Perez MD at OR [facility] [place] N/A: Sternum JNJ : [employer] 04/22/2023 M654G / / M654 Clip Occl Atri Flex V 45mm - [id number] - [id number] Implanted:Qty: 1 on 08/19/2018 by Brenna Perez MD at OR [facility] [place] ATRICURE 03/23/2021 [id number] / [id number] / Duraclip 16mm Xlg [facility] - [id number] Implanted:Qty: 1 on 05/30/2022 by Juventino Degroot DO at ENDOSCOPY [facility] [employer] SYLVIE 11/08/2023 [id number] / / documented as of this encounter Procedures Procedure Name Priority Date/Time Associated Diagnosis Comments RADIOLOGY EXAM - CT (IMAGES ONLY, NO REPORT) Routine 04/01/2024 5:40 PM EDT documented in this encounter Results * RADIOLOGY EXAM - CT (IMAGES ONLY, NO REPORT) (04/01/2024 5:40 PM EDT) 04/01/2024 5:35 PM EDT Narrative Scheduling, Silent - 04/02/2024 11:58 AM EDT This is an imaging study not interpreted [facility]. Corry Amezcua MD RAD CT [...] Power of Attor haven? No Care Teams Evaporator Operator Molasses Relationship Specialty Start Date End Date Ritesh Iniguez MD [address] [address] PCP - General Family Medicine 03/27/18 documented as of this encounter
--- OUTSIDE RECORDS SUMMARY | 2024-04-08 01:51 | External Medical Summary | Summary of Care ---
Author Name Unknown Organization [facility] Address [address] [place] [address] Phone [phone] Care Team Providers Care Wellness Rn Name Role Phone Ritesh Iniguez MD Primary Care Provider [phone] Encounter Details Date Type Department Care Team (Latest Contact Info) Description 04/01/2024 11:00 PM EDT - 04/01/2024 11:34 PM EDT Hospital Encounter Radiology Film File [address] [place] [address] Arrived Discharge Disposition: Home - [...] REPEAT 3 TIMES. IF PAIN CONTINUES CALL [phone] Tab 1 10/28/2014 Suspended aspirin 81 [...] 31.39 08/14/11 08/14/2011 01/29/2017 VERDICT Clinical Trial [id number] 1 09/30/2013 Overview: Renamed per the [facility] for Medicare and Medicaid billing requirements to include Clinical Trial.gov number. VERDICT Clinical Trial [id number] 1 09/01/2014 Overview: Renamed per the [facility] for Medicare and Medicaid billing requirements to include Clinical Trial.gov number. Stable angina 08/02/2011 09/29/2018 OBESITY, BMI= 31.05 01/23/11 01/23/2011 0 01/29/2017 Heartburn 01/23/2011 01/03/2016 OBESITY, BMI= 31.38 04/25/10 04/25/2010 0 01/29/2017 Screening for prostate cancer 04/25/2010 01/03/2016 Subjective tinnitus 04/25/2010 10/28/19 15 OBESITY, BMI 30-34 (SEE ACTUAL BMI) 12/15/2009 04/25/2010 Overview: Per Obesity Taxonomy CORON ATHEROSCL [place] CORON VESSEL 11/01/2009 04/25/2010 Migraine 11/01/2009 10/28/2014 Overweight (BMI 25.0-29.9) 08/15/2009 0 12/15/2009 Overview: Per Obesity Taxonomy Angina pectoris 07/01/2009 04/25/2010 Need for pneumococcal vaccination 07/01/2009 10/28/2014 Need for diphtheria-tetanus- pertussis (Tdap) vaccine 07/01/2009 10/28/2014 EXAMINATION OF PARTICIPANT I N CLINICAL TRIAL-Genomics 06/24/2009 01/06/2010 Overview: Renamed Per Clinical Trials Billing Project. Study Titile: Genomic Markers for Patients with Cardiovascular Disease Project #[id number] PI: Asia Hebert MD Please call [phone] with study related questions Unstable angina 06/24/2009 08/02/2011 Dyslipidemia, goal to be determined 06/24/2009 08/17/2009 Overview: Per Lipid Taxonomy HTN, goal to be determined 06/24/2009 1 09/28/2008 Overview: Per HTN Taxonomy GENOMICS CARDIO RESEARCH OTHER*[id number] 06/24/2009 10/30/2016 Overview: Renamed Per Clinical Trials Billing Project. Study Titile: Genomic Markers for Patients with Cardiovascular Disease Project #[id number] PI: Asia Hebert MD Please call [phone] with study related questions Screening for prostate [...] was given about 6 yrs ago by [employer], get date) documented as of this encounter [...] Description 04/14/2024 8:20 AM EDT Office Visit [facility] [address] [place] [phone] Ritesh Iniguez MD [address] [place] [address] Scheduled Procedures Name Priority Associated Diagnoses Date/Ti [...] Additional history exists CKD PHOS USE SMARTSET 81781 12/29/2024 04/0 04/2024, 01/10/2023, 01/05/2016 TSH 03/10/2025 03/10/2024, 0 04/2024, 01/10/2023, Additional history exists CKD HGB USE SMARTSET 78896 04/02/202504/02, 04/02/2024, 03/10/2024, Additional history exists Colonoscopy [...] this encounter Medical Devices Implanted Type Area [employer]anner Device Identifier Shelf Expiration Date Model / Serial / Lot Suture Steel 6 B&S19 M654g - [id number] Implanted:Qty: 4 on 08/19/2018 by Brenna Perez MD [place] [facility] [place] N/A: Sternum JNJ : [employer] 04/22/2023 M654G / / M654 Clip Occl Atri Flex V 45mm - [id number] - [id number] Implanted:Qty: 1 on 08/19/2018 by Brenna Perez MD [place] [facility] [place] ATRICURE 03/23/2021 [id number] / [id number] / Duraclip 16mm Xlg [facility] - [id number] Implanted:Qty: 1 on 05/30/2022 by Juventino Degroot DO at ENDOSCOPY [facility] [employer] SYLVIE 11/08/2023 [id number] / / documented as of this encounter Procedures Procedure Name Priority Date/Time Associated Diagnosis Comments RADIOLOGY EXAM - MRI (IMAGES ONLY, NO REPORT) Routine 04/01/2024 11:00 PM EDT documented in this encounter Results * RADIOLOGY EXAM - MRI (IMAGES ONLY, NO REPORT) (04/01/2024 11:00 PM EDT) 04/01/2024 10:5 9 PM EDT Narrative Scheduling, Silent - 04/02/2024 11:58 AM EDT This is an imaging study not interpreted or resulted by a [facility] or [facility] contracted radiologist. Corry Amezcua MD RAD MRI-MRA [...] Power of Attor haven? No Care Teams Wellness Rn Relationship Specialty Start Date End Date Ritesh Iniguez MD [address] [facility] [place] [address] PCP - General Family Medicine 03/27/18 documented as of this encounter
--- OUTSIDE RECORDS SUMMARY | 2024-04-08 01:51 | External Medical Summary ---
Author Name Unknown Address Unknown Organization K01:[facility]ATORY [facility] [place] - [facility] [address] [place]. [facility] [address] Laboratory Report Ordering Provider Test Date Status STUART MERINO 04/03/2024 16:22:16 Final Cutoff Concentration:
Dr ug Level
Cotinine 500 ng/mL

Screening results are presumptive and can only be used for medical purposes. Confirmatory testing is available upon request. Observation Date Value Abnormality Reference (Units ) Status Cotinine [Presence] in Urine by Screen method 04/03/2024 16:22:16 Negative Negative Final Performing Location LAB[facility]ORY [facility] [place] - [facility] [address]
--- OUTSIDE RECORDS SUMMARY | 2024-04-08 01:51 | External Medical Summary | Summary of Care ---
Author Name Unknown Organization [facility] Address [address] [place] [address] Phone [phone] Care Team Providers Care Coater Helper Name Role Phone Ritesh Iniguez MD Primary Care Provider [phone] Encounter Details Date Type Department Care Team (Latest Contact Info) Description 04/01/2024 5:35 PM EDT - 04/01/2024 5:39 PM EDT Hospital Encounter Radiology Film File [address] [place] [address] Arrived Discharge Disposition: Home - [...] REPEAT 3 TIMES. IF PAIN CONTINUES CALL [phone] 25 Tab 1 10/28/2014 Suspended aspirin 81 [...] 11/05/2022 Overview: Per CKD protocol Atherosclerosis of [place] co ronary artery of [place] heart with stable angina pectoris 10/12/2022 Coronary artery disease invo lving [place] coronary artery of [place] heart without angina pectoris 11/06/2019 Gastroesophageal reflux disease without esophagi tis 11/06/2019 Old [place] (myocardial infarction) 11/06/2019 Primary osteoarthritis of both [...] 31.39 08/14/11 08/14/2011 01/29/2017 VERDICT Clinical Trial [id number] 1 09/30/2013 Overview: Renamed per the [facility] for Medicare and Medicaid billing requirements to include Clinical Trial.gov number. VERDICT Clinical Trial [id number] 1 09/01/2014 Overview: Renamed per the [facility] for Medicare and Medicaid billing requirements [...] Markers for Patients with Cardiovascular Disease Project #[id number] PI: Asia Hebert MD Please call [phone] with study related questions Unstable angina 06/24/2009 08/02/2011 Dyslipidemia, goal to be determined 06/24/2009 08/17/2009 Overview: Per Lipid Taxonomy HTN, goal to be determined 06/24/2009 1 09/28/2008 Overview: Per HTN Taxonomy GENOMICS CARDIO RESEARCH OTHER*[id number] 06/24/2009 10/30/2016 Overview: Renamed Per Clinical Trials Billing Project. Study Titile: Genomic Markers for Patients with Cardiovascular Disease Project #[id number] PI: Asia Hebert MD Please call [phone] with study related questions Screening for prostate [...] was given about 6 yrs ago by [employer], get date) documented as of this encounter [...] 04/14/2024 8:20 AM EDT Office Visit [facility] [address] [place] [phone] Ritesh Iniguez MD [address] [place] [address] Scheduled Procedures Name Priority Associated Diagnoses Date/Ti [...] Additional history exists CKD PHOS USE SMARTSET 28948 12/29/2024 04/0 04/2024, 01/10/2023, 01/05/2016 TSH 03/10/2025 03/10/2024, 0 04/2024, 01/10/2023, Additional history exists CKD HGB USE SMARTSET 51945 04/02/202504/02, 04/02/2024, 03/10/2024, Additional history exists Colonoscopy [...] this encounter Medical Devices Implanted Type Area Cutlery Grinder Device Identifier Shelf Expiration Date Model / Serial / Lot Suture Steel 6 B&S19 M654g - [id number] Implanted:Qty: 4 on 08/19/2018 by Brenna Perez MD at OR [facility] [place] N/A: Sternum JNJ : [employer] 04/22/2023 M654G / / M654 Clip Occl Atri Flex V 45mm - [id number] - [id number] Implanted:Qty: 1 on 08/19/2018 by Brenna Perez MD at OR [facility] [place] ATRICURE 03/23/2021 [id number] / [id number] / Duraclip 16mm [facility] [id number] Implanted:Qty: 1 on 05/30/2022 by Juventino Degroot DO at ENDOSCOPY [facility] [employer] SYLVIE 11/08/2023 [id number] / / documented as of this encounter Procedures Procedure Name Priority Date/Time Associated Diagnosis Comments RADIOLOGY EXAM - CT (IMAGES ONLY, NO REPORT) Routine 04/01/2024 5:35 PM EDT documented in this encounter Results * RADIOLOGY EXAM - CT (IMAGES ONLY, NO REPORT) (04/01/2024 5:35 PM EDT) 04/01/2024 5:35 PM EDT Narrative Scheduling, Silent - 04/02/2024 11:55 AM EDT This is an imaging study not interpreted or resulted [facility] a [facility] radi[facility]. Corry Amezcua MD RAD CT [...] Power of Attor haven? No Care Teams Coater Helper Relationship Specialty Start Date End Date Ritesh Iniguez MD [address] [address] PCP - General Family Medicine 03/27/18 documented as of this encounter
--- OUTSIDE RECORDS SUMMARY | 2024-04-08 01:51 | External Medical Summary | Summary of Care ---
Author Name Unknown Organization [facility] Address [address] [place] [address] Phone [phone] Care Team Providers Care Printed Circuit Board Reworker Name Role Phone Ritesh Iniguez MD Primary Care Provider [phone] Encounter Details Date Type Department Care Team (Latest Contact Info) Description 04/01/2024 10:40 PM EDT - 04/01/2024 10:59 PM EDT Hospital Encounter Radiology Film File [address] [place] [address] Arrived Discharge Disposition: Home - [...] REPEAT 3 TIMES. IF PAIN CONTINUES CALL [phone] Tab 1 10/28/2014 Suspended aspirin 81 [...] 11/05/2022 Overview: Per CKD protocol Atherosclerosis of [place] co ronary artery of [place] heart with stable angina pectoris 10/12/2022 Coronary artery disease invo lving [place] coronary artery of [place] heart without angina pectoris 11/06/2019 Gastroesophageal reflux disease without esophagi tis 11/06/2019 Old AR (myocardial infarction) 11/06/2019 Primary osteoarthritis of both [...] 31.39 08/14/11 08/14/2011 01/29/2017 VERDICT Clinical Trial [id number] 1 09/30/2013 Overview: Renamed per the [facility] for Medicare and Medicaid billing requirements to include Clinical Trial.gov number. VERDICT Clinical Trial [id number] 1 09/01/2014 Overview: Renamed per the [facility] for Medicare and Medicaid billing requirements to include Clinical Trial.gov number. Stable angina 08/02/2011 09/29/2018 OBESITY, BMI= 31.05 01/23/11 01/23/2011 0 01/29/2017 Heartburn 01/23/2011 01/03/2016 OBESITY, BMI= 31.38 04/25/10 04/25/2010 0 01/29/2017 Screening for prostate cancer 04/25/2010 01/03/2016 Subjective tinnitus 04/25/2010 10/28/19 15 OBESITY, BMI 30-34 (SEE ACTUAL BMI) 12/15/2009 04/25/2010 Overview: Per Obesity Taxonomy CORON ATHEROSCL [place] CORON VESSEL 11/01/2009 04/25/2010 Migraine 11/01/2009 10/28/2014 Overweight (BMI 25.0-29.9) 08/15/2009 0 12/15/2009 Overview: Per Obesity Taxonomy Angina pectoris 07/01/2009 04/25/2010 Need for pneumococcal vaccination 07/01/2009 10/28/2014 Need for diphtheria-tetanus- pertussis (Tdap) vaccine 07/01/2009 10/28/2014 EXAMINATION OF PARTICIPANT I N CLINICAL TRIAL-Genomics 06/24/2009 01/06/2010 Overview: Renamed Per Clinical Trials Billing Project. Study Titile: Genomic Markers for Patients with Cardiovascular Disease Project #[id number] PI: Asia Hebert MD Please call [phone] with study related questions Unstable angina 06/24/2009 08/02/2011 Dyslipidemia, goal to be determined 06/24/2009 08/17/2009 Overview: Per Lipid Taxonomy HTN, goal to be determined 06/24/2009 1 09/28/2008 Overview: Per HTN Taxonomy GENOMICS CARDIO RESEARCH OTHER*[id number] 06/24/2009 10/30/2016 Overview: Renamed Per Clinical Trials Billing Project. Study Titile: Genomic Markers for Patients with Cardiovascular Disease Project #[id number] PI: Asia Hebert MD Please call [phone] with study related questions Screening for prostate [...] was given about 6 yrs ago by [employer], get date) documented as of this encounter [...] Description 04/14/2024 8:20 AM EDT Office Visit [facility] [address] [place] [phone] Ritesh Iniguez MD [address] [place] [address] Scheduled Procedures Name Priority Associated Diagnoses Date/Ti [...] Additional history exists CKD PHOS USE SMARTSET 51542 12/29/2024 04/0 04/2024, 01/10/2023, 01/05/2016 TSH 03/10/2025 03/10/2024, 0 04/2024, 01/10/2023, Additional history exists CKD HGB USE SMARTSET 64913 04/02/202504/02, 04/02/2024, 03/10/2024, Additional history exists Colonoscopy [...] this encounter Medical Devices Implanted Type Area Colorer Machine Device Identifier Shelf Expiration Date Model / Serial / Lot Suture Steel 6 B&S19 M654g - [id number] Implanted:Qty: 4 on 08/19/2018 by Brenna Perez MD [place] [facility] [place]A: Sternum JNJ : [employer] 04/22/2023 M654G / / M654 Clip Occl Atri Flex V 45mm - [id number] - [id number] Implanted:Qty: 1 on 08/19/2018 by Brenna Perez MD at [place] [facility] [place] ATRICURE 03/23/2021 [id number] / [id number] / Duraclip 16mm Xlg [facility] - [id number] Implanted:Qty: 1 on 05/30/2022 by Juventino Degroot DO at ENDOSCOPY [facility] [employer] SYLVIE 11/08/2023 [id number] / / documented as of this encounter Procedures Procedure Name Priority Date/Time Associated Diagnosis Comments RADIOLOGY EXAM - MRI (IMAGES ONLY, NO REPORT) Routine 04/01/2024 10:40 PM EDT documented in this encounter Results * RADIOLOGY EXAM - MRI (IMAGES ONLY, NO REPORT) (04/01/2024 10:40 PM EDT) 04/01/2024 10:4 0 PM EDT Narrative Scheduling, Silent - 04/02/2024 11:53 AM EDT This is an imaging study not interpreted or resulted by a [facility] or [facility] contracted radiologist. Corry Amezcua MD RAD MRI-MRA [...] Power of Attor haven? No Care Teams Printed Circuit Board Reworker Relationship Specialty Start Date End Date Ritesh Iniguez MD [address] [facility] [place] [address] PCP - General Family Medicine 03/27/18 documented as of this encounter
--- OUTSIDE RECORDS SUMMARY | 2024-04-08 01:51 | External Medical Summary ---
Author Name Unknown Address Unknown Organization K01:[facility] [place] - [address] [place] [address] Laboratory Report Ordering Provider Test Date Status WILBERSTUART 04/03/2024 16:22:16 Final Observation Date Value Abnormality Reference (Units) Status Bacteria identified in Specimen by Culture 04/03/2024 16:22:16 No significant growth Final Test: Culture, Urine, Quant itative
Specimen Source: Urine, Clean Catch
Specimen Type: Urine
Specimen Date: 04/03/2024 1622
Result Date: 04/04/2024 1137
Result Status: Final result
Resulting Lab: [facility]
[address]
[place] [address]

CULTURE

No significant growth

null Performing Location [facility] - [address] [place] [place] [address]
--- OUTSIDE RECORDS SUMMARY | 2024-04-08 01:51 | External Medical Summary ---
Author Name Unknown Address Unknown Organization K01:[facility] [place] [facility] [address] [facility] [address] Laboratory Report Ordering Provider Test Date Status WILBERSTUART 04/03/2024 16:22:16 Final Cutoff Concentrations:
Drug Level
Amphetamines 500 ng/mL
Benzodiazepines 100 ng/mL
Cannabinoids 50 ng/mL
Cocaine Metabolite 150 ng/mL
Fentanyl 1 ng/mL
Hydrocodone / Hydromorphone 300 ng/mL
Methadone Metabolite 100 ng/mL
Morphine / Codeine 300 ng/mL
Oxycodone / Oxymorphone 100 ng/mL

Screening results are presumptive and can only be used for medical purposes. Positive screening results are reflexed to confirmatory testing. Observation Date Value Abnormality Reference (Units ) Status Amphetamines, Urine screen 04/03/2024 16:22:16 Negative Negative Final Benzodiazepines, Urine screen 04/03/2024 16:22:16 Negative Negative Final Cannabinoids, Urine screen 04/03/2024 16:22:16 Negative Negative Final Cocaine Metabolite, Urine screen 04/03/2024 16:22:16 Negative Negative Final fentaNYL [Presence] in Urine by Screen method 04/03/2024 16:22:16 Negative Negative Final HYDROcodone [Presence] in Urine by Screen method 04/03/2024 16:22:16 Negative Negative Final 0-Ovekmuxhdp-2,5-Dimeth yl-3,3-Diphenylpyrrolid ine (EDDP) [Presence] in Urine 04/03/2024 16:22:16 Negative Negative Final Opiates, Urine screen 04/03/2024 16:22:16 Negative Negative Final oxyCODONE [Presence] in Urine by Screen method 04/03/2024 16:22:16 Negative Negative Final Performing Location LABORATORY C - [address] [facility] [address]
--- OUTSIDE RECORDS SUMMARY | 2024-04-08 01:51 | External Medical Summary | Summary of Care ---
Author Name Unknown Organization [facility] Address [address] [place] [address] Phone [phone] Care Team Providers Care Jordan Worker Name Role Phone Ritesh Iniguez MD Primary Care Provider [phone] Encounter Details Date Type Department Care Team (Latest Contact Info) Description 04/01/2024 3:35 PM EDT - 04/01/2024 5:34 PM EDT Hospital Encounter Radiology Film File [address] [place] [address] Arrived Discharge Disposition: Home - [...] REPEAT 3 TIMES. IF PAIN CONTINUES CALL [phone] Tab 1 10/28/2014 Suspended aspirin 81 [...] 11/05/2022 Overview: Per CKD protocol Atherosclerosis of [place] co ronary artery of [place] heart with stable angina pectoris 10/12/2022 Coronary artery disease invo lving [place] coronary artery of [place] heart without angina pectoris 11/06/2019 Gastroesophageal reflux [...] 31.39 08/14/11 08/14/2011 01/29/2017 VERDICT Clinical Trial [id number] 1 09/30/2013 Overview: Renamed per the [facility] for Medicare and Medicaid billing requirements to include Clinical Trial.gov number. VERDICT Clinical Trial [id number] 1 09/01/2014 Overview: Renamed per the [facility] for Medicare and Medicaid billing requirements to include Clinical Trial.gov number. Stable angina 08/02/2011 09/29/2018 OBESITY, BMI= 31.05 01/23/11 01/23/2011 0 01/29/2017 Heartburn 01/23/2011 01/03/2016 OBESITY, BMI= 31.38 04/25/10 04/25/2010 0 01/29/2017 Screening for prostate cancer 04/25/2010 01/03/2016 Subjective tinnitus 04/25/2010 10/28/19 15 OBESITY, BMI 30-34 (SEE ACTUAL BMI) 12/15/2009 04/25/2010 Overview: Per Obesity Taxonomy CORON ATHEROSCL [place] CORON VESSEL 11/01/2009 04/25/2010 Migraine 11/01/2009 10/28/2014 Overweight (BMI 25.0-29.9) 08/15/2009 0 12/15/2009 Overview: Per Obesity Taxonomy Angina pectoris 07/01/2009 04/25/2010 Need for pneumococcal vaccination 07/01/2009 10/28/2014 Need for diphtheria-tetanus- pertussis (Tdap) vaccine 07/01/2009 10/28/2014 EXAMINATION OF PARTICIPANT I N CLINICAL TRIAL-Genomics 06/24/2009 01/06/2010 Overview: Renamed Per Clinical Trials Billing Project. Study Titile: Genomic Markers for Patients with Cardiovascular Disease Project #[id number] PI: Asia Hebert MD Please call [phone] with study related questions Unstable angina 06/24/2009 08/02/2011 Dyslipidemia, goal to be determined 06/24/2009 08/17/2009 Overview: Per Lipid Taxonomy HTN, goal to be determined 06/24/2009 1 09/28/2008 Overview: Per HTN Taxonomy GENOMICS CARDIO RESEARCH OTHER*[id number] 06/24/2009 10/30/2016 Overview: Renamed Per Clinical Trials Billing Project. Study Titile: Genomic Markers for Patients with Cardiovascular Disease Project #[id number] PI: Asia Hebert MD Please call [phone] with study related questions Screening for prostate [...] was given about 6 yrs ago by [employer], get date) documented as of this encounter [...] 04/14/2024 8:20 AM EDT Office Visit [facility] [address] [place] [phone] Ritesh Iniguez MD [address] [place] [address] Scheduled Procedures Name Priority Associated Diagnoses Date/Ti [...] Additional history exists CKD PHOS USE SMARTSET 14851 12/29/2024 04/0 04/2024, 01/10/2023, 01/05/2016 TSH 03/10/2025 03/10/2024, 0 04/2024, 01/10/2023, Additional history exists CKD HGB USE SMARTSET 17234 04/02/202504/02, 04/02/2024, 03/10/2024, Additional history exists Colonoscopy [...] this encounter Medical Devices Implanted Type Area Guitar Repairer Device Identifier Shelf Expiration Date Model / Serial / Lot Suture Steel 6 B&S19 M654g - [id number] Implanted:Qty: 4 on 08/19/2018 by Brenna Perez MD at [place] [facility] N/A: Sternum JNJ : [employer] 04/22/2023 M654G / / M654 Clip Occl Atri Flex V 45mm - [id number] - [id number] Implanted:Qty: 1 on 08/19/2018 by Brenna Perez MD at OR [facility] ATRICURE 03/23/2021 [id number] / [id number] / Duraclip 16mm Xlg [employer] - [id number] Implanted:Qty: 1 on 05/30/2022 by Juventino Degroot DO at ENDOSCOPY [facility] [employer] SYLVIE 11/08/2023 [id number] / / documented as of this encounter Procedures Procedure Name Priority Date/Time Associated Diagnosis Comments RADIOLOGY EXAM - GENERAL RAD (IMAGES ONLY,NO REPORT) Routine 04/01/2024 3:35 PM EDT documented in this encounter Results * RADIOLOGY EXAM - GENERAL RAD (IMAGES ONLY,NO REPORT) (04/01/2024 3:35 PM EDT) 04/01/2024 3:33 PM EDT Narrative Scheduling, Silent - 04/02/2024 11:56 AM EDT This is an imaging study not interpreted or resulted by a [facility] or [facility] contracted radiologist. Corry Amezcua MD RADIOLOGY (RAD GENER AL) documented in this encounter Advance Directives * [...] Power of Attor haven? No Care Teams Jordan Worker Relationship Specialty Start Date End Date Ritesh Iniguez MD [address] [place] [address] PCP - General Family Medicine 03/27/18 documented as of this encounter
--- OUTSIDE RECORDS SUMMARY | 2024-04-08 01:52 | External Medical Summary | Summary of Care ---
Author Name Unknown Organization [facility] Address [address] [place] [address] Phone [phone] Care Team Providers Care Supervisor Public Health Nursing Name Role Phone Ritesh Iniguez MD Primary Care Provider [phone] Encounter Details Date Type Department Care Team (Late st Contact Info) Description 04/01/2024 Orders Only Unspecified Department Corry Amezcua MD [address] [facility] [place] [address] Allergies Active Allergy Reactions Criticality Noted Date Comments Atenolol Hypotension 05/13/2009 As with Metoprolol. See above. Lisinopril Cough 04/07/2010 Metoprolol Succinate Hypotension 05/13/2009 Experience an episode of hypotension in past. Is tolerating low dose now. Will keep warning, however will also continue therapy. Sulfa Antibiotics 05/07/2000 blisters Rofecoxib High 08/04/2018 MADE PATIENT MEAN documented as of this encounter (statuses as of 04/02/2024) Medications Medication Sig Dispensed Refills Start Date End Date Status NITROSTAT 0.4 MG SL SUBLIndications:ASC VD (arteriosclerotic cardiovascular disease),Stable angina (HCC) PLACE 1 TABLET UNDER TONGUE IF NEEDED FOR CHEST PAIN. MAY REPEAT 3 TIMES. IF PAIN CONTINUES CALL [phone] Tab 1 10/28/2014 Suspended aspirin 81 [...] as of this encounter (statuses as of 04/02/2024) Active Problems Problem Noted Date Diagnosed Date Cervical myelopathy 04/02/2024 Chronic kidney disease, stage 3a 11/05/2022 Overview: Per CKD protocol Atherosclerosis of [place] co ronary artery of [place] heart with stable angina pectoris 10/12/2022 Coronary artery disease invo lving [place] coronary artery of [place] heart without angina pectoris 11/06/2019 Gastroesophageal reflux [...] as of this encounter (statuses as of 04/02/2024) Resolved Problems Problem Noted Date Diagnosed Date [...] 31.39 08/14/11 08/14/2011 01/29/2017 VERDICT Clinical Trial [id number] 1 09/30/2013 Overview: Renamed per the [facility] for Medicare and Medicaid billing requirements to include Clinical Trial.gov number. VERDICT Clinical Trial [id number] 1 09/01/2014 Overview: Renamed per the [facility] for Medicare and Medicaid billing requirements to include Clinical Trial.gov number. Stable angina 08/02/2011 09/29/2018 OBESITY, BMI= 31.05 01/23/11 01/23/2011 0 01/29/2017 Heartburn 01/23/2011 01/03/2016 OBESITY, BMI= 31.38 04/25/10 04/25/2010 0 01/29/2017 Screening for prostate cancer 04/25/2010 01/03/2016 Subjective tinnitus 04/25/2010 10/28/19 15 OBESITY, BMI 30-34 (SEE ACTUAL BMI) 12/15/2009 04/25/2010 Overview: Per Obesity Taxonomy CORON ATHEROSCL [place] CORON VESSEL 11/01/2009 04/25/2010 Migraine 11/01/2009 10/28/2014 Overweight (BMI 25.0-29.9) 08/15/2009 0 12/15/2009 Overview: Per Obesity Taxonomy Angina pectoris 07/01/2009 04/25/2010 Need for pneumococcal vaccination 07/01/2009 10/28/2014 Need for diphtheria-tetanus- pertussis (Tdap) vaccine 07/01/2009 10/28/2014 EXAMINATION OF PARTICIPANT I N CLINICAL TRIAL-Genomics 06/24/2009 01/06/2010 Overview: Renamed Per Clinical Trials Billing Project. Study Titile: Genomic Markers for Patients with Cardiovascular Disease Project #[id number] PI: Asia Hebert MD Please call [phone] with study related questions Unstable angina 06/24/2009 08/02/2011 Dyslipidemia, goal to be determined 06/24/2009 08/17/2009 Overview: Per Lipid Taxonomy HTN, goal to be determined 06/24/2009 1 09/28/2008 Overview: Per HTN Taxonomy GENOMICS CARDIO RESEARCH OTHER*[id number] 06/24/2009 10/30/2016 Overview: Renamed Per Clinical Trials Billing Project. Study Titile: Genomic Markers for Patients with Cardiovascular Disease Project #[id number] PI: Asia Hebert MD Please call [phone] with study related questions Screening for prostate [...] as of this encounter (statuses as of 04/02/2024) Immunizations Name Administration Dates Next Due COVID-19 [...] was given about 6 yrs ago by [employer], get date) documented as of this encounter [...] Description 04/14/2024 8:20 AM EDT Office Visit [facility] [address] [place] [phone] Ritesh Iniguez MD [address] [place] [address] Scheduled Procedures Name Priority Associated [...] Additional history exists CKD PHOS USE SMARTSET 19666 12/29/2024 04/0 04/2024, 01/10/2023, 01/05/2016 TSH 03/10/2025 03/10/2024, 0 04/2024, 01/10/2023, Additional history exists CKD HGB USE SMARTSET 39199 04/02/202504/02, 04/02/2024, 03/10/2024, Additional history exists Colonoscopy 05/30/2025 05/30/2022, 0 [...] this encounter Medical Devices Implanted Type Area Stem Teacher Device Identifier Shelf Expiration Date Model / Serial / Lot Suture Steel 6 B&S19 M654g - [id number] Implanted:Qty: 4 on 08/19/2018 by Brenna Perez MD at OR [facility] [place] N/A: Sternum JNJ : [employer] 04/22/2023 M654G / / M654 Clip Occl Atri Flex V 45mm - [id number] - [id number] Implanted:Qty: 1 on 08/19/2018 by Brenna Perez MD at OR [facility] ATRICURE 03/23/2021 [id number] / [id number] / Duraclip 16mm Xlg [employer] - [id number] Implanted:Qty: 1 on 05/30/2022 by Juventino Degroot DO at ENDOSCOPY [facility] [employer] SYLVIE 11/08/2023 [id number] / / documented as of this encounter [...] study not interpreted or resulted by a [facility] or [facility] radiologist. Corry Amezcua MD RAD CT [...] Power of Attor haven? No Care Teams Supervisor Public Health Nursing Relationship Specialty Start Date End Date Ritesh Iniguez MD [address] [facility] [place] [address] PCP - General Family Medicine 03/27/18 documented as of this encounter
--- OUTSIDE RECORDS SUMMARY | 2024-04-08 01:52 | External Medical Summary | Summary of Care ---
Author Name Unknown Organization [facility] Address [address] [facility] [place] [address] Phone [phone] Care Team Providers Care Snuff Blender Name Role Phone Ritesh Iniguez MD Primary Care Provider [phone] Encounter Details Date Type Department Care Team (Late st Contact Info) Description 04/01/2024 Result Scan Unspecified Department <No scans attached> Allergies Active Allergy Reactions Criticality Noted Date [...] 11/05/2022 Overview: Per CKD protocol Atherosclerosis of [place] co ronary artery of [place] heart with stable angina pectoris 10/12/2022 Coronary artery disease invo lving [place] coronary artery of [place] heart without angina pectoris 11/06/2019 Gastroesophageal reflux [...] 31.39 08/14/11 08/14/2011 01/29/2017 VERDICT Clinical Trial [id number] 1 09/30/2013 Overview: Renamed per the [facility] for Medicare and Medicaid billing requirements to include Clinical Trial.gov number. VERDICT Clinical Trial [id number] 1 09/01/2014 Overview: Renamed per the [facility] for Medicare and Medicaid billing requirements to include Clinical Trial.gov number. Stable angina 08/02/2011 09/29/2018 OBESITY, BMI= 31.05 01/23/11 01/23/2011 0 01/29/2017 Heartburn 01/23/2011 01/03/2016 OBESITY, BMI= 31.38 04/25/10 04/25/2010 0 01/29/2017 Screening for prostate cancer 04/25/2010 01/03/2016 Subjective tinnitus 04/25/2010 10/28/19 15 OBESITY, BMI 30-34 (SEE ACTUAL BMI) 12/15/2009 04/25/2010 Overview: Per Obesity Taxonomy CORON ATHEROSCL [place] CORON VESSEL 11/01/2009 04/25/2010 Migraine 11/01/2009 10/28/2014 Overweight (BMI 25.0-29.9) 08/15/2009 0 12/15/2009 Overview: Per Obesity Taxonomy Angina pectoris 07/01/2009 04/25/2010 Need for pneumococcal vaccination 07/01/2009 10/28/2014 Need for diphtheria-tetanus- pertussis (Tdap) vaccine 07/01/2009 10/28/2014 EXAMINATION OF PARTICIPANT I N CLINICAL TRIAL-Genomics 06/24/2009 01/06/2010 Overview: Renamed Per Clinical Trials Billing Project. Study Titile: Genomic Markers for Patients with Cardiovascular Disease Project #[id number] PI: Asia Hebert MD Please call [phone] with study related questions Unstable angina 06/24/2009 08/02/2011 Dyslipidemia, goal to be determined 06/24/2009 08/17/2009 Overview: Per Lipid Taxonomy HTN, goal to be determined 06/24/2009 1 09/28/2008 Overview: Per HTN Taxonomy GENOMICS CARDIO RESEARCH OTHER*[id number] 06/24/2009 10/30/2016 Overview: Renamed Per Clinical Trials Billing Project. Study Titile: Genomic Markers for Patients with Cardiovascular Disease Project #[id number] PI: Asia Hebert MD Please call [phone] with study related questions Screening for prostate [...] mRNA, LNP-s, No Pre serve, 2-Dose Series (Innolight) 11/30/2020,11/09/2020 Pneumococcal Conjugate Vacc, 13 Valent (Prevnar) [...] was given about 6 yrs ago by [employer], get date) documented as of this encounter [...] Visit [facility] [address] [place] [phone] Ritesh Iniguez MD [address] [place] [address] Scheduled Procedures Name Priority Associated Diagnoses Date/Ti [...] Additional history exists CKD PHOS USE SMARTSET 33952 12/29/2024 04/0 04/2024, 01/10/2023, 01/05/2016 TSH 03/10/2025 03/10/2024, 0 04/2024, 01/10/2023, Additional history exists CKD HGB USE SMARTSET 74710 04/02/202504/02, 04/02/2024, 03/10/2024, Additional history exists Colonoscopy [...] this encounter Medical Devices Implanted Type Area Chassis Engineer Device Identifier Shelf Expiration Date Model / Serial / Lot Suture Steel 6 B&S19 M654g - [id number] Implanted:Qty: 4 on 08/19/2018 [place] Perez [place] [facility] [place] [facility] [place] Sternum JNJ : [employer] 04/22/2023 M654G / / M654 Clip Occl Atri Flex V 45mm - [id number] - [id number] Implanted:Qty: 1 on 08/19/2018 by Brenna Perez MD [place] [facility] [place]IC[employer] 03/23/2021 [id number] / [id number] / Duraclip 16mm Xlg Repostn - [id number] Implanted:Qty: 1 on 05/30/2022 by Juventino Degroot DO at [facility] [employer] SYLVIE 11/08/2023 [id number] / / documented as of this encounter Procedures Procedure Name Priority Date/Time Associated Diagnosis Comments EKG SCANNED RESULT 04/01/2024 RADIOLOGY SCANNED RESULT 04/01/2024 RADIOLOGY SCANNED RESULT 04/01/2024 RADIOLOGY SCANNED RESULT 04/01/2024 RADIOLOGY SCANNED RESULT 04/01/2024 RADIOLOGY SCANNED RESULT 04/01/2024 RADIOLOGY SCANNED RESULT 04/01/2024 RADIOLOGY SCANNED RESULT 04/01/2024 documented in this encounter Results * RADIOLOGY SCANNED RESULT (04/01/2024) 04/01/2024 No Physician Data Unknown DIAGNOSTIC RAD IOLOGY SERVICES * RADIOLOGY SCANNED RESULT (04/01/2024) 04/01/2024 No Physician Data Unknown DIAGNOSTIC RAD IOLOGY SERVICES * RADIOLOGY SCANNED RESULT (04/01/2024) 04/01/2024 No Physician Data Unknown DIAGNOSTIC RAD IOLOGY SERVICES * RADIOLOGY SCANNED RESULT (04/01/2024) 04/01/2024 No Physician Data Unknown DIAGNOSTIC RAD IOLOGY SERVICES * RADIOLOGY SCANNED RESULT (04/01/2024) 04/01/2024 No Physician Data Unknown DIAGNOSTIC RAD IOLOGY SERVICES * RADIOLOGY SCANNED RESULT (04/01/2024) 04/01/2024 No Physician Data Unknown DIAGNOSTIC RAD IOLOGY SERVICES * RADIOLOGY SCANNED RESULT (04/01/2024) 04/01/2024 No Physician Data Unknown DIAGNOSTIC RAD IOLOGY SERVICES * EKG SCANNED RESULT (04/01/2024) 04/01/2024 No Physician Data Unknown EKG documented in this encounter Advance Directives * [...] Power of Attor haven? No Care Teams Snuff Blender Relationship Specialty Start Date End Date Ritesh Iniguez MD [address] [place] [address] PCP - General Family Medicine 03/27/18 documented as of this encounter
--- OUTSIDE RECORDS SUMMARY | 2024-04-08 01:52 | External Medical Summary ---
Author Name Unknown Address Unknown Organization K01:[facility] [place] [facility] [place] [address] [place] [address] Laboratory Report Ordering Provider Test Date Status STUART MERINO 04/03/2024 13:47:00 Final Observation Date Value Abnormality Reference (Units ) Status ABO 04/03/2024 13:47:00 A Final RH 04/03/2024 13:47:00 Negative Final RED BLOOD CELL ANTIBODY SCREEN 04/03/2024 13:47:00 Negative Final SPECIMEN EXPIRATION DATE 04/03/2024 13:47:00 04/06/2024 23:59 Final Performing Location [facility] [place] [address] [place] [address]
--- OUTSIDE RECORDS SUMMARY | 2024-04-08 01:52 | External Medical Summary ---
Author Name Unknown Address Unknown Organization K01:[facility] [place] [address] [place] [address] Laboratory Report Ordering Provider Test Date Status STUART MERINO 04/03/2024 13:47:00 Final Observation Date Value Abnormality Reference (Units ) Status HbA1C 04/03/2024 13:47:00 5.5 4.0-5.6 (% ) Final The use of HbA1c to monitor glycemic status is based on normal hemoglobin and HbA composition. This test should not be used in patients with abnormal hemoglobin that affects the half life of the red blood cell or the in vivo glycation rates. Glucose, estimated average 04/03/2024 13:47:00 111 <126 (mg/dL) Final Performing Location [facility] [place] - [address] [place] [address]
--- OUTSIDE RECORDS SUMMARY | 2024-04-08 01:52 | External Medical Summary | Summary of Care ---
Author Name Unknown Organization [facility] Address [address] [place] [address] Phone [phone] Care Team Providers Care Administrative Professional Name Role Phone Ritesh Iniguez MD Primary Care Provider [phone] Encounter Details Date Type Department Care Team (Late st Contact Info) Description 04/01/2024 Orders Only Unspecified Department Corry Amezcua MD [address] [facility] [place] [address] Allergies Active Allergy Reactions Criticality [...] 11/05/2022 Overview: Per CKD protocol Atherosclerosis of [place] co ronary artery of [place] heart with stable angina pectoris 10/12/2022 Coronary artery disease invo lving [place] coronary artery of [place] heart without angina pectoris 11/06/2019 Gastroesophageal reflux disease without esophagi tis 11/06/2019 Old [place] (myocardial infarction) 11/06/2019 Primary osteoarthritis of both [...] 31.39 08/14/11 08/14/2011 01/29/2017 VERDICT Clinical Trial [id number] 1 09/30/2013 Overview: Renamed per the [facility] for Medicare and Medicaid billing requirements to include Clinical Trial.gov number. VERDICT Clinical Trial [id number] 1 09/01/2014 Overview: Renamed per the [facility] for Medicare and Medicaid billing requirements to include Clinical Trial.gov number. Stable angina 08/02/2011 09/29/2018 OBESITY, BMI= 31.05 01/23/11 01/23/2011 0 01/29/2017 Heartburn 01/23/2011 01/03/2016 OBESITY, BMI= 31.38 04/25/10 04/25/2010 0 01/29/2017 Screening for prostate cancer 04/25/2010 01/03/2016 Subjective tinnitus 04/25/2010 10/28/19 15 OBESITY, BMI 30-34 (SEE ACTUAL BMI) 12/15/2009 04/25/2010 Overview: Per Obesity Taxonomy CORON ATHEROSCL [place] CORON VESSEL 11/01/2009 04/25/2010 Migraine 11/01/2009 10/28/2014 Overweight (BMI 25.0-29.9) 08/15/2009 0 12/15/2009 Overview: Per Obesity Taxonomy Angina pectoris 07/01/2009 04/25/2010 Need for pneumococcal vaccination 07/01/2009 10/28/2014 Need for diphtheria-tetanus- pertussis (Tdap) vaccine 07/01/2009 10/28/2014 EXAMINATION OF PARTICIPANT I N CLINICAL TRIAL-Genomics 06/24/2009 01/06/2010 Overview: Renamed Per Clinical Trials Billing Project. Study Titile: Genomic Markers for Patients with Cardiovascular Disease Project #[id number] PI: Asia Hebert MD Please call [phone] with study related questions Unstable angina 06/24/2009 08/02/2011 Dyslipidemia, goal to be determined 06/24/2009 08/17/2009 Overview: Per Lipid Taxonomy HTN, goal to be determined 06/24/2009 1 09/28/2008 Overview: Per HTN Taxonomy GENOMICS CARDIO RESEARCH OTHER*[id number] 06/24/2009 10/30/2016 Overview: Renamed Per Clinical Trials Billing Project. Study Titile: Genomic Markers for Patients with Cardiovascular Disease Project #[id number] PI: Asia Hebert MD Please call [phone] with study related questions Screening for prostate [...] was given about 6 yrs ago by [employer], get date) documented as of this encounter [...] Description 04/14/2024 8:20 AM EDT Office Visit [facility] [address] [place] [phone] Ritesh Iniguez MD [address] [place] [address] Scheduled Procedures Name Priority Associated [...] Additional history exists CKD PHOS USE SMARTSET 75632 12/29/2024 04/0 04/2024, 01/10/2023, 01/05/2016 TSH 03/10/2025 03/10/2024, 0 04/2024, 01/10/2023, Additional history exists CKD HGB USE SMARTSET 17334 04/02/202504/02, 04/02/2024, 03/10/2024, Additional history exists Colonoscopy [...] this encounter Medical Devices Implanted Type Area Management Accountant Device Identifier Shelf Expiration Date Model / Serial / Lot Suture Steel 6 B&S19 M654g - [id number] Implanted:Qty: 4 on 08/19/2018 by Brenna Perez MD at [place] [facility] [place] N/A: Sternum JNJ : [employer] 04/22/2023 M654G / / M654 Clip Occl Atri Flex V 45mm - [id number] - [id number] Implanted:Qty: 1 on 08/19/2018 by Brenna Perez MD at [place] [facility] [place] ATRICURE 03/23/2021 [id number] / [id number] / Duraclip 16mm Xlg Repostn - [id number] Implanted:Qty: 1 on 05/30/2022 by Juventino Degroot DO at ENDOSCOPY [facility] [employer] SYLVIE 11/08/2023 [id number] / / documented as of this encounter [...] study not interpreted or resulted by a [facility] or [facility] contracted radiologist. Corry Amezcua MD [...] Power of Attor haven? No Care Teams Administrative Professional Relationship Specialty Start Date End Date Ritesh Iniguez MD [address] [facility] [place] [address] PCP - General Family Medicine 03/27/18 documented as of this encounter
--- OUTSIDE RECORDS SUMMARY | 2024-04-08 01:53 | External Medical Summary | Summary of Care ---
Author Name Unknown Organization [facility] Address [address] [place] [address] Phone [phone] Care Team Providers Care Terra Cotta Roofer Helper Name Role Phone Ritesh Iniguez MD Primary Care Provider [phone] Encounter Details Date Type Department Care Team (Late st Contact Info) Description 04/01/2024 Orders Only Unspecified Department Corry Amezcua MD [address] [facility] [place] [address] Allergies Active Allergy Reactions Criticality [...] 11/05/2022 Overview: Per CKD protocol Atherosclerosis of [place] co ronary artery of [place] heart with stable angina pectoris 10/12/2022 Coronary artery disease invo lving [place] coronary artery of [place] heart without angina pectoris 11/06/2019 Gastroesophageal reflux disease without esophagi tis 11/06/2019 Old [place] (myocardial infarction) 11/06/2019 Primary osteoarthritis of both [...] 31.39 08/14/11 08/14/2011 01/29/2017 VERDICT Clinical Trial [id number] 1 09/30/2013 Overview: Renamed per the [facility] for Medicare and Medicaid billing requirements to include Clinical Trial.gov number. VERDICT Clinical Trial [id number] 1 09/01/2014 Overview: Renamed per the [facility] for Medicare and Medicaid billing requirements to include Clinical Trial.gov number. Stable angina 08/02/2011 09/29/2018 OBESITY, BMI= 31.05 01/23/11 01/23/2011 0 01/29/2017 Heartburn 01/23/2011 01/03/2016 OBESITY, BMI= 31.38 04/25/10 04/25/2010 0 01/29/2017 Screening for prostate cancer 04/25/2010 01/03/2016 Subjective tinnitus 04/25/2010 10/28/19 15 OBESITY, BMI 30-34 (SEE ACTUAL BMI) 12/15/2009 04/25/2010 Overview: Per Obesity Taxonomy CORON ATHEROSCL [place] CORON VESSEL 11/01/2009 04/25/2010 Migraine 11/01/2009 10/28/2014 Overweight (BMI 25.0-29.9) 08/15/2009 0 12/15/2009 Overview: Per Obesity Taxonomy Angina pectoris 07/01/2009 04/25/2010 Need for pneumococcal vaccination 07/01/2009 10/28/2014 Need for diphtheria-tetanus- pertussis (Tdap) vaccine 07/01/2009 10/28/2014 EXAMINATION OF PARTICIPANT I N CLINICAL TRIAL-Genomics 06/24/2009 01/06/2010 Overview: Renamed Per Clinical Trials Billing Project. Study Titile: Genomic Markers for Patients with Cardiovascular Disease Project #[id number] PI: Asia Hebert MD Please call [phone] with study related questions Unstable angina 06/24/2009 08/02/2011 Dyslipidemia, goal to be determined 06/24/2009 08/17/2009 Overview: Per Lipid Taxonomy HTN, goal to be determined 06/24/2009 1 09/28/2008 Overview: Per HTN Taxonomy GENOMICS CARDIO RESEARCH OTHER*[id number] 06/24/2009 10/30/2016 Overview: Renamed Per Clinical Trials Billing Project. Study Titile: Genomic Markers for Patients with Cardiovascular Disease Project #[id number] PI: Asia Hebert MD Please call [phone] with study related questions Screening for prostate [...] was given about 6 yrs ago by [employer], get date) documented as of this encounter [...] Description 04/14/2024 8:20 AM EDT Office Visit [facility] [address] [place] [phone] Ritesh Iniguez MD [address] [place] [address] Scheduled Procedures Name Priority Associated [...] Additional history exists CKD PHOS USE SMARTSET 05129 12/29/2024 04/0 04/2024, 01/10/2023, 01/05/2016 TSH 03/10/2025 03/10/2024, 0 04/2024, 01/10/2023, Additional history exists CKD HGB USE SMARTSET 11551 04/02/202504/02, 04/02/2024, 03/10/2024, Additional history exists Colonoscopy [...] this encounter Medical Devices Implanted Type Area Burlesque Dancer Device Identifier Shelf Expiration Date Model / Serial / Lot Suture Steel 6 B&S19 M654g - [id number] Implanted:Qty: 4 on 08/19/2018 by Brenna Perez MD at [place] [facility] [place] N/A: Sternum JNJ : [employer] 04/22/2023 M654G / / M654 Clip Occl Atri Flex V 45mm - [id number] - [id number] Implanted:Qty: 1 on 08/19/2018 by Brenna Perez MD at [place] [facility] [place] ATRICURE 03/23/2021 [id number] / [id number] / Duraclip 16mm Xlg Repostn - [id number] Implanted:Qty: 1 on 05/30/2022 by Juventino Degroot DO at [facility]COPY [facility] [employer] SYLVIE 11/08/2023 [id number] / / documented as of this encounter [...] study not interpreted or resulted by a [facility] or [facility] contracted radiologist. Corry Amezcua MD RAD [...] Power of Attor haven? No Care Teams Terra Cotta Roofer Helper Relationship Specialty Start Date End Date Ritesh Iniguez MD [address] [place] [address] PCP - General Family Medicine 03/27/18 documented as of this encounter
--- OUTSIDE RECORDS SUMMARY | 2024-04-08 01:53 | External Medical Summary | Summary of Care ---
Author Name Unknown Organization [facility] Address [address] [place] [address] Phone [phone] Care Team Providers Care Tape Cutting Machine Operator Name Role Phone Ritesh Iniguez MD Primary Care Provider [phone] Encounter Details Date Type Department Care Team (Late st Contact Info) Description 04/01/2024 Orders Only Unspecified Department Corry Amezcua MD [address] [facility] [place] [address] Allergies Active Allergy Reactions Criticality [...] Overview: Per CKD protocol Atherosclerosis of [place] co ronary artery of [place] heart with stable angina pectoris 10/12/2022 Coronary artery disease invo lving [place] coronary artery of [place] heart without angina pectoris 11/06/2019 Gastroesophageal reflux disease without esophagi tis 11/06/2019 Old [place] (myocardial infarction) 11/06/2019 Primary osteoarthritis of both [...] 31.39 08/14/11 08/14/2011 01/29/2017 VERDICT Clinical Trial [id number] 1 09/30/2013 Overview: Renamed per the [facility] for Medicare and Medicaid billing requirements to include Clinical Trial.gov number. VERDICT Clinical Trial [id number] 1 09/01/2014 Overview: Renamed per the [facility] for Medicare and Medicaid billing requirements to include Clinical Trial.gov number. Stable angina 08/02/2011 09/29/2018 OBESITY, BMI= 31.05 01/23/11 01/23/2011 0 01/29/2017 Heartburn 01/23/2011 01/03/2016 OBESITY, BMI= 31.38 04/25/10 04/25/2010 0 01/29/2017 Screening for prostate cancer 04/25/2010 01/03/2016 Subjective tinnitus 04/25/2010 10/28/19 15 OBESITY, BMI 30-34 (SEE ACTUAL BMI) 12/15/2009 04/25/2010 Overview: Per Obesity Taxonomy CORON ATHEROSCL [place] CORON VESSEL 11/01/2009 04/25/2010 Migraine 11/01/2009 10/28/2014 Overweight (BMI 25.0-29.9) 08/15/2009 0 12/15/2009 Overview: Per Obesity Taxonomy Angina pectoris 07/01/2009 04/25/2010 Need for pneumococcal vaccination 07/01/2009 10/28/2014 Need for diphtheria-tetanus- pertussis (Tdap) vaccine 07/01/2009 10/28/2014 EXAMINATION OF PARTICIPANT I N CLINICAL TRIAL-Genomics 06/24/2009 01/06/2010 Overview: Renamed Per Clinical Trials Billing Project. Study Titile: Genomic Markers for Patients with Cardiovascular Disease Project #[id number] PI: Asia Hebert MD Please call [phone] with study related questions Unstable angina 06/24/2009 08/02/2011 Dyslipidemia, goal to be determined 06/24/2009 08/17/2009 Overview: Per Lipid Taxonomy HTN, goal to be determined 06/24/2009 1 09/28/2008 Overview: Per HTN Taxonomy GENOMICS CARDIO RESEARCH OTHER*[id number] 06/24/2009 10/30/2016 Overview: Renamed Per Clinical Trials Billing Project. Study Titile: Genomic Markers for Patients with Cardiovascular Disease Project #[id number] PI: Asia Hebert MD Please call [phone] with study related questions Screening for prostate [...] was given about 6 yrs ago by [employer], get date) documented as of this encounter [...] Visit [facility] [address] [place] [phone] Ritesh Iniguez MD [address] [place] [address] Scheduled Procedures Name Priority Associated [...] Additional history exists CKD PHOS USE SMARTSET 52222 12/29/2024 04/0 04/2024, 01/10/2023, 01/05/2016 TSH 03/10/2025 03/10/2024, 0 04/2024, 01/10/2023, Additional history exists CKD HGB USE SMARTSET 56865 04/02/202504/02, 04/02/2024, 03/10/2024, Additional history exists Colonoscopy [...] this encounter Medical Devices Implanted Type Area Baking Factory Worker Device Identifier Shelf Expiration Date Model / Serial / Lot Suture Steel 6 B&S19 M654g - [id number] Implanted:Qty: 4 on 08/19/2018 by Brenna Perez MD at [place] [facility] [place] N/A: Sternum JNJ : [employer] 04/22/2023 M654G / / M654 Clip Occl Atri Flex V 45mm - [id number] - [id number] Implanted:Qty: 1 on 08/19/2018 by Brenna Perez MD at [place] [facility] [place] ATRICURE 03/23/2021 ACHV45 / [id number] / Duraclip 16mm Xlg Repostn - [id number] Implanted:Qty: 1 on 05/30/2022 by Juventino Degroot DO at ENDOSCOPY [facility] [employer] SYLVIE 11/08/2023 [id number] / / documented as of this encounter [...] study not interpreted or resulted by a [facility] or [facility] contracted radiologist. Corry Amezcua MD RAD CT [...] Power of Attor haven? No Care Teams Tape Cutting Machine Operator Relationship Specialty Start Date End Date Ritesh Iniguez MD [address] [facility] [place] [address] PCP - General Family Medicine 03/27/18 documented as of this encounter
--- OUTSIDE RECORDS SUMMARY | 2024-04-08 01:53 | External Medical Summary | Summary of Care ---
Author Name Unknown Organization [facility] Address [address] [place] [address] Phone [phone] Care Team Providers Care Costume Rental Clerk Name Role Phone Ritesh Iniguez MD Primary Care Provider [phone] Encounter Details Date Type Department Care Team (Late st Contact Info) Description 04/01/2024 Orders Only Unspecified Department Corry Amezcua MD [address] [facility] [place] [address] Allergies Active Allergy Reactions Criticality [...] 11/05/2022 Overview: Per CKD protocol Atherosclerosis of [place] co ronary artery of [place] heart with stable angina pectoris 10/12/2022 Coronary artery disease invo lving [place] coronary artery of [place] heart without angina pectoris 11/06/2019 Gastroesophageal reflux disease without esophagi tis 11/06/2019 Old [place] (myocardial infarction) 11/06/2019 Primary osteoarthritis of both [...] 31.39 08/14/11 08/14/2011 01/29/2017 VERDICT Clinical Trial [id number] 1 09/30/2013 Overview: Renamed per the [facility] for Medicare and Medicaid billing requirements to include Clinical Trial.gov number. VERDICT Clinical Trial [id number] 1 09/01/2014 Overview: Renamed per the [facility] for Medicare and Medicaid billing requirements to include Clinical Trial.gov number. Stable angina 08/02/2011 09/29/2018 OBESITY, BMI= 31.05 01/23/11 01/23/2011 0 01/29/2017 Heartburn 01/23/2011 01/03/2016 OBESITY, BMI= 31.38 04/25/10 04/25/2010 0 01/29/2017 Screening for prostate cancer 04/25/2010 01/03/2016 Subjective tinnitus 04/25/2010 10/28/19 15 OBESITY, BMI 30-34 (SEE ACTUAL BMI) 12/15/2009 04/25/2010 Overview: Per Obesity Taxonomy CORON ATHEROSCL [place] CORON VESSEL 11/01/2009 04/25/2010 Migraine 11/01/2009 10/28/2014 Overweight (BMI 25.0-29.9) 08/15/2009 0 12/15/2009 Overview: Per Obesity Taxonomy Angina pectoris 07/01/2009 04/25/2010 Need for pneumococcal vaccination 07/01/2009 10/28/2014 Need for diphtheria-tetanus- pertussis (Tdap) vaccine 07/01/2009 10/28/2014 EXAMINATION OF PARTICIPANT I N CLINICAL TRIAL-Genomics 06/24/2009 01/06/2010 Overview: Renamed Per Clinical Trials Billing Project. Study Titile: Genomic Markers for Patients with Cardiovascular Disease Project #[id number] PI: Asia Hebert MD Please call [phone] with study related questions Unstable angina 06/24/2009 08/02/2011 Dyslipidemia, goal to be determined 06/24/2009 08/17/2009 Overview: Per Lipid Taxonomy HTN, goal to be determined 06/24/2009 1 09/28/2008 Overview: Per HTN Taxonomy GENOMICS CARDIO RESEARCH OTHER*[id number] 06/24/2009 10/30/2016 Overview: Renamed Per Clinical Trials Billing Project. Study Titile: Genomic Markers for Patients with Cardiovascular Disease Project #[id number] PI: Asia Hebert MD Please call [phone] with study related questions Screening for prostate [...] was given about 6 yrs ago by [employer], get date) documented as of this encounter [...] Description 04/14/2024 8:20 AM EDT Office Visit [facility] [address] [place] [phone] Ritesh Iniguez MD [address] [place] [address] Scheduled Procedures Name Priority Associated [...] Additional history exists CKD PHOS USE SMARTSET 33817 12/29/2024 04/0 04/2024, 01/10/2023, 01/05/2016 TSH 03/10/2025 03/10/2024, 0 04/2024, 01/10/2023, Additional history exists CKD HGB USE SMARTSET 47892 04/02/202504/02, 04/02/2024, 03/10/2024, Additional history exists Colonoscopy [...] encounter Medical Devices Implanted Type Area Seed Potato Cutter Device Identifier Shelf Expiration Date Model / Serial / Lot Suture Steel 6 B&S19 M654g - [id number] Implanted:Qty: 4 on 08/19/2018 by Brenna Perez MD [place] [facility] [place]: Sternum JNJ : [employer] 04/22/2023 M654G / / M654 Clip Occl Atri Flex V 45mm - [id number] - [id number] Implanted:Qty: 1 on 08/19/2018 by Brenna Perez MD [place] [facility] [place] ATRICURE 03/23/2021 [id number] / [id number] / Duraclip 16mm Xlg Repostn - [id number] Implanted:Qty: 1 on 05/30/2022 by Juventino Degroot DO at ENDOSCOPY [facility] [employer] SYLVIE 11/08/2023 [id number] / / documented as of this encounter [...] study not interpreted or resulted by a [facility]ologist. Corry Amezcua MD [...] Power of Attor haven? No Care Teams Costume Rental Clerk Relationship Specialty Start Date End Date Ritesh Iniguez MD [address] [place] [address] PCP - General Family Medicine 03/27/18 documented as of this encounter
--- OUTSIDE RECORDS SUMMARY | 2024-04-08 01:53 | External Medical Summary | Summary of Care ---
Author Name Unknown Organization [facility] Address [address] [place] [address] Phone [phone] Care Team Providers Care Catalytic Case Operator Name Role Phone Ritesh Iniguez MD Primary Care Provider [phone] Encounter Details Date Type Department Care Team (Late st Contact Info) Description 04/01/2024 Orders Only Unspecified Department Corry Amezcua MD [address] [facility] [place] [address] Allergies Active Allergy Reactions Criticality [...] 11/05/2022 Overview: Per CKD protocol Atherosclerosis of [place] co ronary artery of [place] heart with stable angina pectoris 10/12/2022 Coronary artery disease invo lving [place] coronary artery of [place] heart without angina pectoris 11/06/2019 Gastroesophageal reflux [...] 31.39 08/14/11 08/14/2011 01/29/2017 VERDICT Clinical Trial [id number] 1 09/30/2013 Overview: Renamed per the [facility] for Medicare and Medicaid billing requirements to include Clinical Trial.gov number. VERDICT Clinical Trial [id number] 1 09/01/2014 Overview: Renamed per the [facility] for Medicare and Medicaid billing requirements to include Clinical Trial.gov number. Stable angina 08/02/2011 09/29/2018 OBESITY, BMI= 31.05 01/23/11 01/23/2011 0 01/29/2017 Heartburn 01/23/2011 01/03/2016 OBESITY, BMI= 31.38 04/25/10 04/25/2010 0 01/29/2017 Screening for prostate cancer 04/25/2010 01/03/2016 Subjective tinnitus 04/25/2010 10/28/19 15 OBESITY, BMI 30-34 (SEE ACTUAL BMI) 12/15/2009 04/25/2010 Overview: Per Obesity Taxonomy CORON ATHEROSCL [place] CORON VESSEL 11/01/2009 04/25/2010 Migraine 11/01/2009 10/28/2014 Overweight (BMI 25.0-29.9) 08/15/2009 0 12/15/2009 Overview: Per Obesity Taxonomy Angina pectoris 07/01/2009 04/25/2010 Need for pneumococcal vaccination 07/01/2009 10/28/2014 Need for diphtheria-tetanus- pertussis (Tdap) vaccine 07/01/2009 10/28/2014 EXAMINATION OF PARTICIPANT I N CLINICAL TRIAL-Genomics 06/24/2009 01/06/2010 Overview: Renamed Per Clinical Trials Billing Project. Study Titile: Genomic Markers for Patients with Cardiovascular Disease Project #[id number] PI: Asia Hebert MD Please call [phone] with study related questions Unstable angina 06/24/2009 08/02/2011 Dyslipidemia, goal to be determined 06/24/2009 08/17/2009 Overview: Per Lipid Taxonomy HTN, goal to be determined 06/24/2009 1 09/28/2008 Overview: Per HTN Taxonomy GENOMICS CARDIO RESEARCH OTHER*[id number] 06/24/2009 10/30/2016 Overview: Renamed Per Clinical Trials Billing Project. Study Titile: Genomic Markers for Patients with Cardiovascular Disease Project #[id number] PI: Asia Hebert MD Please call [phone] with study related questions Screening for prostate [...] was given about 6 yrs ago by [employer], get date) documented as of this encounter [...] Description 04/14/2024 8:20 AM EDT Office Visit [facility] [address] [place] [phone] Ritesh Iniguez MD [address] [place] [address] Scheduled Procedures Name Priority Associated [...] Additional history exists CKD PHOS USE SMARTSET 99052 12/29/2024 04/0 04/2024, 01/10/2023, 01/05/2016 TSH 03/10/2025 03/10/2024, 0 04/2024, 01/10/2023, Additional history exists CKD HGB USE SMARTSET 80616 04/02/202504/02, 04/02/2024, 03/10/2024, Additional history exists Colonoscopy [...] this encounter Medical Devices Implanted Type Area Garden Tractor Mechanic Device Identifier Shelf Expiration Date Model / Serial / Lot Suture Steel 6 B&S19 M654g - [id number] Implanted:Qty: 4 on 08/19/2018 by Brenna Perez MD at [place] [facility] [place] N/A: Sternum JNJ : [employer] 04/22/2023 M654G / / M654 Clip Occl Atri Flex V 45mm - [id number] - [id number] Implanted:Qty: 1 on 08/19/2018 by Brenna Perez MD at [place] [facility] [place] ATRICURE 03/23/2021 ACHV45 / [id number] / Duraclip 16mm Xlg Repostn - [id number] Implanted:Qty: 1 on 05/30/2022 by Juventino Degroot DO at ENDOSCOPY [facility] [email or web address] SYLVIE 11/08/2023 [id number] / / documented as of this encounter [...] interpreted or resulted by a [facility] or [facility] contracted radiologist. Corry Amezcua MD RADIOLOGY (RAD [...] Power of Attor haven? No Care Teams Catalytic Case Operator Relationship Specialty Start Date End Date Ritesh Iniguez MD [address] [facility] [place] [address] PCP - General Family Medicine 03/27/18 documented as of this encounter
--- OUTSIDE RECORDS SUMMARY | 2024-04-08 01:53 | External Medical Summary | Summary of Care ---
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 VERDICT Clinical Trial [id number] 1 09/01/2014 Overview: Renamed per the [facility] for Medicare and Medicaid billing requirements to include Clinical Trial.gov number. Stable angina 08/02/2011 09/29/2018 OBESITY, BMI= 31.05 01/23/11 01/23/2011 0 01/29/2017 Heartburn 01/23/2011 01/03/2016 OBESITY, BMI= 31.38 04/25/10 04/25/2010 0 01/29/2017 Screening for prostate cancer 04/25/2010 01/03/2016 Subjective tinnitus 04/25/2010 10/28/19 15 OBESITY, BMI 30-34 (SEE ACTUAL BMI) 12/15/2009 04/25/2010 Overview: Per Obesity Taxonomy CORON ATHEROSCL [place] CORON VESSEL 11/01/2009 04/25/2010 Migraine 11/01/2009 10/28/2014 Overweight (BMI 25.0-29.9) 08/15/2009 0 12/15/2009 Overview: Per Obesity Taxonomy Angina pectoris 07/01/2009 04/25/2010 Need for pneumococcal vaccination 07/01/2009 10/28/2014 Need for diphtheria-tetanus- pertussis (Tdap) vaccine 07/01/2009 10/28/2014 EXAMINATION OF PARTICIPANT I N CLINICAL TRIAL-Genomics 06/24/2009 01/06/2010 Overview: Renamed Per Clinical Trials Billing Project. Study Titile: Genomic Markers for Patients with Cardiovascular Disease Project #[id number] PI: Asia Hebert MD Please call [phone] with study related questions Unstable angina 06/24/2009 08/02/2011 Dyslipidemia, goal to be determined 06/24/2009 08/17/2009 Overview: Per Lipid Taxonomy HTN, goal to be determined 06/24/2009 1 09/28/2008 Overview: Per HTN Taxonomy GENOMICS CARDIO RESEARCH OTHER*[id number] 06/24/2009 10/30/2016 Overview: Renamed Per Clinical Trials Billing Project. Study Titile: Genomic Markers for Patients with Cardiovascular Disease Project #[id number] PI: Asia Hebert MD Please call [phone] with study related questions Screening for prostate [...] was given about 6 yrs ago by [employer], get date) documented as of this encounter [...] AM EDT Office Visit [facility] [address] [place] [phone] Ritesh Iniguez MD [address] [place] [address] Scheduled Procedures Name Priority Associated [...] Additional history exists CKD PHOS USE SMARTSET 08526 12/29/2024 04/0 04/2024, 01/10/2023, 01/05/2016 TSH 03/10/2025 03/10/2024, 0 04/2024, 01/10/2023, Additional history exists CKD HGB USE SMARTSET 98852 04/02/202504/02, 04/02/2024, 03/10/2024, Additional history exists Colonoscopy [...] this encounter Medical Devices Implanted Type Area Flexible Babysitter Device Identifier Shelf Expiration Date Model / Serial / Lot Suture Steel 6 B&S19 M654g - [id number] Implanted:Qty: 4 on 08/19/2018 by Brenna Perez MD [place] [facility] [place]A: Sternum JNJ : [employer] 04/22/2023 M654G / / M654 Clip Occl Atri Flex V 45mm - [id number] - [id number] Implanted:Qty: 1 on 08/19/2018 by Brenna Perez MD at [place] [facility] [place] ATRICURE 03/23/2021 ACHV45 / [id number] / Duraclip 16mm Xlg Repostn - [id number] Implanted:Qty: 1 on 05/30/2022 by Juventino Degroot DO at ENDOSCOPY [facility] [employer] SYLVIE 11/08/2023 [id number] / / documented as of this encounter [...] by a [facility] or [facility] contracted radiologist. Corry Amezcua MD RAD MRI-MRA [...] Power of Attor haven? No Care Teams Bone Glue Maker Relationship Specialty Start Date End Date Ritesh Iniguez MD [address] [place] [address] PCP - General Family Medicine 03/27/18 documented as of this encounter
--- OUTSIDE RECORDS SUMMARY | 2024-04-08 01:54 | External Medical Summary | Summary of Care ---
Author Name Unknown Organization [facility] Address [address] [place] [address] Phone [phone] Care Team Providers Care Paper Steamer Name Role Phone Angel Ingiuez MD Primary Care Provider Reason for Referral * Precert (Within 10 days (routine)) - Pending Review Specialty Diagnoses / Procedures Referred By Contac t Referred To Contact Radiology Diagnoses Acute right flank pain Procedures CT ABD/PELVIS WO IV/ORAL CONTRAST Angel Iniguez MD [address] [place] [address] Referral ID Status Reason Start Date Expiration Date V isits Requested Visits Authorized [id number] Pending Review 03/19/2024 999 999 Reason for Visit * Reason Onset Date Comments Test Results 03/12/2024 Encounter Details Date Type Department Care Team (Late st Contact Info) Description 03/12/2024 Telephone [facility] [address] [place] [address] Angel Iniguez MD [address] [place] [address] Test Results Allergies Active Allergy [...] 11/05/2022 Overview: Per CKD protocol Atherosclerosis of [place] co ronary artery of [place] heart with stable angina pectoris 10/12/2022 Coronary artery disease invo lving [place] coronary artery of [place] heart without angina pectoris 11/06/2019 Gastroesophageal reflux disease without esophagi tis 11/06/2019 Old [place] (myocardial infarction) 11/06/2019 Primary osteoarthritis of both [...] 31.39 08/14/11 08/14/2011 01/29/2017 VERDICT Clinical Trial [id number] 1 09/30/2013 Overview: Renamed per the Centers for Medicare and Medicaid billing requirements to include Clinical Trial.gov number. VERDICT Clinical Trial [id number] 1 09/01/2014 Overview: Renamed per the Centers [...] 04/25/2010 Overview: Per Obesity Taxonomy CORON ATHEROSCL [place] CORON VESSEL 11/01/2009 04/25/2010 Migraine 11/01/2009 10/28/2014 Overweight (BMI 25.0-29.9) 08/15/2009 0 12/15/2009 Overview: Per Obesity Taxonomy Angina pectoris 07/01/2009 04/25/2010 Need for pneumococcal vaccination 07/01/2009 10/28/2014 Need for diphtheria-tetanus- pertussis (Tdap) vaccine 07/01/2009 10/28/2014 EXAMINATION OF PARTICIPANT I N CLINICAL TRIAL-Genomics 06/24/2009 01/06/2010 Overview: Renamed Per Clinical Trials Billing Project. Study Titile: Genomic Markers for Patients with Cardiovascular Disease Project #[id number] PI: Asia Hebert MD Please call [phone] with study related questions Unstable angina 06/24/2009 08/02/2011 Dyslipidemia, goal to be determined 06/24/2009 08/17/2009 Overview: Per Lipid Taxonomy HTN, goal to be determined 06/24/2009 1 09/28/2008 Overview: Per HTN Taxonomy GENOMICS CARDIO RESEARCH OTHER*[id number] 06/24/2009 10/30/2016 Overview: Renamed Per Clinical Trials Billing Project. Study Titile: Genomic Markers for Patients with Cardiovascular Disease Project #[id number] PI: Asia Hebert MD Please call [phone] with study related questions Screening for prostate [...] was given about 6 yrs ago by [employer], get date) documented as of this encounter [...] completed please advise Thank you, Marcelina Causey Flight Communications Operator II [facility] ([facility]) (formerly [...] polymyalgia rheumatica and thus no need for oil heaterman steroid. Also get Ct scan * Telephone [...] Pharmacy selected. * Telephone Encounter - Asuncion iMlls LPN - 03/13/2024 3:07 PM EDT Left message for pt to call back. * Telephone Encounter - Zeina Castanon OSA - 03/13/2024 3:01 PM EDT Reason for patient's call: Test Results Please call Pt at [phone] * Telephone Encounter - Krissy Monroe LPN [...] time. * Telephone Encounter - [facility] - 03/12/2024 4:06 PM EDT Pt calling [...] Clinical Pharmacy Services ([facility]) 03/12/24 4:12 PM [phone] Electronically signed by [facility] at 03/12/2024 4:16 PM EDT * Telephone Encounter - Verna Lawson PHARM Tech - 03/12/2024 3:59 PM EDT Pt calling for lab results. Transferred to RPsilvia Marquez. Thank you, Verna Lawson, Metalizing Machine Operator [facility] ([facility]) 03/12/2024,4:01 PM documented in this encounter Plan of Treatment Upcoming Encounters Date Type Department Care Team (Late st Contact Info) Description 04/14/2024 8:20 AM EDT Office Visit [facility] [address] [place] [address] Angel Iniguez MD [address] [place] [address] Scheduled Procedures Name Priority Associated [...] Additional history exists CKD PHOS USE SMARTSET 24220 12/29/2024 04/0 04/2024, 01/10/2023, 01/05/2016 CKD HGB USE SMARTSET 62469 03/10/202503/10, 03/10/2024, 12/30/2023, Additional history exists TSH [...] this encounter Medical Devices Implanted Type Area Roll Operator Device Identifier Shelf Expiration Date Model / Serial / Lot Suture Steel 6 B&S19 M654g - [id number] Implanted:Qty: 4 on 08/19/2018 [place] [facility] [place] Sternum JNJ : [employer] 04/22/2023 M654G / / M654 Clip Occl Atri Flex V 45mm - [id number] - [id number] Implanted:Qty: 1 on 08/19/2018 by Brenna Perez MD [place] [facility] [place] 03/23/2021 ACHV45 / [id number] / Duraclip 16mm Xlg Repostn - [id number] Implanted:Qty: 1 on 05/30/2022 by Juventino Degroot DO at ENDOSCOPY [facility] [employer] 11/08/2023 [id number] / / documented as of this encounter [...] the solid organs. 2. Consistent with the [employer]'s Incidental Findings Committee white [...] inthe solid organs. 2. Consistent with the [employer]'s IncidentalFindings Committee white paper [...] Power of Attor haven? No Care Teams Paper Steamer Relationship Specialty Start Date End Date Angel Iniguez MD [address] [place] [address] PCP - General Family Medicine 03/27/18 documented as of this encounter
--- OUTSIDE RECORDS SUMMARY | 2024-04-08 01:54 | External Medical Summary ---
Author Name Unknown Address Unknown Organization K01:LABORATORY [facility] [place] - [address] [place] [address] Laboratory Report Ordering Provider Test Date Status JOHN HERNANDEZHILL 04/02/2024 11:04:00 Final Observation Date Value Abnormality Reference (Units ) Status BUN 04/02/2024 11:04:00 17 6-20 (mg/dL) Final Creatinine 04/02/2024 11:04:00 1.3 Above high normal 0.6-1.2 (mg/dL) Final Glomerular filtration rate/1.73 sq M.predicted [Volume Rate/Area] in Serum, Plasma or Blood by Creatinine-based formula (CKD-EPI) 04/02/2024 11:04:00 59 Below low normal >=60 (mL/min) Final eGFR is calculated based on the CKD-EPI 2020 equation Sodium 04/02/2024 11:04:00 139 135-146 (m mol/L) Final Potassium 04/02/2024 11:04:00 4.8 3.5-5.1 (m mol/L) Final Cl 04/02/2024 11:04:00 104 98-107 (mm ol/L) Final CO2 04/02/2024 11:04:00 25 22-32 (mmo l/L) Final Anion gap 04/02/2024 11:04:00 10 7-15 (mmol /L) Final Glucose 04/02/2024 11:04:00 103 70-120 (mg /dL) Final Albumin 04/02/2024 11:04:00 4.1 3.8-5.0 (g /dL) Final AST (Aspartate aminotransferase) 04/02/2024 11:04:00 17 10-50 (U/L) Final Alk Phos 04/02/2024 11:04:00 73 35-130 (U/ L) Final Bilirubin, Total 04/02/2024 11:04:00 0.9 <=1 .2 (mg/dL) Final Calcium 04/02/2024 11:04:00 9.5 8.4-10.2 ( mg/dL) Final Protein 04/02/2024 11:04:00 6.9 6.0-8.3 (g /dL) Final ALT (Alanine aminotransferase) 04/02/2024 11:04:00 22 10-50 (U/L) Final Performing Location LABORATORY [facility] [place] - [address] [place] [facility] [address]
--- OUTSIDE RECORDS SUMMARY | 2024-04-08 01:54 | External Medical Summary | Summary of Care ---
Author Name Unknown Organization [facility] Address [address] [place] [address] Phone [phone] Care Team Providers Care Community Relations Manager Name Role Phone Angel Iniguez MD Primary Care Provider Reason for Referral * Precert (Within 10 days (routine)) - Pending Review Specialty Diagnoses / Procedures Referred By Contac t Referred To Contact Radiology Diagnoses Acute right flank pain Procedures CT ABD/PELVIS WO IV/ORAL CONTRAST Angel Iniguez MD [address] [place] [address] Referral ID Status Reason Start Date Expiration Date V isits Requested Visits Authorized [id number] Pending Review 03/19/2024 999 999 Reason for Visit * Reason Onset Date Comments Test Results 03/12/2024 Encounter Details Date Type Department Care Team (Late st Contact Info) Description 03/12/2024 Telephone [facility] [address] [place] [address] Angel Iniguez MD [address] [place] [address] Test Results Allergies Active Allergy [...] 11/05/2022 Overview: Per CKD protocol Atherosclerosis of [place] co ronary artery of [place] heart with stable angina pectoris 10/12/2022 Coronary artery disease invo lving [place] coronary artery of [place] heart without angina pectoris 11/06/2019 Gastroesophageal reflux disease without esophagi tis 11/06/2019 Old [place] (myocardial infarction) 11/06/2019 Primary osteoarthritis of both [...] 31.39 08/14/11 08/14/2011 01/29/2017 VERDICT Clinical Trial [id number] 1 09/30/2013 Overview: Renamed per the Centers for Medicare and Medicaid billing requirements to include Clinical Trial.gov number. VERDICT Clinical Trial [id number] 1 09/01/2014 Overview: Renamed per the Centers [...] 04/25/2010 Overview: Per Obesity Taxonomy CORON ATHEROSCL [place] CORON VESSEL 11/01/2009 04/25/2010 Migraine 11/01/2009 10/28/2014 Overweight (BMI 25.0-29.9) 08/15/2009 0 12/15/2009 Overview: Per Obesity Taxonomy Angina pectoris 07/01/2009 04/25/2010 Need for pneumococcal vaccination 07/01/2009 10/28/2014 Need for diphtheria-tetanus- pertussis (Tdap) vaccine 07/01/2009 10/28/2014 EXAMINATION OF PARTICIPANT I N CLINICAL TRIAL-Genomics 06/24/2009 01/06/2010 Overview: Renamed Per Clinical Trials Billing Project. Study Titile: Genomic Markers for Patients with Cardiovascular Disease Project #[id number] PI: Asia Hebert MD Please call [phone] with study related questions Unstable angina 06/24/2009 08/02/2011 Dyslipidemia, goal to be determined 06/24/2009 08/17/2009 Overview: Per Lipid Taxonomy HTN, goal to be determined 06/24/2009 1 09/28/2008 Overview: Per HTN Taxonomy GENOMICS CARDIO RESEARCH OTHER*[id number] 06/24/2009 10/30/2016 Overview: Renamed Per Clinical Trials Billing Project. Study Titile: Genomic Markers for Patients with Cardiovascular Disease Project #[id number] PI: Asia Hebert MD Please call [phone] with study related questions Screening for prostate [...] was given about 6 yrs ago by [employer], get date) documented as of this encounter [...] Telephone Encounter - Torie Jordan LPN - 04/02/2024 8:33 AM EDT Contacted patients spouse, she states the patient went to the hospital yesterday due to his chiropractor suggesting it. Patient went to [facility] to be seen for his neck and back shoulder pain, he is currently being transferred to [place]. Spouse is unsure why he is being transferred she thinks it is for back surgery consult and something to do with his Carotid artery. 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 Also get Ct scan [...] call: Test Results Please call Pt at [phone] * Telephone Encounter - Krissy Monroe LPN [...] Clinical Pharmacy Services ([facility]) 03/12/24 4:12 PM [phone] * Telephone Encounter - Verna Lawson PHARM Tech - 03/12/2024 3:59 PM EDT Pt calling for lab results. Transferred to [facility]. Thank you, Verna Lawson, Allergist [facility] ([facility]) 03/12/2024,4:01 PM documented in this encounter Plan of Treatment Upcoming Encounters Date Type Department Care Team (Late st Contact Info) Description 04/14/2024 8:20 AM EDT Office Visit [facility] [address] [place] [phone] Angel Iniguez MD [address] [place] [address] Scheduled Procedures Name Priority Associated [...] Additional history exists CKD PHOS USE SMARTSET 55321 12/29/2024 04/0 04/2024, 01/10/2023, 01/05/2016 CKD HGB USE SMARTSET 19012 03/10/202503/10, 03/10/2024, 12/30/2023, Additional history exists TSH [...] this encounter Medical Devices Implanted Type Area Tunnel Heading Supervisor Device Identifier Shelf Expiration Date Model / Serial / Lot Suture Steel 6 B&S19 M654g - [id number] Implanted:Qty: 4 on 08/19/2018 [place] Perez [place] [facility] [place] Sternum JNJ : [employer] 04/22/2023 M654G / / M654 Clip Occl Atri Flex V 45mm - [id number] - [id number] Implanted:Qty: 1 on 08/19/2018 by Brenna Perez MD [place] [facility] [place]TRIC[place] 03/23/2021 [id number] / [id number] / Duraclip 16mm Xlg Repostn - [id number] Implanted:Qty: 1 on 05/30/2022 by Juventino Degroot DO at [facility] [place] 11/08/2023 [id number] / / documented as of this encounter [...] the solid organs. 2. Consistent with the [place] [employer]'s Incidental Findings Committee white [...] inthe solid organs. 2. Consistent with the [place] [employer]'s IncidentalFindings Committee white paper [...] Power of Attor haven? No Care Teams Community Relations Manager Relationship Specialty Start Date End Date Angel Iniguez MD [address] [place] [address] PCP - General Family Medicine 03/27/18 documented as of this encounter
--- OUTSIDE RECORDS SUMMARY | 2024-04-08 01:54 | External Medical Summary ---
Author Name Unknown Address Unknown Organization K[place] [facility] [place] [facility] [address] [place] [address] Laboratory Report Ordering Provider Test Date Status BRIGITTE HERNANDEZ 04/02/2024 11:04:00 Final Observation Date Value Abnormality Reference (Units ) Status SYNC LEUKOCYTES IN BLOOD BY AUTOMATED COUNT 04/02/2024 11:04:00 8.63 4.00-10.80 (K/uL) Final Segs 04/02/2024 11:04:00 67.0 40.0-75.0 (%) Final Lymphs % 04/02/2024 11:04:00 21.7 18.0-42.0 (%) Final Monos 04/02/2024 11:04:00 9.4 1.0-11.0 (%) Final Eosinophils 04/02/2024 11:04:00 1.5 0.0-6.0 (%) Final Basos 04/02/2024 11:04:00 0.2 0.0-2.0 (%) Final Immature Granulocyte, Percent 04/02/2024 11:04:00 0.2 0.0-2.0 (%) Final Absolute Segs 04/02/2024 11:04:00 5.78 1.80-7.70 (K/uL) Final Lymphs, absolute 04/02/2024 11:04:00 1.87 1.00-4.80 (K/ul) Final Monos, Abs 04/02/2024 11:04:00 0.81 0.00-1.10 (K/uL) Final Eos, Abs 04/02/2024 11:04:00 0.13 0.00-0.70 (K/uL) Final Basos, Abs 04/02/2024 11:04:00 0.02 0.00-0.20 (K/uL) Final Immature Granulocytes, Number 04/02/2024 11:04:00 0.02 0.00-0.20 (K/uL) Final Performing Location LABORATORY [facility] - [address] [facility] [address]
--- OUTSIDE RECORDS SUMMARY | 2024-04-08 01:54 | External Medical Summary ---
Author Name Unknown Address Unknown Organization K01:[facility]ATORY [facility] [place] - [address] [place] [address] Laboratory Report Ordering Provider Test Date Status BRIGITTE HERNANDEZ 04/02/2024 11:04:00 Final Warfarin Therapy
INR: 2 .0-3.0 conventional anticoagulation
INR: 2.5- 3.5 high intensity anticoagulation Observation Date Value Abnormality Reference (Units ) Status PT 04/02/2024 11:04:00 12.7 11.6-15.2 (seconds) Final INR 04/02/2024 11:04:00 1.0 0.8-1.2 Final Performing Location LAB[facility]ATORY [facility] [place] - [facility] [place] [address]
--- OUTSIDE RECORDS SUMMARY | 2024-04-08 01:54 | External Medical Summary ---
Author Name Unknown Address Unknown Organization K01:LABORATORY [facility] [place] - [facility] [address] [place] [address] Laboratory Report Ordering Provider Test Date Status BRIGITTE HERNANDEZ 04/02/2024 11:04:00 Final Observation Date Value Abnormality Reference (Units ) Status WBC, Total 04/02/2024 11:04:00 8.63 4.00-10.80 (K/uL) Final RBC 04/02/2024 11:04:00 4.64 4.50-5.25 (M/uL) Final Hemoglobin 04/02/2024 11:04:00 14.6 14.0-16.8 (g/dL) Final HCT 04/02/2024 11:04:00 44.1 40.0-48.4 (%) Final MCV 04/02/2024 11:04:00 95.0 82.0-99.5 (fL) Final MCH 04/02/2024 11:04:00 31.5 27.0-34.0 (pg) Final MCHC 04/02/2024 11:04:00 33.1 32.0-36.0 (g/dL) Final RDW 04/02/2024 11:04:00 13.2 11.5-15.5 (%) Final Platelets 04/02/2024 11:04:00 191 140-400 (K/uL) Final MPV 04/02/2024 11:04:00 11.3 6.6-11.1 (fL) Final Nucleated erythrocytes/100 leukocytes [Ratio] in Blood by Automated count 04/02/2024 11:04:00 0 <=0 (/100 WBCs) Final Performing Location LAB[facility]ATORY [facility] [place] - [facility] [address] [place] [address]
[2024-04-08] MEDS: LEVOTHYROXINE SODIUM 100 MCG TABLET PO SCH (06:39)
[2024-04-08 07:39] LABS: Hematocrit (blood only) 39.8 % (42.0-52.0); Hemoglobin 13.4 g/dl (14.0-18.0); Mean Corpuscular Hemoglobin 30.9 pg (25.0-34.0); Mean Corpuscular Hgb Conc 33.7 g/dL (32.0-36.0); Mean Corpuscular Volume 91.7 fL (80.0-100.0); Platelet Count 178 K/uL (130-400); RDW Coefficient of Variation 13.3 % (11.5-14.5); RDW Standard Deviation 45.2 fL (36.4-46.3); Red Blood Count 4.34 M/uL (4.70-6.10); White Blood Count 11.04 K/ul (4.8-10.8)
[2024-04-08 07:54] LABS: BUN Creatinine Ratio 23.1 (10-20); Calcium 8.3 mg/dl (8.6-10.3); Chol HDL Ratio 4.4 (0-5); Creatinine Clr Calc Pharmacy 46.8 ml/min; Est GFR (African American) 56.7 ml/min; Est GFR (Non-African American) 48.9 ml/min; Magnesium 1.8 mg/dl (1.7-2.4); Phosphorus 3.6 mg/dl (2.5-4.9); Potassium 4.7 mmol/L (3.5-5.1)
--- OUTSIDE RECORDS SUMMARY | 2024-04-08 08:09 | External Medical Summary | Summary of Care ---
Author Name Unknown Organization [facility] Address [address] [address] Phone [phone] Care Team Providers Care Data Integrity Consultant Name Role Phone Angel Iniguez MD Primary Care Provider Reason for Visit * Reason Onset Date Comments Hospital Follow-Up 04/05/2024 Encounter Details Date Type Department Care Team (Late st Contact Info) Description 04/05/2024 Telephone [facility] [address] [place] [address] Angel Iniguez MD [address] [place] [address] Hospital Follow-Up Allergies Active Allergy [...] 11/05/2022 Overview: Per CKD protocol Atherosclerosis of [place] co ronary artery of [place] heart with stable angina pectoris 10/12/2022 Coronary artery disease invo lving [place] coronary artery of [place] heart without angina pectoris 11/06/2019 Gastroesophageal reflux disease without esophagi tis 11/06/2019 Old [place] (myocardial infarction) 11/06/2019 Primary osteoarthritis of both [...] 31.39 08/14/11 08/14/2011 01/29/2017 VERDICT Clinical Trial [id number] 1 09/30/2013 Overview: Renamed per the Centers for Medicare and Medicaid billing requirements to include Clinical Trial.gov number. VERDICT Clinical Trial [id number] 1 09/01/2014 Overview: Renamed per the Centers for Medicare and Medicaid billing requirements to include Clinical Trial.gov number. Stable angina 08/02/2011 09/29/2018 OBESITY, BMI= 31.05 01/23/11 01/23/2011 0 01/29/2017 Heartburn 01/23/2011 01/03/2016 OBESITY, BMI= 31.38 04/25/10 04/25/2010 01/29/2017 Screening for prostate cancer 04/25/2010 01/03/2016 Subjective tinnitus 04/25/2010 10/28/19 15 OBESITY, BMI 30-34 (SEE ACTUAL BMI) 12/15/2009 04/25/2010 Overview: Per Obesity Taxonomy CORON ATHEROSCL [place] CORON VESSEL 11/01/2009 04/25/2010 Migraine 11/01/2009 10/28/2014 Overweight (BMI 25.0-29.9) 08/15/2009 0 12/15/2009 Overview: Per Obesity Taxonomy Angina pectoris 07/01/2009 04/25/2010 Need for pneumococcal vaccination 07/01/2009 10/28/2014 Need for diphtheria-tetanus- pertussis (Tdap) vaccine 07/01/2009 10/28/2014 EXAMINATION OF PARTICIPANT I N CLINICAL TRIAL-Genomics 06/24/2009 01/06/2010 Overview: Renamed Per Clinical Trials Billing Project. Study Titile: Genomic Markers for Patients with Cardiovascular Disease Project #[id number] PI: Asia Hebert MD Please call [phone] with study related questions Unstable angina 06/24/2009 08/02/2011 Dyslipidemia, goal to be determined 06/24/2009 08/17/2009 Overview: Per Lipid Taxonomy HTN, goal to be determined 06/24/2009 1 09/28/2008 Overview: Per HTN Taxonomy GENOMICS CARDIO RESEARCH OTHER*[id number] 06/24/2009 10/30/2016 Overview: Renamed Per Clinical Trials Billing Project. Study Titile: Genomic Markers for Patients with Cardiovascular Disease Project #[id number] PI: Asia Hebert MD Please call [phone] with study related questions Screening for prostate [...] mRNA, LNP-s, No Pre serve, 2-Dose Series ([employer]) 11/30/2020,11/09/2020 PPD 05/13/2000 Pneumococcal Conjugate Vacc, 13 [...] was given about 6 yrs ago by [employer], get date) documented as of this encounter [...] Telephone Encounter - Leslie Torres OSA - 04/07/2024 11:56 AM EDT Patient will need separate appt as his upcoming appt is CPE. He needs Hospital Discharge as they are two separate issues. Hospital Discharge appts are 40 mins. 04/07/2024 * Telephone Encounter - Jana Roth OSA [...] 04/05/2024 6:51 PM EDT Patient Name: CHARIS ARGUELLO([id number]) Sex: Male : 1950 PCP: ANGEL INIGUEZ Center: [facility] Types of orders made on 04/05/2024: IP Discharge, IP Post Discharge , Medications Order Date:04/05/2024 Ordering User:CORRY AMEZCUA [[id number]] Attending Provider: Rich Caballero MD [[id number]] Authorizing Provider: Corry Amezcua MD [[id number]] Department:[address][[id number]] Order Specific Information Order: RETURN APPT [CUSTOM: [id number]] Order #: [id number]: 1 Priority: Routine Class: Nursing Unit Department (Single Entry) -> [facility] Appt Needed Within: (Specify # of Days, Weeks, Months) -> 2 Wks Released on: 04/05/2024 7:52 AM Priority: Routine Class: Nursing Unit Department (Single Entry) -> [facility] Appt Needed Within: (Specify # of Days, Weeks, Months) -> 2 Wks Released on: 04/05/2024 7:52 AM documented in this encounter Plan of Treatment Upcoming Encounters Date Type Department Care Team (Latest Contact Info) Description 04/14/2024 8:20 AM EDT Office Visit [address] [address] Angel Iniguez MD [address] [place] [address] 04/21/2024 7:30 AM EDT Hospital Encounter [place] [facility] [place], OPERATING ROOM [facility], [facility] [address] [place] [phone] Braulio Castaneda MD [address] [place] [address] 04/21/2024 7:30 AM EDT - 04/21/2024 11:06 AM EDT Surgery OR [facility] [place], OPERATING ROOM [facility] [place] [facility], [facility] [address] [place] [phone] Braulio Castaneda MD [address] [place], [place] [phone] ARTHRODESIS, ANT INTERBODY, BELOW C-2 Scheduled Procedures Name Priority Associated Diagnoses Date/Ti me ARTHRODESIS, ANT INTERBODY, BELOW C-2 Cervical spinal stenosis DDD (degenerative disc disease), cervical Displacement of cervical intervertebral disc without myelopathy 04/21/2024 7:30 AM EDT ARTHRODESIS,ANT INTERBODY,BELOW C-2,EA ADDL Cervical spinal stenosis DDD (degenerative disc disease), cervical Displacement of cervical intervertebral disc without myelopathy 04/21/2024 7:30 AM EDT ALLOGRAFT FOR SPINE SURGERY STRUCTURAL Cervical spinal stenosis DDD (degenerative disc disease), cervical Displacement of cervical intervertebral disc without myelopathy 04/21/2024 7:30 AM EDT INTRAOPERATIVE NEUROPHYSIOLOGY MONITORING, EA. 15 MINS Cervical spinal stenosis DDD (degenerative disc disease), cervical Displacement of cervical intervertebral disc without myelopathy 04/21/2024 7:30 AM EDT ANTERIOR INSTRUMENTATION 2 TO 3 VERTEBRAL SEGMENT Cervical spinal stenosis DDD (degenerative disc disease), cervical Displacement of cervical intervertebral disc without myelopathy 04/21/2024 7:30 AM EDT COLONOSCOPY FLEXIBLE PROXIMAL DIAGNOSTIC Recall [...] Additional history exists CKD PHOS USE SMARTSET 95418 12/29/2024 04/0 04/2024, 01/10/2023, 01/05/2016 TSH 03/10/2025 03/10/2024, 04/0 04/2024, 01/10/2023, Additional history exists CKD HGB USE SMARTSET 93063 04/04/202504/04, 04/02/2024, 04/02/2024, Additional history exists Colonoscopy 05/30/2025 05/30/2022, 0903/2022, [...] this encounter Medical Devices Implanted Type Area Mail Sorter Device Identifier Shelf Expiration Date Model / Serial / Lot Suture Steel 6 B&S19 M654g - [id number] Implanted:Qty: 4 on 08/19/2018 by Brenna Perez MD at [place] [facility] [place] N/A: Sternum JNJ : [employer] 04/22/2023 M654G / / M654 Clip Occl Atri Flex V 45mm - [id number] - [id number] Implanted:Qty: 1 on 08/19/2018 by Brenna Perez MD at OR [facility] [place] ATRICURE 03/23/2021 [id number] / [id number] / Duraclip 16mm Xlg Repostn - [id number] Implanted:Qty: 1 on 05/30/2022 by Juventino Degroot DO at [facility] [employer] SYVLIE 11/08/2023 [id number] / / documented as of this encounter [...] Power of Attor haven? No Care Teams Data Integrity Consultant Relationship Specialty Start Date End Date Angel Iniguez MD [address] [place] [address] PCP - General Family Medicine 03/27/18 documented as of this encounter
--- OUTSIDE RECORDS SUMMARY | 2024-04-08 08:09 | External Medical Summary | Summary of Care ---
Author Name Unknown Organization [facility] Address [address] [facility] [address] Phone [phone] Care Team Providers Care Liquid Sugar Fortifier Name Role Phone Angel Iniguez MD Primary Care Provider Reason for Visit * Reason Onset Date Comments Hospital Follow-Up 04/05/2024 Encounter Details Date Type Department Care Team (Late st Contact Info) Description 04/05/2024 Telephone [facility] [address] [place] [address] Angel Iniguez MD [address] [place] [address] Hospital Follow-Up Allergies Active Allergy [...] 11/05/2022 Overview: Per CKD protocol Atherosclerosis of [place] co ronary artery of [place] heart with stable angina pectoris 10/12/2022 Coronary artery disease invo lving [place] coronary artery of [place] heart without angina pectoris 11/06/2019 Gastroesophageal reflux [...] 31.39 08/14/11 08/14/2011 01/29/2017 VERDICT Clinical Trial [id number] 1 09/30/2013 Overview: Renamed per the Centers for Medicare and Medicaid billing requirements to include Clinical Trial.gov number. VERDICT Clinical Trial [id number] 1 09/01/2014 Overview: Renamed per the Centers for Medicare and Medicaid billing requirements to include Clinical Trial.gov number. Stable angina 08/02/2011 09/29/2018 OBESITY, BMI= 31.05 01/23/11 01/23/2011 0 01/29/2017 Heartburn 01/23/2011 01/03/2016 OBESITY, BMI= 31.38 04/25/10 04/25/2010 01/29/2017 Screening for prostate cancer 04/25/2010 01/03/2016 Subjective tinnitus 04/25/2010 10/28/19 15 OBESITY, BMI 30-34 (SEE ACTUAL BMI) 12/15/2009 04/25/2010 Overview: Per Obesity Taxonomy CORON ATHEROSCL [place] CORON VESSEL 11/01/2009 04/25/2010 Migraine 11/01/2009 10/28/2014 Overweight (BMI 25.0-29.9) 08/15/2009 0 12/15/2009 Overview: Per Obesity Taxonomy Angina pectoris 07/01/2009 04/25/2010 Need for pneumococcal vaccination 07/01/2009 10/28/2014 Need for diphtheria-tetanus- pertussis (Tdap) vaccine 07/01/2009 10/28/2014 EXAMINATION OF PARTICIPANT I N CLINICAL TRIAL-Genomics 06/24/2009 01/06/2010 Overview: Renamed Per Clinical Trials Billing Project. Study Titile: Genomic Markers for Patients with Cardiovascular Disease Project #[id number] PI: Asia Hebert MD Please call [phone] with study related questions Unstable angina 06/24/2009 08/02/2011 Dyslipidemia, goal to be determined 06/24/2009 08/17/2009 Overview: Per Lipid Taxonomy HTN, goal to be determined 06/24/2009 1 09/28/2008 Overview: Per HTN Taxonomy GENOMICS CARDIO RESEARCH OTHER*[id number] 06/24/2009 10/30/2016 Overview: Renamed Per Clinical Trials Billing Project. Study Titile: Genomic Markers for Patients with Cardiovascular Disease Project #[id number] PI: Asia Hebert MD Please call [phone] with study related questions Screening for prostate [...] mRNA, LNP-s, No Pre serve, 2-Dose Series ([employer]) 11/30/2020,11/09/2020 PPD 05/13/2000 Pneumococcal Conjugate Vacc, 13 [...] was given about 6 yrs ago by [employer], get date) documented as of this encounter [...] Torres OSA - 04/07/2024 11:56 AM EDT LMOM as patient will need separate appt as his upcoming appt is CPE. He needs Hospital Discharge asthey are two separate issues. Hospital Discharge appts [...] - 04/05/2024 6:51 PM EDT Patient Name: CHRAIS ARGUELLO([id number]) Sex: Male : 1950 PCP: ANGEL INIGUEZ Center: [facility] Types of orders made on 04/05/2024: IP Discharge, IP Post Discharge , Medications Order Date:04/05/2024 Ordering User:CORRY AMEZCUA [[id number]] Attending Provider: Rich Caballero MD [[id number]] Authorizing Provider: Corry Amezcua MD [[id number]] Department:[address][[id number]] Order Specific Information Order: RETURN APPT [CUSTOM: [id number]] Order #: [id number]: [id number] Priority: Routine Class: Nursing Unit Department (Single Entry) -> [facility] Appt Needed Within: (Specify # of Days, [...] Description 04/14/2024 8:20 AM EDT Office Visit [address] [address] Angel Iniguez MD [address] [place] [address] 04/21/2024 7:30 AM EDT Hospital Encounter [place] [facility] [facility] [address] [place] [phone] Braulio Castaneda MD [address] [place] [address] 04/21/2024 7:30 AM EDT - 04/21/2024 11:06 AM EDT Surgery [place] [facility] [place] [facility] [facility] [address] [place] [phone] Braulio Castaneda MD [address] [place], [place] [phone] ARTHRODESIS, ANT INTERBODY, BELOW C-2 Scheduled Procedures [...] Additional history exists CKD PHOS USE SMARTSET 45920 12/29/2024 04/0 04/2024, 01/10/2023, 01/05/2016 TSH 03/10/2025 03/10/2024, 04/0 04/2024, 01/10/2023, Additional history exists CKD HGB USE SMARTSET 37196 04/04/202504/04, 04/02/2024, 04/02/2024, Additional history exists Colonoscopy [...] this encounter Medical Devices Implanted Type Area Child Daycare Worker Device Identifier Shelf Expiration Date Model / Serial / Lot Suture Steel 6 B&S19 M654g - [id number] Implanted:Qty: 4 on 08/19/2018 by Brenna Perez MD [place] [facility] [place] N/A: Sternum JNJ : [employer] 04/22/2023 M654G / / M654 Clip Occl Atri Flex V 45mm - [id number] - [id number] Implanted:Qty: 1 on 08/19/2018 by Brenna Perez MD at [place] [facility] [place] ATRICURE 03/23/2021 [id number] / [id number] / Duraclip 16mm Xlg Repostn - [id number] Implanted:Qty: 1 on 05/30/2022 by Juventino Degroot DO at [facility] SYLVIE 11/08/2023 [id number] / / documented as of this encounter [...] Power of Attor haven? No Care Teams Liquid Sugar Fortifier Relationship Specialty Start Date End Date Angel Iniguez MD [address] [place] [address] PCP - General Family Medicine 03/27/18 documented as of this encounter
[2024-04-08] MEDS: ASPIRIN 81 MG ECTAB PO SCH (09:27)
--- NOTE | 2024-04-08 11:03 | Electrocardiogram Report ---
Test Reason : Blood Pressure : / mmHG Vent. Rate : 057 BPM Atrial Rate : 057 BPM P-R Int : 160 ms QRS Dur : 086 ms QT Int : 432 ms P-R-T Axes : 021 055 091 degrees QTc Int : 420 ms Sinus bradycardia Anteroseptal infarct (cited on or before 07-APR-2024) Abnormal ECG When compared with ECG of 01-APR-2024 16:28, No significant change was found Confirmed by Keith Rose ([id number]) on 04/08/2024 11:03:52 AM Referred By: REFERRED SELF Confirmed By:Keith Rose
--- NOTE | 2024-04-08 12:40 | Neurology Consultation ---
Date of Consultation April 08, 2024 Assessment & Plan (1) Syncope and collapse: Recommend continued work up to include the following: CTA head & neck Recommend obtain EEG Provide seizure precautions Utilize benzodiazepines emergently for any breakthrough clinical seizure like activity Continue frequent neurological assessments Obtain stat CT brain without contrast for any acute neurological decline Recommend obtain echocardiogram Continue to monitor/control blood pressure & blood glucose Recommend monitor orthostatic vital signs Continue to monitor telemetry closely Recommend ZioPatch at DC if no evidence of arrhythmia during inpatient monitoring Continue to monitor renal and hepatic function, keep euvolemic Metabolic workup should include hgbA1c, fasting lipids, homocysteine, TSH, D Dimer, RPR, urinalysis Continue to monitor renal and hepatic function, keep euvolemic Recommend DAPT for at least 3 weeks to treat cerebral vascular atherosclerotic disease burden Recommend high dose statin therapy indefinitely if tolerated Ok from neurology perspective for VTE prophylaxis PT/OT/SLT to eval and treat Recommend continue positive airway pressure mask at times of sleep Patient will need [employer] form submitted due to complete loss of consciousness NO DRIVING PER [place] STATE LAW, patient and primary hospitalist team aware Telehealth Consultation Telehealth Information Telehealth Information: I performed this visit using a real-time telehealth connection between my location and the patients location ([facility]). After connecting through interactive tele-video, patient was identified by name and date of and/or wristband check.Patient (or authorized healthcare circulation representative) was informed that this was a telemedicine visit and it was being conducted confidentially over secure lines. My office door was closed and no one else was present in the room with me.Patient (or authorized healthcare circulation representative) provided consent to proceed with the visit, expressed an understanding of privacy and security of the telemedicine visit, and gave permission to have a hospital circulation representative in the room in order to assist with the visit and to conduct portions of the visit, as needed. I informed the patient (or authorized healthcare circulation representative) that I reviewed their record and presented the opportunity for them to ask any questions regarding the visit today. The patient agreed to participate. History of Present Illness Reason for Consultation: Syncope Requesting Physician: Dr. Bella Attending Physician: Sky Bella MD History of Present Illness 73yo male with significant history of EULALIA but reports has not used his positive airway pressure mask in over 2 years following a recall. He has significant past medical history also including CAD, HTN, CKD, hyperlipidemia and is suffering from BUE cervical radiculopathy with planned surgical intervention for cervical spine within the next few weeks per his own account. unfortunately presented yesterday following an episode of complete loss of consciousness. He reports driving when this happened and has been made aware of [facility] law requiring no driving following an event of loss of consciousness. He reports when driving he tried to turn his neck when suddenly he saw horizontal black and white lines prior to seeing all black then waking up. Reportedly he was feeling very lightheaded and was noted to be diaphoretic in the minutes prior to the event. There is no report of loss of bowel or bladder. No evidence of tongue biting. No reported clinical seizure like activity has been reported. Per documentation review, he was witness to be unconscious for approximately 10 minutes witnessed by granddaughter present in car when this occurred. He was notably hypotensive and received 2L of IV bolus upon arrival. He notably had a course of steroids at [facility] admit for cervical stenosis recently, he demonstrated leukocytosis on admit. There were no overt s/s of infection, he was started on IV antibiotics. He has undergone CT brain without contrast revealing no overt evidence of acute intracranial pathology. He has recently undergone CTA head & neck revealing evidence of ICAD and extracranial atherosclerotic disease burden within cerebrovascular posterior circulation- recommend repeat this study following recent event. He has undergone MRI brain without contrast unrevealing for acute intracranial pathology. He is pending an EEG. I have performed televideo consultation. He is alert & oriented; able to answer all questions appropriately, name objects on televideo monitor, repeat phrases and perform complex/embedded commands without deficit. Neurological exam is non lateralizing/nonfocal in terms of motor strength and coordination. NIHSS=0. Allergies Allergy/AdvReac Type Severity Reaction Status Date / Time Sulfa (Sulfonamide Allergy Unknown Blisters Verified 04/07/24 17:16 Antibiotics) atenolol AdvReac Unknown BRADYCARDIA Verified 04/07/24 17:16 ,DIZZINESS metoprolol AdvReac Unknown BRADYCARDIA Verified 04/07/24 17:16 ,DIZZINESS Home Medications Medication Instructions Recorded Confirmed Type acetaminophen 500 mg tablet 500 mg PO DIRECTED PRN Pain 04/03/19 04/07/24 History aspirin 81 mg chewable tablet 162 mg PO QAM 04/03/19 04/07/24 History atorvastatin 40 mg tablet 40 mg PO HS 04/03/19 04/07/24 History carvedilol 6.25 mg tablet 6.25 mg PO BID 04/03/19 04/07/24 History levothyroxine 100 mcg tablet 100 mcg PO QAM 04/03/19 04/07/24 History nitroglycerin 0.4 mg sublingual 0.4 mg sublingual DIRECTED PRN 04/03/19 04/07/24 History tablet Chest Pain hydrochlorothiazide 25 mg tablet 25 mg PO QAM 04/01/24 04/07/24 History losartan 100 mg tablet 100 mg PO QAM 04/01/24 04/07/24 History Patient History Social History Smoking Status: Never smoker Hx Alcohol Use: No Hx Substance Use: No Preferred Language: Thai Communication Ability: Effective Tube Coremaker Required: No Beliefs That Will Affect Care: None Current Living Situation: Spouse Other Information That Helps Us Care for You: No Feels Safe at Home: Yes Safety Concerns: Feels Safe At This Time Assistive Devices: None Physical Exam Neurological Examination: Mental Status: Awake and alert. Oriented to person, place, and time. Fluency naming repetition and comprehension appear grossly intact. Affect remains appropriate. CN testing: I: Denies changes in ability to smell II:Reports no changes in visual acuity III/IV/: No evidence of gaze preference, hippus, nystagmus or roving eye movements V: Facial sensation reportedly grossly intact to light touch bilaterally VII: Facial movements appear without evidence of asymmetry VIII: Hearing appears grossly intact to loud voice bilaterally IX/X: Palate appears to elevate symmetrically XI: Shoulder shrug appears symmetric/ grossly intact bilaterally XII: Tongue protrudes midline without evidence of biting Motor exam: Strength appears grossly intact/symmetric in all extremities Sensory: Sensation is reportedly grossly intact throughout Coordination: Finger to nose and heel to tamez were intact. No apparent evidence of dysmetria or dysdiadochokinesia Reflexes: Deferred Gait: Deferred Results & Data Vital Signs (Past 12 Hours) Vital Signs Temp Pulse Pulse Pulse Resp BP BP 04/08/24 11:24 36.5 C 88 18 110/69 04/08/24 07:40 36.5 C 69 18 128/77 04/08/24 07:25 69 04/08/24 04:22 36.4 C L 78 20 123/78 Pulse Ox O2 Del Method 04/08/24 11:24 97 Room Air 04/08/24 07:40 98 Room Air 04/08/24 07:25 04/08/24 04:22 95 Room Air Laboratory Results Abnormal lab results 04/07/24 04/07/24 04/08/24 Range/Units 14:53 14:58 07:22 WBC 13.12 H 11.04 H (4.8-10.8) K/ul RBC 4.34 L (4.70-6.10) M/uL Hgb 13.4 L (14.0-18.0) g/dl POC Hgb 13.6 L (14.0-18.0) g/dl Hct 39.8 L (42.0-52.0) % POC Hct 40 L (42-52) % Neut # (Auto) 9.63 H (1.40-6.50) K/uL Armstrong # (Auto) 1.06 H (0.11-0.59) K/uL Sodium 135 L (136-145) mmol/L POC Total CO2 22 L (24-31) mmol/L POC BUN 36 H (7-18) mg/dl BUN 37 H 33 H (6-23) mg/dl Creatinine 1.45 H 1.43 H (0.6-1.4) mg/dl POC Creatinine 1.6 H (0.6-1.3) mg/dl BUN/Creatinine Ratio 25.5 H 23.1 H (10-20) Glucose 122 H (70-99(Fasting)) mg/dl POC Glucose (other) 127 H (70-99) mg/dl Calcium 8.3 L (8.6-10.3) mg/dl POC Ioniz Calcium Josiah 1.08 L (1.12-1.32) mmol/l Total Bilirubin 1.5 H (0.2-1.0) mg/dl Triglycerides 210 H (0-150) mg/dl VLDL Cholesterol, Calc 42 H (0-30) mg/dl Diagnostic Findings Chest X-Ray 04/07/24 14:45 SINGLE VIEW CHEST CLINICAL HISTORY: Generalized weakness. FINDINGS: 2 AP, portable, semierect chest radiographs are compared to study dated 04/01/2024 and correlated with chest CT dated 07/23/2016. The patient is status post midline sternotomy. The cardiomediastinal silhouette is unremarkable. The lungs and pleural spaces are clear. No pneumothorax is seen. The skeletal structures are osteopenic. The bony thorax is grossly intact. Arthritic change is seen in the shoulders. IMPRESSION: No active disease in the chest. ACT 112: Negative or not required by law. Electronically signed by: Pavel Youngblood M.D. 04/07/2024 3:[address] 04/07/24 18:06 CT head/brain wo con CLINICAL HISTORY: Syncopal event Technique: Contiguous axial CT images of the head were acquired from the base of the skull to the vertex without intravenous contrast administration. Images were viewed in brain, subdural and bone windows. Automated dose lowering techniques and/or adjustment according to patient size were utilized for this exam. Comparison: Comparison is made to CT head 04/01/2024 Findings: The ventricles, basal cisterns, and cerebral sulci are normal. There is no acute intracranial hemorrhage or evidence of acute territorial infarction. Neither mass effect, shift of the midline structures, nor abnormal extra-axial fluid collections are shown. Imaged portions of the paranasal sinuses and mastoid air cells are clear. The orbits appear normal. There are no acute fractures of the calvaria or scalp swelling. Impression: No acute intracranial hemorrhage, no evidence of acute territorial infarction or other acute intracranial disease process. ACT 112: Negative or not required by law. Electronically signed by: Alfonzo Britt M.D. 04/07/2024 6:45 PM Carotid Doppler Study 04/07/24 20:12 ULTRASOUND OF THE CAROTID ARTERIES CLINICAL HISTORY: Syncope. COMPARISON STUDY: Carotid artery ultrasound dated 05/07/2009 TECHNIQUE: Real-time, grayscale, and color Doppler sonography of the carotid arteries is performed. Images are reviewed in the transverse and longitudinal planes. FINDINGS: The carotid arteries are patent bilaterally and demonstrate antegrade flow. There is mild atherosclerotic plaque seen in the right carotid bulb. Normal doppler arterial waveforms are seen throughout. Velocity measurements are listed below. Common carotid peak systolic velocity (cm/sec): RIGHT: 91 LEFT: 112 ICA proximal peak systolic velocity (cm/sec): RIGHT: 89 LEFT: 76 ICA mid peak systolic velocity (cm/sec): RIGHT: 69 LEFT: 64 ICA distal peak systolic velocity (cm/sec): RIGHT: 65 LEFT: GRABIEL ICA/CC peak systolic ratio: RIGHT: 1.0 LEFT: 0.8 Antegrade flow was shown in the vertebral arteries. The external carotid arteries are patent. IMPRESSION: 1. There is no sonographic evidence of hemodynamically significant stenosis in the right or left carotid arterial system. 2. Antegrade flow is shown in the vertebral arteries. ACT 112: Negative or not required by law. Electronically signed by: Pavel Youngblood M.D. 04/07/2024 9:45 PM Brain MRI 04/07/24 20:17 Exam(s): MRI HEAD Without Contrast EXAM: MR Head Without Intravenous Contrast CLINICAL HISTORY: Reason for exam: Syncopal event. TECHNIQUE: Magnetic resonance images of the head/brain without intravenous contrast in multiple planes. COMPARISON: Comparison made to prior CT scan of the head from April 07, 2024. FINDINGS: Brain: Mild nonspecific white matter changes. The flow voids of the base of the brain are intact. No mass. No hemorrhage. No acute infarct. Ventricles: Unremarkable. No ventriculomegaly. Bones/joints: Unremarkable. No acute fracture. Sinuses: Chronic ethmoid sinusitis. No acute sinusitis. Mastoid air cells: Unremarkable as visualized. No mastoid effusion. Orbits: Unremarkable as visualized. IMPRESSION: No evidence of acute intracranial pathology. Mild nonspecific white matter changes. Electronically signed by: Kelsea Portillo MD 04/08/24 00:22 AM Medications Administered Home Medications Medication Instructions Recorded Confirmed Last Taken acetaminophen 500 mg tablet 500 mg PO DIRECTED PRN Pain 04/03/19 04/07/24 Unknown aspirin 81 mg chewable tablet 162 mg PO QAM 04/03/19 04/07/24 04/07/24 atorvastatin 40 mg tablet 40 mg PO HS 04/03/19 04/07/24 04/06/24 carvedilol 6.25 mg tablet 6.25 mg PO BID 04/03/19 04/07/24 04/07/24 levothyroxine 100 mcg tablet 100 mcg PO QAM 04/03/19 04/07/24 04/07/24 nitroglycerin 0.4 mg sublingual 0.4 mg sublingual DIRECTED PRN 04/03/19 04/07/24 Unknown tablet Chest Pain hydrochlorothiazide 25 mg tablet 25 mg PO QAM 04/01/24 04/07/24 04/07/24 losartan 100 mg tablet 100 mg PO QAM 04/01/24 04/07/24 04/07/24 Active Medications Generic Name Dose Route Start Last Admin Trade Name Amanda PRN Reason Stop Dose Admin Acetaminophen 650 mg 04/07/24 22:28 04/07/24 23:10 Acetaminophen 325 Mg Tab PO 05/07/24 22:27 650 mg Q4H PRN Administration pain/fever Aspirin 162 mg 04/08/24 09:00 04/08/24 09:27 Aspirin 81 Mg Ectab PO 05/08/24 08:59 162 mg QAM YANG Administration Atorvastatin Calcium 40 mg 04/07/24 22:28 04/07/24 23:11 Atorvastatin 40 Mg Tab PO 05/07/24 22:27 40 mg HS YANG Administration Cefepime HCl 2,000 mg/ Syringe 20 mls @ 5 mls/min 04/07/24 23:00 04/08/24 11:52 IV 04/09/24 22:59 5 mls/min Q12H YANG Administration Protocol Levothyroxine Sodium 100 mcg 04/08/24 06:30 04/08/24 06:39 Levothyroxine Sodium 100 Mcg Tablet PO 05/08/24 06:29 100 mcg DAILYBB YANG Administration
[2024-04-08] MEDS: OPTIRAY 320 125ml IV ONE (14:19)
--- NOTE | 2024-04-08 14:47 | CT Scan Report ---
CT angio neck with con, CT angio head w con CLINICAL HISTORY: Syncopal event TECHNIQUE: CT angiography of the head and neck was performed following intravenous administration of iodinated contrast. Coronal and sagittal MIPS were obtained from the axial data set and were submitt ed for review. Automated dose lowering techniques and/or adjustment according to patient size were u tilized for this examination. All measurements were calculated based on NASCET criteria. Comparison: Comparison is made to CTA head and neck 04/01/2024 FINDINGS: Lungs and soft tissues are unremarkable. CTA Neck: A 3 vessel aortic arch is shown. There is no significant atherosclerotic plaque in the aor tic arch or the origins of the innominate, left common carotid, and left subclavian arteries. There is likely hemodynamically significant stenosis of the origin of the right vertebral artery is unchang ed from prior exam. The left vertebral artery is dominant. CTA Head: The anterior and posterior cerebral circulations are patent. Narrowing of the right photocomposing machine operator ior cerebral artery is similar to prior exam. IMPRESSION: 1. 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 2. Stable narrowing of the right posterior cerebral artery. No new significant stenosis, or other ac kelechi abnormalities. Assessment of stenosis of the internal carotid arteries is based on NASCET criteria. ACT 112: Negative or not required by law. Electronically signed by: Alfonzo Britt M.D. 04/08/2024 2:46 PM
--- NOTE | 2024-04-08 16:01 | Hospitalist Progress Note ---
Date of Service April 08, 2024 Assessment & Plan (1) Syncope: (2) Cervical radiculopathy: (3) Arteriosclerotic cardiovascular disease (ASCVD): Plan Yovany Bliss is a 73y/o M with PMHx of dyslipidemia, hypothyroidism, EULALIA on BiPAP, ASCVD (arteriosclerotic cardiovascular disease), HTN, CAD s/p CABG [2018], history of coronary angiography with left heart cath stent x 1, GERD without esophagitis, CKD stage III, cervical DDD, cervical spine stenosis and other problems listed below who presented to the ED via ambulance for evaluation following a syncopal episode. Of note, patient was seen and evaluated in the ED on 04/01 for the following: one month history of bilateral upper extremity weakness with numbness of the hands, neck pain and fatigue. Patient previously saw his PCP and was given a course of steroid without improvement, therefore he was sent to the emergency department due to worsening symptoms. MRI in the ED revealed the following: moderate disc degeneration at C3-4, C4-5 and C6-7 with concern of cord edema and critical spinal canal stenosis at C3-4 and C4-5 with severe stenosis at C6-7. The patient was ultimately transferred to [facility] for evaluation and potential need for emergent surgical evaluation. Patient was ultimately admitted at [facility] and evaluated by the spine surgery team. He ultimately received IV Decadron with significant improvement of his weakness/tingling with mild residual tingling of hand/fingers - therefore he did not undergo emergent surgery. Now the patient is scheduled with Dr. Castaneda from the spine surgery team to undergo ACDF on 04/21. Patient was admitted from 04/02-04/05 at [facility]. Syncopal Episode Patient presented with a syncopal episode. 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 Brain MRI- no acute findings EEG pending Discussed with Dr. Cortes from neurology; he recommended repeat CTA head and neck; showed high-grade stenosis of right vertebral artery origin which was seen in previous CTA head/neck Will follow-up on EEG PT OT evaluation Started on Plavix along with aspirin given atherosclerotic disease Continue emperic antiboiticsfor now Cervical Radiculopathy Cervical spine MRI from 04/01 revealed the following: i. Moderate disc degeneration at C3-4, C4-5 and C6-7 with concern of cord edema and critical spinal canal stenosis at C3-4 and C4-5 with severe stenosis at C6- 7. Now the patient is scheduled with Dr. Castaneda from the spine surgery team at [facility] to undergo ACDF on 04/21. Arteriosclerotic Cardiovascular Disease (ASCVD) Pt had a neck CTA performed on 04/01 in ED that showed the following: i. High-grade stenoses of the R vertebral and posterior cerebral arteries 2/2 atherosclerosis. ii. Moderate atherosclerosis of the carotid bulbs w/o high-grade stenosis. Repeat CTA head and neck showing similar findings Carotid Doppler does not show any significant carotid stenosis On aspirin, Plavix and statin Vascular surgery was consulted HTN Pt taking carvedilol, losartan and hydrochlorothiazide HOTHOUSE WORKER. Given hypotension HOTHOUSE WORKER and softer BPs in ED, will hold these medications for now. Continuous cardiac monitoring in place, trend BP overnight. Reassess plan to restart these medications in AM given result of BP trend. CKD Stage III Cr 1.6 on admission (baseline Cr ~1.3-1.5 per chart review). avoid nephrotoxic agent. Dyslipidemia, CAD s/p CABG: Will continue HOTHOUSE WORKER aspirin and atorvastatin. EULALIA on BiPAP: Order placed for BiPAP HS, can continue. Hypothyroidism: Can continue HOTHOUSE WORKER levothyroxine, TSH WNL at time of admission. DVT Prophylaxis: Sheparin Code Status: FULL CODE PCP: Ritesh Iniguez MD Disposition: Admit to Med/Surg w/ Telemetry Time spent evaluating patient, direct bedside care, chart review, placing orders, interpretation of diagnostic studies, discussion with consultants, patient, and family members, as well as other required patient management activities is 50-minute Please note the above document was generated using voice recognition software. It may contain grammatical, syntax or spelling errors. Any formal questions or concerns about the content, text or information contained within the body of this dictation should be directly addressed to the provider for clarification Admission and Anticipated Discharge Date Admission Date: April 07, 2024 Subjective Patient seen and examined at bedside. He is alert oriented x 3; not in distress. No episode of unconsciousness No significant overnight events. Review of Systems Review of Systems: All systems reviewed & are unremarkable except as noted in Subjective Physical Exam Physical Exam: Constitutional: WD/WN, vitals as above, NAD, sitting up in bed, pleasant, conversing easily Respiratory: normal respiratory effort, lungs clear to auscultation, no wheeze, rales, rhonchi. Normal insp/exp effort, no accessory muscle use Cardiovascular: RRR, no murmur, no edema Vessels: no JVD or carotid bruit Chest: normal inspection of chest Abdomen: normal bowel sounds, soft, nontender, no hepatosplenomegaly Musculoskeletal: no cyanosis or clubbing, extremities motor strength 5/5 Skin: no rashes, warm and dry normal turgor Neurologic: PERRL, EOMI, accommodation nl, no face palsy, no dysarthria CN's II- XI intact bilaterally and moves all extremities Psychiatric: A+Ox3, euthymic affect Results & Data Results & Data Vital Signs (Past 12 Hours) Vital Signs Temp Pulse Pulse Pulse Resp BP BP 04/08/24 15:10 98 H 04/08/24 11:24 36.5 C 88 18 110/69 04/08/24 07:40 36.5 C 69 18 128/77 04/08/24 07:25 69 04/08/24 04:22 36.4 C L 78 20 123/78 Pulse Ox O2 Del Method 04/08/24 15:10 04/08/24 11:24 97 Room Air 04/08/24 07:40 98 Room Air 04/08/24 07:25 04/08/24 04:22 95 Room Air (1) Syncope Syncope type: unspecified Qualified Code(s): R55 - Syncope and collapse
[2024-04-08] MEDS: CLOPIDOGREL BISULFATE 75 MG TAB PO SCH (17:08)
[2024-04-08] MEDS: POLYETHYLENE (MIRALAX) 17 GM PACK PO PRN (18:01)
[2024-04-09 07:03] LABS: Basophils # (auto) 0.01 K/uL (0.00-0.20); Basophils % (auto) 0.1 %; Eosinophils # (auto) 0.24 K/uL (0.00-0.50); Eosinophils % (auto) 2.2 %; Hemoglobin 13.9 g/dl (14.0-18.0); Immature Granulocytes # (auto) 0.07 K/uL (0.01-0.20); Immature Granulocytes % (auto) 0.6 %; Lymphocytes # (auto) 2.52 K/uL (1.20-3.40); Mean Corpuscular Hemoglobin 30.8 pg (25.0-34.0); Mean Corpuscular Hgb Conc 33.9 g/dL (32.0-36.0); Mean Corpuscular Volume 90.7 fL (80.0-100.0); Mean Platelet Volume 11.3 fL (9.4-12.4); Monocytes # (auto) 1.14 K/uL (0.11-0.59); Monocytes % (auto) 10.4 %; Neutrophils # (auto) 6.99 K/uL (1.40-6.50); Neutrophils % (auto) 63.7 %; Platelet Count 171 K/uL (130-400); RDW Coefficient of Variation 13.3 % (11.5-14.5); RDW Standard Deviation 44.5 fL (36.4-46.3); Red Blood Count 4.52 M/uL (4.70-6.10); White Blood Count 10.97 K/ul (4.8-10.8)
[2024-04-09 07:13] LABS: BUN Creatinine Ratio 21.5 (10-20); Calcium 8.5 mg/dl (8.6-10.3); Creatinine Clr Calc Pharmacy 49.8 ml/min; Est GFR (African American) 60.8 ml/min; Est GFR (Non-African American) 52.4 ml/min; Potassium 3.9 mmol/L (3.5-5.1)
--- NOTE | 2024-04-09 12:42 | Communication Note ---
Date of Service: April 09, 2024 EMR reviewed No reported events noted CTA reviewed, echocardiogram noted Proceed with neurology recommendations Plan for continued outpatient follow up with Neurology No driving per [place] state law following episode of complete loss of consciousness
--- NOTE | 2024-04-09 16:12 | Discharge Summary ---
Date of Service April 09, 2024 Admission HPI Per Admitting Provider Yovany Bliss is a 73y/o M with PMHx of dyslipidemia, hypothyroidism, EULALIA on BiPAP, ASCVD (arteriosclerotic cardiovascular disease), HTN, CAD s/p CABG [2018], history of coronary angiography with left heart cath stent x 1, GERD without esophagitis, CKD stage III, cervical DDD, cervical spine stenosis and other problems listed below who presented to the ED via ambulance for evaluation following a syncopal episode. History obtained from patient, daughter (Adina) at bedside and associated chart review. Of note, patient was seen and evaluated in the ED on 04/01 for the following: one month history of bilateral upper extremity weakness with numbness of the hands, neck pain and fatigue. Patient previously saw his PCP and was given a course of steroid without improvement, therefore he was sent to the emergency department due to worsening symptoms. MRI in the ED revealed the following: moderate disc degeneration at C3-4, C4-5 and C6-7 with concern of cord edema and critical spinal canal stenosis at C3-4 and C4-5 with severe stenosis at C6-7. The patient was ultimately transferred to [facility] for evaluation and potential need for emergent surgical evaluation. Patient was ultimately admitted at [facility] and evaluated by the spine surgery team. He ultimately received IV Decadron with significant improvement of his weakness/tingling with mild residual tingling of hand/fingers - therefore he did not undergo emergent surgery. Now the patient is scheduled with Dr. Castaneda from the spine surgery team to undergo ACDF on 04/21. Patient was admitted from 04/02-04/05 at [facility]. Today the patient was out grocery shopping with his granddaughter and went to go turn his neck while driving and he suddenly became unresponsive. Patient was supposedly passed out for approximately 10 minutes according to his granddaughter. Per his daughter, he became very diaphoretic and was complaining of lightheadedness/dizziness before he passed out. Patient reports that he does not remember passing out; however, he does remember feeling very nauseous prior to this episode. He denies any episodes of vomiting. Per ED provider, it seems that the patient may have lost bladder control during this episode and urinated himself. However, his daughter reports that he was so diaphoretic that it was more than likely his sweat that caused his p d driver's seat to become wet. She reports the patient did not appear to urinate himself. His granddaughter denied witnessing any seizure activity during this episode of unresponsiveness. Patient denies any SOB or chest pain. He reports that he feels tired, but denies any nausea. 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 Patient received 1L NSS en route and an additional 1L NSS in the ED; his BP improved to 131/74 at time of admission. Admission Exam Per Admitting Provider General: NAD, laying down in bed, pleasant but appears mildly uncomfortable, conversing appropriately, A+Ox3, euthymic affect. HEENT: Normocephalic, atraumatic. Conjunctivae normal, anicteric sclerae. External ear and nose normal, oropharynx normal. Neck: Normal visual inspection, trachea midline, no thyromegaly, limited movement of neck. Respiratory: Normal respiratory effort, lungs clear to auscultation, no wheeze, rales, rhonchi. No accessory muscle use. Cardiovascular: Regular rate, rhythm, no murmur, normal peripheral pulses, no BLE edema. Vessels: No JVD. Abdomen/GI: Normal bowel sounds, soft, nontender, no hepatosplenomegaly. Extremities/Musculoskeletal: No cyanosis or clubbing, limited movement of b/l UE, strength intact in b/l UE. Neurologic: PERRL, EOMI, accommodation nl, no face palsy, no dysarthria. Skin: No rashes, normal color, warm/dry. Principal Diagnosis Syncopal Episode, likely due to hypotension Discharge Exam Constitutional: WD/WN, vitals as above, NAD, sitting up in bed, pleasant, conversing easily Respiratory: normal respiratory effort, lungs clear to auscultation, no wheeze, rales, rhonchi. Normal insp/exp effort, no accessory muscle use Cardiovascular: RRR, no murmur, no edema Vessels: no JVD or carotid bruit Chest: normal inspection of chest Abdomen: normal bowel sounds, soft, nontender, no hepatosplenomegaly Musculoskeletal: no cyanosis or clubbing, extremities motor strength 5/5 Skin: no rashes, warm and dry normal turgor Neurologic: PERRL, EOMI, accommodation nl, no face palsy, no dysarthria CN's II- XI intact bilaterally and moves all extremities Psychiatric: A+Ox3, euthymic affect Discharge Data Allergies Allergy/AdvReac Type Severity Reaction Status Date / Time Sulfa (Sulfonamide Allergy Unknown Blisters Verified 04/07/24 17:16 Antibiotics) atenolol AdvReac Unknown BRADYCARDIA Verified 04/07/24 17:16 ,DIZZINESS metoprolol AdvReac Unknown BRADYCARDIA Verified 04/07/24 17:16 ,DIZZINESS Consultations 04/07/24 17:56 ED Decision to Admit Stat 04/07/24 20:16 Consult Vascular Surgery Routine 04/07/24 20:23 Consult Neurology Routine Ordered Studies 04/07/24 18:[address] [CT head/brain wo con] Stat 04/07/24 20:12 US carotid doppler BI Routine 04/07/24 20:17 MRI Brain [MR brain wo con] Stat 04/08/24 13:13 CTA head w con [CT angio head w con] Urgent CTA neck with con [CT angio neck with con] Urgent Hospital Course (1) Syncope: (2) Cervical radiculopathy: (3) Arteriosclerotic cardiovascular disease (ASCVD): Susan Bliss is a 73y/o M with PMHx of dyslipidemia, hypothyroidism, EULALIA on BiPAP, ASCVD (arteriosclerotic cardiovascular disease), HTN, CAD s/p CABG [2018], history of coronary angiography with left heart cath stent x 1, GERD without esophagitis, CKD stage III, cervical DDD, cervical spine stenosis and other problems listed below who presented to the ED via ambulance for evaluation following a syncopal episode. Syncopal Episode Patient presented with a syncopal episode. Reported blurring of his vision prior to the event Pt was hypotensive [place] CLASS[employer] with SBP in the upper 90s Admitting CXR and head CT both negative for acute findings EKG w/ no ischemic changes, trop negative. Brain MRI- no acute findings Discussed with Dr. Cortes from neurology; he recommended repeat CTA head and neck; showed high-grade stenosis of right vertebral artery origin which was seen in previous CTA head/neck Started on Plavix along with aspirin given atherosclerotic disease Infectious work up was negative. Telemetry did not show any acute events Patient's blood pressure was found to be within normal range throughout the hospitalization despite not being on antihypertensives. The likely cause for the syncopal episode could be hypertension related with dehydration. Hydroch lorothiazide was stopped at discharge. Discharge instruction discussed with the patient's daughter over the phone. She is in agreement with the plan.Discussed about holding Plavix 5 days prior to the plan surgery Please note the above document was generated using voice recognition software. It may contain grammatical, syntax or spelling errors. Any formal questions or concerns about the content, text or information contained within the body of this dictation should be directly addressed to the provider for clarification Total Time Total Time Spent Total Time Spent (In Minutes): 34 Total Time Includes: Examination of the Patient, Discharge Planning, Medication Reconciliation, Communication With Other Providers and Other Discharge Plan Discharge Items Patient Disposition: Home - Self-Care Reason For Visit: SYNCOPAL EVENT Discharge Diagnosis: Syncopal episode, likely due to hypotension Condition on Discharge: Fair Activity: Resume your previous activity Non-emergency contact: Primary Care Provider Call non-emergency contact if: you have any medication questions and your symptoms worsen Follow-up/Referrals: Ritesh Iniguez MD [Primary Care Provider] - (Date & Time 04/14/2024 8:20 AM Provider Ritesh Iniguez MD Department [facility] ) Diet: Regular Addtl Attending Provider Instructions: You were admitted to the hospital after a syncopal episode. You underwent multiple testing including CTA head and neck, MRI brain, echocardiogram. The CTA head and neck showed stenosis of one of the vessels in the posterior aspect of the neck which is similar to the scan done last week. MRI brain did not show any stroke. Echocardiogram showed normal heart function. Your blood pressure was found to be within normal range during the hospitalization despite not being started on your home meds. We are stopping hydrochlorothiazide for the time being as it can contribute to dehydration. Please continue to take your other blood pressure pill. Monitor blood pressure daily at home in a sitting position with both feet on the ground and arm rested. An appointment will be made with your primary care doctor for sometime next week. Pending Studies at Discharge: Yes Studies:: EEG Stand-Alone Forms: [employer], Smoking Cessation Medications and DC Order Prescriptions: New clopidogrel 75 mg Tablet 75 mg PO QAM 20 Days Qty: 20 0RF Continued atorvastatin 40 mg tablet 40 mg PO HS carvedilol 6.25 mg tablet 6.25 mg PO BID levothyroxine 100 mcg tablet 100 mcg PO QAM Rx Instructions: TAKE THIS MEDICATION AT LEAST 30 MINUTES BEFORE BREAKFAST OR ANY OTHER MEDICATION aspirin 81 mg tablet,chewable 162 mg PO QAM nitroglycerin 0.4 mg Tablet, Sublingual 0.4 mg sublingual DIRECTED PRN (Reason: Chest Pain) Rx Instructions: PLACE ONE TABLET UNDER THE TONGUE EVERY 5 MINUTES FOR UP TO 3 DOSES OVER 15 MINUTES IF NEEDED FOR CHEST PAIN acetaminophen 500 mg Tablet 500 mg PO DIRECTED PRN (Reason: Pain) Rx Instructions: TAKE PER PACKAGE DIRECTIONS losartan 100 mg tablet 100 mg PO QAM Discontinued hydrochlorothiazide 25 mg tablet 25 mg PO QAM Discharge Orders: Discharge Order (Routine); Ordered 04/09/24 Ordered By: Sky Bella Admission Data Admit Date/Time: 04/07/24 18:17 Attending Provider: Sky Bella Admit Provider: Tr Wan Primary Care Provider: Ritesh Iniguez Other Providers: Ahsan Diaz; Tr Wan; Luis Alfredo Cortes Other Interventions: Discharge Summary Assessment (RN) Last Done: 04/09/24 12:38
--- NOTE | 2024-04-10 16:40 | Electroencephalogram ---
EEG Procedure Note Date of Service April 08, 2024 Start / End Times Start Time: 06:08 End Time: 06:[address] Tr Wan History A 73 year old male with syncope. EEG performed for evaluation of epileptiform activity. Home Medication List Medication Instructions Recorded Confirmed Type acetaminophen 500 mg tablet 500 mg PO DIRECTED PRN Pain 04/03/19 04/07/24 History aspirin 81 mg chewable tablet 162 mg PO QAM 04/03/19 04/07/24 History atorvastatin 40 mg tablet 40 mg PO HS 04/03/19 04/07/24 History carvedilol 6.25 mg tablet 6.25 mg PO BID 04/03/19 04/07/24 History levothyroxine 100 mcg tablet 100 mcg PO QAM 04/03/19 04/07/24 History nitroglycerin 0.4 mg sublingual 0.4 mg sublingual DIRECTED PRN 04/03/19 04/07/24 History tablet Chest Pain losartan 100 mg tablet 100 mg PO QAM 04/01/24 04/07/24 History clopidogrel 75 mg tablet 75 mg PO QAM 20 days #20 tabs 04/09/24 Rx Inpatient Medication List Discontinued Medications Acetaminophen (Acetaminophen 325 Mg Tab) 650 mg PO Q4H PRN PRN Reason: pain/fever Stop: 05/07/24 22:27 Last Admin: 04/07/24 23:10 Dose: 650 mg Documented By: BENNIE Aspirin (Aspirin 81 Mg Ectab) 162 mg PO QAM [facility] Stop: 05/08/24 08:59 Last Admin: 04/09/24 08:33 Dose: 162 mg Documented By: Admin: 04/08/24 09:27 Dose: 162 mg Documented By: TEN Atorvastatin Calcium (Atorvastatin 40 Mg Tab) 40 mg PO [facility] Stop: 05/07/24 22:27 Last Admin: 04/08/24 20:16 Dose: 40 mg Documented By: Admin: 04/07/24 23:11 Dose: 40 mg Documented By: BENNIE Clopidogrel Bisulfate (Clopidogrel Bisulfate 75 Mg Tab) 75 mg PO QAM [facility] Stop: 05/08/24 15:59 Last Admin: 04/09/24 08:33 Dose: 75 mg Documented By: Admin: 04/08/24 17:08 Dose: 75 mg Documented By: TEN Sodium Chloride (Nss) 500 mls @ 999 mls/hr IV .Q31M YANG Stop: 04/07/24 15:15 Last Infusion: 04/07/24 16:41 Dose: Infused Documented By: Admin: 04/07/24 15:33 Dose: 999 mls/hr Documented By: TERESITA Sodium Chloride (Nss) 500 mls @ 999 mls/hr IV .Q31M ONE Stop: 04/07/24 17:42 Last Infusion: 04/07/24 18:19 Dose: Infused Documented By: Admin: 04/07/24 17:48 Dose: 999 mls/hr Documented By: CIELO Sodium Chloride (Nss) 1,000 mls @ 100 mls/hr IV .Q10H YANG Stop: 04/08/24 08:27 Last Infusion: 04/08/24 09:15 Dose: Infused Documented By: Admin: 04/07/24 23:10 Dose: 100 mls/hr Documented By: BENNIE Cefepime HCl 2,000 mg/ Syringe 20 mls @ 5 mls/min IV Q12H YANG; Protocol Stop: 04/09/24 22:59 Last Admin: 04/09/24 12:55 Dose: 5 mls/min Documented By: Admin: 04/08/24 22:34 Dose: 5 mls/min Documented By: Admin: 04/08/24 11:52 Dose: 5 mls/min Documented By: Admin: 04/07/24 23:10 Dose: 5 mls/min Documented By: BENNIE Ioversol (Optiray 320 125ml) 117 ml IV ONCE ONE Stop: 04/08/24 14:19 Last Admin: 04/08/24 14:19 Dose: 117 ml Documented By: ADY Levothyroxine Sodium (Levothyroxine Sodium 100 Mcg Tablet) 100 mcg PO DAILYBB YANG Stop: 05/08/24 06:29 Last Admin: 04/09/24 05:53 Dose: 100 mcg Documented By: Admin: 04/08/24 06:39 Dose: 100 mcg Documented By: BENNIE Lorazepam (Lorazepam 0.5 Mg Tab) 0.5 mg PO NOW STA Stop: 04/07/24 20:35 Last Admin: 04/07/24 21:20 Dose: 0.5 mg Documented By: RENATO Polyethylene Glycol (Polyethylene (Miralax) 17 Gm Pack) 17 gm PO DAILY PRN PRN Reason: Constipation Stop: 05/07/24 22:27 Last Admin: 04/08/24 18:01 Dose: 17 gm Documented By: TEN Description This is a 21 electrode EEG with a single channel dedicated to limited EKG. The electrodes were placed in accordance with the International 10-20 system. REPORT: At the onset of the EEG, the patient is awake. The background activity consist of 10-11 Hz, persistent, posteriorly dominant, moderate amplitude, symmetric and rhythmic activity that is reactive to eye opening. Anteriorly, it consist of a mixture of low voltage indeterminate activity and 15-25 Hz, persistent, low amplitude, symmetric and rhythmic activity. Stepwise intermittent photic stimulation (1-21 Hz) and hyperventilation (3 minutes, good effort) do not induce any abnormalities. Drowsiness is characterized by low amplitude mixed frequency activity, roving eye movements, and decreased eye blinking and muscle artifact. Interpretation IMPRESSION: This is a normal awake and drowsy routine EEG. There is no evidence of focal slowing or epileptiform activity.
== END 2024-04-09 15:05 | disposition home or self-care (01) | DRG 315 ==
LOC: ED 14:22 → 2W 18:17 → SUATTDRO 18:17 → 2W 04-08 01:16